=== PATIENT | male | born 1940 | race Caucasian/White ===

== ENCOUNTER 2023-09-07 11:56 | Day surgery (SDC) | payer MEDICARE, SELFPAY ==
[2023-09-07] VITALS (10 sets, daily range): BP systolic 110–131; BP diastolic 73–94
[2023-09-07 12:42] LABS: Hematocrit 32.6 % (39.0-52.0); Hemoglobin 10.6 g/dL (13.0-18.0); Mean Corp Hgb Conc. 32.5 g/dL (33.0-37.0); Mean Corpuscular Volume 101.6 fL (80.0-94.0); Mean Platelet Volume 11.7 fL (7.4-10.4); Platelet Count 91 10^3/uL (130-400); Red Blood Cell Count 3.21 10^6/uL (4.70-6.10); Red Cell Dist. Width 14.6 % (11.5-14.5); White Blood Cell Count 4.6 10^3/uL (4.8-10.8)
[2023-09-07 12:50] LABS: APTT 34.4 Sec (23.4-35.0)
[2023-09-07 12:51] LABS: Blood Urea Nitrogen 48 mg/dl (9-20); Carbon Dioxide 32 mmol/L (22-30); Chloride 101 mmol/L (98-107); Estimated Creatinine Clearance 21 ml/min; Glucose 83 mg/dl (70-99); Potassium 3.8 mmol/L (3.5-5.1); Sodium 140 mmol/L (135-145); eGFR 19.86
[2023-09-07] MEDS: PERIDEX 0.12% ORAL RINSE 15 ML PO (13:02)
[2023-09-07] MEDS: BACTROBAN NASAL 1 GRAM NASAL (13:03)
[2023-09-07] MEDS: NSS 500 IV (13:03)
[2023-09-07 13:09] LABS: Glucose - Point of Care 86 mg/dl (70-99)
--- NOTE | 2023-09-07 16:04 | W.SUR.PREOP ---
Pre-Operative Surgical Note
-
I have examined this patient prior to the performance of the scheduled procedure.
The patient's condition is unchanged from the time of the current History and
Physical and the patient is able to undergo the scheduled procedure.
--- NOTE | 2023-09-07 17:48 | W.SUR.POST ---
Surgical Immediate Post Op
Note
Pre Op Diagnosis: ESRD
Post Op Diagnosis: ESRD
Procedure Performed: Right upper extremity brachial basilic stage I AV fistula creation
Primary Surgeon: Tuan Rivas III, MD
geriatric assistant: EVAN Rooney
Anesthesia: GETA
Estimated Blood Loss: 10 mL
Fluids: See anesthesia flowsheet
Drains/Shunts: N/A
Specimens/Cultures: N/A
Doppler/Duplex/Angio (Y/N): Y, Doppler
Complications: None
Operative Findings: Right upper extremity AV fistula with palpable thrill postoperatively, Doppler radial and ulnar pulses at right
[2023-09-07 18:04] LABS: Glucose - Point of Care 71 mg/dl (70-99)
--- NOTE | 2023-09-07 18:11 | SUR.PHASEI ---
Rec'd alert and awake oriented x 3 by RN positioned for comfort, denies c/o, chevron intact upper R chest
--- NOTE | 2023-09-07 18:21 | SUR.PHASEI ---
Alert, awake, vss, denies c/o
--- NOTE | 2023-09-07 18:22 | OR.RPT ---
Operative Report
Operative Report
Date of Operation: 09/07/2023
Pre Op Diagnosis: End-stage renal disease requiring hemodialysis and in need of more permanent hemodialysis access
Post Op Diagnosis: End-stage renal disease requiring hemodialysis and in need of more permanent hemodialysis access
Procedure: Creation of right upper extremity brachiobasilic AV fistula (first stage of a planned two-stage basilic vein transposition)
Surgeon: Tuan Rivas III, MD
Invoice Machine Operator: EVAN Pascual (assisted with all portions of the procedure including but not limited to incision, exposure, anastomosis and closure)
Anesthesia: General
Complications: None
Estimated Blood Loss: Less than 20 cc
History and Indications for Procedure: 83-year-old male with end-stage renal disease requiring hemodialysis. He was in need of more permanent hemodialysis access. He has an existing left chest wall pacemaker.
Procedure in Detail: Mauro Santana was correctly identified and placed supine on the operating table. After adequate induction of anesthesia the right arm was positioned, prepped and draped in the usual sterile fashion. Preoperative antibiotics were
administered. A timeout procedure was performed with the nursing and anesthesia staff confirming the patients identity as well as the nature and laterality of the procedure.
I performed intraoperative ultrasound on the veins of the right arm. I identified the upper arm basilic vein from the elbow to the axilla which was acceptable diameter for access creation. The cephalic vein in the antecubital fossa and just
proximal to this area was small in diameter. The basilic vein appeared to be the better of the two for arteriovenous fistula creation. The brachial artery was also identified in the distal upper arm and proximal forearm. The appropriate site for
the incision was then identified in the distal upper arm, just proximal to the elbow.
An incision was then made in the distal upper arm. Careful sharp dissection was performed and the basilic vein exposed. Branches of the vein were ligated between ties. The brachial artery was exposed with sharp dissection. Proximal and distal
control was obtained with vessel loops.
The distal end of the basilic vein was ligated with 2 medium clips. The vein was transected and flushed proximally with heparinized saline. The vein flushed easily and without resistance. The vessel loops on the artery were secured. An arteriotomy
was made with an 11-blade. This was extended just slightly proximally and distally with Luo scissors. The proximal and distal artery were flushed with heparinized saline. The end of the vein was spatulated slightly. An end-to-side anastomosis was
performed from the end of the basilic vein to the brachial artery with a running 7-0 Prolene. At the completion of the anastomosis the proximal vessel loop was released first. After several heartbeats the distal brachial artery loop was released.
The suture line was closely inspected and hemostasis achieved. There was an excellent thrill in the vein. There was a good pulse in the brachial artery proximal and distal to the anastomosis.
The wound was irrigated with saline. Hemostasis was achieved in the wound bed. Local anesthesia was infiltrated into the subcutaneous tissue surrounding the wound. The wound was closed in multiple layers and sterile dressings applied.
The patient tolerated the procedure well and was taken to the PACU in stable condition.
Signed:
Tuan Rivas III, MD
[facility] Vascular Surgery
[phone] (bgjw)
--- NOTE | 2023-09-07 18:38 | SUR.PHASEI ---
Easily arouses, vss, denies c/o
== END 2023-09-07 19:37 | disposition home or self-care (01) ==
LOC: CATH 11:56
PROVIDERS: ATTENDING PHYSICIAN Surgery Vascular Surgery
DX: I13.2 Hypertensive heart and chronic kidney disease with heart failure and with stage 5 chronic kidney disease, or end stage renal disease (principal); E11.22 Type 2 diabetes mellitus with diabetic chronic kidney disease; N18.6 End stage renal disease; I50.22 Chronic systolic (congestive) heart failure; Z99.2 Dependence on renal dialysis; I48.21 Permanent atrial fibrillation; I25.10 Atherosclerotic heart disease of native coronary artery without angina pectoris; E78.5 Hyperlipidemia, unspecified; Z87.891 Personal history of nicotine dependence
CPT/HCPCS: 36821; 80048; 82962; 85027; 85610; 85730; 86850; 86900; 86901

== ENCOUNTER → 2023-09-09 10:55 | Outpatient (REF) | payer MEDICARE, SELFPAY | LOC: HWRAD 10:55 | PROVIDERS: ATTENDING PHYSICIAN Specialist | DX: R31.0 Gross hematuria (principal) | CPT/HCPCS: 76770 ==

== ENCOUNTER → 2023-10-12 07:50 | Outpatient (REF) | payer MEDICARE, SELFPAY | LOC: RAD 07:50 | PROVIDERS: ATTENDING PHYSICIAN Physician Assistant | DX: I77.0 Arteriovenous fistula, acquired (principal) | CPT/HCPCS: 93990 ==

== ENCOUNTER 2023-10-30 08:31 | Day surgery (SDC) | payer MEDICARE, SELFPAY ==
--- NOTE | 2023-10-26 15:15 | PTCARENOTE ---
Patients 2/7 EKG abnormal- reviewed by Dr. Swan- no further interventions required.
[2023-10-30] VITALS (9 sets, daily range): BP systolic 97–118; BP diastolic 53–85; BMI 31.0
[2023-10-30] MEDS: BACTROBAN NASAL 1 GRAM NASAL (09:40)
[2023-10-30] MEDS: PERIDEX 0.12% ORAL RINSE 15 ML PO (09:40)
[2023-10-30 09:42] LABS: Glucose - Point of Care 76 mg/dl (70-99)
[2023-10-30 09:58] LABS: Hematocrit 33.5 % (39.0-52.0); Hemoglobin 11.2 g/dL (13.0-18.0); Mean Corp Hgb Conc. 33.4 g/dL (33.0-37.0); Mean Corpuscular Hgb 32.7 pg (27.0-31.0); Mean Platelet Volume 12.3 fL (7.4-10.4); Platelet Count 90 10^3/uL (130-400); Red Blood Cell Count 3.42 10^6/uL (4.70-6.10); Red Cell Dist. Width 16.4 % (11.5-14.5); White Blood Cell Count 5.2 10^3/uL (4.8-10.8)
[2023-10-30 10:08] LABS: Blood Urea Nitrogen 43 mg/dl (9-20); Calcium 9.2 mg/dl (8.4-10.2); Carbon Dioxide 30 mmol/L (22-30); Chloride 96 mmol/L (98-107); Estimated Creatinine Clearance 17 ml/min; Glucose 82 mg/dl (70-99); Sodium 137 mmol/L (135-145); eGFR 15.96
[2023-10-30 10:09] LABS: APTT 29.4 Sec (23.4-35.0); INR 1.29; PT 15.9 Sec (11.4-14.6)
[2023-10-30 10:19] LABS: Potassium 4.4 mmol/L (3.5-5.1)
--- NOTE | 2023-10-30 12:48 | W.SUR.POST ---
Surgical Immediate Post Op
Note
Pre Op Diagnosis: ESRD
Post Op Diagnosis: Same
Procedure Performed: Right upper extremity second stage superficialization of AV fistula
Primary Surgeon: Evelyn
Secondary Surgeons: Charmaine GORDON
Anesthesia: LMA
Estimated Blood Loss: 25 cc
Fluids: See anesthesia flowsheet
Drains/Shunts: None
Specimens/Cultures: None
Doppler/Duplex/Angio (Y/N): Y
Complications: None
Operative Findings: + thrill, palpable radial pulse
--- NOTE | 2023-10-30 12:52 | W.[place]-PDMP ---
[place]-PD[place]
-
Checked the [place]- Prescription Drug Monitoring Program website, no red flags identified; safe to proceed with prescription.
--- NOTE | 2023-10-30 12:58 | OR.RPT ---
Operative Report
Operative Report
Date of Operation: 10/30/2023
Pre Op Diagnosis: Upper extremity brachiobasilic AV fistula (status post 1st stage of planned 2 stage basilic vein transposition)
Post Op Diagnosis: Upper extremity brachiobasilic AV fistula (status post 1st stage of planned 2 stage basilic vein transposition)
Procedure: Revision of right upper extremity brachiobasilic AV fistula with transposition of the basilic vein (second stage BVT)
Surgeon: Tuan Rivas III, MD
Order Department Supervisor: EVAN Adams (assisted with all portions of the procedure from incision to closure)
Anesthesia: General
Complications: None
Estimated Blood Loss: 20 cc
History and Indications for Procedure: 83-year-old male with recently created right upper extremity brachiobasilic AV fistula. This was the first stage of a planned two-stage procedure. He was brought back to the operating room today for the
second stage basilic vein transposition.
Procedure in Detail: Mauro Santana was correctly identified and placed supine on the operating table. After adequate induction of anesthesia the right arm was abducted 90 degrees. A timeout procedure was performed with the nursing and anesthesia
staff confirming the patient's identity and the nature and laterality of the procedure. The basilic vein was marked in the upper arm with ultrasound guidance. The arm was then circumferentially prepped and draped in the usual sterile fashion. We
made an incision over the medial upper arm. The entire basilic vein was dissected with careful sharp dissection. All branches were ligated and divided between silk ties and metal clips. The vein was good caliber along the entire course and had an
excellent thrill. Once the entire vein had been carefully dissected we then created a gentle curved tunnel lateral to the incision over the bicep with a tunneling device. Proximal control was obtained on the vein with a curved profunda clamp. The
vein was marked and then transected near the arterial anastomosis. The vein was then brought through the tunnel carefully. The two ends of the vein were anastomosed to one another in an end-to-end fashion using a running 7-0 Prolene suture. At the
completion of the anastomosis the clamp was released and flow restored through the fistula. There was an excellent thrill in the tunnel. The suture line was inspected for hemostasis and this was achieved. The wound was irrigated with warm saline
solution. Hemostasis was achieved in the wound bed. A MARGUERITE drain was left in the wound bed and brought out through a separate stab incision in the skin. This was secured in place with a prolene suture at the skin level. The wound was then closed in
multiple layers and sterile dressings applied. The patient had an easily palpable thrill in the tunnel and a palpable radial pulse at the wrist at the conclusion of the case.
Signed:
Tuan Rivas III, MD
[facility] Vascular Surgery
[phone] (nxjg)
[2023-10-30 13:10] LABS: Glucose - Point of Care 84 mg/dl (70-99)
[2023-10-30] MEDS: TYLENOL 650 MG PO (14:00)
[2023-10-30] MEDS: ROXICODONE 2.5 MG PO (14:49)
== END 2023-10-30 15:25 | disposition home or self-care (01) ==
LOC: CATH 08:31
PROVIDERS: ATTENDING PHYSICIAN Surgery Vascular Surgery; OTHER PHYSICIAN Internal Medicine Cardiovascular Disease
DX: Z49.01 Encounter for fitting and adjustment of extracorporeal dialysis catheter (principal); I12.0 Hypertensive chronic kidney disease with stage 5 chronic kidney disease or end stage renal disease; E11.22 Type 2 diabetes mellitus with diabetic chronic kidney disease; N18.6 End stage renal disease; Z99.2 Dependence on renal dialysis; I48.21 Permanent atrial fibrillation; I25.10 Atherosclerotic heart disease of native coronary artery without angina pectoris
CPT/HCPCS: 36832; 80048; 82962; 85027; 85610; 85730

== ENCOUNTER 2023-12-15 10:57 | Day surgery (SDC) | payer MEDICARE, SELFPAY ==
[2023-12-15] VITALS (25 sets, daily range): BP systolic 61–129; BP diastolic 39–78; BMI 26.2
[2023-12-15 11:42] LABS: Hematocrit 30.1 % (39.0-52.0); Hemoglobin 10.2 g/dL (13.0-18.0); Mean Corp Hgb Conc. 33.9 g/dL (33.0-37.0); Mean Corpuscular Hgb 33.3 pg (27.0-31.0); Mean Corpuscular Volume 98.4 fL (80.0-94.0); Mean Platelet Volume 11.5 fL (7.4-10.4); Platelet Count 99 10^3/uL (130-400); Red Blood Cell Count 3.06 10^6/uL (4.70-6.10); White Blood Cell Count 5.6 10^3/uL (4.8-10.8)
[2023-12-15 11:54] LABS: Blood Urea Nitrogen 38 mg/dl (9-20); Calcium 8.9 mg/dl (8.4-10.2); Carbon Dioxide 32 mmol/L (22-30); Chloride 100 mmol/L (98-107); Estimated Creatinine Clearance 18 ml/min; Glucose 86 mg/dl (70-99); Potassium 4.5 mmol/L (3.5-5.1); Sodium 139 mmol/L (135-145); eGFR 19.09
[2023-12-15 11:57] LABS: INR 1.33; PT 16.3 Sec (11.4-14.6)
[2023-12-15 11:58] LABS: APTT 33.1 Sec (23.4-35.0)
[2023-12-15] MEDS: PERIDEX 0.12% ORAL RINSE 15 ML PO (12:18)
[2023-12-15] MEDS: BACTROBAN NASAL 1 GRAM NASAL (12:18)
[2023-12-15] MEDS: NSS 500 IV (12:18)
--- NOTE | 2023-12-15 15:00 | W.SUR.PREOP ---
Pre-Operative Surgical Note
-
I had a long conversation with Mr. Santana and his daughter at the bedside. His right upper extremity AV fistula has thrombosed. This had not been successfully accessed at dialysis after the second stage basilic vein transposition.
I explained that 1 option would be to attempt to declot the fistula however given the early failure without ever accessing the vein I was concerned that I would not be successful and that it may not be a durable intervention. I also explained that
given his right-sided tunneled dialysis catheter he may have a central stenosis. He has an AICD/PPM on the left chest wall.
The other option is to proceed with creation of an AV graft. The technical aspects of this procedure were discussed with him in detail. The benefits and rationale for this approach were discussed with them in detail. Operative risks were
discussed with them in detail including but not limited to bleeding, access failure, nerve injury, infection, arterial steal and the need for additional procedures.
They both expressed a clear understanding of our conversation and would like to attempt AV graft creation. We will move ahead with this approach today.
Tuan Rivas III, MD
[facility] [address] Vascular Surgery
[phone] (ibtc)
I have examined this patient prior to the performance of the scheduled procedure.
The patient's condition is unchanged from the time of the current History and
Physical and the patient is able to undergo the scheduled procedure.
--- NOTE | 2023-12-15 18:21 | W.IMMPOSTOP ---
Surgical Immed Post Op Note
-
Primary Surgeon: Dr. Tuan Rivas III, MD
Assisting Surgeon: Dr. Brenton Hamilton MD, PhD (PGY-1)
Pre-op Diagnosis: End stage renal disease requiring hemodialysis with thrombosed AV fistula
Post-op Diagnosis: End stage renal disease requiring hemodialysis with thrombosed AV fistula
Procedure Performed: Right upper extremity AV fistula revision with graft
Anesthesia Type: General
Specimen / Cultures: None
Estimated Blood Loss: Minimal
Complications: None
Operative Findings: The patient was brought to the OR and placed in the supine position. After induction and intubation, ultrasound was used for right upper extremity arterial and venous mapping. The patient was prepped and draped in usual sterile
fashion. Two incisions were made, one overlying the axillary vein and another over the brachial artery. Sharp and electrocautery dissection was performed until the vein was exposed. Once the vein was exposed vessel loops were passed around for
proximal and distal control of the vein. The soft tissue overlying the brachial artery was dissected with sharp and electrocautery until it was circumferentially exposed. Proximal and distal control was obtained in the brachial artery with vessel
loops. A tunneler was passed along the subcutaneous tissues between the brachial artery and the axillary vein. A tapered graft (11mm to 8mm) was brought to the field and tunneled within the subcutaneous tissues. Arteriotomy was performed with an 11
blade and extended with Luo scissors. Heparinized saline was injected into the artery proximally and distally. A 7-0 prolene suture was used for a running end to side anastomosis with the 8mm graft and the brachial artery. Once this arterial-graft
anastomosis was completed, a clamp was placed on the arterial end of the graft. Then a venotomy was made with 11 blade and extended with Luo scissors. Heparinized saline was injected into the vein proximally and distally. A clamp was placed on the
vein distally for better distal control. The 11mm portion of the graft was then anastomosed end to side with the vein using 7-0 running prolene suture. Once the venous anastomosis was completed, the clamp on the arterial graft was removed and an
excellent palpable thrill was noted along the length of the graft. Hemostasis was achieved in both of the wound beds using fibrillar. Tissue layers and skin were closed with 3-0 and 4-0 running suture and skin glue. At the conclusion of the case,
the patient continued to have an excellent palpable thrill and was transported to the PACU in stable condition.
--- NOTE | 2023-12-15 18:53 | OR.RPT ---
Operative Report
Operative Report
Date of Operation: 12/15/2023
Pre Op Diagnosis: Failed right upper extremity arteriovenous fistula and with need for more permanent hemodialysis access
Post Op Diagnosis: Failed right upper extremity arteriovenous fistula and with need for more permanent hemodialysis access
Procedure: Creation of right upper arm AV graft for hemodialysis (4-7 mm Propaten)
Surgeon: Tuan Rivas III, MD
Desizing Machine Offbearer: Brenton Hamilton MD PhD, PGY1
Anesthesia: General
Complications: None
Estimated Blood Loss: Less than 20 cc
History and Indications for Procedure: 83-year-old male with thrombosed right upper extremity basilic vein transposition arteriovenous fistula. He is still in need of more permanent hemodialysis access and was brought to the operating room with
plans for AV graft creation.
Procedure in Detail: Mauro Santana was correctly identified and placed supine on the operating table. After adequate induction of anesthesia the right arm was positioned, prepped and draped in the usual sterile fashion. Preoperative antibiotics were
administered. A timeout procedure was performed with the nursing and anesthesia staff confirming the patients identity as well as the nature and laterality of the procedure.
Just proximal to the antecubital fossa over the brachial pulse a vertical incision was made. Electrocautery was used to divide the subcutaneous tissue. The brachial artery was sharply exposed and proximal and distal control was obtained with vessel
loops .
Over the proximal medial upper arm near the axilla another incision was made. Electrocautery was used on the subcutaneous tissue. The axillary vein was dissected out at this level and proximal and distal control was obtained with vessel loops.
A gentle curved tunnel was created between the 2 incisions over the lateral arm. A 4-7 mm tapered Propaten graft was brought carefully through the tunnel keeping the correct orientation. The 4 mm side was for the arterial anastomosis and the 7 mm
side for the venous.
The vessel loops on the brachial artery were secured. A small arteriotomy was created with an 11 blade and extended just slightly proximally and distally with Luo scissors to accommodate the 4 mm graft anastomosis. The proximal and distal artery
were flushed with heparinized saline solution. The 4 mm end of the graft was sewn end-to-side to the brachial artery with a running 7-0 Prolene suture. At the completion of the anastomosis the proximal brachial artery vessel loop was released
first. There was excellent pulsatile bleeding from the 7 mm end of the graft. The distal vessel loop was then released. The graft was back flushed with heparinized saline solution and a clamp was placed on the graft just off the arterial
anastomosis.
The vessel loops on the vein were then secured. A venotomy was made with an 11-blade and extended proximally and distally with Luo scissors. The 7 mm end of the graft was cut and bevelled appropriately and an end to side anastomosis was created
using a running 7-0 Prolene suture. At the completion of the anastomosis the vessel loops were released.
There was an good pulse in the brachial artery proximal and distal to the suture line. There was an good quality, easily palpable thrill in the graft along the entire course in the upper arm. The patient had a palpable radial pulse at the wrist at
the conclusion of the case. Both suture lines were inspected for hemostasis which was achieved.
The wounds were then irrigated with warm saline. Hemostasis was achieved in the wound beds. The wounds were closed in layers and sterile dressings applied.
The patient tolerated the procedure well and was taken to the PACU in stable condition.
Attestation: I was present and responsible for the entire procedure
Signed:
Tuan Rivas III, MD
[facility] Vascular Surgery
[phone] (nwcw)
--- NOTE | 2023-12-15 20:36 | PTCARENOTE ---
dr zapata aware of pts bp 84/49after the 500cc nss bolus . pt awake alert and oriented. ate amd drank without difficulty. daughter at bedside . instructions per dr zapata for daughter to hold bp meds and call him in the am. pt to be discharged
now per dr zapata
== END 2023-12-15 20:51 | disposition home or self-care (01) ==
LOC: CATH 10:57
PROVIDERS: ATTENDING PHYSICIAN Surgery Vascular Surgery
DX: T82.868A Thrombosis due to vascular prosthetic devices, implants and grafts, initial encounter (principal); Y83.9 Surgical procedure, unspecified as the cause of abnormal reaction of the patient, or of later complication, without mention of misadventure at the time of the procedure; N18.6 End stage renal disease; Z99.2 Dependence on renal dialysis; I13.2 Hypertensive heart and chronic kidney disease with heart failure and with stage 5 chronic kidney disease, or end stage renal disease; E11.22 Type 2 diabetes mellitus with diabetic chronic kidney disease; I50.22 Chronic systolic (congestive) heart failure; I48.21 Permanent atrial fibrillation; I25.10 Atherosclerotic heart disease of native coronary artery without angina pectoris; E78.5 Hyperlipidemia, unspecified; Z85.028 Personal history of other malignant neoplasm of stomach; Z87.891 Personal history of nicotine dependence
CPT/HCPCS: 36830; 80048; 85027; 85610; 85730; C1768

== ENCOUNTER → 2024-01-04 10:18 | Outpatient (REF) | payer MEDICARE, SELFPAY ==
[2024-01-04 12:51] LABS: TSH Reflex To Free T4 3.39 uIU/ml (0.47-4.68)
[2024-01-04 13:24] LABS: ALT (SGPT) 62 U/L (0-50); AST (SGOT) 163 U/L (17-59); Albumin 3.2 g/dl (3.5-5.0); Alkaline Phosphatase 306 U/L (38-126); Blood Urea Nitrogen 53 mg/dl (9-20); Carbon Dioxide 29 mmol/L (22-30); Chloride 99 mmol/L (98-107); Glucose 72 mg/dl (70-99); Potassium 4.6 mmol/L (3.5-5.1); Sodium 142 mmol/L (135-145); Total Bilirubin 1.9 mg/dl (0.2-1.3); Total Protein 7.3 g/dl (6.3-8.2); eGFR 12.54
== END ==
LOC: REG 10:18
PROVIDERS: ATTENDING PHYSICIAN Internal Medicine Cardiovascular Disease
DX: I48.0 Paroxysmal atrial fibrillation (principal)
CPT/HCPCS: 36415; 80053; 84443

== ENCOUNTER → 2024-01-11 09:44 | Outpatient (REF) | payer MEDICARE, SELFPAY ==
[2024-01-11 11:56] LABS: ALT (SGPT) 51 U/L (0-50); AST (SGOT) 139 U/L (17-59); Albumin 2.8 g/dl (3.5-5.0); Alkaline Phosphatase 294 U/L (38-126); Blood Urea Nitrogen 63 mg/dl (9-20); Calcium 8.8 mg/dl (8.4-10.2); Carbon Dioxide 30 mmol/L (22-30); Chloride 99 mmol/L (98-107); Glucose 80 mg/dl (70-99); Potassium 4.3 mmol/L (3.5-5.1); Sodium 140 mmol/L (135-145); Total Protein 6.4 g/dl (6.3-8.2); eGFR 10.51
== END ==
LOC: HWRCS 09:44
PROVIDERS: ATTENDING PHYSICIAN Internal Medicine Cardiovascular Disease
DX: I48.0 Paroxysmal atrial fibrillation (principal)
CPT/HCPCS: 36415; 80053; 93306

== ENCOUNTER 2024-01-18 21:50 | Inpatient (IN) | payer MEDICARE, SELFPAY ==
[2024-01-18] VITALS (35 sets, daily range): BP systolic 74–103; BP diastolic 40–68
[2024-01-18 14:18] LABS: % Basophils 0.6 % (0-2); % Eosinophils 0.6 % (0-6); % Immature Granulocytes 0.5 % (0-0.5); % Lymphocytes 6.7 % (20.5-51.1); % Monocytes 6.7 % (1.7-9.3); % Neutrophils 84.9 % (42.2-75.2); Absolute Basophils 0.1 10^3/uL (0-0.2); Absolute Eosinophils 0.1 10^3/uL (0-0.7); Absolute Immature Granulocytes 0.1 10^3/uL (0-0.05); Absolute Lymphocytes 0.8 10^3/uL (1.2-3.4); Absolute Monocytes 0.8 10^3/uL (0.1-0.6); Absolute Neutrophils 10.6 10^3/uL (1.4-6.5); Hematocrit 29.6 % (39.0-52.0); Hemoglobin 10.3 g/dL (13.0-18.0); Mean Corp Hgb Conc. 34.8 g/dL (33.0-37.0); Mean Corpuscular Hgb 33.9 pg (27.0-31.0); Mean Corpuscular Volume 97.4 fL (80.0-94.0); Mean Platelet Volume 11.9 fL (7.4-10.4); Nucleated Red Blood Cells % 0 % (-); Platelet Count 92 10^3/uL (130-400); Red Blood Cell Count 3.04 10^6/uL (4.70-6.10); Red Cell Dist. Width 16.3 % (11.5-14.5); White Blood Cell Count 12.5 10^3/uL (4.8-10.8)
[2024-01-18 14:37] LABS: ALT (SGPT) 49 U/L (0-50); AST (SGOT) 189 U/L (17-59); Albumin 2.9 g/dl (3.5-5.0); Alkaline Phosphatase 283 U/L (38-126); Blood Urea Nitrogen 56 mg/dl (9-20); Calcium 8.7 mg/dl (8.4-10.2); Carbon Dioxide 25 mmol/L (22-30); Chloride 100 mmol/L (98-107); Glucose 117 mg/dl (70-99); Potassium 4.6 mmol/L (3.5-5.1); Sodium 139 mmol/L (135-145); Total Bilirubin 2.9 mg/dl (0.2-1.3); Total Protein 6.5 g/dl (6.3-8.2); eGFR 10.26
[2024-01-18 14:39] LABS: Lactic Acid 4.1 mmol/L (0.7-2.0)
[2024-01-18] MEDS: NSS 250 IV (15:06)
--- NOTE | 2024-01-18 16:39 | ED.GENMED ---
History of Present Illness
General
Chief Complaint: Weakness
Source: patient and family (Daughter)
Exam Limitations: none
Time Seen by Provider: 01/18/24 14:33
Nursing documentation reviewed up to this point in time: agreed with
History of Present Illness
History of Present Illness:
83-year-old male with a past medical history of hypertension, hyperlipidemia, atrial fibrillation, pacemaker, CHF, ESRD on dialysis (Thursday//Thursday schedule), diabetes, BENJIE on CPAP, chronic anemia who presents to the emergency room with
his daughter for evaluation of increasing generalized weakness, worsening shortness of breath patient also complaining of abdominal discomfort. Patient currently lives at home with his and daughter lives an hour plus away but will help when
needed. Patient reportedly has had issues with hypotension recently and was started on midodrine with dialysis. Apparently for the past 3 to 4 days patient has had worsening generalized weakness and fatigue. He apparently has had increasing
difficulty with his breathing to the point that he has to rest multiple times on the walk from the car to the entrance to the dialysis center. Patient says that over the past few days he has noticed he is having some abdominal discomfort. Daughter
notes that he has had some increased swelling of his legs as well as some redness. Today patient was very weak and appeared to be 'doped up' and lethargic and so daughter called EMS to bring him to the hospital. He denies any chest pain. He does
admit that he is occasionally short of breath. Denies any cough. He denies any nausea or vomiting but has had some abdominal discomfort. Denies diarrhea. He has not had fever or chills. He has received his regular dialysis last treatment was
Thursday and he is scheduled for dialysis tomorrow.
Past History
Past History
ED Past Medical History: Arrthythmia (afib), CAD, CHF, HTN, Hypercholesterolemia, Valvular disease, Other and Other (GI bleed, renal insufficiency)
ED Past Surgical History: Appendectomy, Cardiac and Orthopedic
Social History
Tobacco: Former smoker
Alcohol: None
Drug: None
Personal:
Living: with family
Employment: Employed
Family History
Family History: Unable to obtain
Review of Systems
Review of Systems
All Other Systems: ROS reviewed and negative except as documented in HPI and ROS
Constitutional: Reports fatigue; Denies fever or chills
EENT: Denies sore throat or runny nose
Respiratory: Reports trouble breathing; Denies cough
Cardiac: Denies chest pain or palpitations
ABD/GI: Reports abdominal pain and nausea; Denies vomiting or diarrhea
: Denies flank pain
Musculoskeletal: Reports edema; Denies neck pain or back pain
Neurological: Denies dizzy or headache
Phy Exam
Physical Exam
Physical Exam:
General: Patient somewhat lethargic but wakes upon my entering the room; he is oriented x 3; he does not appear to be in acute distress
Head: Normocephalic, atraumatic
Eyes: Faint scleral icterus, pupils equal round and reactive to light bilaterally
Throat: Airway intact, handling secretions
Neck: Trachea midline, supple without meningismus
Lungs: Scattered rhonchorous breath sounds but no focal wheezing or rales, very mild tachypnea but no increased work of breathing, normal pulse ox on room air
Heart: Regular rate and rhythm, no murmurs, gallops, or rubs; pacemaker in place
Abd: Soft, non distended, diffusely tender maximal right upper quadrant, no peritoneal signs
Neuro: No focal deficits noted
Skin: Patient has some minor leg wounds bilaterally with some faint surrounding erythema but no warmth or induration
Extremities: Patient has bilateral +1 edema in the lower extremities; distal extremities are warm and well-perfused
Scores
Heart Failure Risk
Heart Failure Risk Score: Not Applicable
Heart Score for Chest Pain Patients
STEMI patient?: Not applicable
Withdrawal Assessment of Alcohol
Withdrawal Assessment Completed?: Not applicable
Course
Orders/Labs/Results
Orders:
Orders
01/18/24 14:03
Electrocardiogram (*1) Urgent
Reason for Study: Fatigue / Weakness
EKG- Treatment ONCE
01/18/24 14:10
Type And Crossmatch Urgent
Complete Blood Count/With Diff Urgent
Comprehensive Metabolic Panel Urgent
Lactic Acid Urgent
NT-proBNP Urgent
Comment: ADDON
Blood Culture Urgent
JENNIFER Source: Blood/Venous
Specimen Description:
Blood Culture Urgent
JENNIFER Source: Blood/Venous
Specimen Description:
01/18/24 14:51
Urinalysis Reflex To Culture Urgent
CR Chest Portable - 1 View Urgent
Comment:
Reason For Exam: sob
Reason Study Needs to be Portable: Unable to Transport
01/18/24 15:00
0.9% Sodium Chloride 250 ml [Nss] 250 ml IV BOLUS
01/18/24 15:01
US Abdomen Complete/Upper Urgent
Comment:
Reason For Exam: RUQ pain and tenderness
01/18/24 15:05
Interrogate Pacemaker- Treatment ONCE
01/18/24 16:56
CT Abd/pelvis W Iv Cont Urgent
Comment:
Reason For Exam: abdominal pain, TTP, hypotension
01/18/24 17:09
NEPHROLOGY CONSULT Urgent
Consulting Provider: Jian Morin
Was physician already notified: Yes
01/18/24 17:19
Add On- LAB Urgent
Tests Added?: pro-BNP
01/18/24 18:29
Hemodialysis treatment As Directed
Treatment date:: 01/19/24
Treatment type: Hemodialysis
Ultrafiltration (kg): 1-1.5
Treatment time (duration): 3 hours 30 minutes
Use dialysis access:: AVG
Dialyzer:: Optiflux 160
Blood flow rate minimum: 350
Blood flow rate maximum: 400
Dialysis flow rate: 600 mL/min
Dialysate temperature: 37 degrees Celsius
Sodium (Na): 137
Potassium (K): 2
Calcium (Ca): 2.5
Bicarbonate (HCO3): 35
01/18/24 19:32
Cefepime HCl [Maxipime] 1,000 mg IV NOW STA
Vancomycin [Vancocin] 1,500 mg 0.9% Sodium Chloride [Nss] 20 ml 0.9% Sodium Chloride 250 ml [Nss] 250 ml IV NOW
01/18/24 19:45
NORepinephrine 4 MG/250 ML [Levophed] 4 mg in 250 ml IV PER PROTOCOL
Initial dose in mcg/min, then titrate:: 2
Titrate to keep:: MAP > 65 mmHg
Titrate by mcg/min:: 1-2 mcg/min
Frequency of titrations (minutes):: 5
Maximum dose in ICU in mcg/min:: 30
Maximum dose in IMU in mcg/min:: 8
Maximum dose in IVU in mcg/min:: 4
Begin to taper infusion when:: Remained at goal for 4hrs
Taper by mcg/min:: 1-2 mcg/min
Frequency of taper (minutes) if patient maintains goal:: 30
Taper to off?: Yes
If infusion off & no longer maintaining goal:: Contact Provider
01/18/24 20:38
Admit/Transfer Patient As Directed
Co-Sign Provider:
Level of Care: Inpatient admission
Assign to:: IMU- Intermediate Care
Physician / Group: cheng
Diagnosis: septic shock/cardiogenic shock
Reason for Hospitalization: septic shock/cardiogenic shock
Expected length of stay greater than two midnights?: Yes
ELOS- Estimated Length of Stay in days: 2
I certify the patient meets the requirements for IP care: Yes
01/18/24 20:39
Code Status As Directed
Resuscitation Status: Full Code
01/19/24 08:00
Albumin Human 25% 50 ml [Flexbumin 25% For Hemodialysis] 12.5 grams IV HD-Q1HPRN PRN
Epoetin Attila-Epbx [Retacrit] 3,000 units IV HD-ONCE ONE
Mannitol 25% 12.5 grams IV HD-Q1HPRN PRN
Midodrine [ProAmatine] 5 mg PO HD-ONCE ONE
Abnormal Lab Results
01/18/24
14:10
WBC 12.5 H 10^3/uL
(4.8-10.8)
RBC 3.04 L 10^6/uL
(4.70-6.10)
Hgb 10.3 L g/dL
(13.0-18.0)
Hct 29.6 L %
(39.0-52.0)
MCV 97.4 H fL
(80.0-94.0)
MCH 33.9 H pg
(27.0-31.0)
RDW 16.3 H %
(11.5-14.5)
Plt Count 92 L 10^3/uL
(130-400)
MPV 11.9 H fL
(7.4-10.4)
Abs Immat Gran (auto) 0.1 H 10^3/uL
(0-0.05)
Absolute Neuts (auto) 10.6 H 10^3/uL
(1.4-6.5)
Absolute Lymphs (auto) 0.8 L 10^3/uL
(1.2-3.4)
Absolute Monos (auto) 0.8 H 10^3/uL
(0.1-0.6)
Neutrophils % 84.9 H %
(42.2-75.2)
Lymphocytes % 6.7 L %
(20.5-51.1)
BUN 56 H mg/dl
(9-20)
Creatinine 5.2 H* mg/dL
(0.7-1.3)
Glucose 117 H mg/dl
(70-99)
Lactic Acid 4.1 H* mmol/L
(0.7-2.0)
Total Bilirubin 2.9 H mg/dl
(0.2-1.3)
AST 189 H U/L
(17-59)
Alkaline Phosphatase 283 H U/L
(38-126)
Albumin 2.9 L g/dl
(3.5-5.0)
01/18/24 14:10
01/18/24 14:10
Vital Signs
Initial and Last Documented VS:
Initial Vital Signs
Temp Pulse Resp BP Pulse Ox
37.6 C 81 24 84/46 95
01/18/24 14:03 01/18/24 14:03 01/18/24 14:03 01/18/24 14:03 01/18/24 14:03
Last Documented Vital Signs
Temp Pulse Resp BP Pulse Ox
37.6 C 82 22 85/47 94
01/18/24 14:03 01/18/24 20:15 01/18/24 20:15 01/18/24 20:15 01/18/24 20:15
MDM/Problems Addressed
Differential Diagnosis Includes:
Differential diagnosis is wide and includes but not limited to: Infection such as pneumonia, intra-abdominal infection (cholecystitis, diverticulitis, colitis), cellulitis, bacteremia; would also consider electrolyte derangement, anemia,
dehydration, polypharmacy, deconditioning, CHF
MDM/Problems Addressed:
83-year-old male with extensive medical history presents for worsening generalized weakness, shortness of breath. He presents hypotensive, tachypneic. Afebrile, normal pulse, normal pulse ox on room air. Physical exam as above. Plan to place an
IV check labs including a CBC and a CMP, BNP. Send lactate and blood cultures. Check a chest x-ray. Will check an upper abdominal ultrasound as he does have tenderness in the upper abdomen. EKG reviewed shows paced rhythm. Will interrogate
device. Will provide some gentle IV fluids�hold on vigorous resuscitation despite his hypotension given his history of ESRD, history of CHF and his current edema on exam. Monitor very closely and reassess after the above.
Initial labs reviewed: CBC does show leukocytosis to 12.5, stable anemia, stable thrombocytopenia. His CMP shows creatinine of 5.2 in keeping with ESRD but no marked electrolyte derangements. His lactate is significantly elevated at 4.1. His T.
bili is elevated 2.9�this is been chronically elevated but higher than usual today. Marginal elevation of AST. His proBNP is greater than 27,000. Chest x-ray shows mild pulmonary edema. Abdominal ultrasound shows cholelithiasis but no signs of
acute cholecystitis and no biliary ductal dilation. With leukocytosis and hypotension, diffuse abdominal tenderness we will send for CT abdomen pelvis to rule out alternate abdominal infection. I do wonder based on his full clinical picture
whether he could be in cardiogenic shock with clear signs of acute CHF, worsening dyspnea, hypotension and elevated lactate. He did not improve his blood pressure with IV fluids will plan to treat with vasopressors and hold on additional fluids.
Case discussed with nephrology given his renal failure and need for IV contrast for CT scan�will plan for typical dialysis tomorrow and they will consult.
CT abdomen pelvis shows small amount of ascites but no other acute intra-abdominal abnormality. Will plan to cover patient with broad-spectrum antibiotics as he is at risk for bacteremia and has persistent hypotension requiring vasopressors here;
will follow blood cultures. Suspect this is more likely cardiogenic. Will admit for continued care. Case discussed with hospitalist for admission.
Chronic conditions affecting care:
CHF, ESRD
*Radiology
Radiology exam reviewed: preliminary read by ED provider and radiology read reviewed
*Pulse Oximetry
Patient hypoxic: no
*EKG
Interpreted by ED Provider?: Yes
Heart Rate: 80
Rate: normal
Rhythm: ventricular paced
*Critical Care Note
Total Time (30-74mins, 75-104mins- exclusive of procedures): 45
comment:
Critical care statement: A total of 45 minutes of critical care time was provided for this patient. This includes management of unstable vital signs, evaluation of the patient at bedside, frequent reassessment, discussion with
consultants/hospitalist, and review of pertinent medical records. This time was separate from time utilized to perform any aforementioned documented procedures
Data Reviewed
Review of Other/Old Records Reveals: Labs and Records
Source: patient, records and family
Patient Management
Discussion with other providers: Hospitalist (Discussed with hospitalist) and [employer] (Discussed with nephrology)
Escalation/DeEscalation of care consider admission/obs:
Admission indicated
ED Attending Note
-
Portions of this chart may have been created with voice recognition software.� Occasional wrong word or��sound alike� substitutions may have occurred due to the inherent limitations of voice recognition software.
Discharge Plan
Departure
Patient Disposition: Admit
Date of Disposition: 01/18/24
Time of Disposition: 20:00
Admit to doctor: Jessi
Presentation/result/management discussed w/ accepting MD/DO: Hospitalist
Discharge Problem:
CHF (congestive heart failure), Cardiogenic shock
Prescriptions:
No Action
atorvastatin 20 MG tablet
20 mg PO HS
allopurinol 100 MG tablet
100 mg PO DAILY
ferrous sulfate 325 mg (65 mg iron) tablet
325 mg PO DAILY Qty: 30 0RF
metoprolol succinate 25 mg tablet extended release 24 hr
25 mg PO HS
acetaminophen 500 mg Tablet
1,000 mg PO BIDPRN PRN (Reason: mild pain)
cholecalciferol (vitamin D3) 25 mcg (1,000 unit) Tablet
25 mcg PO TUTHSA
Mircera 30 mcg/0.3 mL Syringe
30 mcg SC Q4W
hydrocortisone 1 % Lotion
1 applic TOPICAL DAILYPRN PRN (Reason: rash on back)
midodrine 5 mg Tablet
5 mg PO TUTHSA
Patient Comments:
01/18/24: 1/2 hour before dialysis
amiodarone [Pacerone] 200 mg tablet
200 mg PO DAILY
Referrals:
NONE,* [Family Provider] -
Interventions
Interventions:
*Risk Screen - Suicide Last Done: 01/18/24 14:07
*General Assessment Last Done: 01/18/24 14:06
*Neglect/Abuse Screening Last Done: 01/18/24 14:07
ED- Fall Risk Assessment Last Done: 01/18/24 14:06
*ED COVID-19 Vaccine History Last Done: 01/18/24 14:07
ED- Cardiac Assessment Last Done: 01/18/24 14:09
ED- Neurological Assessment Last Done: 01/18/24 14:09
ED- Pulmonary Assessment Last Done: 01/18/24 15:00
Discharge Date and Time
Print Language: JAPANESE
--- NOTE | 2024-01-18 18:04 | W.CON.NEPH ---
Consultation
-
Date/Time Consultation Requested: 01/18/24 1630
Date/Time Consultation Performed: 01/18/24 1730
Requesting Provider: Demetrio Shoemaker
Performing Provider: Beth Moyer
Reason for Consultation: ESRD
Medical History
-
Chief Complaint: gen weakness
History of Present Illness:
83-year-old male with a past medical history of ESRD started HD in 06/2024, TTS at [facility], hypertension lately hypotension on midodrine with HD, hyperlipidemia on statin, atrial fibrillation on low dose BB and Amio, s/p ICD for VT, CHF
with low EF 30%, diabetes, BENJIE on CPAP, chronic anemia who presents to the emergency room with his daughter for evaluation of increasing generalized weakness. Daughter reports pt has been progressively weak for last 1week, last HD on 01/15 pt
completed session with out issues but when he came home was wiped out. They also noted LE edema but improving from prior. he is hard of hearing hence daughter provided most of the history. Patient reportedly has had issues with hypotension recently
and was started on midodrine with dialysis. He apparently has had increasing difficulty with his breathing to the point that he has to rest multiple times on the walk from the car to the entrance to the dialysis center. Patient says that over the
past few days he has noticed he is having some abdominal discomfort. Daughter notices mild right ankle pain this morning. Today patient was very weak and appeared to be lethargic and so daughter called EMS to bring him to the hospital. No CP or
cough. No reported fever or n/v. He still makes small amount of urine. Denies diarrhea.
He had AVF revision and graft placement on 12/17/23 and has been accessed at HD unit last week with out issues. He still has CVC HD catheter too.
IN Labs noted WBC 12.5, L acid 4, BP in 80s.NS 250cc given. CXR noted cardiomegaly and mild CHF. US abd shows gall stones and small to mod ascites.
Past Medical History
1. ESRD on HD TTS
2. Persistent atrial fibrillation off anticoagulation due to prior
GI bleed.
3. History of recurrent GI bleeds.
4. 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
5. Nonobstructive CAD.
6. Nonischemic cardiomyopathy.
7. LVEF of 30%.
8. Bioprosthetic aortic valve replacement 2010.
9. ICD 2006.
10. 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
11. Chronic lower extremity edema/lymphedema.
12. Previous hypertension.
13. Recurrent heart failure with reduced EF.
14. Bilateral renal cysts, complex.
15. Hyperlipidemia.
16. Basal cell CA.
17. Severe tricuspid regurgitation.
18. Chronic anemia with iron deficiency.
20. Diabetes mellitus type 2, off medication.
21. Colonic polyps.
22. Chronic thrombocytopenia.
Rt UE AVF creation in 08/2023, 2nd stage in 10/2023, revision with graft 12/15/2023
Social History
He resides at home with his . He is retired. He stopped smoking in 1968. He does not consume alcohol.
Tobacco: Former Smoker
Alcohol: None
Living: With Family
Family History
Father , complications of CAD. No family
history of CKD or ESRD.
Allergies / Home Medications
Allergy/AdvReac Type Severity Reaction Status Date / Time
No Known Allergies Allergy Verified 12/15/23 11:17
�Medication �Instructions �Recorded �Confirmed �Type
atorvastatin 20 mg tablet 20 mg PO HS High cholesterol 11/08/14 01/18/24 History
allopurinol 100 mg tablet 100 mg PO DAILY Gout 01/13/17 01/18/24 History
ferrous sulfate 325 mg (65 mg 325 mg PO DAILY anemia #30 tabs 06/18/23 01/18/24 Rx
iron) tablet
metoprolol succinate 25 mg 25 mg PO HS HTN 09/03/23 01/18/24 History
tablet,extended release 24 hr
acetaminophen 500 mg tablet 1,000 mg PO BIDPRN PRN mild pain 09/07/23 01/18/24 History
cholecalciferol (vitamin D3) 25 25 mcg PO TUTHSA Supplement 12/15/23 01/18/24 History
mcg (1,000 unit) tablet
epoetin beta, methoxy peg 30 30 mcg SC Q4W 12/15/23 01/18/24 History
mcg/0.3 mL injection syringe
(Mircera)
amiodarone 200 mg tablet (Pacerone) 200 mg PO DAILY VT/vfib 01/18/24 01/18/24 History
hydrocortisone 1 % lotion 1 applic topical DAILYPRN PRN rash 01/18/24 01/18/24 History
on back
midodrine 5 mg tablet 5 mg PO TUTHSA 01/18/24 01/18/24 History
Review of Systems
-
All complete 12 point ROS have been inquired and found negative other than stated in HPI
Physical Exam
Vital Signs
Vital Signs
Temp Pulse Resp BP Pulse Ox
99.6 F 81 18 86/51 94
01/18/24 14:03 01/18/24 17:15 01/18/24 17:15 01/18/24 17:15 01/18/24 17:15
Lab Results
WBC 12.5 10^3/uL (4.8-10.8) H 01/18/24 14:10
RBC 3.04 10^6/uL (4.70-6.10) L 01/18/24 14:10
Hgb 10.3 g/dL (13.0-18.0) L 01/18/24 14:10
Hct 29.6 % (39.0-52.0) L 01/18/24 14:10
Plt Count 92 10^3/uL (130-400) L 01/18/24 14:10
Sodium 139 mmol/L (135-145) 01/18/24 14:10
Potassium 4.6 mmol/L (3.5-5.1) 01/18/24 14:10
Chloride 100 mmol/L (98-107) 01/18/24 14:10
Carbon Dioxide 25 mmol/L (22-30) 01/18/24 14:10
BUN 56 mg/dl (9-20) H 01/18/24 14:10
Creatinine 5.2 mg/dL (0.7-1.3) H* 01/18/24 14:10
eGFR 10.26 01/18/24 14:10
Glucose 117 mg/dl (70-99) H 01/18/24 14:10
Calcium 8.7 mg/dl (8.4-10.2) 01/18/24 14:10
Albumin 2.9 g/dl (3.5-5.0) L 01/18/24 14:10
echo 01/11/24:
CONCLUSIONS
Mildly dilated LV with severely reduced systolic function.
LVEF is approximately 30% by visual estimation with global diffuse hypokinesis.
Mild concentric LVH.
Mitral annular calcification. Mild mitral regurgitation.
S/p bioprosthetic aortic valve replacement with a peak/mean gradient of 25/17
mmHg. Mild aortic regurgitation.
Moderate to severe tricuspid regurgitation.
Estimated pulmonary artery pressure of 43 mmHg. Assuming a right atrial
pressure of 15 mmHg.
Compared to prior from January 08, 2022, on [id number] comparison overall LVEF
is improved and is approximately 30% from 20 to 25%. Interval increase in
bioprosthetic aortic valve gradients from 20/9 mmHg to 25/[address] abd:
IMPRESSION:
1. Small volume abdominopelvic ascites. Otherwise no significant acute abnormality identified in the abdomen or pelvis, as described above. Chronic changes as described.
2. Small bilateral pleural effusions.
US abd:
IMPRESSION:
There are a few small mobile gallstones identified within the gallbladder as well as a small amount of sludge. The gallbladder wall is not thickened. The patient has a negative sonographic Faith's sign. No evidence for biliary ductal dilation.
Increased echogenicity of the liver with coarsening of hepatic echotexture, findings suggestive of hepatocellular disease. No evidence of a focal hepatic mass lesion.
Splenomegaly.
Small to moderate amount of ascites within both upper quadrants. Bilateral pleural effusions.
No evidence for pelvicalyceal dilation of either kidney. Multiple bilateral renal cysts.
CXR:
IMPRESSION:
Cardiomegaly with mild pulmonary edema
Postoperative changes as described above.
Physical Exam
General: Awake, Alert, Oriented, AOx3, No Distress and Nontoxic
HEENT: EOMI, Anicteric, Facial Symmetry and Neck Supple
Respiratory: Clear, Normal Excursion, Nonlabored Respirations and Other (decreased)
Cardiac: S1/S2, Regular Rate/Rhythm and Murmur
Abdomen: Soft, Nontender and Nondistended
Musculoskeletal: No Cyanosis and Edema (2+)
Skin: Other (small skin abrasion/excoriation on LEs)
Neuro: Nonfocal/Grossly Intact
Psych: Mood/afflect pleasant and Appropriate
Vascular Access: AVG and CVC
Data Reviewed
-
Radiology: Report Reviewed by me and Discussed with Family
Labs: Labs Reviewed by me and Discussed with Family
Assessment/Plan
-
IMP:
Gen weakness
Sepsis
Hypotension
Lactic acidosis
ESRD HD started 06/2023-[facility]
Right UE AVG, placed 11/2023
CHF with R EF 30%
Severe TR
Nonobstructive CAD
Chronic anemia likely multifactorial
Bioprosthetic aortic valve 2010
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
ICD
h/o atrial fibrillation off anticoagulation due to recurrent GI bleed
History of GIST tumor previously treated with Gleevac
Bilateral renal cyst with prior concern for masses
Gout
Diabetes mellitus type 2
Basal cell skin cancer
Plan:
A/w increasing gen weakness, high lactic acid, and hypotension concern of sepsis
w/u in progress to r/o infection, CT abd non acute, gall stone in US, mgt per primary
given hypotension will schedule midodrine
plan HD tomorrow with UF as allows, CXR noted mild CHF
renal diet when started PO
will try AVG tomorrow, if bacteremia likely d/c HD catheter
CARLYLE with HD
d/w daughter at bedside in detail
[2024-01-18 18:21] LABS: NT-proBNP > 27000 pg/ml
--- NOTE | 2024-01-18 20:43 | HPS.HSE ---
Family Physician
-
Family Physician: * NONE
Chief Complaint
-
weakness
History of Present Illness
83-year-old male past medical history of ESRD on hemodialysis Thursday, , Thursday,, polymorphic VT status post ICD, paroxysmal atrial fibrillation not on anticoagulation, HFrEF, severe aortic stenosis status post bioprosthetic AVR in 2010,
coronary artery disease, obstructive sleep apnea, hypertension, anemia of chronic disease, chronic thrombocytopenia, type 2 diabetes, right renal lesions, history of GIST tumor, gout, presenting for generalized weakness, worsening shortness of
breath and abdominal discomfort particularly over the past week.
Patient has recently had issues with hypotension and was started on midodrine with dialysis. Patient has had worsening generalized weakness and fatigue for the past 3 to 4 days. He has been having shortness of breath to the point where he has to
rest multiple times when walking to the car. He also been having abdominal discomfort. Has increased swelling of his legs with redness. He also has several excoriations with erythema on lower extremities including his right heel due to hitting
his leg on furniture. No fevers or chills. Today he was very weak and lethargic so daughter called EMS. He denies any chest pain. He denies cough. He denies any nausea or vomiting. He denies diarrhea. He makes minimal urine at baseline.
Denies any urinary symptoms. His last bowel movement yesterday. No diarrhea or vomiting or constipation.
His last dialysis session was Thursday and is scheduled for dialysis tomorrow.
Denies smoking alcohol use.
Medical History
Past Medical History
Past Medical History: Reports Other (ESRD on hemodialysis Thursday, , Thursday,, polymorphic VT status post ICD, paroxysmal atrial fibrillation not on anticoagulation, HFrEF, severe aortic stenosis status post bioprosthetic AVR in 2010,
coronary artery disease, obstructive sleep apnea, hypertension, anemia of chronic disease, ch)
Past Surgical History: Reports Other ( Appendectomy, Cardiac and Orthopedic)
Social History
Tobacco: Non-smoker
Alcohol: None
Drug: None
Family History
Family History: Not pertinent
Allergies / Home Medications
Allergies reflects when Allergies were last updated in [facility].
Home Medications with original date entered in [employer]
Allergy/Medication List:
Allergies
Allergy/AdvReac Type Severity Reaction Status Date / Time
No Known Allergies Allergy Verified 12/15/23 11:17
Home Medications
atorvastatin 20 mg tablet 20 mg PO HS High cholesterol 11/08/14
allopurinol 100 mg tablet 100 mg PO DAILY Gout 01/13/17
ferrous sulfate 325 mg (65 mg iron) tablet 325 mg PO DAILY anemia #30 tabs 06/18/23
metoprolol succinate 25 mg tablet,extended release 24 hr 25 mg PO HS HTN 09/03/23
acetaminophen 500 mg tablet 1,000 mg PO BIDPRN PRN mild pain 09/07/23
cholecalciferol (vitamin D3) 25 mcg (1,000 unit) tablet 25 mcg PO TUTHSA Supplement 12/15/23
epoetin beta, methoxy peg 30 mcg/0.3 mL injection syringe (Mircera) 30 mcg SC Q4W 12/15/23
amiodarone 200 mg tablet (Pacerone) 200 mg PO DAILY VT/vfib 01/18/24
hydrocortisone 1 % lotion 1 applic topical DAILYPRN PRN rash on back 01/18/24
midodrine 5 mg tablet 5 mg PO TUTHSA 01/18/24
Review of Systems
-
History Source: Patient
A 12 point ROS was completed and negative except as noted: Yes
Constitutional: Reports No Symptoms
EENT: Reports No Symptoms and See HPI
Respiratory: Reports See HPI
Cardiac: Reports See HPI
Abdomen/GI: Reports See HPI
: Reports No Symptoms
Musculoskeletal: Reports No Symptoms
Skin: Reports No Symptoms
Neurological: Reports No Symptoms
Endocrine: Reports No Symptoms
Hematologic/Lymphatic: Reports No Symptoms
Psych: Reports No Symptoms
Physical Exam
Vital Signs
Vital Signs
Temp Pulse Resp BP Pulse Ox
99.6 F 82 22 85/47 94
01/18/24 14:03 01/18/24 20:15 01/18/24 20:15 01/18/24 20:15 01/18/24 20:15
Physical Exam
General: Well Developed, Well Nourished and No Apparent Distress
HEENT: NormoCephalic, Moist mucous membranes and Atraumatic
Respiratory: Clear
Cardiac: S1/S2 and Regular Rhythm; No Murmur or Rub
GI: Soft, Non Tender, Non Distended and Normal Bowel Sounds; No Organomegaly
Rectal: Deferred by Provider
Musculoskeletal: No Clubbing, No Cyanosis and No Edema
Skin: No Rash
Neuro: Nonfocal/grossly intact
Laboratory Results
-
01/18/24 14:10
01/18/24 14:10
Laboratory Results
Lactic Acid 4.1 mmol/L (0.7-2.0) H* 01/18/24 14:10
Total Bilirubin 2.9 mg/dl (0.2-1.3) H 01/18/24 14:10
AST 189 U/L (17-59) H 01/18/24 14:10
ALT 49 U/L (0-50) 01/18/24 14:10
Alkaline Phosphatase 283 U/L (38-126) H 01/18/24 14:10
Data Reviewed
-
Lab Data: Labs Reviewed by me
Old Records: Reviewed
Impression/Plan
-
IMPRESSION:
PLAN:
# Hypotension possibly septic shock possibly related to lower extremity excoriations/cellulitis versus cardiogenic shock
-Leukocytosis
-Lactic acidosis
-Lower extremitty injury/excoriation do not appear particularly severe to explain septic shock
-Cardiac BNP greater than 27,000
-CT abdomen pelvis shows small volume abdominal pelvic ascites, no other significant abnormality, small bilateral pleural effusions
-Chest x-ray shows cardiomegaly mild pulmonary edema
-Blood cultures pending
-250 cc IV fluids given without change in blood pressure, hold off on further fluids
-Levophed if hypotensive again
-Vancomycin/Zosyn
-Cardiology consulted
# Abdominal pain unclear etiology
-CT abdomen pelvis and abdominal ultrasound without any source visible
-Patient without constipation last bowel movement yesterday
-Check urinalysis
# ESRD on hemodialysis Thursday, , Thursday
-Nephrology consulted for dialysis tomorrow
-Continue midodrine
History of polymorphic VT status post ICD
Paroxysmal atrial fibrillation
-not on anticoagulation due to GIST tumor
-Continue amiodarone
Chronic HFrEF
-Hold metoprolol
Severe arctic stenosis status post bioprosthetic AVR
Coronary artery disease
-Continue statin
Obstructive sleep apnea
Essential hypertension
Anemia of chronic disease
-Continue ferrous sulfate
Chronic thrombocytopenia
-Platelets stable
Type 2 diabetes
Right renal lesion
History of GIST tumor
Gout
-Continue allopurinol
Full code
DVT prophylaxis-heparin
Cardiac/renal diet
[2024-01-18] MEDS: MAXIPIME 1000 MG IV (20:50)
[2024-01-18] MEDS: LEVOPHED 250 IV (21:19)
[2024-01-19] VITALS (60 sets, daily range): BP systolic 71–106; BP diastolic 46–84; BMI 27.5
[2024-01-19] MEDS: LIPITOR PO (00:57)
--- NOTE | 2024-01-19 01:00 | PTCARENOTE ---
pt received from ER around midnight. oriented x3, forgetful at times, drowsy. dgtr at bedside for admission. assessment as documented. V paced on monitor. afebrile. levo gtt infusing to maintain MAP >65. on RA, denies SOB. wears CPAP at night, dgtr
offered to bring in tomorrow. pt oliguric, admits to voiding 1x/day for minimal amount. scattered abrasions/scabs noted. RUE fistula, limb alert placed. HD cath R chest wall noted. dgtr admits HD cath was placed in June 2023, RUE fistula graft
revision occurred 11/2023 and was used for last few HD sessions. plan for HD tmrw. IMU level of care. call [facility] within reach, care ongoing.
[2024-01-19] MEDS: VANCOCIN 540 MG IV (01:26)
[2024-01-19] MEDS: ZOSYN 50 IV ×3 (03:31→17:57)
--- NOTE | 2024-01-19 04:40 | PTCARENOTE ---
AM labs sent. levo gtt continues. pt denies SOB or pain. more alert throughout night. call [facility] within reach, care ongoing.
[2024-01-19 04:45] LABS: % Basophils 0.6 % (0-2); % Eosinophils 0.3 % (0-6); % Immature Granulocytes 0.4 % (0-0.5); % Lymphocytes 8.5 % (20.5-51.1); % Monocytes 6.1 % (1.7-9.3); % Neutrophils 84.1 % (42.2-75.2); Absolute Basophils 0.1 10^3/uL (0-0.2); Absolute Immature Granulocytes 0.1 10^3/uL (0-0.05); Absolute Lymphocytes 1.2 10^3/uL (1.2-3.4); Absolute Monocytes 0.8 10^3/uL (0.1-0.6); Absolute Neutrophils 11.5 10^3/uL (1.4-6.5); Hematocrit 32.4 % (39.0-52.0); Hemoglobin 11.1 g/dL (13.0-18.0); Mean Corp Hgb Conc. 34.3 g/dL (33.0-37.0); Mean Corpuscular Hgb 33.6 pg (27.0-31.0); Mean Corpuscular Volume 98.2 fL (80.0-94.0); Mean Platelet Volume 12.1 fL (7.4-10.4); Nucleated Red Blood Cells % 0 % (-); Platelet Count 98 10^3/uL (130-400); Red Cell Dist. Width 16.5 % (11.5-14.5); White Blood Cell Count 13.6 10^3/uL (4.8-10.8)
[2024-01-19 05:30] LABS: ALT (SGPT) 49 U/L (0-50); AST (SGOT) 163 U/L (17-59); Albumin 2.8 g/dl (3.5-5.0); Alkaline Phosphatase 266 U/L (38-126); Blood Urea Nitrogen 61 mg/dl (9-20); Calcium 8.7 mg/dl (8.4-10.2); Carbon Dioxide 25 mmol/L (22-30); Chloride 98 mmol/L (98-107); Estimated Creatinine Clearance 10 ml/min; Glucose 218 mg/dl (70-99); Potassium 4.6 mmol/L (3.5-5.1); Sodium 136 mmol/L (135-145); Total Protein 6.5 g/dl (6.3-8.2); eGFR 9.19
[2024-01-19] MEDS: PACERONE 200 MG PO (07:40)
[2024-01-19] MEDS: LEVOPHED 250 IV ×2 (07:40→20:29)
[2024-01-19] MEDS: HEPARIN 5000 UNITS SC ×2 (07:41→19:44)
[2024-01-19] MEDS: ZYLOPRIM 100 MG PO (07:41)
[2024-01-19] MEDS: FEOSOL 325 MG PO (07:41)
[2024-01-19] MEDS: ProAmatine 5 MG PO ×3 (07:43→19:44)
[2024-01-19] MEDS: VITAMIN D3 (cholecalciferol) 25 MCG PO (07:44)
[2024-01-19 08:13] LABS: Lactic Acid 2.2 mmol/L (0.7-2.0)
--- NOTE | 2024-01-19 08:15 | W.PN.HOSP.TC ---
Today's Communication/Plan
-
see bold
Assessment / Plan
Assessment / Plan
Gen: NAD, Awake and alert, appears chronically ill
Eyes: EOMI, PERRLA, no scleral icterus.
Neck: supple.
CV: RRR, +S1/S2, no m/r/g.
Resp: CTAB, no rales, wheezes, or rhonchi.
Abd: +BS, soft, NT, ND
Skin: scabbed wounds on both LEs. LLE with some erythema.
Neuro: CN 2-12 intact, non-focal.
Psych: Normal mood and affect.
01/18/24 14:10 Blood/Venous Blood Culture - Preliminary
Positive culture in progress
01/18/24 14:10 Blood/Venous Gram Stain - Final
01/18/24 14:10 Blood/Venous Blood Culture - Preliminary
Positive culture in progress
01/18/24 14:10 Blood/Venous Gram Stain - Preliminary
Echo 01/11/24: Mildly dilated LV with severely reduced systolic function.
LVEF is approximately 30% by visual estimation with global diffuse hypokinesis.
Mild concentric LVH.
Mitral annular calcification. Mild mitral regurgitation.
S/p bioprosthetic aortic valve replacement with a peak/mean gradient of 25/17
mmHg. Mild aortic regurgitation.
Moderate to severe tricuspid regurgitation.
Estimated pulmonary artery pressure of 43 mmHg. Assuming a right atrial
pressure of 15 mmHg.
Compared to prior from January 08, 2022, on [id number] comparison overall LVEF
is improved and is approximately 30% from 20 to 25%. Interval increase in
bioprosthetic aortic valve gradients from 20/9 mmHg to 25/[address] A/P:
1. Small volume abdominopelvic ascites. Otherwise no significant acute abnormality identified in the abdomen or pelvis, as described above. Chronic changes as described.
2. Small bilateral pleural effusions.
Shock:
-Likely septic shock (POS BCxs), much less likely cardiogenic shock
-with leukocytosis and lactic acidosis
-Lower extremity injury/excoriation do not appear particularly severe to explain septic shock
-Cardiac BNP greater than 27,000
-CT abdomen pelvis shows small volume abdominal pelvic ascites, no other significant abnormality, small bilateral pleural effusions
-Chest x-ray shows cardiomegaly mild pulmonary edema
-follow BCxs
-250cc IV fluids given without change in blood pressure, Levophed started
-empiric Vancomycin/Zosyn
-c/s ID
-Cardiology following, discussed with Dr. Law
-recent echo above, EF 30%. Update echo.
Abdominal pain:
-Etiology unclear
-CT abdomen pelvis and abdominal ultrasound without any source visible
-Patient without constipation last bowel movement 1 day SHANK TAPER
-U/A ordered and noted, follow reflex culture
Other problems:
ESRD: cont HD T//Thu, cont midodrine
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 Continue amiodarone.
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
Chronic HFrEF: Holding metoprolol
Severe status post bioprosthetic AVR
CAD: Continue statin, BB on hold
Obstructive sleep apnea
Essential hypertension: currently hypotensive
Anemia of chronic disease: Continue ferrous sulfate
Chronic thrombocytopenia: Platelets stable
DM2: BGs controlled. Check a1c
Right renal lesion
h/o GIST tumor
Gout: Continue allopurinol
FULL/Heparin
Total critical care time spent = 34 min
Anticipated Discharge: > 48 hours
Subjective/Interval History
-
Date of Service: January 19, 2024
Objective Data
-
Labs:
Laboratory Results
01/19/24
04:36
WBC 13.6 H
Hgb 11.1 L
Hct 32.4 L
Plt Count 98 L
Sodium 136
Potassium 4.6
Chloride 98
Carbon Dioxide 25
BUN 61 H
Creatinine 5.7 H*
Glucose 218 H
Calcium 8.7
Total Bilirubin 3.0 H
AST 163 H
ALT 49
Alkaline Phosphatase 266 H
Vital Signs:
Vital Signs
Temp Pulse Resp BP Pulse Ox
98.5 F 81 20 104/54 93
01/19/24 07:29 01/19/24 07:00 01/19/24 07:00 01/19/24 07:00 01/19/24 07:00
I&O
01/18/24 01/19/24 01/20/24
06:59 06:59 06:59
Intake Total 717.5 / 717.5
Balance 717.5 / 717.5
--- NOTE | 2024-01-19 09:12 | PTCARENOTE ---
pt received at 0700. oriented x3, forgetful at times, drowsy. assessment as documented. A-V paced on monitor. afebrile. levo gtt infusing to maintain MAP >65. on RA, denies SOB. wears CPAP at night. pt oliguric, admits to voiding 1x/day for minimal
amount. scattered abrasions/scabs noted. RUE fistula, limb alert in place. HD cath R chest wall noted. plan for HD today. IMU level of care. call [facility] within reach, care ongoing.
--- NOTE | 2024-01-19 09:23 | CON.CAR ---
Addendum entered and electronically signed by Vik Law MD 01/19/24 10:05:
Physical exam:
Alert and conversant with poor insight to medical issues.
Regular rate and rhythm with a normal S1 and S2, 2 out of 6 systolic ejection murmur. Lungs were clear to auscultation anteriorly, he could not maneuver himself and I could not lift him to listen posteriorly.
Abdomen was soft
Extremities were warm and well-perfused with 1-2+ pitting edema.
Original Note:
Consultation
Consultation Request
Date/Time Consultation Requested: 01/19/24
Date/Time Consultation Performed: 01/19/24
Requesting Provider: Dr Feliciano
Performing Provider: Dr Law
Reason for Consultation: shock/hypotension
Medical History
-
Chief Complaint: weakness
History of Present Illness:
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
place, nonobstructive CAD, status post AVR in 2010 for severe , severe TR, hypertension, hyperlipidemia, diabetes and obesity.�He was BIBA after [facility] fround him weak and lethargic. He is admitted for septic vs cardiogenic shock. Had a left
shift and now with positive blood culture. He is a poor historian, but denies complaints.
Primary Silver Recovery Operator: Dr. Zapata
Primary Wire Splicer: Dr. Almanzar
Past Medical History
Past Medical History: Arrhythmias (AFIB) and Valvular Disease (bAVR)
Past Surgical History: Cardiac (ICD)
Social History
Tobacco: Non-Smoker
Alcohol: None
Drug: None
Living: With Family
Employment: Retired
Family History
Family History: Reviewed & Not Pertinent
Allergies / Home Medications
Allergy/AdvReac Type Severity Reaction Status Date / Time
No Known Allergies Allergy Verified 12/15/23 11:17
�Medication �Instructions �Recorded �Confirmed �Type
atorvastatin 20 mg tablet 20 mg PO HS High cholesterol 11/08/14 01/18/24 History
allopurinol 100 mg tablet 100 mg PO DAILY Gout 01/13/17 01/18/24 History
ferrous sulfate 325 mg (65 mg 325 mg PO DAILY anemia #30 tabs 06/18/23 01/18/24 Rx
iron) tablet
metoprolol succinate 25 mg 25 mg PO HS HTN 09/03/23 01/18/24 History
tablet,extended release 24 hr
acetaminophen 500 mg tablet 1,000 mg PO BIDPRN PRN mild pain 09/07/23 01/18/24 History
cholecalciferol (vitamin D3) 25 25 mcg PO TUTHSA Supplement 12/15/23 01/18/24 History
mcg (1,000 unit) tablet
epoetin beta, methoxy peg 30 30 mcg SC Q4W 12/15/23 01/18/24 History
mcg/0.3 mL injection syringe
(Mircera)
amiodarone 200 mg tablet (Pacerone) 200 mg PO DAILY VT/vfib 01/18/24 01/18/24 History
hydrocortisone 1 % lotion 1 applic topical DAILYPRN PRN rash 01/18/24 01/18/24 History
on back
midodrine 5 mg tablet 5 mg PO TUTHSA 01/18/24 01/18/24 History
Physical Exam
Vital Signs
Temp Pulse Resp BP Pulse Ox
98.5 F 79 20 103/54 93
01/19/24 07:29 01/19/24 09:00 01/19/24 09:00 01/19/24 09:00 01/19/24 09:00
Lab Results
01/19/24 04:36
01/19/24 04:36
Cyt-F-Iicxsjkrmyl Pept > 45761 pg/ml 01/18/24 14:10
Impression / Plan
-
Shock: Septic Vs Cardiogenic:
-we are asked to comment on possible cardiogenic
-seems sepsis >Cardiogeniic--->leukocytosis and positive blood cultures
-given bioprosthetic valve/DC ppm will need to consider IE/device infection. Will start with TTE.
-wt is lower than last visit at 192lbs in December
-continue on vasopressors
-will check troponin
-ECG is paced so unhelpful
HFrEF: last echo wtih EF 30%, report of improved EF on TRACY in 05/2024
-GDMT limited by hypotension and renal function
--volume controlled by HD
-will check troponins
-update echo
-has a DC device could consider upgrade as QRS >180ms --but this is a [place] plan not acute issue.
VT s/p ICD:
-H.o PMVT
-on amiodarone.
Bioprosthetic AVR: given positive blood cultures, would need to consider IE. May need TRACY.
Persistent A-fib
- rate controlled
- no AC as above due to GIB's, hx GIST tumor
ESRD on HD: care per nephrolgoy, does have line that will need to come out.
Data:
TTE: 01/11/24:
CONCLUSIONS
Mildly dilated LV with severely reduced systolic function.
LVEF is approximately 30% by visual estimation with global diffuse hypokinesis.
Mild concentric LVH.
Mitral annular calcification. Mild mitral regurgitation.
S/p bioprosthetic aortic valve replacement with a peak/mean gradient of 25/17
mmHg. Mild aortic regurgitation.
Moderate to severe tricuspid regurgitation.
Estimated pulmonary artery pressure of 43 mmHg. Assuming a right atrial
pressure of 15 mmHg.
Compared to prior from January 08, 2022, on [id number] comparison overall LVEF
is improved and is approximately 30% from 20 to 25%. Interval increase in
bioprosthetic aortic valve gradients from 20/9 mmHg to 25/17 mmHg today.
TRACY: 06/04/23 Moderately reduced left ventricular systolic function. Left ventricular
ejection fraction is 40-45%.
Global hypokinesis.
Moderately dilated atria.
Normally functioning bioprosthetic valve. Trace aortic regurgitation.
Severe tricuspid regurgitation.
Shallow SARAH with maximum diameter 24.0 mm and maximum depth 14 mm.
Compared to prior study of December 2021, EF is improved.
Data Reviewed
-
EKG: Tracing Personally Visualized and interpreted (VPACED QRS 184ms)
Radiology: Image Personally Visualized and interpreted (mild pulm edema)
CT Scan: Image Personally Visualized and interpreted (CT ab d pelvis with small volue ascites, small b/l pleural effusion, )
Medical Tests (Nuc Med, Echo etc): Discussed with Physician (Positive blood cx d/w Dr Morin and Dr Feliciano will need echo and treatment of sepsis)
Labs: Discussed with Physician
Critical Care Time (in minutes): 45 minutes
--- NOTE | 2024-01-19 09:32 | PHA.VAN.IN ---
Addendum entered and electronically signed by Clotilde Rossi [facility] 01/19/24 09:36:
Correction: will hold off on level for now. Follow nephrology plans and consider level for Thurs AM
Original Note:
Assessment
- Assessment
Renal Function: Patient has ESRD, on chronic Hemodialysis
Hemodialysis Schedule: TThSa
Concomitant Antimicrobials: piperacillin/tazobactam
Plan
- Plan
Initial / Loading Dose: 2000mg - 01/18 01:26
Maintenance Regimen: dosing by level / HD
Monitoring: pre-HD 01/19
Pharmacokinetics Vancomycin I
- -
Patient Age: 83
Patient Sex: Male
Vancomycin Day #: 1
Indication: Skin And Soft Tissue
Requesting Provider: Dr. Cook
Pertinent Antimicrobial Allergies:
NKDA
Height / Weight:
Height 5 ft 9 in
Actual Weight 84.4 kg
Pertinent Past Medical History: ESRD on HD TuThSa, DM 2
- Vital Signs / Lab Results
Temp Pulse Resp BP Pulse Ox
98.5 F 79 20 103/54 93
01/19/24 07:29 01/19/24 09:00 01/19/24 09:00 01/19/24 09:00 01/19/24 09:00
Lab Results - Hematology
01/18/24 01/19/24
14:10 04:36
WBC 12.5 H 13.6 H
Lab Results - Chemistry
01/18/24 01/19/24
14:10 04:36
BUN 56 H 61 H
Creatinine 5.2 H* 5.7 H*
Estimated Creat Clear 10
Albumin 2.9 L 2.8 L
01/18/24 01/19/24
14:10 07:54
Lactic Acid 4.1 H* 2.2 H
Microbiology Results
01/18/24 14:10 Blood Culture - Preliminary
Blood/Venous Positive culture in progress
Gram Stain - Final
01/18/24 14:10 Blood Culture - Preliminary
Blood/Venous Positive culture in progress
Gram Stain - Preliminary
--- NOTE | 2024-01-19 09:56 | W.PN.NEPH.PH ---
Today's Communication / Plan
-
HD today
Assessment/Plan
-
IMP:
Gen weakness
Sepsis
Hypotension
Lactic acidosis
ESRD HD started 06/2023-[facility]
Right UE AVG, placed 11/2023
CHF with R EF 30%
Severe TR
Nonobstructive CAD
Chronic anemia likely multifactorial
Bioprosthetic aortic valve 2010
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
ICD
h/o atrial fibrillation off anticoagulation due to recurrent GI bleed
History of GIST tumor previously treated with Gleevac
Bilateral renal cyst with prior concern for masses
Gout
Diabetes mellitus type 2
Basal cell skin cancer
Plan:
HD today
wean levophed as allowed
midodrine BID + HD
will need cardiology opinion on amiodarone given new and persistent LFT elevation
as BCx is +ve, will pull HD CVC after HD today if AVG ok
abx empiric for sepsis
critical care time 31 minutes
-
-
Date of Service: January 19, 2024
CC / HPI / ROS
-
Chief Complaint:
ESRD
History of Present Illness:
Remains hypotensive on Levophed
LFTs remain elevated
lactate down to 2.2
anemia/thrombocytopenia unchanged
Review of Systems:
no CP/SOB
slightly confused
Labs
-
Labs:
WBC 13.6 10^3/uL (4.8-10.8) H 01/19/24 04:36
RBC 3.30 10^6/uL (4.70-6.10) L 01/19/24 04:36
Hgb 11.1 g/dL (13.0-18.0) L 01/19/24 04:36
Hct 32.4 % (39.0-52.0) L 01/19/24 04:36
Plt Count 98 10^3/uL (130-400) L 01/19/24 04:36
Sodium 136 mmol/L (135-145) 01/19/24 04:36
Potassium 4.6 mmol/L (3.5-5.1) 01/19/24 04:36
Chloride 98 mmol/L (98-107) 01/19/24 04:36
Carbon Dioxide 25 mmol/L (22-30) 01/19/24 04:36
BUN 61 mg/dl (9-20) H 01/19/24 04:36
Creatinine 5.7 mg/dL (0.7-1.3) H* 01/19/24 04:36
eGFR 9.19 01/19/24 04:36
Glucose 218 mg/dl (70-99) H 01/19/24 04:36
Calcium 8.7 mg/dl (8.4-10.2) 01/19/24 04:36
Kqe-S-Sllpamjvfju Pept > 17244 pg/ml 01/18/24 14:10
Albumin 2.8 g/dl (3.5-5.0) L 01/19/24 04:36
Physical Exam
-
Vital Signs:
Vital Signs
Temp Pulse Resp BP Pulse Ox
98.5 F 79 20 103/54 93
01/19/24 07:29 01/19/24 09:00 01/19/24 09:00 01/19/24 09:00 01/19/24 09:00
Cardiovascular:: Regular rate and rhythm
Respiratory:: Bilateral: CTA
Lung Excursion:: Normal
Abdomen:: Nontender and Soft
Bowel Sounds:: Normal
Extremity Edema:: None: Bilateral:
Other Findings::
AVG +thrill
[2024-01-19 11:40] LABS: Lactic Acid 2.4 mmol/L (0.7-2.0)
[2024-01-19 11:54] LABS: Glycohemoglobin (HgbA1c) 4.5 % (4.0-5.6)
--- NOTE | 2024-01-19 11:54 | CON.ID ---
Consultation
-
Date/Time Consultation Requested: January 19, 2024 1033
Date/Time Consultation Performed: January 19, 2024 1200
Requesting Provider: Dr. Hermes Feliciano
Performing Provider: Dr. Leslye Hua
Reason for Consultation: Septic shock
Chief Complaint / Past History
Chief Complaint
Weakness
History of Present Illness
History obtained from review of records. Patient is very poor historian and does not know why he is in hospital. He is a 83 year old male with hx of ESRD on HD via RUE AVG, HD cath still in place, bio-AVR, ICD, HFrEF, hypotension recently started
on midodrine who was noted to have progressive weakness x 1 week with ALEGRIA. He presented to ED yesterday. WBC 12.5, lactic acid persistently elevated, elevated LFT's, hypotensive requiring Levophed. CXR shows mild pulmonary edema. BNP >2700. He is
currently on Vancomycin and Zosyn. Admission bcx's + CoNS. Pt reports he feels fine, no symptoms. Denies cough/sob/n/v/d/f/c/heel pain.
Past History
Additional Past Medical History:
End-stage renal disease on hemodialysis Thursday via right upper extremity AV graft
Paroxysmal atrial fibrillation, not on anticoagulation
Heart failure with reduced EF
Bioprosthetic aortic valve replacement
V. tach status post ICD placement
Severe tricuspid regurgitation
GIST tumor status post Gleevec
Hypotension on midodrine
Sleep apnea
Lymphedema
gout
basal cell ca
History of recurrent GI bleed
Chronic thrombocytopenia
Appendectomy
Allergy History:
No Known Allergies Allergy (Verified 12/15/23 11:17)
Medications Reviewed: Yes
Current Antibiotics:
Vancomycin
Zosyn
Social History
Tobacco: Former Smoker
Alcohol: None
Drug: None
Personal:
Family History
Family History: Not Pertinent
Review of Systems
Vital Signs
Temp Pulse Resp BP Pulse Ox
98.3 F 80 18 105/55 95
01/19/24 11:20 01/19/24 11:00 01/19/24 11:00 01/19/24 11:00 01/19/24 11:00
Physical Exam
Physical Exam
Constitutional: No Acute Distress
Eyes: No Conjunctival Hemorrhage
Cardiovascular: Regular Rate and Other (LCW ICD site no induration/erythema)
Pulmonary: Rales (bases)
Gastrointestinal: Soft, Non Tender, Non Distended and Normal Bowel Sounds
Genito-Urinary: Negative CVA Tenderness
Extremities: Edema (2+ BLE)
Wound: Other (BLE: scattered excoriation. right lateral heel dry scab)
Neurological: Awake and Alert
Lines: HD Cath (RCW no erythema)
Lab / Diagnostic Study Results
01/19/24 04:36
01/19/24 04:36
Abs Immat Gran (auto) 0.1 10^3/uL (0-0.05) H 01/19/24 04:36
Absolute Neuts (auto) 11.5 10^3/uL (1.4-6.5) H 01/19/24 04:36
Absolute Lymphs (auto) 1.2 10^3/uL (1.2-3.4) 01/19/24 04:36
Absolute Monos (auto) 0.8 10^3/uL (0.1-0.6) H 01/19/24 04:36
Absolute Basos (auto) 0.1 10^3/uL (0-0.2) 01/19/24 04:36
Immature Gran % 0.4 % (0-0.5) 01/19/24 04:36
Neutrophils % 84.1 % (42.2-75.2) H 01/19/24 04:36
Lymphocytes % 8.5 % (20.5-51.1) L 01/19/24 04:36
Monocytes % 6.1 % (1.7-9.3) 01/19/24 04:36
Eosinophils % 0.3 % (0-6) 01/19/24 04:36
Basophils % 0.6 % (0-2) 01/19/24 04:36
Lactic Acid 2.4 mmol/L (0.7-2.0) H 01/19/24 11:16
Microbiology Results
Micro:
01/18/24 14:10 Blood Culture - Preliminary
Blood/Venous Positive culture in progress
Gram Stain - Final
01/18/24 14:10 Blood Culture - Preliminary
Blood/Venous Positive culture in progress
Gram Stain - Final
01/19/24 04:36 MRSA Screen - Pending
Nose
01/18/24 CT a/P: Small volume abdominopelvic ascites. Otherwise no significant acute abnormality identified in the abdomen or pelvis, as described above. Chronic changes as described. Small bilateral pleural effusions.
01/18/24 ABD US: There are a few small mobile gallstones identified within the gallbladder as well as a small amount of sludge. The gallbladder wall is not thickened. The patient has a negative sonographic Faith's sign. No evidence for biliary
ductal dilation. Increased echogenicity of the liver with coarsening of hepatic echotexture, findings suggestive of hepatocellular disease. No evidence of a focal hepatic mass lesion. Splenomegaly.
Small to moderate amount of ascites within both upper quadrants. Bilateral pleural effusions. No evidence for pelvicalyceal dilation of either kidney. Multiple bilateral renal cysts.
01/18/24 CXR: Cardiomegaly with mild pulmonary edema
Assessment / Plan
# CoNS bacteremia 4 out of 4 bottles.
-Multiple potential sources: HD catheter, AVR, ICD
- Repeat blood cx's - one set from HD catheter
-TTE
- Continue Vancomycin.
# Acute on chronic HF
# Shock - septic vs cardiogenic
# Elevated LFT's likely due to hypotension
-CT a/p no acute abnormality
- Abd US: no cholecystitis
[2024-01-19] MEDS: MANNITOL 25% 12.5 GRAMS IV ×2 (13:10→14:40)
[2024-01-19] MEDS: FLEXBUMIN 25% FOR HEMODIALYSIS 12.5 GRAMS IV ×2 (13:15→14:52)
--- NOTE | 2024-01-19 13:17 | PTCARENOTE ---
HD began as ordered using RUE fistula. BC drawn through HD circuitry and 2nd through HD cath.
[2024-01-19] MEDS: RETACRIT 3000 UNITS IV (13:21)
--- NOTE | 2024-01-19 14:09 | W.PN.NEPH.HD ---
Assessment
-
Seen on HD. no new complaints. VSS on pressors, access ok but low flows only.
given severe sepsis and +ve BCx <24hr, pull HD CVC after HD. place temp HD CVC if needed for HD (if AVG flows are poor)
Progress Note - Hemodialysis
-
Date of Service: January 19, 2024
Duration: 30 minutes and 3 hours
Potassium Bath: 2
Calcium Bath: 2.5
Opti-Dialyzer: 160
Ultrafiltration: Other (1kg)
Blood Flow: 250
Dialysate Flow: 600
Heparin: no
EPO: 3000 units
--- NOTE | 2024-01-19 15:06 | CM ---
CM following re: discharge planning.
Reviewed pt's chart, met with pt.
Pt is an 83 year old male, admitted with primary dx of Septic shock.
Pt reports he lives with spouse in a 2SH, 2 steps to enter, has 3 supportive children. Pt reports he ambulates with a walker and a cane, has C-Pap, provided by [facility]. Pt reports he is known to [place]tr[place] CHANEL. pt is on HD, [facility], T, and Sat, chair time 10:40 a.m., spouse or daughter transport. Pt expressed his desire to return [facility] home at discharge with paulino CHANEL and resumptions of outpatient HD treatment at [facility].
PT and OT will evaluate the ptto determine a level of care at discharge.
PCP: Perry Grimes
Pharmacy: [facility]
D/C plan: per pt's hope, home Paulino CHANEL, resumptions of outpatient HD treatmnet at [facility] and family support. PT and OT will evaluate.
CM will follow with discharge plan updates as hospitalization progresses
[2024-01-19 15:14] LABS: Troponin I 0.205 ng/ml
--- NOTE | 2024-01-19 17:00 | PN.IRAD.UPD ---
Update Note - IRAD
- -
Cleaned right sided Tunn HD cath with chloraprep and removed bedside. Site dressed with gauze and a primapore and tip given to nurse to be sent for culture.
Jose Patel (RT)()
[2024-01-19] MEDS: LIPITOR 20 MG PO (21:11)
--- NOTE | 2024-01-19 21:25 | PTCARENOTE ---
Rec'd care of patient at 1900. Patient alert and oriented. GULKANA. Per daughter, forgetful. AV paced on tele monitor. +Murmur. +1 pitting edema in b/l LE. Palpable pulses. ANGE fistula +bruit. Faint thrill felt. Lung sounds diminished throughout. Pulse
ox 96% on RA. ALEGRIA and orthopneic. Pt's CPAP at bedside. RT notified. +BS. Reported poor appetite. Oliguric. Scattered scabs throughout body. Protective foams in place on sacrum and b/l heel. Dressing on right chest c/d/i. VSS. Levophed infusing
through RFA INT. Titrating for MAP >65. Repeat troponin level sent.
[2024-01-20] VITALS (54 sets, daily range): BP systolic 73–116; BP diastolic 25–77; PULSE 80–88; O2SAT 95–96; BMI 26.4
[2024-01-20] MEDS: ZOSYN 50 IV ×2 (02:35→10:55)
[2024-01-20 05:43] LABS: % Basophils 0.8 % (0-2); % Eosinophils 1.6 % (0-6); % Immature Granulocytes 0.5 % (0-0.5); % Lymphocytes 8.6 % (20.5-51.1); % Monocytes 7.9 % (1.7-9.3); % Neutrophils 80.6 % (42.2-75.2); Absolute Basophils 0.1 10^3/uL (0-0.2); Absolute Eosinophils 0.2 10^3/uL (0-0.7); Absolute Immature Granulocytes 0.1 10^3/uL (0-0.05); Absolute Lymphocytes 0.9 10^3/uL (1.2-3.4); Absolute Monocytes 0.9 10^3/uL (0.1-0.6); Absolute Neutrophils 8.8 10^3/uL (1.4-6.5); Hematocrit 32.9 % (39.0-52.0); Hemoglobin 11.4 g/dL (13.0-18.0); Mean Corp Hgb Conc. 34.7 g/dL (33.0-37.0); Mean Corpuscular Hgb 33.7 pg (27.0-31.0); Mean Corpuscular Volume 97.3 fL (80.0-94.0); Mean Platelet Volume 11.9 fL (7.4-10.4); Nucleated Red Blood Cells % 0 % (-); Platelet Count 94 10^3/uL (130-400); Red Blood Cell Count 3.38 10^6/uL (4.70-6.10); Red Cell Dist. Width 16.2 % (11.5-14.5); White Blood Cell Count 10.9 10^3/uL (4.8-10.8)
[2024-01-20 05:55] LABS: Blood Urea Nitrogen 42 mg/dl (9-20); Calcium 8.7 mg/dl (8.4-10.2); Carbon Dioxide 25 mmol/L (22-30); Chloride 96 mmol/L (98-107); Estimated Creatinine Clearance 12 ml/min; Glucose 187 mg/dl (70-99); Sodium 135 mmol/L (135-145); Troponin I 0.221 ng/ml; eGFR 12.54
[2024-01-20] MEDS: FEOSOL 325 MG PO (07:53)
[2024-01-20] MEDS: ZYLOPRIM 100 MG PO (07:53)
[2024-01-20] MEDS: PACERONE 200 MG PO (07:54)
[2024-01-20] MEDS: ProAmatine 5 MG PO ×3 (07:54→19:26)
[2024-01-20] MEDS: HEPARIN 5000 UNITS SC ×2 (07:54→19:26)
[2024-01-20] MEDS: LEVOPHED 250 IV ×2 (07:55→16:18)
--- NOTE | 2024-01-20 08:45 | PTCARENOTE ---
Assumed care of pt at 0715 following shift report. Pt awake and resting quietly in bed. Requesting to use BSC to have BM. Pt moderate assist to transfer to BSC and then to chair. Tolerated increased activity w/o complaints or complication. Pt
remains on RA w/ Pox 96%. Levophed gtt infusing as documented. Physical assessment completed as documented. Pt declining to order breakfast 'maybe I'll order lunch later'. Comfort care provided and safe environment maintained.
--- NOTE | 2024-01-20 09:13 | PHA.VAN.FU ---
Vancomycin Assessment / Plan
- Assessment
Hemodialysis Schedule: TThSa
Last Hemodialysis performed: 01/18
WBC's are: Trending Down
In the past 24 hrs, patient has been: Afebrile
Concomitant Antimicrobials: piperacillin/tazobactam
- Dosing Plan
Dosing by Level: Hold off on dosing today
- Monitoring Plan
Random Level: 01/20 prior to HD
- Follow Up
Pharmacy will continue to follow.
Vancomycin Follow UP
- -
Patient Age: 83
Patient Sex: Male
Vancomycin Day #: 2
Indication: Skin And Soft Tissue
Requesting Provider: Dr. Cook / Javid
Pertinent Antimicrobial Allergies:
NKDA
Height / Weight:
Height 5 ft 9 in
Actual Weight 81.1 kg
Pertinent Past Medical History: ESRD on HD TuThSa, DM 2
- Vital Signs / Lab Results
Temp Pulse Resp BP Pulse Ox
97.5 F 82 20 104/54 93
01/20/24 07:46 01/20/24 07:54 01/20/24 06:30 01/20/24 07:54 01/20/24 06:30
Lab Results - Hematology
01/18/24 01/19/24 01/20/24
14:10 04:36 05:11
WBC 12.5 H 13.6 H 10.9 H
Lab Results - Chemistry
01/18/24 01/19/24 01/20/24
14:10 04:36 05:11
BUN 56 H 61 H 42 H
Creatinine 5.2 H* 5.7 H* 4.4 H*
Estimated Creat Clear 10 12
Albumin 2.9 L 2.8 L
01/18/24 01/19/24 01/19/24
14:10 07:54 11:16
Lactic Acid 4.1 H* 2.2 H 2.4 H
Microbiology Results
01/18/24 14:10 Blood Culture - Preliminary
Blood/Venous Coagulase neg. staphylococcus
Gram Stain - Final
01/18/24 14:10 Blood Culture - Preliminary
Blood/Venous Coagulase neg. staphylococcus
Gram Stain - Final
01/19/24 04:36 MRSA Screen - Final
Nose No Methicillin Resistant Staphylococcus aureus isolated.
--- NOTE | 2024-01-20 10:10 | W.PN.CD ---
Today's Communication / Plan
-
Update TTE to look for IE
Limited GDMT given HD and hypotension
Continue inotropes
Elevated LFTS and T bili possibly related to shock?
Impression / Plan
-
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
place, nonobstructive CAD, status post AVR in 2010 for severe , severe TR, hypertension, hyperlipidemia, diabetes and obesity. He is here with likely septic shock requiring levophed.
Shock: Septic Vs Cardiogenic:
-we are asked to comment on possible cardiogenic
-seems sepsis >Cardiogeniic--->leukocytosis and positive blood cultures
-given bioprosthetic valve/DC ppm will need to consider IE/device infection. Will start with TTE.
-wt is lower than last visit at 192lbs in December, 178 lbs January 19
-continue on vasopressors
-will check troponin, low level/flat likely non-ischemic myocardial injury
-ECG is paced so unhelpful
HFrEF: last echo wtih EF 30%, report of improved EF on TRACY in 05/2024
-GDMT limited by hypotension and renal function
--volume controlled by HD
-will check troponins, low level/flat likely non-ischemic myocardial injury
-update echo
-has a DC device could consider upgrade as QRS >180ms --but this is a group home plan not acute issue.
VT s/p ICD:
-H.o PMVT
-on amiodarone.
Bioprosthetic AVR: given positive blood cultures, would need to consider IE. May need TRACY.
Persistent A-fib
- rate controlled
- no AC as above due to GIB's, hx GIST tumor
ESRD on HD: care per nephrolgoy, does have line that will need to come out.
Data:
TTE: 01/11/24:
CONCLUSIONS
Mildly dilated LV with severely reduced systolic function.
LVEF is approximately 30% by visual estimation with global diffuse hypokinesis.
Mild concentric LVH.
Mitral annular calcification. Mild mitral regurgitation.
S/p bioprosthetic aortic valve replacement with a peak/mean gradient of 25/17
mmHg. Mild aortic regurgitation.
Moderate to severe tricuspid regurgitation.
Estimated pulmonary artery pressure of 43 mmHg. Assuming a right atrial
pressure of 15 mmHg.
Compared to prior from January 08, 2022, on [id number] comparison overall LVEF
is improved and is approximately 30% from 20 to 25%. Interval increase in
bioprosthetic aortic valve gradients from 20/9 mmHg to 25/17 mmHg today.
TRACY: 06/04/23 Moderately reduced left ventricular systolic function. Left ventricular
ejection fraction is 40-45%.
Global hypokinesis.
Moderately dilated atria.
Normally functioning bioprosthetic valve. Trace aortic regurgitation.
Severe tricuspid regurgitation.
Shallow SARAH with maximum diameter 24.0 mm and maximum depth 14 mm.
Compared to prior study of December 2021, EF is improved.
Physical Exam
Vital Signs/Labs
Vital Signs
Temp Pulse Resp BP Pulse Ox
97.5 F 80 22 101/49 96
01/20/24 07:46 01/20/24 10:00 01/20/24 10:00 01/20/24 10:00 01/20/24 08:20
01/19/24 01/20/24 01/21/24
06:59 06:59 06:59
Actual Weight 186 lb 1.122 oz 178 lb 12.718 oz
01/20/24 05:11
01/20/24 05:11
Magnesium 2.0 mg/dl (1.6-2.3) 01/20/24 05:11
01/18/24
14:10
Lcz-O-[id number] Pept > 61071
LAB Results
01/19/24 01/19/24 01/19/24
11:15 14:41 18:15
Troponin I Cancelled 0.205 H* Cancelled
01/19/24 01/20/24
21:10 05:11
Troponin I 0.200 H* 0.221 H*
Physical Exam
Constitutional: No acute distress
EENT: Anicteric
Cardiovascular: Rhythm & rate is regular and Pedal edema present
Respiratory: Respiratory effort normal and Other (mild crackles b/l )
GI: Soft
Neuro/Psych: Alert and Oriented
Data Reviewed
-
Date of Service: January 20, 2024
EKG: Tracing Personally Visualized and interpreted (paced)
Echo: Report Reviewed by me
Labs: Labs Reviewed by me
--- NOTE | 2024-01-20 10:52 | W.PN.HOSP.TC ---
Today's Communication/Plan
-
see bold
Assessment / Plan
Assessment / Plan
Gen: NAD, Awake and alert, appears chronically ill
Eyes: EOMI, PERRLA, no scleral icterus.
Neck: supple.
CV: remains RRR, +S1/S2, no m/r/g.
Resp: remains CTAB, no rales, wheezes, or rhonchi.
Abd: +BS, soft, NT, ND
Skin: scabbed wounds on both LEs. LLE with C/D/I dressing.
Neuro: CN 2-12 intact, non-focal.
Psych: Normal mood and affect.
01/18/24 14:10 Blood/Venous Blood Culture - Preliminary
Coagulase neg. staphylococcus
01/18/24 14:10 Blood/Venous Gram Stain - Final
01/18/24 14:10 Blood/Venous Blood Culture - Preliminary
Coagulase neg. staphylococcus
01/18/24 14:10 Blood/Venous Gram Stain - Final
01/19/24 04:36 Nose MRSA Screen - Final
No Methicillin Resistant Staphylococcus aureus isolated.
Echo 01/11/24: Mildly dilated LV with severely reduced systolic function.
LVEF is approximately 30% by visual estimation with global diffuse hypokinesis.
Mild concentric LVH.
Mitral annular calcification. Mild mitral regurgitation.
S/p bioprosthetic aortic valve replacement with a peak/mean gradient of 25/17
mmHg. Mild aortic regurgitation.
Moderate to severe tricuspid regurgitation.
Estimated pulmonary artery pressure of 43 mmHg. Assuming a right atrial
pressure of 15 mmHg.
Compared to prior from January 08, 2022, on [id number]-pchg comparison overall LVEF
is improved and is approximately 30% from 20 to 25%. Interval increase in
bioprosthetic aortic valve gradients from 20/9 mmHg to 25/[address] A/P:
1. Small volume abdominopelvic ascites. Otherwise no significant acute abnormality identified in the abdomen or pelvis, as described above. Chronic changes as described.
2. Small bilateral pleural effusions.
Septic Shock (POA):
-due to CoNS
-repeat BCxs with one set from HD cath
-check echo (h/o AVR)
-with leukocytosis and lactic acidosis
-Chest x-ray shows cardiomegaly mild pulmonary edema
-follow BCxs
-250cc IV fluids given without change in blood pressure, Levophed started, rate increased. Will need midline and ICU transfer.
-cont empiric Vancomycin/Zosyn as per ID
-cont Midodrine (renal does not want to increase)
Abdominal pain:
-Etiology unclear
-CT abdomen pelvis and abdominal ultrasound without any source visible
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
-U/A ordered and noted, follow reflex culture
Other problems:
Acute nonischemic myocardial injury
ESRD: cont HD T/Th/Thu, cont midodrine
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 Continue amiodarone.
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
Chronic HFrEF: Holding metoprolol
Severe status post bioprosthetic AVR
CAD: Continue statin, BB on hold
Obstructive sleep apnea
Essential hypertension: currently hypotensive
Anemia of chronic disease: Continue ferrous sulfate
Chronic thrombocytopenia: Platelets stable
DM2: BGs controlled. Check a1c
Right renal lesion
h/o GIST tumor
Gout: Continue allopurinol
FULL/Heparin
Total critical care time spent = 32 min
Anticipated Discharge: > 48 hours
Subjective/Interval History
-
Date of Service: January 20, 2024
Denies chest pain or shortness of breath. Denies any acute complaints.
Objective Data
-
Labs:
Laboratory Results
01/20/24
05:11
WBC 10.9 H
Hgb 11.4 L
Hct 32.9 L
Plt Count 94 L
Sodium 135
Potassium 4.0
Chloride 96 L
Carbon Dioxide 25
BUN 42 H
Creatinine 4.4 H*
Glucose 187 H
Calcium 8.7
Vital Signs:
Vital Signs
Temp Pulse Resp BP Pulse Ox
97.5 F 80 22 101/49 96
01/20/24 07:46 01/20/24 10:00 01/20/24 10:00 01/20/24 10:00 01/20/24 08:20
I&O
01/19/24 01/20/24 01/21/24
06:59 06:59 06:59
Intake Total 717.5 / 740.0 832.5 / 855.0 67.5 / 67.5
Balance 717.5 / 740.0 832.5 / 855.0 67.5 / 67.5
--- NOTE | 2024-01-20 10:53 | CON.INTV ---
Consultation
Consultation Request
Date/Time Consultation Requested: 01/20/24
Date/Time Consultation Performed: 01/20/24
Performing Provider: Camila
Reason for Consultation: ICU
Medical History
-
History of Present Illness:
Patient is an 83-year-old male with previous history of end-stage renal disease, VT status post ICD, A-fib, chronic heart failure, CAD, BENJIE on CPAP presenting for generalized weakness, shortness of breath and abdominal discomfort. On initial workup
chest x-ray and CT abdomen pelvis demonstrating pulmonary edema with vascular congestion. He is admitted to IMU 01/19/24 for acute heart failure exacerbation. He had developed hypotension, placed on Levophed. Has new blood culture positivity with
coagulase-negative staph concerning for bacteremia.
He is transferred to ICU due to pressor requirements 01/20/2024.
Past Medical History
Past Medical History: Other (see list below)
Social History
Tobacco: Non-smoker
Alcohol: None
Drug: None
Family History
Family History: Reviewed & Not Pertinent
Allergies / Home Medications
Allergies
Allergy/AdvReac Type Severity Reaction Status Date / Time
No Known Allergies Allergy Verified 12/15/23 11:17
Home Medications
�Medication �Instructions �Recorded �Confirmed �Last Taken �Type
atorvastatin 20 mg tablet 20 mg PO HS High cholesterol 11/08/14 01/18/24 01/17/24 History
allopurinol 100 mg tablet 100 mg PO DAILY Gout 01/13/17 01/18/24 01/18/24 History
ferrous sulfate 325 mg (65 mg 325 mg PO DAILY anemia #30 tabs 06/18/23 01/18/24 01/18/24 Rx
iron) tablet
metoprolol succinate 25 mg 25 mg PO HS HTN 09/03/23 01/18/24 01/17/24 History
tablet,extended release 24 hr
acetaminophen 500 mg tablet 1,000 mg PO BIDPRN PRN mild pain 09/07/23 01/18/24 01/17/24 History
cholecalciferol (vitamin D3) 25 25 mcg PO TUTHSA Supplement 12/15/23 01/18/24 01/16/24 History
mcg (1,000 unit) tablet
epoetin beta, methoxy peg 30 30 mcg SC Q4W ANEMIA 12/15/23 01/18/24 Unknown History
mcg/0.3 mL injection syringe
(Mircera)
amiodarone 200 mg tablet (Pacerone) 200 mg PO DAILY VT/vfib 01/18/24 01/18/24 01/18/24 History
hydrocortisone 1 % lotion 1 applic topical DAILYPRN PRN rash 01/18/24 01/18/24 01/17/24 History
on back
midodrine 5 mg tablet 5 mg PO TUTHSA Blood Pressure 01/18/24 01/18/24 01/16/24 History
Review of Systems
-
History Source: Patient
All other systems: Negative unless noted
Vitals / Labs / Diagnostic Testing
Vital Signs
Temp Pulse Resp BP Pulse Ox
97.5 F 80 22 101/49 96
01/20/24 07:46 01/20/24 10:00 01/20/24 10:00 01/20/24 10:00 01/20/24 08:20
Lab Data
01/20/24 05:11
01/20/24 05:11
Microbiology
01/18/24 14:10 Blood/Venous Blood Culture - Preliminary
Coagulase neg. staphylococcus
01/18/24 14:10 Blood/Venous Gram Stain - Final
01/18/24 14:10 Blood/Venous Blood Culture - Preliminary
Coagulase neg. staphylococcus
01/18/24 14:10 Blood/Venous Gram Stain - Final
01/19/24 04:36 Nose MRSA Screen - Final
No Methicillin Resistant Staphylococcus aureus isolated.
Diagnostic Testing:
Physical Exam
-
HEENT: Normocephalic, Anicteric and Moist Mucous Membranes
Cardiovascular: S1/S2, Regular Rhythm, Murmur and Peripheral Edema
Respiratory: Rales and Non-Labored Respirations
GI: Soft, Non Distended and Non Tender
Neurology: Awake, Alert, Oriented and AO x 3
Skin: Warm, Dry and Good Color
General: Comfortable and Other (NAD)
Assessment
-
Patient is an 83-year-old male with previous history of end-stage renal disease, VT status post ICD, A-fib, chronic heart failure, CAD, BENJIE on CPAP presenting for generalized weakness, shortness of breath and abdominal discomfort. On initial workup
chest x-ray and CT abdomen pelvis demonstrating pulmonary edema with vascular congestion. He is admitted to IMU 01/19/24 for acute heart failure exacerbation. He had developed hypotension, placed on Levophed. Has new blood culture positivity with
coagulase-negative staph concerning for bacteremia.
He is transferred to ICU due to pressor requirements 01/20/2024.
Acute on chronic HFpEF exacerbation
Progressive SOB/Abd pain 2/2 vascular congestion
Shock on pressors, septic
CoNS Bacteremia, 4/4 bottles
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
ESRD on HD TThSa
Polymorphic VT status post ICD
Paroxysmal atrial fibrillation not on anticoagulation
Chronic HFrEF
Severe aortic stenosis status post bioprosthetic AVR in 2010
Coronary artery disease
Obstructive sleep apnea
Hypertension
Anemia of chronic disease
Appendectomy
chronic thrombocytopenia
Type 2 diabetes
Right renal lesions
history of GIST tumor
gout
Plan
No current signs of metabolic encephalopathy or MS changes/following commands
Denies pain at this time.
Pain/sedation: PRN
RASS goals: 0
Hemodynamically unstable, requiring pressors.
Requiring pressors: levo @6, stable dose
Cardiac history reviewed--HF, AF, CAD, s/p AVR
Prior ECHO reviewed indicating last EF 30%
Cards following, hold BP meds while hypotension
Can try PO midodrine
Agree with volume removal via HD
Oxygen needs: stable on room air
Prior history of lung disease: BENJIE on CPAP, maintain nightly use
Supplemental O2 as indicated to maintain sats > 89%
CXR/CT reviewed indicating edema, repeat as needed
Advance diet as tolerated
Glass Furnace Tender recommendations
Aspiration precautions, HOB > 30 degrees
Speech therapy eval can be considered if at elevated risk
GI prophylaxis if indicated for mechanical ventilation >48 hours, prior history of GERD, stress ulcer formation in the critically ill
ESRD on HD, renal following
Continue HD TThSat
Follow urine output, critical I/Os
Replete electrolytes as needed
Blood cultures 4/4 CoNS
ID following
Started on empiric antibiotics
Cultures sent/pending
Blood, repeat pending
MRSA screen negative
Follow fever trend, WBC count
CBC stable, no signs of bleeding or coagulopathy.
DVT prophylaxis as assessed based on risk, including mechanical SCDs
Can transfuse if indicated for Hb <7, plt < 10
INR WNL
No prior h/o diabetes or thyroid disease
Monitor accuchecks PRN/SS coverage if needed
HbA1c 4.5
We will follow
Diagnostic Data
Chest X-Ray: 01/18/24- Cardiomegaly with mild pulmonary edema
Postoperative changes as described above.
CT Scan: AP 01/18/24- 1. Small volume abdominopelvic ascites. Otherwise no significant acute abnormality identified in the abdomen or pelvis, as described above. Chronic changes as described.
2. Small bilateral pleural effusions.
Echo: 01/11/24- Mildly dilated LV with severely reduced systolic function. LVEF is approximately 30% by visual estimation with global diffuse hypokinesis. Mild concentric LVH. Mitral annular calcification. Mild mitral regurgitation. S/p
bioprosthetic aortic valve replacement with a peak/mean gradient of 25/17 mmHg. Mild aortic regurgitation. Moderate to severe tricuspid regurgitation. Estimated pulmonary artery pressure of 43 mmHg. Assuming a right atrial pressure of 15 mmHg.
Compared to prior from January 08, 2022, on [id number] comparison overall LVEF is improved and is approximately 30% from 20 to 25%. Interval increase in bioprosthetic aortic valve gradients from 20/9 mmHg to 25/17 mmHg today.
PFT's: 2008- FVC is 3.33L or 77% of predicted - FEV1 is 2.66L or 84% of predicted - Ratio is 80%.
Impression: Normal spirometry.
Reports and relevant images were personally reviewed.
-----
Critical care time 65 mins -- this includes review of history, physical exam, medications, hemodynamic/ventilator parameters, laboratory data, imaging and discussion with house staff, pharmacy, respiratory therapy, grain mill worker, and nursing.
--- NOTE | 2024-01-20 12:03 | W.PN.ID1 ---
Date of Service
Date of Service: January 20, 2024
Today's Communication
Continue Vanco. DC Zosyn. Follow repeat bcx.
Assessment / Plan
# CoNS bacteremia 4 out of 4 bottles.
-Multiple potential sources: HD catheter, bio-AVR, ICD
-TTE pending
- Repeat blood cx's - one set from HD catheter pending
- HD catheter removed. Tip cx pending
- Continue Vancomycin (d3)
- DC Zosyn.
# Acute on chronic HF
# Shock
# Elevated LFT's likely due to hypotension
-CT a/p no acute abnormality
- Abd US: no cholecystitis
#Additional Past Medical History:
End-stage renal disease on hemodialysis Thursday via right upper extremity AV graft
Paroxysmal atrial fibrillation, not on anticoagulation
Heart failure with reduced EF
Bioprosthetic aortic valve replacement
V. tach status post ICD placement
Severe tricuspid regurgitation
GIST tumor status post Gleevec
Hypotension on midodrine
Sleep apnea
Lymphedema
gout
basal cell ca
History of recurrent GI bleed
Chronic thrombocytopenia
Appendectomy
Chief Complaint
-: Bacteremia
Subjective / Review of Systems
No complaints.
Vital Signs / Physical Exam
Vital Signs
Vital Signs
Temp Pulse Resp BP Pulse Ox
97.5 F 80 22 101/49 96
01/20/24 07:46 01/20/24 10:00 01/20/24 10:00 01/20/24 10:00 01/20/24 08:20
Physical Exam
Constitutional: No Acute Distress and Comfortable
Cardiovascular: Regular Rate and S1/S2
Gastrointestinal: Soft, Non Tender and Non Distended
Extremities: Edema
Neurological: Awake and Alert
Objective Data
Lab Data
Lab Results
01/20/24 05:11
01/20/24 05:11
Estimated Creat Clear 12 ml/min 01/20/24 05:11
Lactic Acid 2.4 mmol/L (0.7-2.0) H 01/19/24 11:16
Total Bilirubin 3.0 mg/dl (0.2-1.3) H 01/19/24 04:36
AST 163 U/L (17-59) H 01/19/24 04:36
ALT 49 U/L (0-50) 01/19/24 04:36
Alkaline Phosphatase 266 U/L (38-126) H 01/19/24 04:36
Most recent labs reviewed.
Micro Results:
01/18/24 14:10 Blood Culture - Preliminary
Blood/Venous Coagulase neg. staphylococcus
Gram Stain - Final
01/18/24 14:10 Blood Culture - Preliminary
Blood/Venous Coagulase neg. staphylococcus
Gram Stain - Final
01/19/24 04:36 MRSA Screen - Final
Nose No Methicillin Resistant Staphylococcus aureus isolated.
01/19/24 17:03 Catheter Tip Culture - Pending
Catheter Tip
01/19/24 13:15 Blood Culture - Pending
Blood/Venous
01/19/24 13:15 Blood Culture - Pending
Blood/Venous
01/18/24 CT a/P: Small volume abdominopelvic ascites. Otherwise no significant acute abnormality identified in the abdomen or pelvis, as described above. Chronic changes as described. Small bilateral pleural effusions.
01/18/24 ABD US: There are a few small mobile gallstones identified within the gallbladder as well as a small amount of sludge. The gallbladder wall is not thickened. The patient has a negative sonographic Faith's sign. No evidence for biliary
ductal dilation. Increased echogenicity of the liver with coarsening of hepatic echotexture, findings suggestive of hepatocellular disease. No evidence of a focal hepatic mass lesion. Splenomegaly.
Small to moderate amount of ascites within both upper quadrants. Bilateral pleural effusions. No evidence for pelvicalyceal dilation of either kidney. Multiple bilateral renal cysts.
01/18/24 CXR: Cardiomegaly with mild pulmonary edema
--- NOTE | 2024-01-20 13:00 | PTCARENOTE ---
PT/OT evaluated and tx pt- pt returned to bed. Lt UA midline catheter placed by IV Team RN. Pt tolerated well. Pt assisted in ordering lunch. Pt continues to rest quietly in bed, denies SOB or c/o pain. Comfort care/hygiene provided.
--- NOTE | 2024-01-20 14:32 | W.PN.NEPH.PH ---
Today's Communication / Plan
-
- HD tomorrow
Assessment/Plan
-
IMP:
Gen weakness
Sepsis
Hypotension
Lactic acidosis
ESRD HD started 06/2023-[facility]
Right UE AVG, placed 11/2023
CHF with R EF 30%
Severe TR
Nonobstructive CAD
Chronic anemia likely multifactorial
Bioprosthetic aortic valve 2010
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
ICD
h/o atrial fibrillation off anticoagulation due to recurrent GI bleed
History of GIST tumor previously treated with Gleevac
Bilateral renal cyst with prior concern for masses
Gout
Diabetes mellitus type 2
Basal cell skin cancer
Plan:
HD tomorrow
wean levophed as allowed
midodrine ordered for 5mg BID
unfortuantely, had some trouble with AVG flows, will reassess tomorrow
abx empiric for sepsis
-
-
Date of Service: January 20, 2024
CC / HPI / ROS
-
Chief Complaint:
ESRD
History of Present Illness:
Remains hypotensive on Levophed
LFTs remain elevated
lactate down to 2.2
anemia/thrombocytopenia unchanged
Review of Systems:
no CP/SOB
slightly confused
Labs
-
Labs:
WBC 10.9 10^3/uL (4.8-10.8) H 01/20/24 05:11
RBC 3.38 10^6/uL (4.70-6.10) L 01/20/24 05:11
Hgb 11.4 g/dL (13.0-18.0) L 01/20/24 05:11
Hct 32.9 % (39.0-52.0) L 01/20/24 05:11
Plt Count 94 10^3/uL (130-400) L 01/20/24 05:11
Sodium 135 mmol/L (135-145) 01/20/24 05:11
Potassium 4.0 mmol/L (3.5-5.1) 01/20/24 05:11
Chloride 96 mmol/L (98-107) L 01/20/24 05:11
Carbon Dioxide 25 mmol/L (22-30) 01/20/24 05:11
BUN 42 mg/dl (9-20) H 01/20/24 05:11
Creatinine 4.4 mg/dL (0.7-1.3) H* 01/20/24 05:11
eGFR 12.54 01/20/24 05:11
Glucose 187 mg/dl (70-99) H 01/20/24 05:11
Calcium 8.7 mg/dl (8.4-10.2) 01/20/24 05:11
Ado-F-Hsbgupeccnz Pept > 22696 pg/ml 01/18/24 14:10
Albumin 2.8 g/dl (3.5-5.0) L 01/19/24 04:36
Physical Exam
-
Vital Signs:
Vital Signs
Temp Pulse Resp BP Pulse Ox
98.4 F 80 25 116/53 93
01/20/24 12:30 01/20/24 14:14 01/20/24 14:14 01/20/24 14:14 01/20/24 14:14
Cardiovascular:: Regular rate and rhythm
Respiratory:: Bilateral: CTA
Lung Excursion:: Normal
Abdomen:: Nontender and Soft
Bowel Sounds:: Normal
Extremity Edema:: None: Bilateral:
Rivas Catheter: No
--- NOTE | 2024-01-20 15:03 | CM ---
CM following re: discharge planning.
Reviewed pty's chart, met with pt and spoke to pt's daughter Patricia over the phone. Nephrology, ID and Cardiology following.
PT and OT evaluations noted - SNF level of care recommended.
CM discussed it with pt's daughter Patricia, a list of SNFs with HD treatment on site provided and pt's daughter stated she will discuss it with her mother and they will decide to whether or not pt needs to go to a SNF or return back home with [facility].
per daughter, if family decided and pt agrees with SNF then most likely choice will be [facility]. Pt's daughter stated she wants closer SNF to .
D/C plan: SNF if pt and family agree or home with [facility].
CM will follow with discharge plan updates as hospitalization progresses
--- NOTE | 2024-01-20 15:55 | PTCARENOTE ---
Received pt awake and alert. Left upper arm midline with Levophed@8mcg/min. Midodrine to be administered for SBP 85. Doppler pedal pulses. +2-3 ankle edema. Trace anasarca. Breath sounds dim posteriorly. +orthopnea & ALEGRIA. Hyperactive BSX4. Fair
appetite. Oliguric. Right L/E's dressings cdi. Scattered scabs on his arms and 1 one his left scalp. He was informed of the plan of care. He is hard of hearing. Safe environment maintained.
[2024-01-20 16:17] LABS: Glucose - Point of Care 210 mg/dl (70-99)
--- NOTE | 2024-01-20 20:00 | PTCARENOTE ---
Resumed care of pt this evening. Received pt on levo gtt infusing at 6mcg/min via left midline IV site. Pt is A&Ox2 forgetful of time. Pt is 100% V-paced on tele monitor, has weak radial and pedal pulses. Pt on RA satting at 95% pulse ox. On
auscultation pt lungs are diminished TO. Pt's abdomen is round, obese, and has +BS. Pt is oliguric. Pt has scattered scabs and bruising TO. Pt has silicone boarder foams x2 on rt lower leg and sacral foam all are C/D/I.
--- NOTE | 2024-01-20 23:20 | RESPNOTE ---
pt required help placing himself on home cpap unit. Pt agrees he will call if he needs further help
--- NOTE | 2024-01-20 23:30 | PTCARENOTE ---
Levo gtt titrated to 8mcg/min according to protocol. CPAP is on per HS order.
[2024-01-21] VITALS (47 sets, daily range): BP systolic 58–142; BP diastolic 16–119; BMI 28.2
[2024-01-21] MEDS: ProAmatine 5 MG PO ×3 (00:44→08:39)
[2024-01-21] MEDS: LIPITOR 20 MG PO ×2 (00:44→20:50)
[2024-01-21] MEDS: LEVOPHED 250 IV ×4 (01:40→19:43)
--- NOTE | 2024-01-21 07:08 | W.PN.INTV ---
Today's Communication / Plan
Recommendations
Pressor requirements are increased, vasopressin added
On HD today, can try to wean pressors post session
Remains on IV abx, repeat culture negative, not a surgical candidate
If not making significant progress or clinically deteriorating, GOC are needed
Patient remains Full Code
Assessment
-
Patient is an 83-year-old male with previous history of end-stage renal disease, VT status post ICD, A-fib, chronic heart failure, CAD, BENJIE on CPAP presenting for generalized weakness, shortness of breath and abdominal discomfort. On initial workup
chest x-ray and CT abdomen pelvis demonstrating pulmonary edema with vascular congestion. He is admitted to IMU 01/19/24 for acute heart failure exacerbation. He had developed hypotension, placed on Levophed. Has new blood culture positivity with
coagulase-negative staph concerning for bacteremia.
He is transferred to ICU due to pressor requirements 01/20/2024.
Acute on chronic HFpEF exacerbation
Progressive SOB/Abd pain 2/2 vascular congestion
Shock on pressors, septic
CoNS Bacteremia, 4/4 bottles
Elevated LFTs
Hyperglycemia
Leukocytosis
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
ESRD on HD TThSa
Polymorphic VT status post ICD
Paroxysmal atrial fibrillation not on anticoagulation
Chronic HFrEF
Severe aortic stenosis status post bioprosthetic AVR in 2010
Coronary artery disease
Obstructive sleep apnea
Hypertension
Anemia of chronic disease
Appendectomy
chronic thrombocytopenia
Type 2 diabetes
Right renal lesions
history of GIST tumor
gout
Plan
No current signs of metabolic encephalopathy or MS changes/following commands
Denies pain at this time.
Pain/sedation: PRN
RASS goals: 0
Hemodynamically unstable, requiring pressors/escalating
Requiring pressors: levo @14, vasopressin added this AM
Cardiac history reviewed--HF, AF, CAD, s/p AVR
Prior ECHO reviewed indicating last EF 30%
Cards following, hold BP meds while hypotension--not more to offer from their perspective
Can try increasing PO midodrine
Agree with volume removal via HD
Oxygen needs: stable on room air
Prior history of lung disease: BENJIE on CPAP, maintain nightly use
Supplemental O2 as indicated to maintain sats > 89%
CXR/CT reviewed indicating edema, repeat as needed
Advance diet as tolerated
Building Tech recommendations
Aspiration precautions, HOB > 30 degrees
Speech therapy eval can be considered if at elevated risk
GI prophylaxis if indicated for mechanical ventilation >48 hours, prior history of GERD, stress ulcer formation in the critically ill
ESRD on HD, renal following
Continue HD TThSat
Follow urine output, critical I/Os
Replete electrolytes as needed
Blood cultures 4/4 CoNS
ID following
Started on empiric antibiotics
Cultures sent/pending
Blood, repeat pending
MRSA screen negative
Follow fever trend, WBC count
CBC stable, no signs of bleeding or coagulopathy.
DVT prophylaxis as assessed based on risk, including mechanical SCDs
Can transfuse if indicated for Hb <7, plt < 10
INR WNL
No prior h/o diabetes or thyroid disease
Monitor accuchecks PRN/SS coverage if needed
HbA1c 4.5
Prognosis [facility] poor, would be appropriate to start GOC discussions
Diagnostic Data
Chest X-Ray: 01/18/24- Cardiomegaly with mild pulmonary edema
Postoperative changes as described above.
CT Scan: AP 01/18/24- 1. Small volume abdominopelvic ascites. Otherwise no significant acute abnormality identified in the abdomen or pelvis, as described above. Chronic changes as described.
2. Small bilateral pleural effusions.
Echo: 01/11/24- Mildly dilated LV with severely reduced systolic function. LVEF is approximately 30% by visual estimation with global diffuse hypokinesis. Mild concentric LVH. Mitral annular calcification. Mild mitral regurgitation. S/p
bioprosthetic aortic valve replacement with a peak/mean gradient of 25/17 mmHg. Mild aortic regurgitation. Moderate to severe tricuspid regurgitation. Estimated pulmonary artery pressure of 43 mmHg. Assuming a right atrial pressure of 15 mmHg.
Compared to prior from January 08, 2022, on [id number] comparison overall LVEF is improved and is approximately 30% from 20 to 25%. Interval increase in bioprosthetic aortic valve gradients from 20/9 mmHg to 25/17 mmHg today.
PFT's: 2008- FVC is 3.33L or 77% of predicted - FEV1 is 2.66L or 84% of predicted - Ratio is 80%.
Impression: Normal spirometry.
Reports and relevant images were personally reviewed.
-----
Critical care time 35 mins -- this includes review of history, physical exam, medications, hemodynamic/ventilator parameters, laboratory data, imaging and discussion with house staff, pharmacy, respiratory therapy, camp boss, and nursing.
Subjective Dataa
Subjective Data
Date of Service:
Date of Service: January 21, 2024
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
Subjective:
overnight needing more pressors, now on vasopressin
he is evaluated on HD this am
no new complaints
Objective Data
Data Reviewed
Vital Signs / I&O / Oxygen:
Vital Signs
Temp Pulse Resp BP Pulse Ox
98.5 F 80 18 100/72 96
01/21/24 00:48 01/21/24 06:00 01/21/24 06:00 01/21/24 06:00 01/21/24 06:00
Intake and Output
01/20/24 01/21/24 01/22/24
06:59 06:59 06:59
Intake Total 832.5 / 855.0 1420.8 / 1420.8
Balance 832.5 / 855.0 1420.8 / 1420.8
SaO2 96
Physical Exam
General: Comfortable and Other (NAD)
HEENT: Normocephalic, Anicteric and Moist Mucous Membranes
Cardiovascular: S1-S2, Regular Rhythm, Murmur and Peripheral Edema
Respiratory: Clear (overall decreased) and Non-Labored Respirations
GI: Soft, Non Distended and Non Tender
Neurology: Awake, Alert, No Motor Deficits and Other (answers appropriately, but insight poor)
Skin: Warm and Dry
Labs/Micro/Reports
Lab Data
01/20/24 05:11
01/20/24 05:11
Microbiology
01/19/24 17:03 Catheter Tip Catheter Tip Culture - Preliminary
No Growth After 18-24 Hours
01/19/24 13:15 Blood/Venous Blood Culture - Preliminary
No Growth in 24 hours- Final report to follow
01/19/24 13:15 Blood/Venous Blood Culture - Preliminary
No Growth in 24 hours- Final report to follow
01/18/24 14:10 Blood/Venous Blood Culture - Preliminary
Coagulase neg. staphylococcus
01/18/24 14:10 Blood/Venous Gram Stain - Final
01/18/24 14:10 Blood/Venous Blood Culture - Preliminary
Coagulase neg. staphylococcus
01/18/24 14:10 Blood/Venous Gram Stain - Final
01/19/24 04:36 Nose MRSA Screen - Final
No Methicillin Resistant Staphylococcus aureus isolated.
[2024-01-21] MEDS: HEPARIN 5000 UNITS SC ×2 (07:21→20:50)
[2024-01-21] MEDS: PACERONE 200 MG PO (07:21)
[2024-01-21] MEDS: FEOSOL 325 MG PO (07:21)
[2024-01-21] MEDS: ZYLOPRIM 100 MG PO (07:22)
--- NOTE | 2024-01-21 08:08 | PTCARENOTE ---
Received pt this am on levo that required up titration prior to initiating dialysis as scheduled. Currently infusing at 14mcg/min, midodrine given as scheduled, will give prn dose when able. Pt without complaint currently. 100% vpaced on monitor.
Denies cp/sob/nausea. Labs sent by hd rn. Otherwise please refer to worklist.
[2024-01-21 08:24] LABS: Hematocrit 32.6 % (39.0-52.0); Hemoglobin 11.3 g/dL (13.0-18.0); Mean Corp Hgb Conc. 34.7 g/dL (33.0-37.0); Mean Corpuscular Hgb 33.7 pg (27.0-31.0); Mean Corpuscular Volume 97.3 fL (80.0-94.0); Mean Platelet Volume 12.1 fL (7.4-10.4); Platelet Count 112 10^3/uL (130-400); Red Blood Cell Count 3.35 10^6/uL (4.70-6.10); Red Cell Dist. Width 15.8 % (11.5-14.5)
[2024-01-21] MEDS: PITRESSIN 100 IV ×3 (08:33→22:39)
[2024-01-21 08:36] LABS: ALT (SGPT) 41 U/L (0-50); AST (SGOT) 132 U/L (17-59); Albumin 2.8 g/dl (3.5-5.0); Alkaline Phosphatase 218 U/L (38-126); Blood Urea Nitrogen 55 mg/dl (9-20); Calcium 8.2 mg/dl (8.4-10.2); Carbon Dioxide 23 mmol/L (22-30); Chloride 96 mmol/L (98-107); Estimated Creatinine Clearance 9 ml/min; Glucose 148 mg/dl (70-99); Potassium 3.9 mmol/L (3.5-5.1); Sodium 133 mmol/L (135-145); Total Bilirubin 3.1 mg/dl (0.2-1.3); Total Protein 6.2 g/dl (6.3-8.2)
[2024-01-21 08:39] LABS: Vancomycin Random 11.9 ug/ml
[2024-01-21] MEDS: VITAMIN D3 (cholecalciferol) 25 MCG PO (08:39)
--- NOTE | 2024-01-21 08:55 | W.PN.HOSP.TC ---
Today's Communication/Plan
-
see bold
Assessment / Plan
Assessment / Plan
Gen: remains NAD, Awake and alert, appears chronically ill
Eyes: EOMI, PERRLA, no scleral icterus.
Neck: supple.
CV: continues to remain RRR, +S1/S2, no m/r/g.
Resp: continues to remain CTAB, no rales, wheezes, or rhonchi.
Abd: +BS, soft, NT, ND
Neuro: CN 2-12 intact, non-focal.
Psych: Normal mood and affect.
01/19/24 17:03 Catheter Tip Catheter Tip Culture - Preliminary
No Growth After 18-24 Hours
01/19/24 13:15 Blood/Venous Blood Culture - Preliminary
No Growth in 24 hours- Final report to follow
01/19/24 13:15 Blood/Venous Blood Culture - Preliminary
No Growth in 24 hours- Final report to follow
01/18/24 14:10 Blood/Venous Blood Culture - Preliminary
Coagulase neg. staphylococcus
01/18/24 14:10 Blood/Venous Gram Stain - Final
01/18/24 14:10 Blood/Venous Blood Culture - Preliminary
Coagulase neg. staphylococcus
01/18/24 14:10 Blood/Venous Gram Stain - Final
01/19/24 04:36 Nose MRSA Screen - Final
No Methicillin Resistant Staphylococcus aureus isolated.
CT A/P:
1. Small volume abdominopelvic ascites. Otherwise no significant acute abnormality identified in the abdomen or pelvis, as described above. Chronic changes as described.
2. Small bilateral pleural effusions.
Echo (TTE) 01/20/24: Normal LV size with moderate to severely reduced systolic function.
LVEF is approximately 30% by visual estimation with global diffuse hypokinesis.
Mild concentric LVH.
Normal right ventricular size and function.
Mild mitral regurgitation.
S/p bioprosthetic aortic valve. Peak/mean gradients are 38/18mmHg. Moderate
aortic regurgitation.
Severe tricuspid regurgitation.
Estimated pulmonary artery pressure of 60 mmHg. Assuming a right atrial
pressure of 8 mmHg.
Pleural effusion present.
No obvious vegetation.
Compared to prior from January 11, 2024, tricuspid regurgitation is now severe
from moderate to severe and estimated PASP is now moderate to severely elevated
at 60 mmHg from previously 43 mmHg.
Septic Shock (POA):
-due to CoNS
-repeat BCxs NGTD
-with leukocytosis and lactic acidosis
-Chest x-ray shows cardiomegaly mild pulmonary edema
-cont to follow BCxs
-250cc IV fluids given without change in blood pressure
-currently on Levophed @ 14mcg/min
-cont Vancomycin as per ID
-cont Midodrine (renal does not want to increase)
Abdominal pain:
-Etiology unclear
-CT abdomen pelvis and abdominal ultrasound without any source visible
-Patient without constipation last bowel movement 1 day UR COORDINATOR
-U/A ordered and noted, follow reflex culture
Other problems:
Acute nonischemic myocardial injury
ESRD: cont HD T//Thu, cont midodrine
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 Continue amiodarone.
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
Chronic HFrEF: Holding metoprolol
Severe status post bioprosthetic AVR
CAD: Continue statin, BB on hold
Obstructive sleep apnea
Essential hypertension: currently hypotensive
Anemia of chronic disease: Continue ferrous sulfate
Chronic thrombocytopenia: Platelets stable
DM2: BGs controlled. a1c 4.5%.
Right renal lesion
h/o GIST tumor
Gout: Continue allopurinol
FULL/Heparin
Total critical care time spent = 31 min
Anticipated Discharge: > 48 hours
Subjective/Interval History
-
Date of Service: January 21, 2024
Denies CP/SOB.
Objective Data
-
Labs:
Laboratory Results
01/21/24
07:41
WBC 13.0 H
Hgb 11.3 L
Hct 32.6 L
Plt Count 112 L
Sodium 133 L
Potassium 3.9
Chloride 96 L
Carbon Dioxide 23
BUN 55 H
Creatinine 5.8 H*
Glucose 148 H
Calcium 8.2 L
Total Bilirubin 3.1 H
AST 132 H
ALT 41
Alkaline Phosphatase 218 H
Vital Signs:
Vital Signs
Temp Pulse Resp BP Pulse Ox
98.3 F 80 20 120/25 94
01/21/24 07:36 01/21/24 07:45 01/21/24 07:45 01/21/24 07:45 01/21/24 07:45
I&O
01/20/24 01/21/24 01/22/24
06:59 06:59 06:59
Intake Total 832.5 / 855.0 1420.8 / 1420.8
Balance 832.5 / 855.0 1420.8 / 1420.8
--- NOTE | 2024-01-21 09:00 | PTCARENOTE ---
vasopressin has been added per Dr Jensen
--- NOTE | 2024-01-21 09:08 | PHA.VAN.FU ---
Vancomycin Assessment / Plan
- Assessment
Hemodialysis Schedule: TThSa
WBC's are: Trending Up
In the past 24 hrs, patient has been: Afebrile
- Assessment - Therapeutic Drug Monitoring
Random Level: pre-HD = 11.9 (drawn ~54H after 2g load plus received HD after load)
- Dosing Plan
Dosing by Level: Re-dose today (Vanc 750mg)
- Monitoring Plan
No level(s) ordered at this time: consider pre-HD level for Sat
- Follow Up
Pharmacy will continue to follow.
Vancomycin Follow UP
- -
Patient Age: 83
Patient Sex: Male
Vancomycin Day #: 3
Indication: Skin And Soft Tissue
Requesting Provider: Dr. Cook / Javid
Pertinent Antimicrobial Allergies:
NKDA
Height / Weight:
Height 5 ft 9 in
Actual Weight 86.5 kg
Pertinent Past Medical History: ESRD on HD TuThSa, DM 2
- Vital Signs / Lab Results
Temp Pulse Resp BP Pulse Ox
98.3 F 80 21 119/35 96
01/21/24 07:36 01/21/24 09:00 01/21/24 09:00 01/21/24 09:00 01/21/24 09:00
Lab Results - Hematology
01/18/24 01/19/24 01/20/24
14:10 04:36 05:11
WBC 12.5 H 13.6 H 10.9 H
01/21/24
07:41
WBC 13.0 H
Lab Results - Chemistry
01/18/24 01/19/24 01/20/24
14:10 04:36 05:11
BUN 56 H 61 H 42 H
Creatinine 5.2 H* 5.7 H* 4.4 H*
Estimated Creat Clear 10 12
Albumin 2.9 L 2.8 L
01/21/24
07:41
BUN 55 H
Creatinine 5.8 H*
Estimated Creat Clear 9
Albumin 2.8 L
01/18/24 01/19/24 01/19/24
14:10 07:54 11:16
Lactic Acid 4.1 H* 2.2 H 2.4 H
Microbiology Results
01/19/24 17:03 Catheter Tip Culture - Preliminary
Catheter Tip No Growth After 18-24 Hours
01/19/24 13:15 Blood Culture - Preliminary
Blood/Venous No Growth in 24 hours- Final report to follow
01/19/24 13:15 Blood Culture - Preliminary
Blood/Venous No Growth in 24 hours- Final report to follow
01/18/24 14:10 Blood Culture - Preliminary
Blood/Venous Coagulase neg. staphylococcus
Gram Stain - Final
01/18/24 14:10 Blood Culture - Preliminary
Blood/Venous Coagulase neg. staphylococcus
Gram Stain - Final
01/19/24 04:36 MRSA Screen - Final
Nose No Methicillin Resistant Staphylococcus aureus isolated.
Therapeutic Drug Monitoring
Random Vancomycin 11.9 ug/ml 01/21/24 07:41
--- NOTE | 2024-01-21 09:32 | W.PN.ID1 ---
Date of Service
Date of Service: January 21, 2024
Today's Communication
Continue Vancomycin.
Assessment / Plan
# CoNS bacteremia 4 out of 4 bottles, not sustained
-TTE no gross vege
- Repeat blood cx's - negative
- HD catheter removed. Tip cx negative
- Continue Vancomycin with HD (d4 ).
# Acute on chronic HF
# Shock
# hx ICD, Bio-AVR
# Elevated LFT's likely due to hypotension
-CT a/p no acute abnormality
- Abd US: no cholecystitis
#Additional Past Medical History:
End-stage renal disease on hemodialysis Thursday via right upper extremity AV graft
Paroxysmal atrial fibrillation, not on anticoagulation
Heart failure with reduced EF
Bioprosthetic aortic valve replacement
V. tach status post ICD placement
Severe tricuspid regurgitation
GIST tumor status post Gleevec
Hypotension on midodrine
Sleep apnea
Lymphedema
gout
basal cell ca
History of recurrent GI bleed
Chronic thrombocytopenia
Appendectomy
Chief Complaint
-: Bacteremia
Subjective / Review of Systems
No complaints.
Vital Signs / Physical Exam
Vital Signs
Vital Signs
Temp Pulse Resp BP Pulse Ox
98.3 F 80 21 119/35 96
01/21/24 07:36 01/21/24 09:00 01/21/24 09:00 01/21/24 09:00 01/21/24 09:00
Physical Exam
Constitutional: No Acute Distress and Comfortable
Cardiovascular: Other (LCW ICD no erythema)
Pulmonary: Clear
Gastrointestinal: Soft, Non Tender and Non Distended
Extremities: Edema (BLE decreased)
Neurological: AO x 3
Objective Data
Lab Data
Lab Results
01/21/24 07:41
01/21/24 07:41
Estimated Creat Clear 9 ml/min 01/21/24 07:41
Lactic Acid 2.4 mmol/L (0.7-2.0) H 01/19/24 11:16
Total Bilirubin 3.1 mg/dl (0.2-1.3) H 01/21/24 07:41
AST 132 U/L (17-59) H 01/21/24 07:41
ALT 41 U/L (0-50) 01/21/24 07:41
Alkaline Phosphatase 218 U/L (38-126) H 01/21/24 07:41
Most recent labs reviewed.
Micro Results:
01/18/24 14:10 Blood Culture - Preliminary
Blood/Venous Coagulase neg. staphylococcus
Gram Stain - Final
01/18/24 14:10 Blood Culture - Preliminary
Blood/Venous Coagulase neg. staphylococcus
Gram Stain - Final
01/19/24 17:03 Catheter Tip Culture - Preliminary
Catheter Tip No Growth After 18-24 Hours
01/19/24 13:15 Blood Culture - Preliminary
Blood/Venous No Growth in 24 hours- Final report to follow
01/19/24 13:15 Blood Culture - Preliminary
Blood/Venous No Growth in 24 hours- Final report to follow
01/19/24 04:36 MRSA Screen - Final
Nose No Methicillin Resistant Staphylococcus aureus isolated.
01/18/24 CT a/P: Small volume abdominopelvic ascites. Otherwise no significant acute abnormality identified in the abdomen or pelvis, as described above. Chronic changes as described. Small bilateral pleural effusions.
01/18/24 ABD US: There are a few small mobile gallstones identified within the gallbladder as well as a small amount of sludge. The gallbladder wall is not thickened. The patient has a negative sonographic Faith's sign. No evidence for biliary
ductal dilation. Increased echogenicity of the liver with coarsening of hepatic echotexture, findings suggestive of hepatocellular disease. No evidence of a focal hepatic mass lesion. Splenomegaly.
Small to moderate amount of ascites within both upper quadrants. Bilateral pleural effusions. No evidence for pelvicalyceal dilation of either kidney. Multiple bilateral renal cysts.
01/18/24 CXR: Cardiomegaly with mild pulmonary edema
--- NOTE | 2024-01-21 10:00 | W.PN.CD ---
Today's Communication / Plan
-
Currently receiving HD
Increased inotrope requirement
Cont antibiotics
Impression / Plan
-
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
place, nonobstructive CAD, status post AVR in 2010 for severe , severe TR, hypertension, hyperlipidemia, diabetes and obesity. He is here with likely septic shock requiring levophed.
Shock: Septic Vs Cardiogenic:
-we are asked to comment on possible cardiogenic
-seems sepsis >Cardiogeniic--->leukocytosis and positive blood cultures
-given bioprosthetic valve/DC ppm will need to consider IE/device infection.
- TTE did not show any obvious vegetation, however significant calcium and bioprosthetic AVR difficult to definitively rule out endocarditis
-wt is lower than last visit at 192lbs in December, 178 lbs January 19
-continue on vasopressors, increasing requirement
-troponin are low level/flat likely non-ischemic myocardial injury
HFrEF: last echo wtih EF 30%, report of improved EF on TRACY in 05/2024
-GDMT limited by hypotension and renal function
--volume controlled by HD
-echo below
-has a DC device could consider upgrade as QRS >180ms --but this is a senior care plan not acute issue.
VT s/p ICD:
-H.o PMVT
-on amiodarone.
Bioprosthetic AVR: given positive blood cultures, would need to consider IE. TRACY?
Persistent A-fib
- rate controlled
- no AC as above due to GIB's, hx GIST tumor
ESRD on HD: care per nephrolgoy, does have line that will need to come out.
Data:
TTE January 20, 2024:
CONCLUSIONS
Normal LV size with moderate to severely reduced systolic function.
LVEF is approximately 30% by visual estimation with global diffuse hypokinesis.
Mild concentric LVH.
Normal right ventricular size and function.
Mild mitral regurgitation.
S/p bioprosthetic aortic valve. Peak/mean gradients are 38/18mmHg. Moderate
aortic regurgitation.
Severe tricuspid regurgitation.
Estimated pulmonary artery pressure of 60 mmHg. Assuming a right atrial
pressure of 8 mmHg.
Pleural effusion present.
No obvious vegetation.
Compared to prior from January 11, 2024, tricuspid regurgitation is now severe
from moderate to severe and estimated PASP is now moderate to severely elevated
at 60 mmHg from previously 43 mmHg.
Physical Exam
Vital Signs/Labs
Vital Signs
Temp Pulse Resp BP Pulse Ox
98.3 F 80 21 119/35 96
01/21/24 07:36 01/21/24 09:00 01/21/24 09:00 01/21/24 09:00 01/21/24 09:00
01/20/24 01/21/24 01/22/24
06:59 06:59 06:59
Actual Weight 178 lb 12.718 oz 190 lb 11.198 oz
01/21/24 07:41
01/21/24 07:41
Magnesium 2.0 mg/dl (1.6-2.3) 01/20/24 05:11
01/18/24
14:10
Quz-J-Oszdbeyadsu Pept > 63062
LAB Results
01/19/24 01/19/24 01/19/24
11:15 14:41 18:15
Troponin I Cancelled 0.205 H* Cancelled
01/19/24 01/20/24
21:10 05:11
Troponin I 0.200 H* 0.221 H*
Physical Exam
Constitutional: No acute distress and Comfortable
EENT: Anicteric
Cardiovascular: Rhythm & rate is regular (v paced)
Respiratory: Respiratory effort normal and Other (crackles at r lung base)
GI: Soft
Neuro/Psych: Alert and Oriented
Data Reviewed
-
Date of Service: January 21, 2024
EKG: Tracing Personally Visualized and interpreted (paced)
Echo: Tracing Personally Visualized and interpreted and Report Reviewed by me
Labs: Labs Reviewed by me
Critical Care Time (in minutes): 34
[2024-01-21] MEDS: VANCOCIN 150 IV (10:11)
--- NOTE | 2024-01-21 11:37 | W.PN.NEPH.HD ---
Assessment
-
- levophed requiring uptitration on HD
- otherwise interactive and feeling okay
Progress Note - Hemodialysis
-
Date of Service: January 21, 2024
Duration: 30 minutes and 3 hours
Potassium Bath: 3
Calcium Bath: 2.5
Opti-Dialyzer: 160
Ultrafiltration: Other
Blood Flow: 400
Dialysate Flow: 600
[2024-01-21 12:00] LABS: Glucose - Point of Care 115 mg/dl (70-99)
[2024-01-21] MEDS: NOVOLOG FLEXPEN-LOW RESISTANCE SC (12:17)
--- NOTE | 2024-01-21 12:28 | PTCARENOTE ---
Systems reviewed. No new changes. Pt remains without complaint. Complete chg done, pt incontinent of soft green/dk brown stool, eldon care also completed. Maintained on levo and vaso as charted.
--- NOTE | 2024-01-21 13:10 | VATNOTE ---
Attempted to exchange LUE midline for PICC as ordered. Unable to fully advance the catheter with ~12cm unable to by advanced. Patient with right-sided HDC. Despite multiple attempts, procedure stopped, and midline placed again. PCN updated.
--- NOTE | 2024-01-21 14:11 | CM ---
CM following re: discharge planning.
Discussed in Rounds, reviewed pt's chart, met with pt. Per Rounds meeting, HD today, pressor requirements are increased, continue supportive care.
PT and OT evaluations noted - SNF level of care recommended.
Pt's daughter has a list of SNFs and reviewing it with the rest of the family.
D/C plan: SNF if pt and family agree or home with [facility] and resumptions of outpatient HD treatment at [facility].
CM will follow with discharge plan updates as hospitalization progresses
--- NOTE | 2024-01-21 14:25 | W.PN.ANS.LIN ---
Anesthesia IV & A-Line Note
- IV/Arterial Line
Left Radial Arrow 20 (09/27)
Diagnosis: hypotension
Allens test completed pre-procedure: Yes
A-Line Comments: Sterile technique as per standard protocol, Seldinger technique used, Biopatch applied
A-line Insertion Start Time: 14:20
A-line Insertion Stop Time: 14:25
[2024-01-21] MEDS: ProAmatine 10 MG PO (16:10)
--- NOTE | 2024-01-21 16:45 | PTCARENOTE ---
systems reviewed. no new changes. pt up to use commode and after sat up in chair to visit with daughter.
[2024-01-21 17:06] LABS: Glucose - Point of Care 179 mg/dl (70-99)
[2024-01-21] MEDS: NOVOLOG FLEXPEN-LOW RESISTANCE 1 UNITS SC (17:50)
--- NOTE | 2024-01-21 21:00 | PTCARENOTE ---
Resumed care of pt this evening. Received pt on both levo and vaso gtts infusing via left midline IV site. Pt is A&Ox2 forgetful of time. Pt is 100% v-paced on tele monitor. Pt has trace b/l lower extremity edema w/ weak but palpable pedal pulses.
On auscultation pt lungs sound diminished TO. Pt on RA satting at 95% pulse ox. Pt's abdomen is round, obese, and has active BS. Pt is incontinent of brown loose BM. Pt is incontinent of bladder and oliguric. Pt has scattered bruising and scabs
throughout arms and legs. Silicone boarder foams on head, arm, and legs intact.
[2024-01-21 21:44] LABS: Glucose - Point of Care 190 mg/dl (70-99)
[2024-01-22] VITALS (11 sets, daily range): BP systolic 81–122; BP diastolic 24–63; BMI 28.8
[2024-01-22] MEDS: ProAmatine 10 MG PO ×4 (01:29→23:34)
[2024-01-22] MEDS: LEVOPHED 250 IV (06:13)
[2024-01-22] MEDS: PITRESSIN 100 IV ×2 (06:13→15:25)
[2024-01-22 06:19] LABS: Hematocrit 28.8 % (39.0-52.0); Hemoglobin 10.1 g/dL (13.0-18.0); Mean Corp Hgb Conc. 35.1 g/dL (33.0-37.0); Mean Corpuscular Hgb 33.6 pg (27.0-31.0); Mean Corpuscular Volume 95.7 fL (80.0-94.0); Mean Platelet Volume 12.3 fL (7.4-10.4); Platelet Count 91 10^3/uL (130-400); Red Blood Cell Count 3.01 10^6/uL (4.70-6.10); Red Cell Dist. Width 15.6 % (11.5-14.5); White Blood Cell Count 10.6 10^3/uL (4.8-10.8)
[2024-01-22 06:40] LABS: Blood Urea Nitrogen 38 mg/dl (9-20); Calcium 8.5 mg/dl (8.4-10.2); Carbon Dioxide 23 mmol/L (22-30); Chloride 95 mmol/L (98-107); Estimated Creatinine Clearance 12 ml/min; Glucose 157 mg/dl (70-99); Potassium 3.6 mmol/L (3.5-5.1); Sodium 131 mmol/L (135-145); eGFR 12.54
--- NOTE | 2024-01-22 07:11 | W.PN.INTV ---
Today's Communication / Plan
Recommendations
Weaning down on pressors following A-line placement
HD continued per renal team
Abx per ID
PT/OT, OOB encouraged
Updated daughter via telephone
Assessment
-
Patient is an 83-year-old male with previous history of end-stage renal disease, VT status post ICD, A-fib, chronic heart failure, CAD, BENJIE on CPAP presenting for generalized weakness, shortness of breath and abdominal discomfort. On initial workup
chest x-ray and CT abdomen pelvis demonstrating pulmonary edema with vascular congestion. He is admitted to IMU 01/19/24 for acute heart failure exacerbation. He had developed hypotension, placed on Levophed. Has new blood culture positivity with
coagulase-negative staph concerning for bacteremia.
He is transferred to ICU due to pressor requirements 01/20/2024.
Acute on chronic HFpEF exacerbation
Progressive SOB/Abd pain 2/2 vascular congestion
Shock on pressors, septic
CoNS Bacteremia, 4/4 bottles
Elevated LFTs
Hyperglycemia
Leukocytosis
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
ESRD on HD TThSa
Polymorphic VT status post ICD
Paroxysmal atrial fibrillation not on anticoagulation
Chronic HFrEF
Severe aortic stenosis status post bioprosthetic AVR in 2010
Coronary artery disease
Obstructive sleep apnea
Hypertension
Anemia of chronic disease
Appendectomy
chronic thrombocytopenia
Type 2 diabetes
Right renal lesions
history of GIST tumor
gout
Plan
No current signs of metabolic encephalopathy or MS changes/following commands
Denies pain at this time.
Pain/sedation: PRN
RASS goals: 0
Hemodynamically unstable, requiring pressors/weaning down
A-line placed with more accurate readings
Requiring pressors: levo @2, vasopressin @ 0.04
Cardiac history reviewed--HF, AF, CAD, s/p AVR
Prior ECHO reviewed indicating last EF 30%
Cards following, hold BP meds while hypotension--not more to offer from their perspective
PO midodrine continued 10mg q8
Agree with volume removal via HD
Oxygen needs: stable on room air
Prior history of lung disease: BENJIE on CPAP, maintain nightly use
Supplemental O2 as indicated to maintain sats > 89%
CXR/CT reviewed indicating edema, repeat as needed
Advance diet as tolerated
Business Office Technology Instructor recommendations
Aspiration precautions, HOB > 30 degrees
Speech therapy eval can be considered if at elevated risk
GI prophylaxis if indicated for mechanical ventilation >48 hours, prior history of GERD, stress ulcer formation in the critically ill
ESRD on HD, renal following
Continue HD TThSat
Follow urine output, critical I/Os
Replete electrolytes as needed
Blood cultures 4/4 CoNS
ID following
Started on empiric antibiotics
Cultures sent/pending
Blood, repeat pending
MRSA screen negative
Follow fever trend, WBC count
CBC stable, no signs of bleeding or coagulopathy.
DVT prophylaxis as assessed based on risk, including mechanical SCDs
Can transfuse if indicated for Hb <7, plt < 10
INR WNL
No prior h/o diabetes or thyroid disease
Monitor accuchecks PRN/SS coverage if needed
HbA1c 4.5
Prognosis salvage determiner poor, would be appropriate to start GOC discussions
Diagnostic Data
Chest X-Ray: 01/18/24- Cardiomegaly with mild pulmonary edema
Postoperative changes as described above.
CT Scan: AP 01/18/24- 1. Small volume abdominopelvic ascites. Otherwise no significant acute abnormality identified in the abdomen or pelvis, as described above. Chronic changes as described.
2. Small bilateral pleural effusions.
Echo: 01/11/24- Mildly dilated LV with severely reduced systolic function. LVEF is approximately 30% by visual estimation with global diffuse hypokinesis. Mild concentric LVH. Mitral annular calcification. Mild mitral regurgitation. S/p
bioprosthetic aortic valve replacement with a peak/mean gradient of 25/17 mmHg. Mild aortic regurgitation. Moderate to severe tricuspid regurgitation. Estimated pulmonary artery pressure of 43 mmHg. Assuming a right atrial pressure of 15 mmHg.
Compared to prior from January 08, 2022, on erhd-jf-keuv comparison overall LVEF is improved and is approximately 30% from 20 to 25%. Interval increase in bioprosthetic aortic valve gradients from 20/9 mmHg to 25/17 mmHg today.
PFT's: 2008- FVC is 3.33L or 77% of predicted - FEV1 is 2.66L or 84% of predicted - Ratio is 80%.
Impression: Normal spirometry.
Reports and relevant images were personally reviewed.
-----
Critical care time 35 mins -- this includes review of history, physical exam, medications, hemodynamic/ventilator parameters, laboratory data, imaging and discussion with house staff, pharmacy, respiratory therapy, toy assembly supervisor, and nursing.
Subjective Dataa
Subjective Data
Date of Service:
Date of Service: January 22, 2024
Chief Complaint: Zmt Operator Follow Up
Subjective:
doing well, weaned down on pressors overnight
remains on vaso, levo@2
no new complaints
HD continued
Objective Data
Data Reviewed
Vital Signs / I&O / Oxygen:
Vital Signs
Temp Pulse Resp BP Pulse Ox
98.7 F 80 17 98/27 96
01/21/24 23:14 01/22/24 06:00 01/22/24 06:00 01/22/24 06:00 01/22/24 06:00
Intake and Output
01/21/24 01/22/24 01/23/24
06:59 06:59 06:59
Intake Total 1420.8 / 1450.8 1681.5 / 1681.5
Balance 1420.8 / 1450.8 1681.5 / 1681.5
SaO2 96
Physical Exam
General: Comfortable and Other (NAD)
HEENT: Normocephalic, Anicteric and Moist Mucous Membranes
Cardiovascular: S1-S2, Regular Rhythm, Murmur and Peripheral Edema
Respiratory: Clear (overall decreased) and Non-Labored Respirations
GI: Soft, Non Distended and Non Tender
Neurology: Awake, Alert, Oriented (to self), No Motor Deficits and Other (answers appropriately, but insight poor)
Skin: Warm and Dry
Labs/Micro/Reports
Lab Data
01/22/24 05:46
01/22/24 05:46
Microbiology
01/19/24 13:15 Blood/Venous Blood Culture - Preliminary
No Growth in 48 hours- Final report to follow
01/19/24 13:15 Blood/Venous Blood Culture - Preliminary
No Growth in 48 hours- Final report to follow
01/19/24 17:03 Catheter Tip Catheter Tip Culture - Preliminary
No Growth After 48 Hours
01/18/24 14:10 Blood/Venous Blood Culture - Preliminary
Coagulase neg. staphylococcus
01/18/24 14:10 Blood/Venous Gram Stain - Final
01/18/24 14:10 Blood/Venous Blood Culture - Preliminary
Coagulase neg. staphylococcus
01/18/24 14:10 Blood/Venous Gram Stain - Final
01/19/24 04:36 Nose MRSA Screen - Final
No Methicillin Resistant Staphylococcus aureus isolated.
[2024-01-22 07:49] LABS: Glucose - Point of Care 170 mg/dl (70-99)
[2024-01-22] MEDS: FEOSOL 325 MG PO (08:12)
[2024-01-22] MEDS: ZYLOPRIM 100 MG PO (08:12)
[2024-01-22] MEDS: NOVOLOG FLEXPEN-LOW RESISTANCE 1 UNITS SC (08:12)
[2024-01-22] MEDS: HEPARIN 5000 UNITS SC ×2 (08:12→20:34)
[2024-01-22] MEDS: PACERONE 200 MG PO (08:13)
--- NOTE | 2024-01-22 08:27 | W.PN.CD ---
Today's Communication / Plan
-
Cont medications
Levophed requirement is decreasing
Impression / Plan
-
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
place, nonobstructive CAD, status post AVR in 2010 for severe , severe TR, hypertension, hyperlipidemia, diabetes and obesity. He is here with likely septic shock requiring levophed.
Shock: Septic Vs Cardiogenic:
-seems sepsis with previous leukocytosis and positive blood cultures
-given bioprosthetic valve/DC ppm will need to consider IE/device infection and consider senior living Abx?
- TTE did not show any obvious vegetation, however significant calcium and bioprosthetic AVR difficult to definitively rule out endocarditis
-wt is lower than last visit at 192lbs in December, 178 lbs January 19
-Levophed requirement is coming down
-troponin are low level/flat likely non-ischemic myocardial injury
HFrEF: last echo wtih EF 30%, report of improved EF on TRACY in 05/2024
-GDMT limited by hypotension and renal function
--volume controlled by HD
-echo below
-has a DC device could consider upgrade as QRS >180ms --but this is a senior living plan not acute issue.
VT s/p ICD:
-H.o PMVT
-on amiodarone.
Bioprosthetic AVR: given positive blood cultures, would need to consider IE. Consideration for TRACY, however, conversation of risk vs benefit
Persistent A-fib
- rate controlled
- no AC as above due to GIB's, hx GIST tumor
ESRD on HD: care per nephrolgoy, does have line that will need to come out.
Data:
TTE January 20, 2024:
CONCLUSIONS
Normal LV size with moderate to severely reduced systolic function.
LVEF is approximately 30% by visual estimation with global diffuse hypokinesis.
Mild concentric LVH.
Normal right ventricular size and function.
Mild mitral regurgitation.
S/p bioprosthetic aortic valve. Peak/mean gradients are 38/18mmHg. Moderate
aortic regurgitation.
Severe tricuspid regurgitation.
Estimated pulmonary artery pressure of 60 mmHg. Assuming a right atrial
pressure of 8 mmHg.
Pleural effusion present.
No obvious vegetation.
Compared to prior from January 11, 2024, tricuspid regurgitation is now severe
from moderate to severe and estimated PASP is now moderate to severely elevated
at 60 mmHg from previously 43 mmHg.
Physical Exam
Vital Signs/Labs
Vital Signs
Temp Pulse Resp BP Pulse Ox
97.4 F 80 17 102/25 95
01/22/24 07:48 01/22/24 07:00 01/22/24 07:00 01/22/24 06:50 01/22/24 07:00
01/21/24 01/22/24 01/23/24
06:59 06:59 06:59
Actual Weight 190 lb 11.198 oz 194 lb 14.218 oz
01/22/24 05:46
01/22/24 05:46
Magnesium 2.0 mg/dl (1.6-2.3) 01/20/24 05:11
01/18/24
14:10
Mhm-P-Ejdkxapvtig Pept > 89914
LAB Results
01/19/24 01/19/24 01/19/24
11:15 14:41 18:15
Troponin I Cancelled 0.205 H* Cancelled
01/19/24 01/20/24
21:10 05:11
Troponin I 0.200 H* 0.221 H*
Physical Exam
Constitutional: No acute distress
EENT: Anicteric
Cardiovascular: Pedal edema present
Respiratory: Respiratory effort normal and Crackles Present
GI: Soft
Neuro/Psych: Oriented (oriented to person and palce)
Data Reviewed
-
Date of Service: January 22, 2024
EKG: Tracing Personally Visualized and interpreted (paced)
Echo: Report Reviewed by me
Labs: Labs Reviewed by me
--- NOTE | 2024-01-22 09:16 | W.PN.NEPH.PH ---
Today's Communication / Plan
-
HD tomorrow
Assessment/Plan
-
IMP:
Gen weakness
Sepsis
Hypotension
Lactic acidosis
ESRD HD started 06/2023-[facility]
Right UE AVG, placed 11/2023
CHF with R EF 30%
Severe TR
Nonobstructive CAD
Chronic anemia likely multifactorial
Bioprosthetic aortic valve 2010
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
ICD
h/o atrial fibrillation off anticoagulation due to recurrent GI bleed
History of GIST tumor previously treated with Gleevac
Bilateral renal cyst with prior concern for masses
Gout
Diabetes mellitus type 2
Basal cell skin cancer
Plan:
HD tomorrow
wean levophed/vasopressin as allowed, vasopressin first
continue midodrine 10mg TID
follow lactate
CVC tip Cx NTD
continue abx for coag neg staph bacteremia/sepsis
prognosis is guarded
critical care time 31 minutes
-
-
Date of Service: January 22, 2024
CC / HPI / ROS
-
Chief Complaint:
ESRD
History of Present Illness:
Remains hypotensive on Levophed/vasopressin/midodrine
midodrine increased yesterday
vasopressin added yesterday
LFTs remain elevated but improving
anemia/thrombocytopenia unchanged
Review of Systems:
no CP/SOB
Labs
-
Labs:
WBC 10.6 10^3/uL (4.8-10.8) 01/22/24 05:46
RBC 3.01 10^6/uL (4.70-6.10) L 01/22/24 05:46
Hgb 10.1 g/dL (13.0-18.0) L 01/22/24 05:46
Hct 28.8 % (39.0-52.0) L 01/22/24 05:46
Plt Count 91 10^3/uL (130-400) L 01/22/24 05:46
Sodium 131 mmol/L (135-145) L 01/22/24 05:46
Potassium 3.6 mmol/L (3.5-5.1) 01/22/24 05:46
Chloride 95 mmol/L (98-107) L 01/22/24 05:46
Carbon Dioxide 23 mmol/L (22-30) 01/22/24 05:46
BUN 38 mg/dl (9-20) H 01/22/24 05:46
Creatinine 4.4 mg/dL (0.7-1.3) H* 01/22/24 05:46
eGFR 12.54 01/22/24 05:46
Glucose 157 mg/dl (70-99) H 01/22/24 05:46
Calcium 8.5 mg/dl (8.4-10.2) 01/22/24 05:46
Jey-O-Fgnctlzafdc Pept > 31907 pg/ml 01/18/24 14:10
Albumin 2.8 g/dl (3.5-5.0) L 01/21/24 07:41
Physical Exam
-
Vital Signs:
Vital Signs
Temp Pulse Resp BP Pulse Ox
97.4 F 80 14 95/26 96
01/22/24 07:48 01/22/24 09:00 01/22/24 09:00 01/22/24 08:09 01/22/24 09:00
Cardiovascular:: Regular rate and rhythm
Respiratory:: Bilateral: Rales and Bilateral: Rhonchi
Lung Excursion:: Normal
Abdomen:: Nontender and Soft
Bowel Sounds:: Normal
Extremity Edema:: +1: Bilateral:
--- NOTE | 2024-01-22 10:02 | W.PN.ID1 ---
Date of Service
Date of Service: January 22, 2024
Today's Communication
Continue Vancomycin with HD (d ).
Assessment / Plan
# CoNS bacteremia 4 out of 4 bottles, not sustained
-TTE no gross vege
- Repeat blood cx's - negative
- HD catheter removed. Tip cx negative
- Continue Vancomycin with HD (d ).
# Acute on chronic HF
# Hypotensive - remains on pressors
# hx ICD, Bio-AVR
# Elevated LFT's likely due to hypotension
-CT a/p no acute abnormality
- Abd US: no cholecystitis
#Additional Past Medical History:
End-stage renal disease on hemodialysis Thursday via right upper extremity AV graft
Paroxysmal atrial fibrillation, not on anticoagulation
Heart failure with reduced EF
Bioprosthetic aortic valve replacement
V. tach status post ICD placement
Severe tricuspid regurgitation
GIST tumor status post Gleevec
Hypotension on midodrine
Sleep apnea
Lymphedema
gout
basal cell ca
History of recurrent GI bleed
Chronic thrombocytopenia
Appendectomy
Chief Complaint
-: Bacteremia
Subjective / Review of Systems
Doing well.
Vital Signs / Physical Exam
Vital Signs
Vital Signs
Temp Pulse Resp BP Pulse Ox
97.4 F 80 14 95/26 96
01/22/24 07:48 01/22/24 09:00 01/22/24 09:00 01/22/24 08:09 01/22/24 09:00
Physical Exam
Constitutional: No Acute Distress and Comfortable
Cardiovascular: Regular Rate and S1/S2
Pulmonary: Clear
Gastrointestinal: Soft, Non Tender, Non Distended and Normal Bowel Sounds
Extremities: Negative Edema
Neurological: Awake and Alert
Objective Data
Lab Data
Lab Results
01/22/24 05:46
01/22/24 05:46
Estimated Creat Clear 12 ml/min 01/22/24 05:46
Lactic Acid 2.4 mmol/L (0.7-2.0) H 01/19/24 11:16
Total Bilirubin 3.1 mg/dl (0.2-1.3) H 01/21/24 07:41
AST 132 U/L (17-59) H 01/21/24 07:41
ALT 41 U/L (0-50) 01/21/24 07:41
Alkaline Phosphatase 218 U/L (38-126) H 01/21/24 07:41
Most recent labs reviewed.
Micro Results:
01/18/24 14:10 Blood Culture - Preliminary
Blood/Venous Coagulase neg. staphylococcus
Gram Stain - Final
01/19/24 13:15 Blood Culture - Preliminary
Blood/Venous No Growth in 48 hours- Final report to follow
01/19/24 13:15 Blood Culture - Preliminary
Blood/Venous No Growth in 48 hours- Final report to follow
01/19/24 17:03 Catheter Tip Culture - Preliminary
Catheter Tip No Growth After 48 Hours
01/18/24 14:10 Blood Culture - Preliminary
Blood/Venous Coagulase neg. staphylococcus
Gram Stain - Final
01/19/24 04:36 MRSA Screen - Final
Nose No Methicillin Resistant Staphylococcus aureus isolated.
01/18/24 CT a/P: Small volume abdominopelvic ascites. Otherwise no significant acute abnormality identified in the abdomen or pelvis, as described above. Chronic changes as described. Small bilateral pleural effusions.
01/18/24 ABD US: There are a few small mobile gallstones identified within the gallbladder as well as a small amount of sludge. The gallbladder wall is not thickened. The patient has a negative sonographic Faith's sign. No evidence for biliary
ductal dilation. Increased echogenicity of the liver with coarsening of hepatic echotexture, findings suggestive of hepatocellular disease. No evidence of a focal hepatic mass lesion. Splenomegaly.
Small to moderate amount of ascites within both upper quadrants. Bilateral pleural effusions. No evidence for pelvicalyceal dilation of either kidney. Multiple bilateral renal cysts.
01/18/24 CXR: Cardiomegaly with mild pulmonary edema
--- NOTE | 2024-01-22 11:19 | PHA.VAN.FU ---
Vancomycin Assessment / Plan
- Assessment
Hemodialysis Schedule: TThSa
Last Hemodialysis performed: 01/21/24
WBC's are: Trending Down
In the past 24 hrs, patient has been: Afebrile
- Dosing Plan
Continue: Dose by random level HD days
- Monitoring Plan
Random Level: Sat 6/29 AM - next HD day
- Follow Up
Pharmacy will continue to follow.
Vancomycin Follow UP
- -
Patient Age: 83
Patient Sex: Male
Vancomycin Day #: 4
Indication: Skin And Soft Tissue
Requesting Provider: Dr. Cook / Javid
Pertinent Antimicrobial Allergies:
NKDA
Height / Weight:
Height 5 ft 9 in
Actual Weight 88.4 kg
Pertinent Past Medical History: ESRD on HD TuThSa, DM 2
- Vital Signs / Lab Results
Temp Pulse Resp BP Pulse Ox
97.4 F 80 14 95/26 96
01/22/24 07:48 01/22/24 09:00 01/22/24 09:00 01/22/24 08:09 01/22/24 09:00
Lab Results - Hematology
01/20/24 01/21/24 01/22/24
05:11 07:41 05:46
WBC 10.9 H 13.0 H 10.6
Lab Results - Chemistry
01/20/24 01/21/24 01/22/24
05:11 07:41 05:46
BUN 42 H 55 H 38 H
Creatinine 4.4 H* 5.8 H* 4.4 H*
Estimated Creat Clear 12 9 12
Albumin 2.8 L
01/19/24
11:16
Lactic Acid 2.4 H
Microbiology Results
01/18/24 14:10 Blood Culture - Preliminary
Blood/Venous Coagulase neg. staphylococcus
Gram Stain - Final
01/19/24 13:15 Blood Culture - Preliminary
Blood/Venous No Growth in 48 hours- Final report to follow
01/19/24 13:15 Blood Culture - Preliminary
Blood/Venous No Growth in 48 hours- Final report to follow
01/19/24 17:03 Catheter Tip Culture - Preliminary
Catheter Tip No Growth After 48 Hours
01/18/24 14:10 Blood Culture - Preliminary
Blood/Venous Coagulase neg. staphylococcus
Gram Stain - Final
01/19/24 04:36 MRSA Screen - Final
Nose No Methicillin Resistant Staphylococcus aureus isolated.
Therapeutic Drug Monitoring
Random Vancomycin 11.9 ug/ml 01/21/24 07:41
--- NOTE | 2024-01-22 11:26 | W.PN.HOSP.TC ---
Today's Communication/Plan
-
see bold
Assessment / Plan
Assessment / Plan
Gen: continues to remain NAD, Awake and alert, appears chronically ill
Eyes: EOMI, PERRLA, no scleral icterus.
Neck: supple.
CV: RRR, +S1/S2, no m/r/g.
Resp: CTAB, no rales, wheezes, or rhonchi.
Abd: +BS, soft, NT, ND
Neuro: remains CN 2-12 intact, non-focal.
Psych: Normal mood and affect.
01/18/24 14:10 Blood/Venous Blood Culture - Preliminary
Coagulase neg. staphylococcus
01/18/24 14:10 Blood/Venous Gram Stain - Final
01/19/24 13:15 Blood/Venous Blood Culture - Preliminary
No Growth in 48 hours- Final report to follow
01/19/24 13:15 Blood/Venous Blood Culture - Preliminary
No Growth in 48 hours- Final report to follow
01/19/24 17:03 Catheter Tip Catheter Tip Culture - Preliminary
No Growth After 48 Hours
01/18/24 14:10 Blood/Venous Blood Culture - Preliminary
Coagulase neg. staphylococcus
01/18/24 14:10 Blood/Venous Gram Stain - Final
01/19/24 04:36 Nose MRSA Screen - Final
No Methicillin Resistant Staphylococcus aureus isolated
CT A/P:
1. Small volume abdominopelvic ascites. Otherwise no significant acute abnormality identified in the abdomen or pelvis, as described above. Chronic changes as described.
2. Small bilateral pleural effusions.
Echo (TTE) 01/20/24: Normal LV size with moderate to severely reduced systolic function.
LVEF is approximately 30% by visual estimation with global diffuse hypokinesis.
Mild concentric LVH.
Normal right ventricular size and function.
Mild mitral regurgitation.
S/p bioprosthetic aortic valve. Peak/mean gradients are 38/18mmHg. Moderate
aortic regurgitation.
Severe tricuspid regurgitation.
Estimated pulmonary artery pressure of 60 mmHg. Assuming a right atrial
pressure of 8 mmHg.
Pleural effusion present.
No obvious vegetation.
Compared to prior from January 11, 2024, tricuspid regurgitation is now severe
from moderate to severe and estimated PASP is now moderate to severely elevated
at 60 mmHg from previously 43 mmHg.
Septic Shock (POA):
-due to CoNS
-repeat BCxs NGTD, cont to follow BCxs
-with leukocytosis and lactic acidosis
-Chest x-ray shows cardiomegaly mild pulmonary edema
-250cc IV fluids given without change in blood pressure
-currently on Levophed/Vasopressin
-cont Vancomycin as per ID (to complete 14 days, last day 01/31/24)
-cont Midodrine, now at increased dose
Abdominal pain:
-Etiology unclear
-CT abdomen pelvis and abdominal ultrasound without any source visible
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
-U/A ordered and noted, follow reflex culture
Other problems:
Acute nonischemic myocardial injury
ESRD: cont HD T//Thu, cont midodrine
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 Continue amiodarone.
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
Chronic HFrEF: Holding metoprolol
Severe status post bioprosthetic AVR
CAD: Continue statin, BB on hold
Obstructive sleep apnea
Essential hypertension: currently hypotensive
Anemia of chronic disease: Continue ferrous sulfate
Chronic thrombocytopenia: Platelets stable
DM2: BGs controlled. a1c 4.5%.
Right renal lesion
h/o GIST tumor
Gout: Continue allopurinol
FULL/Heparin
Total critical care time spent = 32 min
Anticipated Discharge: > 48 hours
Subjective/Interval History
-
Date of Service: January 22, 2024
Denies CP/SOB.
Objective Data
-
Labs:
Laboratory Results
01/22/24
05:46
WBC 10.6
Hgb 10.1 L
Hct 28.8 L
Plt Count 91 L
Sodium 131 L
Potassium 3.6
Chloride 95 L
Carbon Dioxide 23
BUN 38 H
Creatinine 4.4 H*
Glucose 157 H
Calcium 8.5
Vital Signs:
Vital Signs
Temp Pulse Resp BP Pulse Ox
97.4 F 80 14 95/26 96
01/22/24 07:48 01/22/24 09:00 01/22/24 09:00 01/22/24 08:09 01/22/24 09:00
I&O
01/21/24 01/22/24 01/23/24
06:59 06:59 06:59
Intake Total 1420.8 / 1450.8 1681.5 / 1708.5 63.0 / 63.0
Balance 1420.8 / 1450.8 1681.5 / 1708.5 63.0 / 63.0
[2024-01-22 12:01] LABS: Glucose - Point of Care 128 mg/dl (70-99)
--- NOTE | 2024-01-22 12:30 | PTCARENOTE ---
Systems reviewed. No new changes. Pt continues to be incontinent of stool with each reposition. Frequent Skin care as well as reminders to call with incontinence. Pt does not. Levo has presently been weaned off. Vaso continues. BP borderline.
Dr Morin aware. Scheduled for hd tomorrow.
[2024-01-22] MEDS: NOVOLOG FLEXPEN-LOW RESISTANCE SC ×2 (12:31→17:18)
--- NOTE | 2024-01-22 13:05 | PN.CDI ---
Addendum entered and electronically signed by Hermes Feliciano MD 01/22/24 14:16:
Documentation completed
Original Note:
CDI
- -
CDI:
Physician Documentation Request
Admit Date: 01/18/24 21:50
Dear Doctor Braden,
Patient admitted with septic shock.
01/21 PN, 'Chronic HFrEF: Holding metoprolol.'
01/21 Infectious Disease note, 'Acute on chronic HF.'
01/21 [employer] note, 'Acute on chronic HFpEF exacerbation.'
01/21 Cardiology note, 'HFrEF: last echo with EF 30%, report of improved EF on TRACY in 05/2024
Echo (TTE) 01/20/24: Normal LV size with moderate to severely reduced systolic function.'
01/17 Pro BNP >45152
Patient receiving HD.
Due to conflicting documentation, pleaser clarify in your note the acuity and type of documented CHF:
Acute on chronic systolic CHF
Chronic diastolic CHF only
Other
Use of terms such as suspected, likely, concern for, or probable (associated with a specific diagnosis that is being evaluated, monitored, or treated as if it exists) are acceptable and can be coded in the inpatient setting, when documented at the
time of discharge.
Thank you,
Anastasia ROSA,RN,CCDS
CDI Specialist
Available via [place] text
Please use your independent medical judgment in providing your response.
[2024-01-22] MEDS: DESENEX/MITRAZOL/ZEASORB 1 APPLIC TOPICAL ×2 (13:44→20:34)
--- NOTE | 2024-01-22 14:27 | PTCARENOTE ---
Spoke with pt about DNR, made him aware of what happens during resuscitation. He is aware that I spoke with his daughter Haley yesterday regarding same. Advised both of them to discuss things with each other and their family to make a plan as
able.
--- NOTE | 2024-01-22 15:39 | CM ---
CM following re: discharge planning.
Discussed in Rounds, reviewed pt's chart, met with pt. Per Rounds meeting, Weaning down on pressors following A-line placement, continue supportive care.
PT and OT evaluations noted - SNF level of care recommended.
Pt's daughter has a list of SNFs and reviewing it with the rest of the family.
D/C plan: SNF if pt and family agree or home with VN and resumptions of outpatient HD treatment at [facility].
CM will follow with discharge plan updates as hospitalization progresses
[2024-01-22] MEDS: TYLENOL 1000 MG PO ×2 (16:48→23:34)
[2024-01-22 17:05] LABS: Glucose - Point of Care 137 mg/dl (70-99)
--- NOTE | 2024-01-22 21:30 | PTCARENOTE ---
Report received from previous shift RN [id number]. Pt sitting in chair with daughter visiting at bedside. Pt is AAO2, forgetful to time, [place] b/l, no complaints offered. Lung sounds are clear and decreased in b/l base, pox 97% on room air. Telemetry rhythm
reveals 100% v-pacing, +ICD, +murmur. Pitting edema noted in b/l lower legs and ankle, nonpitting edema noted in b/l upper extremities, palpable peripheral pulses present. RUE AVF with +bruit/thrill. HyperBS, abdomen round/obese/nontender. Pt has
been incontinent of bm throughout day, no bm at this time. Pt is anuric. HD TuThSat, HD scheduled for tomorrow AM. Skin as documented. L radial arterial line transduced/zeroed/flushed, correlation with noninvasive BP cuff within 10-15mmHg (cuff on L
calf). L hand int flushed and capped. LUE midline catheter flushed and patent, received with Vasopressin infusing per order. Safe environment maintained, call duckworth within reach. Will monitor closely.
[2024-01-22 21:44] LABS: Glucose - Point of Care 153 mg/dl (70-99)
[2024-01-22] MEDS: LIPITOR 20 MG PO (22:03)
--- NOTE | 2024-01-23 00:30 | PTCARENOTE ---
Assisted pt back into bed around 2229. CHG bath provided, wound dressings changed. Assisted pt w oral care. Assisted pt with getting his CPAP machine on. No change in assessment. Will monitor.
[2024-01-23] MEDS: PITRESSIN 100 IV (01:29)
[2024-01-23 01:43] VITALS: BP_SYST 83
--- NOTE | 2024-01-23 01:49 | PTCARENOTE ---
Pt's arterial blood pressure systolically less than 85mmHg. PRN Midodrine not given due to label comments, Levophed re-initiated at 2 mcg/min.
[2024-01-23 04:15] VITALS: BP 90/18
[2024-01-23 04:15] LABS: % Basophils 0.8 % (0-2); % Immature Granulocytes 0.5 % (0-0.5); % Lymphocytes 8.3 % (20.5-51.1); % Monocytes 5.3 % (1.7-9.3); % Neutrophils 83.1 % (42.2-75.2); Absolute Basophils 0.1 10^3/uL (0-0.2); Absolute Eosinophils 0.2 10^3/uL (0-0.7); Absolute Immature Granulocytes 0.1 10^3/uL (0-0.05); Absolute Lymphocytes 0.8 10^3/uL (1.2-3.4); Absolute Monocytes 0.5 10^3/uL (0.1-0.6); Absolute Neutrophils 7.8 10^3/uL (1.4-6.5); Hematocrit 27.7 % (39.0-52.0); Mean Corp Hgb Conc. 36.1 g/dL (33.0-37.0); Mean Corpuscular Hgb 34.2 pg (27.0-31.0); Mean Corpuscular Volume 94.9 fL (80.0-94.0); Mean Platelet Volume 12.3 fL (7.4-10.4); Nucleated Red Blood Cells % 0 % (-); Platelet Count 85 10^3/uL (130-400); Red Blood Cell Count 2.92 10^6/uL (4.70-6.10); Red Cell Dist. Width 15.4 % (11.5-14.5); White Blood Cell Count 9.3 10^3/uL (4.8-10.8)
[2024-01-23 04:26] LABS: INR 1.34; PT 16.4 Sec (11.4-14.6)
[2024-01-23 04:27] LABS: APTT 46.2 Sec (23.4-35.0)
[2024-01-23 04:30] VITALS: BMI 27.7
--- NOTE | 2024-01-23 04:30 | PTCARENOTE ---
Pt wore CPAP until ~0100 then requested mask be removed. 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 Repositioning Q2H for skin integrity. No change in assessment. Will monitor.
[2024-01-23 04:41] LABS: ALT (SGPT) 46 U/L (0-50); AST (SGOT) 149 U/L (17-59); Albumin 2.6 g/dl (3.5-5.0); Alkaline Phosphatase 189 U/L (38-126); Blood Urea Nitrogen 51 mg/dl (9-20); Calcium 8.4 mg/dl (8.4-10.2); Carbon Dioxide 24 mmol/L (22-30); Chloride 94 mmol/L (98-107); Estimated Creatinine Clearance 11 ml/min; Glucose 122 mg/dl (70-99); Magnesium 1.9 mg/dl (1.6-2.3); Phosphorus 4.9 mg/dl (2.5-4.5); Potassium 3.8 mmol/L (3.5-5.1); Sodium 130 mmol/L (135-145); Total Bilirubin 2.7 mg/dl (0.2-1.3); Total Protein 6.2 g/dl (6.3-8.2); eGFR 11.02
[2024-01-23 04:50] LABS: Vancomycin Random 11.7 ug/ml
[2024-01-23 06:41] LABS: Glucose - Point of Care 124 mg/dl (70-99)
--- NOTE | 2024-01-23 07:14 | W.PN.INTV ---
Today's Communication / Plan
Recommendations
Remains on pressors, can try to wean off vaso
HD today, renal following
Abx continued per ID
PT/OT
Can consider transfer to IMU if his levo requirements remain low
Assessment
-
Patient is an 83-year-old male with previous history of end-stage renal disease, VT status post ICD, A-fib, chronic heart failure, CAD, BENJIE on CPAP presenting for generalized weakness, shortness of breath and abdominal discomfort. On initial workup
chest x-ray and CT abdomen pelvis demonstrating pulmonary edema with vascular congestion. He is admitted to IMU 01/19/24 for acute heart failure exacerbation. He had developed hypotension, placed on Levophed. Has new blood culture positivity with
coagulase-negative staph concerning for bacteremia.
He is transferred to ICU due to pressor requirements 01/20/2024.
Acute on chronic HFpEF exacerbation
Progressive SOB/Abd pain 2/2 vascular congestion
Shock on pressors, septic
CoNS Bacteremia, /4 bottles
Elevated LFTs
Hyperglycemia
Leukocytosis
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
ESRD on HD TThSa
Polymorphic VT status post ICD
Paroxysmal atrial fibrillation not on anticoagulation
Chronic HFrEF
Severe aortic stenosis status post bioprosthetic AVR in 2010
Coronary artery disease
Obstructive sleep apnea
Hypertension
Anemia of chronic disease
Appendectomy
chronic thrombocytopenia
Type 2 diabetes
Right renal lesions
history of GIST tumor
gout
Plan
No current signs of metabolic encephalopathy or MS changes/following commands
Denies pain at this time.
Pain/sedation: PRN
RASS goals: 0
Hemodynamically unstable, requiring pressors/weaning down
A-line placed with more accurate readings
Requiring pressors: levo @2, vasopressin @ 0.04--reviewed with RN to stop vaso if able
Cardiac history reviewed--HF, AF, CAD, s/p AVR
Prior ECHO reviewed indicating last EF 30%
Cards following, hold BP meds while hypotension--not more to offer from their perspective
PO midodrine continued 10mg q8, continue PRN dosing
Agree with volume removal via HD
Oxygen needs: stable on room air
Prior history of lung disease: BENJIE on CPAP, maintain nightly use
Supplemental O2 as indicated to maintain sats > 89%
CXR/CT reviewed indicating edema, repeat as needed
Advance diet as tolerated
Department Clerk recommendations
Aspiration precautions, HOB > 30 degrees
Speech therapy eval can be considered if at elevated risk
GI prophylaxis if indicated for mechanical ventilation >48 hours, prior history of GERD, stress ulcer formation in the critically ill
ESRD on HD, renal following
Continue HD TThSat
Follow urine output, critical I/Os
Replete electrolytes as needed
Blood cultures 4/4 CoNS
ID following
Started on empiric antibiotics
Cultures sent/pending
Blood, repeat pending
MRSA screen negative
Follow fever trend, WBC count
CBC stable, no signs of bleeding or coagulopathy.
DVT prophylaxis as assessed based on risk, including mechanical SCDs
Can transfuse if indicated for Hb <7, plt < 10
INR WNL
No prior h/o diabetes or thyroid disease
Monitor accuchecks PRN/SS coverage if needed
HbA1c 4.5
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
Updated daughter 01/22/24
Diagnostic Data
Chest X-Ray: 01/18/24- Cardiomegaly with mild pulmonary edema
Postoperative changes as described above.
CT Scan: AP 01/18/24- 1. Small volume abdominopelvic ascites. Otherwise no significant acute abnormality identified in the abdomen or pelvis, as described above. Chronic changes as described.
2. Small bilateral pleural effusions.
Echo: 01/11/24- Mildly dilated LV with severely reduced systolic function. LVEF is approximately 30% by visual estimation with global diffuse hypokinesis. Mild concentric LVH. Mitral annular calcification. Mild mitral regurgitation. S/p
bioprosthetic aortic valve replacement with a peak/mean gradient of 25/17 mmHg. Mild aortic regurgitation. Moderate to severe tricuspid regurgitation. Estimated pulmonary artery pressure of 43 mmHg. Assuming a right atrial pressure of 15 mmHg.
Compared to prior from January 08, 2022, on [id number] comparison overall LVEF is improved and is approximately 30% from 20 to 25%. Interval increase in bioprosthetic aortic valve gradients from 20/9 mmHg to 25/17 mmHg today.
PFT's: 2008- FVC is 3.33L or 77% of predicted - FEV1 is 2.66L or 84% of predicted - Ratio is 80%.
Impression: Normal spirometry.
Reports and relevant images were personally reviewed.
-----
Critical care time 35 mins -- this includes review of history, physical exam, medications, hemodynamic/ventilator parameters, laboratory data, imaging and discussion with house staff, pharmacy, respiratory therapy, security coordinator, and nursing.
Subjective Dataa
Subjective Data
Date of Service:
Date of Service: January 23, 2024
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
Subjective:
no acute events ON
Had been resumed on levophed overnight, low dose
still on midodrine PO
no new complaints
on HD this AM
Objective Data
Data Reviewed
Vital Signs / I&O / Oxygen:
Vital Signs
Temp Pulse Resp BP Pulse Ox
98.8 F 80 16 90/18 98
01/23/24 03:19 01/23/24 06:30 01/23/24 06:30 01/23/24 04:15 01/23/24 06:30
Intake and Output
01/22/24 01/23/24 01/24/24
06:59 06:59 06:59
Intake Total 1681.5 / 1708.5 1030.3 / 1030.3
Balance 1681.5 / 1708.5 1030.3 / 1030.3
SaO2 98
Physical Exam
General: Comfortable and Other (NAD)
HEENT: Normocephalic, Anicteric and Moist Mucous Membranes
Cardiovascular: S1-S2, Regular Rhythm, Murmur and Peripheral Edema
Respiratory: Clear (overall decreased) and Non-Labored Respirations
GI: Soft, Non Distended and Non Tender
Neurology: Awake, Alert, Oriented (to self), No Motor Deficits and Other (answers appropriately, but insight poor)
Skin: Warm and Dry
Labs/Micro/Reports
Lab Data
01/23/24 04:08
01/23/24 04:08
Laboratory Results
01/23/24
04:08
PT 16.4 H
INR 1.34
APTT 46.2 H
Microbiology
01/19/24 17:03 Catheter Tip Catheter Tip Culture - Final
No Growth After 72 Hours
01/19/24 13:15 Blood/Venous Blood Culture - Preliminary
No Growth in 72 hours- Final report to follow
01/19/24 13:15 Blood/Venous Blood Culture - Preliminary
No Growth in 72 hours- Final report to follow
01/18/24 14:10 Blood/Venous Blood Culture - Preliminary
Coagulase neg. staphylococcus
01/18/24 14:10 Blood/Venous Gram Stain - Final
01/18/24 14:10 Blood/Venous Blood Culture - Preliminary
Coagulase neg. staphylococcus
01/18/24 14:10 Blood/Venous Gram Stain - Final
01/19/24 04:36 Nose MRSA Screen - Final
No Methicillin Resistant Staphylococcus aureus isolated.
[2024-01-23] MEDS: NOVOLOG FLEXPEN-LOW RESISTANCE SC ×3 (07:20→17:28)
[2024-01-23] MEDS: PACERONE 200 MG PO (08:00)
[2024-01-23] MEDS: DESENEX/MITRAZOL/ZEASORB 1 APPLIC TOPICAL ×2 (08:00→20:38)
[2024-01-23] MEDS: HEPARIN 5000 UNITS SC ×2 (08:00→20:37)
[2024-01-23] MEDS: ProAmatine 10 MG PO ×3 (08:00→23:11)
[2024-01-23] MEDS: FEOSOL 325 MG PO (08:00)
[2024-01-23] MEDS: FLEXBUMIN 25% FOR HEMODIALYSIS 12.5 GRAMS IV ×2 (08:25→09:43)
[2024-01-23] MEDS: MANNITOL 25% 12.5 GRAMS IV ×2 (08:25→09:42)
--- NOTE | 2024-01-23 08:38 | W.PN.NEPH.PH ---
Today's Communication / Plan
-
HD
Assessment/Plan
-
IMP:
Gen weakness
Sepsis
Hypotension
Lactic acidosis
ESRD HD started 06/2023-[facility]
Right UE AVG, placed 11/2023
CHF with R EF 30%
Severe TR
Nonobstructive CAD
Chronic anemia likely multifactorial
Bioprosthetic aortic valve 2010
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
ICD
h/o atrial fibrillation off anticoagulation due to recurrent GI bleed
History of GIST tumor previously treated with Gleevac
Bilateral renal cyst with prior concern for masses
Gout
Diabetes mellitus type 2
Basal cell skin cancer
Plan:
HD today
wean levophed/vasopressin as allowed, vasopressin first
continue midodrine 10mg TID
follow lactate
follow LFTs
continue abx for coag neg staph bacteremia/sepsis
prognosis is guarded
critical care time 31 minutes
-
-
Date of Service: January 23, 2024
CC / HPI / ROS
-
Chief Complaint:
ESRD
History of Present Illness:
Remains hypotensive on Levophed/vasopressin/midodrine
LFTs remain elevated and stable
anemia unchanged
thrombocytopenia slightly lower 85
vanco for coag neg staph bacteremia
Review of Systems:
no CP/SOB
Labs
-
Labs:
WBC 9.3 10^3/uL (4.8-10.8) 01/23/24 04:08
RBC 2.92 10^6/uL (4.70-6.10) L 01/23/24 04:08
Hgb 10.0 g/dL (13.0-18.0) L 01/23/24 04:08
Hct 27.7 % (39.0-52.0) L 01/23/24 04:08
Plt Count 85 10^3/uL (130-400) L 01/23/24 04:08
Sodium 130 mmol/L (135-145) L 01/23/24 04:08
Potassium 3.8 mmol/L (3.5-5.1) 01/23/24 04:08
Chloride 94 mmol/L (98-107) L 01/23/24 04:08
Carbon Dioxide 24 mmol/L (22-30) 01/23/24 04:08
BUN 51 mg/dl (9-20) H 01/23/24 04:08
Creatinine 4.9 mg/dL (0.7-1.3) H* 01/23/24 04:08
eGFR 11.02 01/23/24 04:08
Glucose 122 mg/dl (70-99) H 01/23/24 04:08
Calcium 8.4 mg/dl (8.4-10.2) 01/23/24 04:08
Phosphorus 4.9 mg/dl (2.5-4.5) H 01/23/24 04:08
Cvg-T-Mumiuvnfhgd Pept > 90835 pg/ml 01/18/24 14:10
Albumin 2.6 g/dl (3.5-5.0) L 01/23/24 04:08
Physical Exam
-
Vital Signs:
Vital Signs
Temp Pulse Resp BP Pulse Ox
97.6 F 80 16 90/18 98
01/23/24 07:20 01/23/24 06:30 01/23/24 06:30 01/23/24 04:15 01/23/24 06:30
Cardiovascular:: Regular rate and rhythm
Respiratory:: Bilateral: Coarse
Lung Excursion:: Normal
Abdomen:: Nontender and Soft
Bowel Sounds:: Normal
Extremity Edema:: None: Bilateral:
--- NOTE | 2024-01-23 08:45 | W.PN.NEPH.HD ---
Assessment
-
Seen on HD. no complaints. VSS, on pressors. Access AVG ok
Progress Note - Hemodialysis
-
Date of Service: January 23, 2024
Duration: 30 minutes and 3 hours
Potassium Bath: 2
Calcium Bath: 2.5
Opti-Dialyzer: 160
Ultrafiltration: Other (1.5kg)
Blood Flow: 400
Dialysate Flow: 600
Heparin: no
EPO: no
--- NOTE | 2024-01-23 08:51 | PHA.VAN.FU ---
Vancomycin Assessment / Plan
- Assessment
Hemodialysis Schedule: TThSa
WBC's are: WNL
In the past 24 hrs, patient has been: Afebrile
- Assessment - Therapeutic Drug Monitoring
Random Level: 11.7
- Dosing Plan
Continue: dose by level HD days
Dosing by Level: Re-dose today (1000 mg x 1 post HD today)
Dosing Comments: giving 1 g since interval to next HD is the longest interval
- Monitoring Plan
No level(s) ordered at this time: consider level Thursday AM to make sure appropriate till next HD
- Follow Up
Pharmacy will continue to follow.
Vancomycin Follow UP
- -
Patient Age: 83
Patient Sex: Male
Vancomycin Day #: 5
Indication: Skin And Soft Tissue
Requesting Provider: Dr. Cook / Javid
Pertinent Antimicrobial Allergies:
NKDA
Height / Weight:
Height 5 ft 9 in
Actual Weight 84.9 kg
Pertinent Past Medical History: ESRD on HD TuThSa, DM 2
- Vital Signs / Lab Results
Temp Pulse Resp BP Pulse Ox
97.6 F 80 16 90/18 98
01/23/24 07:20 01/23/24 06:30 01/23/24 06:30 01/23/24 04:15 01/23/24 06:30
Lab Results - Hematology
01/21/24 01/22/24 01/23/24
07:41 05:46 04:08
WBC 13.0 H 10.6 9.3
Lab Results - Chemistry
01/21/24 01/22/24 01/23/24
07:41 05:46 04:08
BUN 55 H 38 H 51 H
Creatinine 5.8 H* 4.4 H* 4.9 H*
Estimated Creat Clear 9 12 11
Albumin 2.8 L 2.6 L
Microbiology Results
01/19/24 17:03 Catheter Tip Culture - Final
Catheter Tip No Growth After 72 Hours
01/19/24 13:15 Blood Culture - Preliminary
Blood/Venous No Growth in 72 hours- Final report to follow
01/19/24 13:15 Blood Culture - Preliminary
Blood/Venous No Growth in 72 hours- Final report to follow
01/18/24 14:10 Blood Culture - Preliminary
Blood/Venous Coagulase neg. staphylococcus
Gram Stain - Final
01/18/24 14:10 Blood Culture - Preliminary
Blood/Venous Coagulase neg. staphylococcus
Gram Stain - Final
Therapeutic Drug Monitoring
Random Vancomycin 11.7 ug/ml 01/23/24 04:08
--- NOTE | 2024-01-23 09:05 | W.PN.ID1 ---
Date of Service
Date of Service: January 23, 2024
Today's Communication
Continue Vancomycin with HD (d ).
Assessment / Plan
# CoNS bacteremia 4 out of 4 bottles, not sustained
-TTE no gross vege
- Repeat blood cx's - negative
- HD catheter removed. Tip cx negative
- Continue Vancomycin with HD (d ).
# Acute on chronic HF
# Hypotensive - weaning pressors
# hx ICD, Bio-AVR
# Elevated LFT's likely due to hypotension
-CT a/p no acute abnormality
- Abd US: no cholecystitis
#Additional Past Medical History:
End-stage renal disease on hemodialysis Thursday via right upper extremity AV graft
Paroxysmal atrial fibrillation, not on anticoagulation
Heart failure with reduced EF
Bioprosthetic aortic valve replacement
V. tach status post ICD placement
Severe tricuspid regurgitation
GIST tumor status post Gleevec
Hypotension on midodrine
Sleep apnea
Lymphedema
gout
basal cell ca
History of recurrent GI bleed
Chronic thrombocytopenia
Appendectomy
Chief Complaint
-: Bacteremia
Subjective / Review of Systems
No complaints
Vital Signs / Physical Exam
Vital Signs
Vital Signs
Temp Pulse Resp BP Pulse Ox
97.6 F 80 18 90/18 98
01/23/24 07:20 01/23/24 08:30 01/23/24 08:30 01/23/24 04:15 01/23/24 08:30
Physical Exam
Constitutional: No Acute Distress and Comfortable
Gastrointestinal: Soft, Non Tender and Non Distended
Extremities: Negative Edema
Objective Data
Lab Data
Lab Results
01/23/24 04:08
01/23/24 04:08
PT 16.4 Sec (11.4-14.6) H 01/23/24 04:08
INR 1.34 01/23/24 04:08
APTT 46.2 Sec (23.4-35.0) H 01/23/24 04:08
Estimated Creat Clear 11 ml/min 01/23/24 04:08
Lactic Acid 2.4 mmol/L (0.7-2.0) H 01/19/24 11:16
Total Bilirubin 2.7 mg/dl (0.2-1.3) H 01/23/24 04:08
AST 149 U/L (17-59) H 01/23/24 04:08
ALT 46 U/L (0-50) 01/23/24 04:08
Alkaline Phosphatase 189 U/L (38-126) H 01/23/24 04:08
Most recent labs reviewed.
Micro Results:
01/19/24 17:03 Catheter Tip Culture - Final
Catheter Tip No Growth After 72 Hours
01/19/24 13:15 Blood Culture - Preliminary
Blood/Venous No Growth in 72 hours- Final report to follow
01/19/24 13:15 Blood Culture - Preliminary
Blood/Venous No Growth in 72 hours- Final report to follow
01/18/24 14:10 Blood Culture - Preliminary
Blood/Venous Coagulase neg. staphylococcus
Gram Stain - Final
01/18/24 14:10 Blood Culture - Preliminary
Blood/Venous Coagulase neg. staphylococcus
Gram Stain - Final
01/19/24 04:36 MRSA Screen - Final
Nose No Methicillin Resistant Staphylococcus aureus isolated.
01/18/24 CT a/P: Small volume abdominopelvic ascites. Otherwise no significant acute abnormality identified in the abdomen or pelvis, as described above. Chronic changes as described. Small bilateral pleural effusions.
01/18/24 ABD US: There are a few small mobile gallstones identified within the gallbladder as well as a small amount of sludge. The gallbladder wall is not thickened. The patient has a negative sonographic Faith's sign. No evidence for biliary
ductal dilation. Increased echogenicity of the liver with coarsening of hepatic echotexture, findings suggestive of hepatocellular disease. No evidence of a focal hepatic mass lesion. Splenomegaly.
Small to moderate amount of ascites within both upper quadrants. Bilateral pleural effusions. No evidence for pelvicalyceal dilation of either kidney. Multiple bilateral renal cysts.
01/18/24 CXR: Cardiomegaly with mild pulmonary edema
--- NOTE | 2024-01-23 11:24 | W.PN.HOSP.TC ---
Today's Communication/Plan
-
see bold
Assessment / Plan
Assessment / Plan
Gen: NAD, Awake and alert, appears chronically ill
Eyes: remains EOMI, PERRLA, no scleral icterus.
Neck: supple.
CV: remains RRR, +S1/S2, no m/r/g.
Resp: remains CTAB, no rales, wheezes, or rhonchi.
Abd: +BS, soft, NT, ND
Neuro: remains CN 2-12 intact, non-focal.
Psych: Normal mood and affect.
01/19/24 17:03 Catheter Tip Catheter Tip Culture - Final
No Growth After 72 Hours
01/19/24 13:15 Blood/Venous Blood Culture - Preliminary
No Growth in 72 hours- Final report to follow
01/19/24 13:15 Blood/Venous Blood Culture - Preliminary
No Growth in 72 hours- Final report to follow
01/18/24 14:10 Blood/Venous Blood Culture - Preliminary
Coagulase neg. staphylococcus
01/18/24 14:10 Blood/Venous Gram Stain - Final
01/18/24 14:10 Blood/Venous Blood Culture - Preliminary
Coagulase neg. staphylococcus
01/18/24 14:10 Blood/Venous Gram Stain - Final
01/19/24 04:36 Nose MRSA Screen - Final
No Methicillin Resistant Staphylococcus aureus isolated.
CT A/P:
1. Small volume abdominopelvic ascites. Otherwise no significant acute abnormality identified in the abdomen or pelvis, as described above. Chronic changes as described.
2. Small bilateral pleural effusions.
Echo (TTE) 01/20/24: Normal LV size with moderate to severely reduced systolic function.
LVEF is approximately 30% by visual estimation with global diffuse hypokinesis.
Mild concentric LVH.
Normal right ventricular size and function.
Mild mitral regurgitation.
S/p bioprosthetic aortic valve. Peak/mean gradients are 38/18mmHg. Moderate
aortic regurgitation.
Severe tricuspid regurgitation.
Estimated pulmonary artery pressure of 60 mmHg. Assuming a right atrial
pressure of 8 mmHg.
Pleural effusion present.
No obvious vegetation.
Compared to prior from January 11, 2024, tricuspid regurgitation is now severe
from moderate to severe and estimated PASP is now moderate to severely elevated
at 60 mmHg from previously 43 mmHg.
Septic Shock (POA):
-due to CoNS
-repeat BCxs NGTD, cont to follow BCxs
-with leukocytosis and lactic acidosis
-Chest x-ray shows cardiomegaly mild pulmonary edema
-250cc IV fluids given without change in blood pressure
-currently on Levophed/Vasopressin
-cont Vancomycin as per ID (to complete 14 days, last day 01/31/24)
-cont Midodrine, now at increased dose
Abdominal pain:
-Etiology unclear
-CT abdomen pelvis and abdominal ultrasound without any source visible
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
-U/A ordered and noted, follow reflex culture
Other problems:
Acute nonischemic myocardial injury
ESRD: cont HD T//Thu, cont midodrine
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 Continue amiodarone.
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
Chronic HFrEF: Holding metoprolol
Severe status post bioprosthetic AVR
CAD: Continue statin, BB on hold
Obstructive sleep apnea
Essential hypertension: currently hypotensive
Anemia of chronic disease: Continue ferrous sulfate
Chronic thrombocytopenia: Platelets stable
DM2: BGs controlled. a1c 4.5%.
Right renal lesion
h/o GIST tumor
Gout: Continue allopurinol
FULL/Heparin
Total critical care time spent = 31 min
Anticipated Discharge: > 48 hours
Subjective/Interval History
-
Date of Service: January 23, 2024
Objective Data
-
Labs:
Laboratory Results
01/23/24 01/23/24
04:08 08:45
WBC 9.3
Hgb 10.0 L
Hct 27.7 L
Plt Count 85 L
PT 16.4 H
INR 1.34
APTT 46.2 H
Sodium 130 L
Potassium 3.8
Chloride 94 L
Carbon Dioxide 24
BUN 51 H
Creatinine 4.9 H*
Glucose 122 H
Calcium 8.4
Total Bilirubin 2.7 H Pending
AST 149 H Pending
ALT 46 Pending
Alkaline Phosphatase 189 H Pending
Vital Signs:
Vital Signs
Temp Pulse Resp BP Pulse Ox
97.5 F 80 15 90/18 96
01/23/24 11:14 01/23/24 09:00 01/23/24 09:00 01/23/24 04:15 01/23/24 09:00
I&O
01/22/24 01/23/24 01/24/24
06:59 06:59 06:59
Intake Total 1681.5 / 1708.5 1030.3 / 1046.8 273.0 / 273.0
Balance 1681.5 / 1708.5 1030.3 / 1046.8 273.0 / 273.0
[2024-01-23] MEDS: VITAMIN D3 (cholecalciferol) 25 MCG PO (11:49)
[2024-01-23] MEDS: ZYLOPRIM 100 MG PO (11:49)
[2024-01-23 12:08] LABS: Glucose - Point of Care 104 mg/dl (70-99)
[2024-01-23] MEDS: VANCOCIN 200 IV (12:35)
[2024-01-23 13:19] VITALS: BP_SYST 106
--- NOTE | 2024-01-23 13:19 | PTCARENOTE ---
1.5kg off per HD RN.
Pressors weaned off.
Good appetite.
All other assessments unchanged.
--- NOTE | 2024-01-23 13:32 | W.PN.CD ---
Today's Communication / Plan
-
cont current meds
wean levo as able
OOB in chair if possible
Impression / Plan
-
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
place, nonobstructive CAD, status post AVR in 2010 for severe , severe TR, hypertension, hyperlipidemia, diabetes and obesity. He is here with likely septic shock requiring levophed.
Shock: Septic Vs Cardiogenic:
-seems sepsis with previous leukocytosis and positive blood cultures
-given bioprosthetic valve/DC ppm will need to consider IE/device infection and consider technician terminal and repeater Abx?
- TTE did not show any obvious vegetation, however significant calcium and bioprosthetic AVR difficult to definitively rule out endocarditis
-wt is lower than last visit at 192lbs in December, 178 lbs January 19
-Continue weaning levophed
-troponin are low level/flat likely non-ischemic myocardial injury
HFrEF: last echo wtih EF 30%, report of improved EF on TRACY in 05/2024
-GDMT limited by hypotension and renal function
--volume controlled by HD
-echo below
-has a DC device could consider upgrade as QRS >180ms --but this is a halfway plan not acute issue.
VT s/p ICD:
-H.o PMVT
-on amiodarone.
Bioprosthetic AVR: given positive blood cultures, would need to consider IE. Consideration for TRACY, however, conversation of risk vs benefit
Persistent A-fib
- rate controlled
- no AC as above due to GIB's, hx GIST tumor
ESRD on HD: care per nephrolgoy, does have line that will need to come out.
Data:
TTE January 20, 2024:
CONCLUSIONS
Normal LV size with moderate to severely reduced systolic function.
LVEF is approximately 30% by visual estimation with global diffuse hypokinesis.
Mild concentric LVH.
Normal right ventricular size and function.
Mild mitral regurgitation.
S/p bioprosthetic aortic valve. Peak/mean gradients are 38/18mmHg. Moderate
aortic regurgitation.
Severe tricuspid regurgitation.
Estimated pulmonary artery pressure of 60 mmHg. Assuming a right atrial
pressure of 8 mmHg.
Pleural effusion present.
No obvious vegetation.
Compared to prior from January 11, 2024, tricuspid regurgitation is now severe
from moderate to severe and estimated PASP is now moderate to severely elevated
at 60 mmHg from previously 43 mmHg.
Physical Exam
Vital Signs/Labs
Vital Signs
Temp Pulse Resp BP Pulse Ox
97.5 F 80 21 90/18 98
01/23/24 11:14 01/23/24 13:00 01/23/24 13:00 01/23/24 04:15 01/23/24 13:00
01/22/24 01/23/24 01/24/24
06:59 06:59 06:59
Actual Weight 194 lb 14.218 oz 187 lb 2.759 oz
01/23/24 04:08
01/23/24 04:08
PT 16.4 Sec (11.4-14.6) H 01/23/24 04:08
INR 1.34 01/23/24 04:08
APTT 46.2 Sec (23.4-35.0) H 01/23/24 04:08
Magnesium 1.9 mg/dl (1.6-2.3) 01/23/24 04:08
01/18/24
14:10
Wik-F-Ihgnwlimvav Pept > [id number]
Physical Exam
Constitutional: No acute distress
Cardiovascular: Rhythm & rate is regular (paced) and Pedal edema present
Respiratory: Other (decreased b/s )
GI: Soft
Neuro/Psych: Oriented (to person and place )
Data Reviewed
-
Date of Service: January 23, 2024
EKG: Tracing Personally Visualized and interpreted (paced)
Labs: Labs Reviewed by me
[2024-01-23 13:33] LABS: Lactic Acid 2.5 mmol/L (0.7-2.0)
[2024-01-23 13:41] LABS: ALT (SGPT) 44 U/L (0-50); AST (SGOT) 156 U/L (17-59); Albumin 2.9 g/dl (3.5-5.0); Alkaline Phosphatase 191 U/L (38-126); Total Bilirubin 2.8 mg/dl (0.2-1.3); Total Protein 6.4 g/dl (6.3-8.2)
[2024-01-23] MEDS: ProAmatine 5 MG PO (14:34)
[2024-01-23 15:30] VITALS: BP_SYST 84
--- NOTE | 2024-01-23 15:53 | PTCARENOTE ---
PRN Midodrine given at 1434 for BP 88/32. Levophed restarted at 1530 for BP 84/30.
All other assessments unchanged.
[2024-01-23 17:35] LABS: Glucose - Point of Care 120 mg/dl (70-99)
--- NOTE | 2024-01-23 20:33 | PTCARENOTE ---
Rec'd pt resting in bed with fam at bedside. Minimal levo needed for BP support. Will attempt to wean as able, while utilizing PRN Midodrine. HD earlier today. Using home CPAP at HS. Please see assessment for further info. WIll monitor.
[2024-01-23] MEDS: LIPITOR 20 MG PO (20:37)
[2024-01-23 21:57] LABS: Glucose - Point of Care 111 mg/dl (70-99)
--- NOTE | 2024-01-24 00:30 | PTCARENOTE ---
Pt using own CPAP machine. Resting comfortably. Will monitor.
[2024-01-24 03:00] VITALS: BP_SYST 82
[2024-01-24 05:07] VITALS: BMI 28.6
[2024-01-24 05:08] VITALS: BP_SYST 103
[2024-01-24 05:13] LABS: % Basophils 0.7 % (0-2); % Immature Granulocytes 0.4 % (0-0.5); % Lymphocytes 8.4 % (20.5-51.1); % Monocytes 5.7 % (1.7-9.3); % Neutrophils 82.8 % (42.2-75.2); Absolute Basophils 0.1 10^3/uL (0-0.2); Absolute Eosinophils 0.2 10^3/uL (0-0.7); Absolute Lymphocytes 0.8 10^3/uL (1.2-3.4); Absolute Monocytes 0.5 10^3/uL (0.1-0.6); Absolute Neutrophils 7.9 10^3/uL (1.4-6.5); Hematocrit 29.1 % (39.0-52.0); Hemoglobin 10.2 g/dL (13.0-18.0); Mean Corp Hgb Conc. 35.1 g/dL (33.0-37.0); Mean Corpuscular Hgb 33.8 pg (27.0-31.0); Mean Corpuscular Volume 96.4 fL (80.0-94.0); Mean Platelet Volume 12.4 fL (7.4-10.4); Nucleated Red Blood Cells % 0 % (-); Platelet Count 91 10^3/uL (130-400); Red Blood Cell Count 3.02 10^6/uL (4.70-6.10); Red Cell Dist. Width 15.7 % (11.5-14.5); White Blood Cell Count 9.5 10^3/uL (4.8-10.8)
[2024-01-24 05:43] LABS: Blood Urea Nitrogen 33 mg/dl (9-20); Calcium 8.4 mg/dl (8.4-10.2); Carbon Dioxide 27 mmol/L (22-30); Chloride 95 mmol/L (98-107); Estimated Creatinine Clearance 16 ml/min; Glucose 93 mg/dl (70-99); Potassium 3.9 mmol/L (3.5-5.1); Sodium 130 mmol/L (135-145); eGFR 17.09
--- NOTE | 2024-01-24 07:16 | W.PN.INTV ---
Addendum entered and electronically signed by Deanne Jensen DO 01/24/24 11:22:
Transferred to IMU, we will sign off at this time
Please call with questions
Original Note:
Today's Communication / Plan
Recommendations
Doing well, levophed maintained at low dose
Off vasopressin
HD continued per renal
Abx continued per ID
PT/OT, OOB
Can likely transfer to IMU on low does pressor
Assessment
-
Patient is an 83-year-old male with previous history of end-stage renal disease, VT status post ICD, A-fib, chronic heart failure, CAD, BENJIE on CPAP presenting for generalized weakness, shortness of breath and abdominal discomfort. On initial workup
chest x-ray and CT abdomen pelvis demonstrating pulmonary edema with vascular congestion. He is admitted to IMU 01/19/24 for acute heart failure exacerbation. He had developed hypotension, placed on Levophed. Has new blood culture positivity with
coagulase-negative staph concerning for bacteremia. He is transferred to ICU due to pressor requirements 01/20/2024.
Acute on chronic HFpEF exacerbation
Progressive SOB/Abd pain 2/2 vascular congestion
Shock on pressors, septic
CoNS Bacteremia, 4/4 bottles
Elevated LFTs
Hyperglycemia
Leukocytosis
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
ESRD on HD TThSa
Polymorphic VT status post ICD
Paroxysmal atrial fibrillation not on anticoagulation
Chronic HFrEF
Severe aortic stenosis status post bioprosthetic AVR in 2010
Coronary artery disease
Obstructive sleep apnea
Hypertension
Anemia of chronic disease
Appendectomy
chronic thrombocytopenia
Type 2 diabetes
Right renal lesions
history of GIST tumor
gout
Plan
No current signs of metabolic encephalopathy or MS changes/following commands
Denies pain at this time.
Pain/sedation: PRN
RASS goals: 0
Hemodynamically unstable, requiring pressors/weaning down
A-line placed with more accurate readings
Requiring pressors: levo @2, off vasopressin
Cardiac history reviewed--HF, AF, CAD, s/p AVR
Prior ECHO reviewed indicating last EF 30%
Cards following, hold BP meds while hypotension--not more to offer from their perspective
PO midodrine continued 10mg q8, continue PRN dosing
Agree with volume removal via HD
Oxygen needs: stable on room air
Prior history of lung disease: BENJIE on CPAP, maintain nightly use
Supplemental O2 as indicated to maintain sats > 89%
CXR/CT reviewed indicating edema, repeat as needed
Advance diet as tolerated
Honing Job Setter recommendations
Aspiration precautions, HOB > 30 degrees
Speech therapy eval can be considered if at elevated risk
GI prophylaxis if indicated for mechanical ventilation >48 hours, prior history of GERD, stress ulcer formation in the critically ill
ESRD on HD, renal following
Continue HD TThSat
Follow urine output, critical I/Os
Replete electrolytes as needed
Blood cultures 4/4 CoNS
ID following
Started on empiric antibiotics
Cultures sent/pending
Blood, repeat pending
MRSA screen negative
Follow fever trend, WBC count
CBC stable, no signs of bleeding or coagulopathy.
DVT prophylaxis as assessed based on risk, including mechanical SCDs
Can transfuse if indicated for Hb <7, plt < 10
INR WNL
No prior h/o diabetes or thyroid disease
Monitor accuchecks PRN/SS coverage if needed
HbA1c 4.5
Prognosis snf poor, would be appropriate to start GOC discussions if clinically deteriorating
Updated daughter 01/22/24
Diagnostic Data
Chest X-Ray: 01/18/24- Cardiomegaly with mild pulmonary edema
Postoperative changes as described above.
CT Scan: AP 01/18/24- 1. Small volume abdominopelvic ascites. Otherwise no significant acute abnormality identified in the abdomen or pelvis, as described above. Chronic changes as described.
2. Small bilateral pleural effusions.
Echo: 01/11/24- Mildly dilated LV with severely reduced systolic function. LVEF is approximately 30% by visual estimation with global diffuse hypokinesis. Mild concentric LVH. Mitral annular calcification. Mild mitral regurgitation. S/p
bioprosthetic aortic valve replacement with a peak/mean gradient of 25/17 mmHg. Mild aortic regurgitation. Moderate to severe tricuspid regurgitation. Estimated pulmonary artery pressure of 43 mmHg. Assuming a right atrial pressure of 15 mmHg.
Compared to prior from January 08, 2022, on [id number] comparison overall LVEF is improved and is approximately 30% from 20 to 25%. Interval increase in bioprosthetic aortic valve gradients from 20/9 mmHg to 25/17 mmHg today.
PFT's: 2008- FVC is 3.33L or 77% of predicted - FEV1 is 2.66L or 84% of predicted - Ratio is 80%.
Impression: Normal spirometry.
Reports and relevant images were personally reviewed.
-----
Critical care time 31 mins -- this includes review of history, physical exam, medications, hemodynamic/ventilator parameters, laboratory data, imaging and discussion with house staff, pharmacy, respiratory therapy, platen press feeder, and nursing.
Subjective Dataa
Subjective Data
Date of Service:
Date of Service: January 24, 2024
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
Subjective:
remains on low dose levophed, weaned off vaso
no new complaints, sleeping
no events ON
Objective Data
Data Reviewed
Vital Signs / I&O / Oxygen:
Vital Signs
Temp Pulse Resp BP Pulse Ox
98.2 F 80 25 100/40 91
01/24/24 03:39 01/24/24 06:30 01/24/24 06:30 01/23/24 23:11 01/24/24 06:30
Intake and Output
01/23/24 01/24/24 01/25/24
06:59 06:59 06:59
Intake Total 1030.3 / 1046.8 1069.5 / 1069.5
Balance 1030.3 / 1046.8 1069.5 / 1069.5
SaO2 91
Physical Exam
General: Comfortable and Other (NAD)
HEENT: Normocephalic, Anicteric and Moist Mucous Membranes
Cardiovascular: S1-S2, Regular Rhythm, Murmur and Peripheral Edema
Respiratory: Clear (overall decreased) and Non-Labored Respirations
GI: Soft, Non Distended and Non Tender
Neurology: Awake, Alert, Oriented (to self), No Motor Deficits and Other (answers appropriately, but insight poor)
Skin: Warm and Dry
Labs/Micro/Reports
Lab Data
01/24/24 04:59
01/24/24 04:59
Microbiology
01/19/24 13:15 Blood/Venous Blood Culture - Preliminary
No Growth in 4 days- Final report to follow
01/19/24 13:15 Blood/Venous Blood Culture - Preliminary
No Growth in 4 days- Final report to follow
01/19/24 17:03 Catheter Tip Catheter Tip Culture - Final
No Growth After 72 Hours
01/18/24 14:10 Blood/Venous Blood Culture - Preliminary
Coagulase neg. staphylococcus
01/18/24 14:10 Blood/Venous Gram Stain - Final
01/18/24 14:10 Blood/Venous Blood Culture - Preliminary
Coagulase neg. staphylococcus
01/18/24 14:10 Blood/Venous Gram Stain - Final
[2024-01-24] MEDS: NOVOLOG FLEXPEN-LOW RESISTANCE SC ×3 (07:55→18:01)
[2024-01-24 08:05] LABS: Glucose - Point of Care 89 mg/dl (70-99)
--- NOTE | 2024-01-24 08:26 | W.PN.ID1 ---
Date of Service
Date of Service: January 24, 2024
Today's Communication
- Continue Vancomycin with HD (d ).
Assessment / Plan
# CoNS bacteremia 4 out of 4 bottles, not sustained
-TTE no gross vege
-CT a/p no acute abnormality
- Repeat blood cx's - negative
- HD catheter removed. Tip cx negative
- Continue Vancomycin with HD (d ).
# Acute on chronic HF
# Hypotensive - remains on pressor
# hx ICD, Bio-AVR
#Additional Past Medical History:
End-stage renal disease on hemodialysis Thursday via right upper extremity AV graft
Paroxysmal atrial fibrillation, not on anticoagulation
Heart failure with reduced EF
Bioprosthetic aortic valve replacement
V. tach status post ICD placement
Severe tricuspid regurgitation
GIST tumor status post Gleevec
Hypotension on midodrine
Sleep apnea
Lymphedema
gout
basal cell ca
History of recurrent GI bleed
Chronic thrombocytopenia
Appendectomy
Chief Complaint
-: Bacteremia
Vital Signs / Physical Exam
Vital Signs
Vital Signs
Temp Pulse Resp BP Pulse Ox
97.7 F 80 25 100/40 91
01/24/24 07:37 01/24/24 06:30 01/24/24 06:30 01/23/24 23:11 01/24/24 06:30
Physical Exam
Constitutional: No Acute Distress and Comfortable
Pulmonary: Clear
Gastrointestinal: Soft, Non Tender and Non Distended
Extremities: Negative Edema
Objective Data
Lab Data
Lab Results
01/24/24 04:59
01/24/24 04:59
PT 16.4 Sec (11.4-14.6) H 01/23/24 04:08
INR 1.34 01/23/24 04:08
APTT 46.2 Sec (23.4-35.0) H 01/23/24 04:08
Estimated Creat Clear 16 ml/min 01/24/24 04:59
Lactic Acid 2.5 mmol/L (0.7-2.0) H 01/23/24 13:16
Total Bilirubin 2.8 mg/dl (0.2-1.3) H 01/23/24 13:16
AST 156 U/L (17-59) H 01/23/24 13:16
ALT 44 U/L (0-50) 01/23/24 13:16
Alkaline Phosphatase 191 U/L (38-126) H 01/23/24 13:16
Most recent labs reviewed.
Micro Results:
01/19/24 13:15 Blood Culture - Preliminary
Blood/Venous No Growth in 4 days- Final report to follow
01/19/24 13:15 Blood Culture - Preliminary
Blood/Venous No Growth in 4 days- Final report to follow
01/19/24 17:03 Catheter Tip Culture - Final
Catheter Tip No Growth After 72 Hours
01/18/24 14:10 Blood Culture - Preliminary
Blood/Venous Coagulase neg. staphylococcus
Gram Stain - Final
01/18/24 14:10 Blood Culture - Preliminary
Blood/Venous Coagulase neg. staphylococcus
Gram Stain - Final
01/19/24 04:36 MRSA Screen - Final
Nose No Methicillin Resistant Staphylococcus aureus isolated.
01/18/24 CT a/P: Small volume abdominopelvic ascites. Otherwise no significant acute abnormality identified in the abdomen or pelvis, as described above. Chronic changes as described. Small bilateral pleural effusions.
01/18/24 ABD US: There are a few small mobile gallstones identified within the gallbladder as well as a small amount of sludge. The gallbladder wall is not thickened. The patient has a negative sonographic Faith's sign. No evidence for biliary
ductal dilation. Increased echogenicity of the liver with coarsening of hepatic echotexture, findings suggestive of hepatocellular disease. No evidence of a focal hepatic mass lesion. Splenomegaly.
Small to moderate amount of ascites within both upper quadrants. Bilateral pleural effusions. No evidence for pelvicalyceal dilation of either kidney. Multiple bilateral renal cysts.
01/18/24 CXR: Cardiomegaly with mild pulmonary edema
--- NOTE | 2024-01-24 08:30 | PTCARENOTE ---
Assumed care of pt at 0715 following shift report. Pt awake and resting quietly in bed. Denies c/o pain or SOB. POx 95% on RA. Pt incontinent of small soft brown BM and moderate amount of juarez/tea colored urine. AM hygiene and pericare provided.
Levophed gtt at 2mcg/min to maintain SBP >85. Lt radial radha present, patent and waveform WNL. Leveled and zero balanced. Call duckworth w/in pt reach and safe environment maintained.
[2024-01-24] MEDS: FEOSOL 325 MG PO (08:47)
[2024-01-24] MEDS: DESENEX/MITRAZOL/ZEASORB 1 APPLIC TOPICAL ×2 (08:47→19:59)
[2024-01-24] MEDS: ProAmatine 10 MG PO ×3 (08:47→23:37)
[2024-01-24] MEDS: PACERONE 200 MG PO (08:48)
[2024-01-24] MEDS: HEPARIN 5000 UNITS SC ×2 (08:48→20:00)
[2024-01-24] MEDS: ZYLOPRIM 100 MG PO (08:48)
--- NOTE | 2024-01-24 09:18 | PHA.VAN.FU ---
Vancomycin Assessment / Plan
- Assessment
Hemodialysis Schedule: TThSa
Last Hemodialysis performed: Sat 01/22 - next HD tu01/25
WBC's are: WNL
In the past 24 hrs, patient has been: Afebrile
- Dosing Plan
Continue: dose by random level HD days
Dosing by Level: Hold off on dosing today
- Monitoring Plan
Random Level: 7/01 am to make sure level is appropriate with longer interv btwn HD days
- Follow Up
Pharmacy will continue to follow.
Vancomycin Follow UP
- -
Patient Age: 83
Patient Sex: Male
Vancomycin Day #: 6
Indication: Skin And Soft Tissue
Requesting Provider: Dr. Cook / Javid
Pertinent Antimicrobial Allergies:
NKDA
Height / Weight:
Height 5 ft 9 in
Actual Weight 87.9 kg
Pertinent Past Medical History: ESRD on HD TuThSa, DM 2
- Vital Signs / Lab Results
Temp Pulse Resp BP Pulse Ox
97.7 F 80 25 100/36 91
01/24/24 07:37 01/24/24 08:48 01/24/24 06:30 01/24/24 08:48 01/24/24 06:30
Lab Results - Hematology
01/22/24 01/23/24 01/24/24
05:46 04:08 04:59
WBC 10.6 9.3 9.5
Lab Results - Chemistry
01/22/24 01/23/24 01/23/24
05:46 04:08 13:16
BUN 38 H 51 H
Creatinine 4.4 H* 4.9 H*
Estimated Creat Clear 12 11
Albumin 2.6 L 2.9 L
01/24/24
04:59
BUN 33 H
Creatinine 3.4 H
Estimated Creat Clear 16
Albumin
01/23/24
13:16
Lactic Acid 2.5 H
Microbiology Results
01/19/24 13:15 Blood Culture - Preliminary
Blood/Venous No Growth in 4 days- Final report to follow
01/19/24 13:15 Blood Culture - Preliminary
Blood/Venous No Growth in 4 days- Final report to follow
01/19/24 17:03 Catheter Tip Culture - Final
Catheter Tip No Growth After 72 Hours
01/18/24 14:10 Blood Culture - Preliminary
Blood/Venous Coagulase neg. staphylococcus
Gram Stain - Final
Therapeutic Drug Monitoring
Random Vancomycin 11.7 ug/ml 01/23/24 04:08
--- NOTE | 2024-01-24 09:28 | W.PN.NEPH.PH ---
Today's Communication / Plan
-
wean pressors
Assessment/Plan
-
IMP:
Gen weakness
Sepsis
Hypotension
Lactic acidosis
ESRD HD started 06/2023-[facility]
Right UE AVG, placed 11/2023
CHF with R EF 30%
Severe TR
Nonobstructive CAD
Chronic anemia likely multifactorial
Bioprosthetic aortic valve 2010
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
ICD
h/o atrial fibrillation off anticoagulation due to recurrent GI bleed
History of GIST tumor previously treated with Gleevac
Bilateral renal cyst with prior concern for masses
Gout
Diabetes mellitus type 2
Basal cell skin cancer
Plan:
HD thursday
wean levophed as allowed, still on high dose midodrine (was not on as OP)
continue midodrine 10mg TID
follow lactate
follow LFTs
continue abx for coag neg staph bacteremia/sepsis
critical care time 31 minutes
-
-
Date of Service: January 24, 2024
CC / HPI / ROS
-
Chief Complaint:
ESRD
History of Present Illness:
Remains hypotensive on Levophed/midodrine but requirements less
tolerated HD yesterday
LFTs remain elevated but stable
anemia unchanged
thrombocytopenia stable
vanco for coag neg staph bacteremia
Review of Systems:
no CP/SOB
Labs
-
Labs:
WBC 9.5 10^3/uL (4.8-10.8) 01/24/24 04:59
RBC 3.02 10^6/uL (4.70-6.10) L 01/24/24 04:59
Hgb 10.2 g/dL (13.0-18.0) L 01/24/24 04:59
Hct 29.1 % (39.0-52.0) L 01/24/24 04:59
Plt Count 91 10^3/uL (130-400) L 01/24/24 04:59
Sodium 130 mmol/L (135-145) L 01/24/24 04:59
Potassium 3.9 mmol/L (3.5-5.1) 01/24/24 04:59
Chloride 95 mmol/L (98-107) L 01/24/24 04:59
Carbon Dioxide 27 mmol/L (22-30) 01/24/24 04:59
BUN 33 mg/dl (9-20) H 01/24/24 04:59
Creatinine 3.4 mg/dL (0.7-1.3) H 01/24/24 04:59
eGFR 17.09 01/24/24 04:59
Glucose 93 mg/dl (70-99) 01/24/24 04:59
Calcium 8.4 mg/dl (8.4-10.2) 01/24/24 04:59
Phosphorus 4.9 mg/dl (2.5-4.5) H 01/23/24 04:08
Bxg-Q-Xbttohvtbku Pept > 80744 pg/ml 01/18/24 14:10
Albumin 2.9 g/dl (3.5-5.0) L 01/23/24 13:16
Physical Exam
-
Vital Signs:
Vital Signs
Temp Pulse Resp BP Pulse Ox
97.7 F 80 25 100/36 91
01/24/24 07:37 01/24/24 08:48 01/24/24 06:30 01/24/24 08:48 01/24/24 06:30
Cardiovascular:: Regular rate and rhythm
Respiratory:: Bilateral: Coarse
Lung Excursion:: Normal
Abdomen:: Nontender and Soft
Bowel Sounds:: Normal
Extremity Edema:: None: Bilateral:
--- NOTE | 2024-01-24 10:17 | W.PN.HOSP.TC ---
Today's Communication/Plan
-
see bold
Assessment / Plan
Assessment / Plan
Gen: NAD, Awake and alert, appears chronically ill
Eyes: remains EOMI, PERRLA, no scleral icterus.
Neck: supple.
CV: remains RRR, +S1/S2, no m/r/g.
Resp: remains CTAB, no rales, wheezes, or rhonchi.
Abd: +BS, soft, NT, ND
Neuro: remains CN 2-12 intact, non-focal.
Psych: Normal mood and affect.
01/19/24 13:15 Blood/Venous Blood Culture - Preliminary
No Growth in 4 days- Final report to follow
01/19/24 13:15 Blood/Venous Blood Culture - Preliminary
No Growth in 4 days- Final report to follow
01/19/24 17:03 Catheter Tip Catheter Tip Culture - Final
No Growth After 72 Hours
01/18/24 14:10 Blood/Venous Blood Culture - Preliminary
Coagulase neg. staphylococcus
01/18/24 14:10 Blood/Venous Gram Stain - Final
01/18/24 14:10 Blood/Venous Blood Culture - Preliminary
Coagulase neg. staphylococcus
01/18/24 14:10 Blood/Venous Gram Stain - Final
01/19/24 04:36 Nose MRSA Screen - Final
No Methicillin Resistant Staphylococcus aureus isolated.
CT A/P:
1. Small volume abdominopelvic ascites. Otherwise no significant acute abnormality identified in the abdomen or pelvis, as described above. Chronic changes as described.
2. Small bilateral pleural effusions.
Echo (TTE) 01/20/24: Normal LV size with moderate to severely reduced systolic function.
LVEF is approximately 30% by visual estimation with global diffuse hypokinesis.
Mild concentric LVH.
Normal right ventricular size and function.
Mild mitral regurgitation.
S/p bioprosthetic aortic valve. Peak/mean gradients are 38/18mmHg. Moderate
aortic regurgitation.
Severe tricuspid regurgitation.
Estimated pulmonary artery pressure of 60 mmHg. Assuming a right atrial
pressure of 8 mmHg.
Pleural effusion present.
No obvious vegetation.
Compared to prior from January 11, 2024, tricuspid regurgitation is now severe
from moderate to severe and estimated PASP is now moderate to severely elevated
at 60 mmHg from previously 43 mmHg.
Septic Shock (POA):
-due to CoNS
-repeat BCxs NGTD, cont to follow BCxs
-with leukocytosis (resolved) and lactic acidosis (mild)
-Chest x-ray showed cardiomegaly mild pulmonary edema
-250cc IV fluids given on admission without change in blood pressure
-currently on Levophed @ 2, off Vasopressin
-cont Vancomycin as per ID (to complete 14 days, last day 01/31/24)
-cont Midodrine
Other problems:
Abdominal pain: Etiology unclear, CT abdomen pelvis and abdominal ultrasound without any source visible
Acute nonischemic myocardial injury
ESRD: cont HD T//Thu, cont midodrine
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 Continue amiodarone.
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
Chronic HFrEF: Holding metoprolol
Severe status post bioprosthetic AVR
CAD: Continue statin, BB on hold
Obstructive sleep apnea
Essential hypertension: currently hypotensive
Anemia of chronic disease: Continue ferrous sulfate
Chronic thrombocytopenia: Platelets stable
DM2: BGs controlled. a1c 4.5%.
Right renal lesion
h/o GIST tumor
Gout: Continue allopurinol
FULL/Heparin
Transfer to IMU
Anticipated Discharge: > 48 hours
Subjective/Interval History
-
Date of Service: January 24, 2024
No new complaints.
Objective Data
-
Labs:
Laboratory Results
01/24/24
04:59
WBC 9.5
Hgb 10.2 L
Hct 29.1 L
Plt Count 91 L
Sodium 130 L
Potassium 3.9
Chloride 95 L
Carbon Dioxide 27
BUN 33 H
Creatinine 3.4 H
Glucose 93
Calcium 8.4
Vital Signs:
Vital Signs
Temp Pulse Resp BP Pulse Ox
97.7 F 80 25 100/36 91
01/24/24 07:37 01/24/24 08:48 01/24/24 06:30 01/24/24 08:48 01/24/24 06:30
I&O
01/23/24 01/24/24 01/25/24
06:59 06:59 06:59
Intake Total 1030.3 / 1046.8 1069.5 / 1069.5
Balance 1030.3 / 1046.8 1069.5 / 1069.5
[2024-01-24 11:00] VITALS: BP_SYST 120
--- NOTE | 2024-01-24 11:16 | W.PN.CD ---
Today's Communication / Plan
-
wean levophed as able
OOB as able
Impression / Plan
-
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
place, nonobstructive CAD, status post AVR in 2010 for severe , severe TR, hypertension, hyperlipidemia, diabetes and obesity. He is here with likely septic shock requiring levophed.
Shock: Septic Vs Cardiogenic:
-seems sepsis with previous leukocytosis and positive blood cultures
-given bioprosthetic valve/DC ppm will need to consider IE/device infection and consider watermelon inspector Abx?
- TTE did not show any obvious vegetation, however significant calcium and bioprosthetic AVR difficult to definitively rule out endocarditis
-wt is lower than last visit at 192lbs in December, 178 lbs January 19
-Continue weaning levophed
-troponin are low level/flat likely non-ischemic myocardial injury
HFrEF: last echo wtih EF 30%, report of improved EF on TRACY in 05/2024
-GDMT limited by hypotension and renal function
--volume controlled by HD
-echo below
-has a DC device could consider upgrade as QRS >180ms --but this is a correction plan not acute issue.
VT s/p ICD:
-H.o PMVT
-on amiodarone.
Bioprosthetic AVR: given positive blood cultures, would need to consider IE. Consideration for TRACY, however, conversation of risk vs benefit
Persistent A-fib
- rate controlled
- no AC as above due to GIB's, hx GIST tumor
ESRD on HD: care per nephrolgoy, does have line that will need to come out.
Data:
TTE January 20, 2024:
CONCLUSIONS
Normal LV size with moderate to severely reduced systolic function.
LVEF is approximately 30% by visual estimation with global diffuse hypokinesis.
Mild concentric LVH.
Normal right ventricular size and function.
Mild mitral regurgitation.
S/p bioprosthetic aortic valve. Peak/mean gradients are 38/18mmHg. Moderate
aortic regurgitation.
Severe tricuspid regurgitation.
Estimated pulmonary artery pressure of 60 mmHg. Assuming a right atrial
pressure of 8 mmHg.
Pleural effusion present.
No obvious vegetation.
Compared to prior from January 11, 2024, tricuspid regurgitation is now severe
from moderate to severe and estimated PASP is now moderate to severely elevated
at 60 mmHg from previously 43 mmHg.
Physical Exam
Vital Signs/Labs
Vital Signs
Temp Pulse Resp BP Pulse Ox
97.7 F 80 25 100/36 91
01/24/24 07:37 01/24/24 08:48 01/24/24 06:30 01/24/24 08:48 01/24/24 06:30
01/23/24 01/24/24 01/25/24
06:59 06:59 06:59
Actual Weight 187 lb 2.759 oz 193 lb 12.581 oz
01/24/24 04:59
01/24/24 04:59
PT 16.4 Sec (11.4-14.6) H 01/23/24 04:08
INR 1.34 01/23/24 04:08
APTT 46.2 Sec (23.4-35.0) H 01/23/24 04:08
Magnesium 1.9 mg/dl (1.6-2.3) 01/23/24 04:08
01/18/24
14:10
Cye-P-Ozsawwadmdl Pept > 70925
Physical Exam
Constitutional: No acute distress
EENT: Anicteric
Cardiovascular: Rhythm & rate is regular
Respiratory: Other (decreased b/s)
GI: Soft
Neuro/Psych: Alert and Oriented
Data Reviewed
-
Date of Service: January 24, 2024
EKG: Tracing Personally Visualized and interpreted (paced)
Echo: Report Reviewed by me
Labs: Labs Reviewed by me
--- NOTE | 2024-01-24 12:00 | PTCARENOTE ---
Pt sitting OOB in chair. Levophed gtt off at 1100. SBP remains in 100-110's. No complaints or changes noted from previous assessment findings.
[2024-01-24 12:01] LABS: Glucose - Point of Care 101 mg/dl (70-99)
[2024-01-24 14:47] VITALS: BP 119/48
[2024-01-24 15:43] VITALS: BP 102/50
--- NOTE | 2024-01-24 16:30 | PTCARENOTE ---
Pt remains OOB in chair visiting w/ daughter 'Alek'. No changes noted or complaints received.
[2024-01-24 18:08] LABS: Glucose - Point of Care 89 mg/dl (70-99)
[2024-01-24] MEDS: LIPITOR 20 MG PO (20:00)
--- NOTE | 2024-01-24 21:00 | PTCARENOTE ---
on assessment pt AAOx3, denies pain, has generalized weakness, [place], Vpaced on the monitor, +1 generalized edema, 96% RA, 1200 FR, decreased appetite, multiple BMs today, incontinent of bowel and bladder (anuric), multiple small wounds see flow
sheet. Midline was removed today, nothing running through IV, downgraded to IMU this evening. pt assisted back into bed, call duckworth in reach, and bed alarm on.
[2024-01-24 21:57] LABS: Glucose - Point of Care 121 mg/dl (70-99)
[2024-01-25] VITALS (15 sets, daily range): BP systolic 93–113; BP diastolic 49–66; PULSE 80; O2SAT 96–97; BMI 28.0
[2024-01-25 03:46] LABS: Lactic Acid 2.3 mmol/L (0.7-2.0)
--- NOTE | 2024-01-25 04:00 | RESPNOTE ---
PT was having some trouble with his home CPAP unit. Presssure seemed fine to me and I readjusted it as well, but PT requested to come off of it. PT remains on Room Air.
[2024-01-25 04:05] LABS: ALT (SGPT) 45 U/L (0-50); AST (SGOT) 166 U/L (17-59); Albumin 2.6 g/dl (3.5-5.0); Alkaline Phosphatase 216 U/L (38-126); Direct Bilirubin 1.9 mg/dl (0.0-0.4); Total Bilirubin 2.6 mg/dl (0.2-1.3); Total Protein 5.9 g/dl (6.3-8.2)
[2024-01-25 04:09] LABS: Vancomycin Random 15.9 ug/ml
--- NOTE | 2024-01-25 08:00 | PTCARENOTE ---
Assumed care of patient. Pt rec'd sleeping but easily arousable. Pt A&Ox3...occasionally confused to day of week. NATIVE. Forgetful at times. Able to DUMONT's...generalized weakness. S1 S2 reg w/ v-pacing on monitor. Left chest pacer/AICD noted.
Weak pulses...trace generalized edema w/ +3 pitting LLE. On R/A...sats 97%. Lungs diminished. Encouraged to cough and deep breath. Abdomen obese...+BS. Poor appetite. Anuric. Skin pale in color. Bilateral forearm ecchymosis and scabs. RLL
optifoam. Intact sacral foam. Intact dressing right chest wall. 22P LH. ANGE AV fistula...+ bruit/+ thrill. VS documented. Took po meds w/o issue. Call duckworth within reach. Will continue to monitor.
[2024-01-25] MEDS: NOVOLOG FLEXPEN-LOW RESISTANCE SC ×3 (08:04→17:58)
[2024-01-25] MEDS: DESENEX/MITRAZOL/ZEASORB 1 APPLIC TOPICAL ×2 (08:06→19:49)
[2024-01-25] MEDS: FEOSOL 325 MG PO (08:07)
[2024-01-25] MEDS: PACERONE 200 MG PO (08:07)
[2024-01-25] MEDS: ZYLOPRIM 100 MG PO (08:07)
[2024-01-25] MEDS: ProAmatine 10 MG PO ×3 (08:07→23:10)
--- NOTE | 2024-01-25 08:07 | W.PN.NEPH.PH ---
Today's Communication / Plan
-
Hd tomorrow
Assessment/Plan
-
IMP:
Gen weakness
Sepsis
Hypotension
Lactic acidosis
ESRD HD started 06/2023-[facility]
Right UE AVG, placed 11/2023
CHF with R EF 30%
Severe TR
Nonobstructive CAD
Chronic anemia likely multifactorial
Bioprosthetic aortic valve 2010
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
ICD
h/o atrial fibrillation off anticoagulation due to recurrent GI bleed
History of GIST tumor previously treated with Gleevac
Bilateral renal cyst with prior concern for masses
Gout
Diabetes mellitus type 2
Basal cell skin cancer
Plan:
HD thursday
wean levophed as allowed, still on high dose midodrine (was not on as OP), remains hypotensive
continue midodrine 10mg TID
Lactic acid improving
follow LFTs
continue vancomycin for coag neg staph bacteremia/sepsis
critical care time 31 minutes
-
-
Date of Service: January 25, 2024
CC / HPI / ROS
-
Chief Complaint:
ESRD
History of Present Illness:
Remains hypotensive on midodrine
tolerated HD
LFTs remain elevated but stable
anemia unchanged
thrombocytopenia stable
vanco for coag neg staph bacteremia
Review of Systems:
no CP/SOB
Labs
-
Labs:
WBC 9.5 10^3/uL (4.8-10.8) 01/24/24 04:59
RBC 3.02 10^6/uL (4.70-6.10) L 01/24/24 04:59
Hgb 10.2 g/dL (13.0-18.0) L 01/24/24 04:59
Hct 29.1 % (39.0-52.0) L 01/24/24 04:59
Plt Count 91 10^3/uL (130-400) L 01/24/24 04:59
Sodium 130 mmol/L (135-145) L 01/24/24 04:59
Potassium 3.9 mmol/L (3.5-5.1) 01/24/24 04:59
Chloride 95 mmol/L (98-107) L 01/24/24 04:59
Carbon Dioxide 27 mmol/L (22-30) 01/24/24 04:59
BUN 33 mg/dl (9-20) H 01/24/24 04:59
Creatinine 3.4 mg/dL (0.7-1.3) H 01/24/24 04:59
eGFR 17.09 01/24/24 04:59
Glucose 93 mg/dl (70-99) 01/24/24 04:59
Calcium 8.4 mg/dl (8.4-10.2) 01/24/24 04:59
Phosphorus 4.9 mg/dl (2.5-4.5) H 01/23/24 04:08
Ivi-W-Lnsmgazcaoa Pept > 68045 pg/ml 01/18/24 14:10
Albumin 2.6 g/dl (3.5-5.0) L 01/25/24 03:22
Physical Exam
-
Vital Signs:
Vital Signs
Temp Pulse Resp BP Pulse Ox
97.8 F 80 19 103/54 95
01/25/24 07:32 01/25/24 06:20 01/25/24 06:20 01/25/24 06:20 01/25/24 06:20
Cardiovascular:: Regular rate and rhythm
Respiratory:: Bilateral: Coarse
Lung Excursion:: Normal
Abdomen:: Nontender and Soft
Bowel Sounds:: Normal
Extremity Edema:: None: Bilateral:
Other Findings::
LUE: aVG
[2024-01-25] MEDS: HEPARIN 5000 UNITS SC ×2 (08:08→19:48)
[2024-01-25 08:13] LABS: Glucose - Point of Care 83 mg/dl (70-99)
--- NOTE | 2024-01-25 09:16 | PHA.VAN.FU ---
Vancomycin Assessment / Plan
- Assessment
Hemodialysis Schedule: TThSa
Last Hemodialysis performed: Sat 01/22
In the past 24 hrs, patient has been: Afebrile
- Assessment - Therapeutic Drug Monitoring
Random Level: 15.9 - drawn ~39H after last post-HD dose
- Dosing Plan
Adjust Regimen to: Vanc 750mg HD TuTh and 1000mg Sa
Dosing Comments: anticipate will maintain levels through HD tomorrow
- Monitoring Plan
No level(s) ordered at this time: consider levels in next several days
- Follow Up
Pharmacy will continue to follow.
Vancomycin Follow UP
- -
Patient Age: 83
Patient Sex: Male
Vancomycin Day #: 7
Indication: Skin And Soft Tissue
Requesting Provider: Dr. Cook / Javid
Pertinent Antimicrobial Allergies:
NKDA
Height / Weight:
Height 5 ft 9 in
Actual Weight 85.9 kg
Pertinent Past Medical History: ESRD on HD TuThSa, DM 2
- Vital Signs / Lab Results
Temp Pulse Resp BP Pulse Ox
97.8 F 80 18 108/54 97
01/25/24 07:32 01/25/24 09:00 01/25/24 09:00 01/25/24 08:07 01/25/24 09:00
Lab Results - Hematology
01/23/24 01/24/24
04:08 04:59
WBC 9.3 9.5
Lab Results - Chemistry
01/23/24 01/23/24 01/24/24
04:08 13:16 04:59
BUN 51 H 33 H
Creatinine 4.9 H* 3.4 H
Estimated Creat Clear 11 16
Albumin 2.6 L 2.9 L
01/25/24
03:22
BUN
Creatinine
Estimated Creat Clear
Albumin 2.6 L
01/23/24 01/25/24
13:16 03:22
Lactic Acid 2.5 H 2.3 H
Microbiology Results
01/18/24 14:10 Blood Culture - Final
Blood/Venous Staphylococcus simulans
Gram Stain - Final
01/18/24 14:10 Blood Culture - Final
Blood/Venous Staphylococcus epidermidis
Gram Stain - Final
01/19/24 13:15 Blood Culture - Final
Blood/Venous No Growth - Final Report
01/19/24 13:15 Blood Culture - Final
Blood/Venous No Growth - Final Report
Therapeutic Drug Monitoring
Random Vancomycin 15.9 ug/ml 01/25/24 03:22
--- NOTE | 2024-01-25 09:38 | W.PN.CD ---
Today's Communication / Plan
-
Continue medications
Impression / Plan
-
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
place, nonobstructive CAD, status post AVR in 2010 for severe , severe TR, hypertension, hyperlipidemia, diabetes and obesity. He is here with likely septic shock requiring levophed.
Shock: Septic Vs Cardiogenic:
-seems sepsis with previous leukocytosis and positive blood cultures
-given bioprosthetic valve/DC ppm will need to consider IE/device infection and consider manager intermediate Abx?
- TTE did not show any obvious vegetation, however significant calcium and bioprosthetic AVR difficult to definitively rule out endocarditis
-wt is lower than last visit at 192lbs in December, 178 lbs January 19
-Levophed off
-troponin are low level/flat likely non-ischemic myocardial injury
HFrEF: last echo wtih EF 30%, report of improved EF on TRACY in 05/2024
-GDMT limited by hypotension and renal function
--volume controlled by HD
-echo below
-has a DC device could consider upgrade as QRS >180ms --but this is a manager intermediate plan not acute issue.
VT s/p ICD:
-H.o PMVT
-on amiodarone.
Bioprosthetic AVR: given positive blood cultures, would need to consider IE. Consideration for TRACY, however, conversation of risk vs benefit
Persistent A-fib
- rate controlled
- no AC as above due to GIB's, hx GIST tumor
ESRD on HD: care per nephrology, does have line that will need to come out.
Data:
TTE January 20, 2024:
CONCLUSIONS
Normal LV size with moderate to severely reduced systolic function.
LVEF is approximately 30% by visual estimation with global diffuse hypokinesis.
Mild concentric LVH.
Normal right ventricular size and function.
Mild mitral regurgitation.
S/p bioprosthetic aortic valve. Peak/mean gradients are 38/18mmHg. Moderate
aortic regurgitation.
Severe tricuspid regurgitation.
Estimated pulmonary artery pressure of 60 mmHg. Assuming a right atrial
pressure of 8 mmHg.
Pleural effusion present.
No obvious vegetation.
Compared to prior from January 11, 2024, tricuspid regurgitation is now severe
from moderate to severe and estimated PASP is now moderate to severely elevated
at 60 mmHg from previously 43 mmHg.
Physical Exam
Vital Signs/Labs
Vital Signs
Temp Pulse Resp BP Pulse Ox
97.8 F 80 18 108/54 97
01/25/24 07:32 01/25/24 09:00 01/25/24 09:00 01/25/24 08:07 01/25/24 09:00
01/24/24 01/25/24 01/26/24
06:59 06:59 06:59
Actual Weight 193 lb 12.581 oz 189 lb 6.033 oz
01/24/24 04:59
01/24/24 04:59
PT 16.4 Sec (11.4-14.6) H 01/23/24 04:08
INR 1.34 01/23/24 04:08
APTT 46.2 Sec (23.4-35.0) H 01/23/24 04:08
Magnesium 1.9 mg/dl (1.6-2.3) 01/23/24 04:08
01/18/24
14:10
Jvr-V-Crwnwtgrvwq Pept > 54115
Physical Exam
Constitutional: No acute distress
EENT: Anicteric
Cardiovascular: Rhythm & rate is regular
Respiratory: Respiratory effort normal and Lungs clear to auscul.
GI: Soft
Neuro/Psych: AO x 3
Data Reviewed
-
Date of Service: January 25, 2024
EKG: Tracing Personally Visualized and interpreted (paced)
Echo: Report Reviewed by me
Labs: Labs Reviewed by me
--- NOTE | 2024-01-25 09:44 | W.PN.ID1 ---
Date of Service
Date of Service: January 25, 2024
Today's Communication
DC Vancomycin.
ID will sign off. Call prn.
Assessment / Plan
# CoNS bacteremia 2 sets of bottles, not sustained
- Final cx with 2 different strains: Staph epi and Staph simulans suggestive of contaminants
-TTE no gross vege
-CT a/p no acute abnormality
- Repeat blood cx's - negative
- HD catheter removed. Tip cx negative
- Discontinue Vancomycin (d8)
- ID will sign off.
# Acute on chronic HF
# Hypotensive off pressors
# hx ICD, Bio-AVR
#Additional Past Medical History:
End-stage renal disease on hemodialysis Thursday via right upper extremity AV graft
Paroxysmal atrial fibrillation, not on anticoagulation
Heart failure with reduced EF
Bioprosthetic aortic valve replacement
V. tach status post ICD placement
Severe tricuspid regurgitation
GIST tumor status post Gleevec
Hypotension on midodrine
Sleep apnea
Lymphedema
gout
basal cell ca
History of recurrent GI bleed
Chronic thrombocytopenia
Appendectomy
Chief Complaint
-: Bacteremia
Subjective / Review of Systems
Feels well.
Vital Signs / Physical Exam
Vital Signs
Vital Signs
Temp Pulse Resp BP Pulse Ox
97.8 F 80 18 108/54 97
01/25/24 07:32 01/25/24 09:00 01/25/24 09:00 01/25/24 08:07 01/25/24 09:00
Physical Exam
Constitutional: No Acute Distress and Comfortable
Cardiovascular: Regular Rate and S1/S2
Pulmonary: Clear
Gastrointestinal: Soft, Non Tender and Non Distended
Extremities: Negative Edema
Neurological: AO x 3
Objective Data
Lab Data
Lab Results
01/24/24 04:59
01/24/24 04:59
PT 16.4 Sec (11.4-14.6) H 01/23/24 04:08
INR 1.34 01/23/24 04:08
APTT 46.2 Sec (23.4-35.0) H 01/23/24 04:08
Estimated Creat Clear 16 ml/min 01/24/24 04:59
Lactic Acid 2.3 mmol/L (0.7-2.0) H 01/25/24 03:22
Total Bilirubin 2.6 mg/dl (0.2-1.3) H 01/25/24 03:22
AST 166 U/L (17-59) H 01/25/24 03:22
ALT 45 U/L (0-50) 01/25/24 03:22
Alkaline Phosphatase 216 U/L (38-126) H 01/25/24 03:22
Most recent labs reviewed.
Micro Results:
01/18/24 14:10 Blood Culture - Final
Blood/Venous Staphylococcus simulans
Gram Stain - Final
01/18/24 14:10 Blood Culture - Final
Blood/Venous Staphylococcus epidermidis
Gram Stain - Final
01/19/24 13:15 Blood Culture - Final
Blood/Venous No Growth - Final Report
01/19/24 13:15 Blood Culture - Final
Blood/Venous No Growth - Final Report
01/19/24 17:03 Catheter Tip Culture - Final
Catheter Tip No Growth After 72 Hours
01/19/24 04:36 MRSA Screen - Final
Nose No Methicillin Resistant Staphylococcus aureus isolated.
01/18/24 CT a/P: Small volume abdominopelvic ascites. Otherwise no significant acute abnormality identified in the abdomen or pelvis, as described above. Chronic changes as described. Small bilateral pleural effusions.
01/18/24 ABD US: There are a few small mobile gallstones identified within the gallbladder as well as a small amount of sludge. The gallbladder wall is not thickened. The patient has a negative sonographic Faith's sign. No evidence for biliary
ductal dilation. Increased echogenicity of the liver with coarsening of hepatic echotexture, findings suggestive of hepatocellular disease. No evidence of a focal hepatic mass lesion. Splenomegaly.
Small to moderate amount of ascites within both upper quadrants. Bilateral pleural effusions. No evidence for pelvicalyceal dilation of either kidney. Multiple bilateral renal cysts.
01/18/24 CXR: Cardiomegaly with mild pulmonary edema
[2024-01-25 12:01] LABS: Glucose - Point of Care 97 mg/dl (70-99)
--- NOTE | 2024-01-25 13:40 | CM ---
CM following re: discharge planning.
Reviewed pt's chart, met with pt. Per chart review, vancomycin discontinue, HD tomorrow, continue supportive care.
PT and OT continue to recommend SNF level of care.
Pt's daughter has a list of SNFs and reviewing it with the rest of the family and has not been decided yet. .
D/C plan: SNF if pt and family agree or home with [facility] and resumptions of outpatient HD treatment at [facility].
CM will follow with discharge plan updates as hospitalization progresses
--- NOTE | 2024-01-25 14:41 | W.PN.HOSP.TC ---
Today's Communication/Plan
-
dc abx
cards recs
can consider restarting antihypertensives within 24 hours
Assessment / Plan
Assessment / Plan
Gen: NAD, Awake and alert, appears chronically ill
Eyes: remains EOMI, PERRLA, no scleral icterus.
Neck: supple.
CV: remains RRR, +S1/S2, no m/r/g.
Resp: remains CTAB, no rales, wheezes, or rhonchi.
Abd: +BS, soft, NT, ND
Neuro: remains CN 2-12 intact, non-focal.
Psych: Normal mood and affect.
01/19/24 13:15 Blood/Venous Blood Culture - Preliminary
No Growth in 4 days- Final report to follow
01/19/24 13:15 Blood/Venous Blood Culture - Preliminary
No Growth in 4 days- Final report to follow
01/19/24 17:03 Catheter Tip Catheter Tip Culture - Final
No Growth After 72 Hours
01/18/24 14:10 Blood/Venous Blood Culture - Preliminary
Coagulase neg. staphylococcus
01/18/24 14:10 Blood/Venous Gram Stain - Final
01/18/24 14:10 Blood/Venous Blood Culture - Preliminary
Coagulase neg. staphylococcus
01/18/24 14:10 Blood/Venous Gram Stain - Final
01/19/24 04:36 Nose MRSA Screen - Final
No Methicillin Resistant Staphylococcus aureus isolated.
CT A/P:
1. Small volume abdominopelvic ascites. Otherwise no significant acute abnormality identified in the abdomen or pelvis, as described above. Chronic changes as described.
2. Small bilateral pleural effusions.
Echo (TTE) 01/20/24: Normal LV size with moderate to severely reduced systolic function.
LVEF is approximately 30% by visual estimation with global diffuse hypokinesis.
Mild concentric LVH.
Normal right ventricular size and function.
Mild mitral regurgitation.
S/p bioprosthetic aortic valve. Peak/mean gradients are 38/18mmHg. Moderate
aortic regurgitation.
Severe tricuspid regurgitation.
Estimated pulmonary artery pressure of 60 mmHg. Assuming a right atrial
pressure of 8 mmHg.
Pleural effusion present.
No obvious vegetation.
Compared to prior from January 11, 2024, tricuspid regurgitation is now severe
from moderate to severe and estimated PASP is now moderate to severely elevated
at 60 mmHg from previously 43 mmHg.
Septic Shock (POA):
-due to CoNS
-repeat BCxs NGTD, cont to follow BCxs
-Final cx with 2 different strains: Staph epi and Staph simulans suggestive of contaminants
-with leukocytosis (resolved) and lactic acidosis (mild)
-Chest x-ray showed cardiomegaly mild pulmonary edema
-250cc IV fluids given on admission without change in blood pressure
-Off pressors appx 24 hours
DC vanc (D8)
-cont Midodrine
HFrEF
-ECHO: 30%; Moderate AR, SEvere TR; No obvious vegation
Other problems:
Abdominal pain: Etiology unclear, CT abdomen pelvis and abdominal ultrasound without any source visible
Acute nonischemic myocardial injury
ESRD: cont HD T/Th/Thu, cont midodrine
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 Continue amiodarone.
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
Chronic HFrEF: Holding metoprolol
Severe status post bioprosthetic AVR
CAD: Continue statin, BB on hold
Obstructive sleep apnea
Essential hypertension: can consider restarting antihtn within 24 hours
Anemia of chronic disease: Continue ferrous sulfate
Chronic thrombocytopenia: Platelets stable
DM2: BGs controlled. a1c 4.5%.
Right renal lesion
h/o GIST tumor
Gout: Continue allopurinol
FULL/Heparin
Transfer to [facility]
Anticipated Discharge: 24 - 48 hours
Subjective/Interval History
-
Date of Service: January 25, 2024
Sitting in chair, no acute events. Off pressors for approximate 24 hours,
Objective Data
-
Labs:
Laboratory Results
01/25/24
03:22
Total Bilirubin 2.6 H
AST 166 H
ALT 45
Alkaline Phosphatase 216 H
Vital Signs:
Vital Signs
Temp Pulse Resp BP Pulse Ox
97.8 F 80 23 93/49 98
01/25/24 11:13 01/25/24 12:30 01/25/24 12:30 01/25/24 11:58 01/25/24 12:30
I&O
01/24/24 01/25/24 01/26/24
06:59 06:59 06:59
Intake Total 1069.5 / 1077.0 517.5 / 517.5
Balance 1069.5 / 1077.0 517.5 / 517.5
Review of Systems
-
History Source: Patient
All other systems: Not reviewed unless documented
Physical Exam
-
General: No Apparent Distress
HEENT: Negative Oxygen
Respiratory: Clear to Auscultation and Rales; Negative Wheezes
Cardiac: Regular Rhythm and S1/S2; Negative Murmur
GI: Soft and Nontender
Neuro: AO x 3
Psych: Calm
Data Reviewed
-
Total Time Spent with Patient (in minutes): 45
CT Scan: Image personally visualized and interpreted and Report Reviewed by me
Labs: Labs Reviewed by me
[2024-01-25 17:32] LABS: Glucose - Point of Care 90 mg/dl (70-99)
[2024-01-25] MEDS: LIPITOR 20 MG PO (19:49)
--- NOTE | 2024-01-25 20:00 | PTCARENOTE ---
on assessment pt AAOx3, denies pain, has generalized weakness, [place], Vpaced on the monitor, +3 B/L LE edema, 96% RA, 1200 FR, decreased appetite, incontinent of bowel and bladder (anuric), multiple small wounds see flow sheet. nothing running through
IV, RUE fistula +thrill/bruit, pt assisted back into bed, call [place] in reach, and bed alarm on.
[2024-01-25 21:38] LABS: Glucose - Point of Care 106 mg/dl (70-99)
[2024-01-26] VITALS (29 sets, daily range): BP systolic 76–107; BP diastolic 45–55; BMI 28.6
[2024-01-26 04:15] LABS: Hematocrit 30.4 % (39.0-52.0); Hemoglobin 10.5 g/dL (13.0-18.0); Mean Corp Hgb Conc. 34.5 g/dL (33.0-37.0); Mean Corpuscular Hgb 33.5 pg (27.0-31.0); Mean Corpuscular Volume 97.1 fL (80.0-94.0); Mean Platelet Volume 12.2 fL (7.4-10.4); Platelet Count 96 10^3/uL (130-400); Red Blood Cell Count 3.13 10^6/uL (4.70-6.10); Red Cell Dist. Width 16.1 % (11.5-14.5); White Blood Cell Count 9.4 10^3/uL (4.8-10.8)
[2024-01-26 05:16] LABS: ALT (SGPT) 49 U/L (0-50); AST (SGOT) 170 U/L (17-59); Albumin 2.7 g/dl (3.5-5.0); Alkaline Phosphatase 242 U/L (38-126); Blood Urea Nitrogen 64 mg/dl (9-20); Calcium 8.6 mg/dl (8.4-10.2); Carbon Dioxide 22 mmol/L (22-30); Chloride 94 mmol/L (98-107); Estimated Creatinine Clearance 10 ml/min; Glucose 82 mg/dl (70-99); Magnesium 2.1 mg/dl (1.6-2.3); Potassium 4.8 mmol/L (3.5-5.1); Sodium 130 mmol/L (135-145); Total Bilirubin 2.6 mg/dl (0.2-1.3); Total Protein 6.3 g/dl (6.3-8.2); eGFR 9.81
[2024-01-26] MEDS: ProAmatine 10 MG PO ×4 (08:02→23:53)
[2024-01-26] MEDS: NOVOLOG FLEXPEN-LOW RESISTANCE SC ×3 (08:10→16:38)
[2024-01-26] MEDS: MANNITOL 25% 12.5 GRAMS IV ×2 (08:10→09:11)
[2024-01-26 08:26] LABS: Glucose - Point of Care 82 mg/dl (70-99)
--- NOTE | 2024-01-26 08:28 | W.PN.CD ---
Today's Communication / Plan
-
-Continue midodrine.
-Continue amiodarone.
-No further cardiac recommendations at this; can follow-up with Cardiology as an outpatient.
Impression / Plan
-
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
place, nonobstructive CAD, status post AVR in 2010 for severe , severe TR, hypertension, hyperlipidemia, diabetes and obesity. He is here with likely septic shock requiring levophed.
Shock: Septic Vs Cardiogenic:
-Antibiotics discontinued as per ID.
-TTE did not show any obvious vegetation.
-wt is lower than last visit at 192lbs in December, 178 lbs January 19
-Now off pressors.
-Continue midodrine.
Troponin are low level/flat-- likely non-ischemic myocardial injury
Chronic HFrEF (EF 30%):
-GDMT limited by hypotension and renal function
-Volume controlled with HD
-Has a DC device could consider upgrade as QRS >180ms --but this is a jail plan not acute issue.
VT s/p ICD:
-H.o PMVT
-on amiodarone.
Bioprosthetic AVR: given positive blood cultures, would need to consider IE. Consideration for TRACY, however, conversation of risk vs benefit
Persistent A-fib
- rate controlled
- no AC as above due to GIB's, hx GIST tumor
-Continue amiodarone.
Severe TR:
-Volume management with hemodialysis.
ESRD on HD: Management as per Nephrology.
Data:
TTE January 20, 2024:
CONCLUSIONS
Normal LV size with moderate to severely reduced systolic function.
LVEF is approximately 30% by visual estimation with global diffuse hypokinesis.
Mild concentric LVH.
Normal right ventricular size and function.
Mild mitral regurgitation.
S/p bioprosthetic aortic valve. Peak/mean gradients are 38/18mmHg. Moderate
aortic regurgitation.
Severe tricuspid regurgitation.
Estimated pulmonary artery pressure of 60 mmHg. Assuming a right atrial
pressure of 8 mmHg.
Pleural effusion present.
No obvious vegetation.
Compared to prior from January 11, 2024, tricuspid regurgitation is now severe
from moderate to severe and estimated PASP is now moderate to severely elevated
at 60 mmHg from previously 43 mmHg.
Physical Exam
Vital Signs/Labs
Vital Signs
Temp Pulse Resp BP Pulse Ox
98.4 F 80 17 101/52 95
01/26/24 07:30 01/26/24 08:02 01/26/24 07:30 01/26/24 08:02 01/26/24 07:30
01/25/24 01/26/24 01/27/24
06:59 06:59 06:59
Actual Weight 85.9 kg 87.7 kg
01/26/24 04:08
01/26/24 04:08
PT 16.4 Sec (11.4-14.6) H 01/23/24 04:08
INR 1.34 01/23/24 04:08
APTT 46.2 Sec (23.4-35.0) H 01/23/24 04:08
Magnesium 2.1 mg/dl (1.6-2.3) 01/26/24 04:08
01/18/24
14:10
Tnc-D-Okwxtdgsdtp Pept > 42270
Physical Exam
Constitutional: No acute distress and Comfortable
EENT: Anicteric
Cardiovascular: Rhythm/rate is irregular, Pedal edema present (1-2+ pitting edema) and S1S2 is normal
Respiratory: Respiratory effort normal and Other (Decreased bibasilar breath sounds)
GI: Soft
Neuro/Psych: AO x 3
Other: Skin (warm, dry)
Data Reviewed
-
Date of Service: January 26, 2024
EKG: Tracing Personally Visualized and interpreted (Telemetry: A-fib, paced)
Medical Tests (PFT, Pathology etc): Discussed with Nurse
Labs: Labs Reviewed by me
Critical Care Time (in minutes): 36
--- NOTE | 2024-01-26 08:36 | W.PN.NEPH.HD ---
Assessment
-
Seen on HD. no complaints. VSS, off IV pressors. remains on midodrine. Access AVG ok
Progress Note - Hemodialysis
-
Date of Service: January 26, 2024
Duration: 30 minutes and 3 hours
Potassium Bath: 2
Calcium Bath: 2.5
Opti-Dialyzer: 160
Ultrafiltration: Other (1kg)
Blood Flow: 400
Dialysate Flow: 600
Heparin: no
EPO: no
--- NOTE | 2024-01-26 12:00 | PTCARENOTE ---
Patient finished dialysis around noon, 1.5L taken off per HD nurse. Patient is pleasant, forgetful, eating lunch in bed. Sacral dressing c/d/i. Report called to MAR Gomez on .
[2024-01-26 12:03] LABS: Glucose - Point of Care 87 mg/dl (70-99)
[2024-01-26] MEDS: PACERONE 200 MG PO (12:18)
[2024-01-26] MEDS: HEPARIN 5000 UNITS SC ×2 (12:18→20:44)
[2024-01-26] MEDS: ZYLOPRIM 100 MG PO (12:18)
[2024-01-26] MEDS: FEOSOL 325 MG PO (12:19)
[2024-01-26] MEDS: DESENEX/MITRAZOL/ZEASORB 1 APPLIC TOPICAL ×2 (12:24→20:45)
[2024-01-26] MEDS: VITAMIN D3 (cholecalciferol) 25 MCG PO (12:24)
--- NOTE | 2024-01-26 12:47 | CM ---
CM following re: discharge planning.
Reviewed pt's chart, met with pt and spoke to pt's daughter Patricia to update on discharge plan progress.
PT and OT continue to recommend SNF level of care. CM discussed it with daughter. Pt's daughter expressed her disappointed feelings regarding pt's plan for discharge. Pt's daughter has been notified almost daily that SNF level of care recommended.
Pt's daughter stated that family did not decide yet. Per daughter, pt fell from a roof at the young age and he always has been experiencing difficulties with walking and was able to walk with a walker without assistance. Pt's daughter is informed
that pt now requires minimal assistance and SNF level of care recommended. pt's daughter expressed her agreement and she is requested [facility] for a short term rehab and HD treatment onsite. Pt's daughter stated she preferred [facility] because in case pt needs to go to a hospital she preferred .
A referral to [facility] made. CM faxed necessary pt's clinical with flow sheets to [facility] at [phone].
D/C plan: [facility] for a short term rehab and HD onsite.
CM will follow to assist pt with discharge to [facility].
--- NOTE | 2024-01-26 14:04 | PTCARENOTE ---
pt received from ICU. report given prior to transfer from [facility].
--- NOTE | 2024-01-26 14:36 | W.PN.HOSP.TC ---
Today's Communication/Plan
-
dc ready - pending snf- cm aware
hd today
Assessment / Plan
Assessment / Plan
Gen: NAD, Awake and alert, appears chronically ill
Eyes: remains EOMI, PERRLA, no scleral icterus.
Neck: supple.
CV: remains RRR, +S1/S2, no m/r/g.
Resp: remains CTAB, no rales, wheezes, or rhonchi.
Abd: +BS, soft, NT, ND
Neuro: remains CN 2-12 intact, non-focal.
Psych: Normal mood and affect.
01/19/24 13:15 Blood/Venous Blood Culture - Preliminary
No Growth in 4 days- Final report to follow
01/19/24 13:15 Blood/Venous Blood Culture - Preliminary
No Growth in 4 days- Final report to follow
01/19/24 17:03 Catheter Tip Catheter Tip Culture - Final
No Growth After 72 Hours
01/18/24 14:10 Blood/Venous Blood Culture - Preliminary
Coagulase neg. staphylococcus
01/18/24 14:10 Blood/Venous Gram Stain - Final
01/18/24 14:10 Blood/Venous Blood Culture - Preliminary
Coagulase neg. staphylococcus
01/18/24 14:10 Blood/Venous Gram Stain - Final
01/19/24 04:36 Nose MRSA Screen - Final
No Methicillin Resistant Staphylococcus aureus isolated.
CT A/P:
1. Small volume abdominopelvic ascites. Otherwise no significant acute abnormality identified in the abdomen or pelvis, as described above. Chronic changes as described.
2. Small bilateral pleural effusions.
Echo (TTE) 01/20/24: Normal LV size with moderate to severely reduced systolic function.
LVEF is approximately 30% by visual estimation with global diffuse hypokinesis.
Mild concentric LVH.
Normal right ventricular size and function.
Mild mitral regurgitation.
S/p bioprosthetic aortic valve. Peak/mean gradients are 38/18mmHg. Moderate
aortic regurgitation.
Severe tricuspid regurgitation.
Estimated pulmonary artery pressure of 60 mmHg. Assuming a right atrial
pressure of 8 mmHg.
Pleural effusion present.
No obvious vegetation.
Compared to prior from January 11, 2024, tricuspid regurgitation is now severe
from moderate to severe and estimated PASP is now moderate to severely elevated
at 60 mmHg from previously 43 mmHg.
Septic Shock (POA):
-due to CoNS
-repeat BCxs NGTD, cont to follow BCxs
-Final cx with 2 different strains: Staph epi and Staph simulans suggestive of contaminants
-with leukocytosis (resolved) and lactic acidosis (mild)
-Chest x-ray showed cardiomegaly mild pulmonary edema
-250cc IV fluids given on admission without change in blood pressure
-Off pressors appx 48 hours
DC vanc (D8)
-cont Midodrine - wean as tolerated
HFrEF
-ECHO: 30%; Moderate AR, SEvere TR; No obvious vegetation
Other problems:
Abdominal pain: Etiology unclear, CT abdomen pelvis and abdominal ultrasound without any source visible
Acute nonischemic myocardial injury
ESRD: cont HD T/Th/Thu, cont midodrine
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 Continue amiodarone.
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
Chronic HFrEF: Holding metoprolol
Severe status post bioprosthetic AVR
CAD: Continue statin, BB on hold
Obstructive sleep apnea
Essential hypertension: holding due to being on midodrine
Anemia of chronic disease: Continue ferrous sulfate
Chronic thrombocytopenia: Platelets stable
DM2: BGs controlled. a1c 4.5%.
Right renal lesion
h/o GIST tumor
Gout: Continue allopurinol
FULL/Heparin
Transfer to [facility]
Anticipated Discharge: 24 - 48 hours
Subjective/Interval History
-
Date of Service: January 26, 2024
no acute events
Objective Data
-
Labs:
Laboratory Results
01/26/24
04:08
WBC 9.4
Hgb 10.5 L
Hct 30.4 L
Plt Count 96 L
Sodium 130 L
Potassium 4.8
Chloride 94 L
Carbon Dioxide 22
BUN 64 H
Creatinine 5.4 H*
Glucose 82
Calcium 8.6
Total Bilirubin 2.6 H
AST 170 H
ALT 49
Alkaline Phosphatase 242 H
Vital Signs:
Vital Signs
Temp Pulse Resp BP Pulse Ox
97.4 F 82 16 76/51 98
01/26/24 14:06 01/26/24 14:06 01/26/24 14:06 01/26/24 14:06 01/26/24 14:06
I&O
01/25/24 01/26/24 01/27/24
06:59 06:59 06:59
Intake Total 517.5 / 517.5 570 / 570 240 / 240
Output Total 0 / 0 0 / 0
Balance 517.5 / 517.5 570 / 570 240 / 240
Review of Systems
-
History Source: Patient
All other systems: Not reviewed unless documented
Physical Exam
-
General: No Apparent Distress
HEENT: Negative Oxygen
Respiratory: Clear to Auscultation and Rales; Negative Wheezes
Cardiac: Regular Rhythm and S1/S2; Negative Murmur
GI: Soft and Nontender
Neuro: AO x 3
Psych: Calm
Data Reviewed
-
Total Time Spent with Patient (in minutes): 45
CT Scan: Image personally visualized and interpreted and Report Reviewed by me
Labs: Labs Reviewed by me
[2024-01-26 16:33] LABS: Glucose - Point of Care 101 mg/dl (70-99)
[2024-01-26 21:39] LABS: Glucose - Point of Care 124 mg/dl (70-99)
[2024-01-26] MEDS: LIPITOR 20 MG PO (21:41)
[2024-01-27 03:10] VITALS: BP 106/50
[2024-01-27 05:18] VITALS: BMI 28.7
[2024-01-27 06:33] LABS: Hematocrit 29.3 % (39.0-52.0); Hemoglobin 10.3 g/dL (13.0-18.0); Mean Corp Hgb Conc. 35.2 g/dL (33.0-37.0); Mean Corpuscular Hgb 33.9 pg (27.0-31.0); Mean Corpuscular Volume 96.4 fL (80.0-94.0); Mean Platelet Volume 12.2 fL (7.4-10.4); Platelet Count 91 10^3/uL (130-400); Red Blood Cell Count 3.04 10^6/uL (4.70-6.10); Red Cell Dist. Width 16.6 % (11.5-14.5); White Blood Cell Count 7.9 10^3/uL (4.8-10.8)
[2024-01-27 06:56] LABS: ALT (SGPT) 57 U/L (0-50); AST (SGOT) 219 U/L (17-59); Albumin 2.6 g/dl (3.5-5.0); Alkaline Phosphatase 292 U/L (38-126); Blood Urea Nitrogen 48 mg/dl (9-20); Calcium 8.6 mg/dl (8.4-10.2); Carbon Dioxide 22 mmol/L (22-30); Chloride 98 mmol/L (98-107); Estimated Creatinine Clearance 13 ml/min; Glucose 90 mg/dl (70-99); Potassium 4.2 mmol/L (3.5-5.1); Sodium 133 mmol/L (135-145); Total Bilirubin 2.6 mg/dl (0.2-1.3); Total Protein 6.1 g/dl (6.3-8.2); eGFR 13.65
[2024-01-27 07:35] VITALS: BP 105/57
[2024-01-27 07:58] LABS: Glucose - Point of Care 94 mg/dl (70-99)
[2024-01-27] MEDS: NOVOLOG FLEXPEN-LOW RESISTANCE SC ×3 (08:19→16:47)
--- NOTE | 2024-01-27 08:23 | W.PN.HOSP.TC ---
Today's Communication/Plan
-
GI consulted to f/u on LFT elevation
Assessment / Plan
Assessment / Plan
Gen: NAD, Awake and alert, appears chronically ill
Eyes: remains EOMI, PERRLA, no scleral icterus.
Neck: supple.
CV: remains RRR, +S1/S2, no m/r/g.
Resp: remains CTAB, no rales, wheezes, or rhonchi.
Abd: +BS, soft, NT, ND
Neuro: remains CN 2-12 intact, non-focal.
Psych: Normal mood and affect.
01/19/24 13:15 Blood/Venous Blood Culture - Preliminary
No Growth in 4 days- Final report to follow
01/19/24 13:15 Blood/Venous Blood Culture - Preliminary
No Growth in 4 days- Final report to follow
01/19/24 17:03 Catheter Tip Catheter Tip Culture - Final
No Growth After 72 Hours
01/18/24 14:10 Blood/Venous Blood Culture - Preliminary
Coagulase neg. staphylococcus
01/18/24 14:10 Blood/Venous Gram Stain - Final
01/18/24 14:10 Blood/Venous Blood Culture - Preliminary
Coagulase neg. staphylococcus
01/18/24 14:10 Blood/Venous Gram Stain - Final
01/19/24 04:36 Nose MRSA Screen - Final
No Methicillin Resistant Staphylococcus aureus isolated.
CT A/P:
1. Small volume abdominopelvic ascites. Otherwise no significant acute abnormality identified in the abdomen or pelvis, as described above. Chronic changes as described.
2. Small bilateral pleural effusions.
Echo (TTE) 01/20/24: Normal LV size with moderate to severely reduced systolic function.
LVEF is approximately 30% by visual estimation with global diffuse hypokinesis.
Mild concentric LVH.
Normal right ventricular size and function.
Mild mitral regurgitation.
S/p bioprosthetic aortic valve. Peak/mean gradients are 38/18mmHg. Moderate
aortic regurgitation.
Severe tricuspid regurgitation.
Estimated pulmonary artery pressure of 60 mmHg. Assuming a right atrial
pressure of 8 mmHg.
Pleural effusion present.
No obvious vegetation.
Compared to prior from January 11, 2024, tricuspid regurgitation is now severe
from moderate to severe and estimated PASP is now moderate to severely elevated
at 60 mmHg from previously 43 mmHg.
Septic Shock (POA):
-due to CoNS
-repeat BCxs NGTD, cont to follow BCxs
-Final cx with 2 different strains: Staph epi and Staph simulans suggestive of contaminants
-with leukocytosis (resolved) and lactic acidosis (mild)
-Chest x-ray showed cardiomegaly mild pulmonary edema
-250cc IV fluids given on admission without change in blood pressure
-Off pressors appx 72 hours
DC vanc (D8)
-cont Midodrine - wean as tolerated
HFrEF
-ECHO: 30%; Moderate AR, SEvere TR; No obvious vegetation
#Transaminitis
-hep C in the past - unclear if treated
-Will Consult GI to assess if further w/u needed inpt v outpatient
Other problems:
Abdominal pain: Etiology unclear, CT abdomen pelvis and abdominal ultrasound without any source visible
Acute nonischemic myocardial injury
ESRD: cont HD T//Thu, cont midodrine
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 Continue amiodarone.
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
Chronic HFrEF: Holding metoprolol
Severe status post bioprosthetic AVR
CAD: Continue statin, BB on hold
Obstructive sleep apnea
Essential hypertension: holding due to being on midodrine
Anemia of chronic disease: Continue ferrous sulfate
Chronic thrombocytopenia: Platelets stable
DM2: BGs controlled. a1c 4.5%.
Right renal lesion
h/o GIST tumor
Gout: Continue allopurinol
FULL/Heparin
Total time spent on today's encounter was 50 minutes which included time spent in counseling the patient/family regarding diagnosis and treatment plan as listed above, goals of care, and symptom management. Case was discussed with nursing staff,
specialists, and care coordinators/case management. All labs and imaging personally reviewed by me. Remainder the time spent in detailed review of previous records, lab data, imaging, and other medical provider documentation.
Anticipated Discharge: 24 - 48 hours
Subjective/Interval History
-
Date of Service: January 27, 2024
no acute events overnight
Objective Data
-
Labs:
Laboratory Results
01/27/24
06:10
WBC 7.9
Hgb 10.3 L
Hct 29.3 L
Plt Count 91 L
Sodium 133 L
Potassium 4.2
Chloride 98
Carbon Dioxide 22
BUN 48 H
Creatinine 4.1 H*
Glucose 90
Calcium 8.6
Total Bilirubin 2.6 H
AST 219 H
ALT 57 H
Alkaline Phosphatase 292 H
Vital Signs:
Vital Signs
Temp Pulse Resp BP Pulse Ox
97.7 F 82 16 105/57 96
01/27/24 07:35 01/27/24 07:35 01/27/24 07:35 01/27/24 07:35 01/27/24 07:35
I&O
01/26/24 01/27/24 01/28/24
06:59 06:59 06:59
Intake Total 570 / 570 600 / 600
Output Total 0 / 0 0 / 0
Balance 570 / 570 600 / 600
Review of Systems
-
History Source: Patient
All other systems: Not reviewed unless documented
Physical Exam
-
General: No Apparent Distress
HEENT: Negative Oxygen
Respiratory: Clear to Auscultation and Rales; Negative Wheezes
Cardiac: Regular Rhythm and S1/S2; Negative Murmur
GI: Soft and Nontender
Neuro: AO x 3
Psych: Calm
Data Reviewed
-
Total Time Spent with Patient (in minutes): 45
CT Scan: Image personally visualized and interpreted and Report Reviewed by me
Labs: Labs Reviewed by me
[2024-01-27] MEDS: ProAmatine 10 MG PO ×2 (09:12→16:47)
[2024-01-27] MEDS: ZYLOPRIM 100 MG PO (09:12)
[2024-01-27] MEDS: PACERONE 200 MG PO (09:15)
[2024-01-27] MEDS: FEOSOL 325 MG PO (09:15)
[2024-01-27] MEDS: HEPARIN 5000 UNITS SC ×2 (09:19→19:51)
[2024-01-27] MEDS: DESENEX/MITRAZOL/ZEASORB 1 APPLIC TOPICAL ×2 (09:20→19:53)
[2024-01-27 09:30] VITALS: BP 98/50; PULSE 81; O2SAT 96
[2024-01-27 11:00] VITALS: BP 105/49
--- NOTE | 2024-01-27 11:00 | CON.GI ---
Addendum entered and electronically signed by Pio Nichole MD 01/27/24 13:21:
Patient seen and examined, agree with nurse practitioners note. Patient is an 83-year-old male with extensive past medical history as noted who presents with generalized weakness. This hospitalization has been complicated with staph species
bacteremia, likely skin source, with documented hypotension, on pressors. We are consulted for elevated LFTs which have been chronically mildly elevated though slightly more today. He denies any abdominal pain, nausea or vomiting has been eating
well. On exam he has no significant abdominal tenderness. Workup has shown positive hepatitis C antibody previously. At this point is mild LFT elevation and a mild necroinflammatory pattern is likely multifactorial, likely underlying hepatitis C
given previous antibody positive and chronically elevated LFTs, now in the setting of hypotension, probable component of passive congestion, bacteremia, medications including antibiotics and amiodarone. At this point would continue observation and
trend for now. Will await hepatitis C RNA, if positive could follow-up with hepatology as an outpatient, though given his age and comorbidities including end-stage renal disease may hold on any discussions of treatment.
Original Note:
Consultation
-
Date/Time Consultation Requested: 01/27/24 0930
Date/Time Consultation Performed: 01/27/24 1100
Requesting Provider: Dr. Almanzar
Performing Provider: Dr. Nichole/EVAN Mahmood
Reason for Consultation: Elevated LFTs
Medical History
Chief Complaint / HPI
Chief Complaint: weakness, SOB, abd pain
History of Present Illness:
83-year-old male with past medical history of hypertension, hyperlipidemia, atrial fibrillation not on anticoagulation secondary to prior history of GI bleed/GIST tumor status post Gleevac, CKD on HD Thursday, HFrEF
(30%), hypotension, history of V. tach on amiodarone (increased in June 2023) with ICD in place, nonobstructive CAD, AVR for severe , severe TR, diabetes, iron deficiency, cellulitis, colon polyps, gout, chronic thrombocytopenia, obstructive
sleep apnea on CPAP who presented to the ER on 01/18/2024 with generalized weakness an fatigue. The patient had a leukocytosis with an elevated lactic acid elevated LFTs and hypotension requiring Levophed. Chest x-ray showed mild pulmonary edema
[place] [address]. He was started empirically on vancomycin and Zosyn. CT of the abdomen and pelvis showed small volume abdominopelvic ascites otherwise no significant acute abnormality seen. Ultrasound of the abdomen performed on
01/18/2024 showed few small mobile gallstones within the gallbladder as well as small amount of sludge. The gallbladder wall was not thickened. Patient had a negative Faith sign. No evidence for biliary ductal dilatation. Increased echogenicity
of the liver with coarsening of hepatic echotexture, findings suggestive of hepatocellular disease. No evidence of mass. Splenomegaly. There was small to moderate minute ascites within both upper quadrants. Bilateral pleural effusions. His
chest x-ray showed cardiomegaly with mild pulmonary edema. Blood cultures were positive for coagulase-negative staph concerning for bacteremia / bottles. TTE showed no gross vegetations. Repeat blood cultures were negative. HD catheter was
removed and the tip culture was negative. Patient was continued on vancomycin with HD and completed treatment on
01/25/2024. Patient had persistent hypotension was started on pressors 01/20/2024 and remained on pressors until 01/25/24. Midodrine was sustained at 10 mg TID. Had HD on 01/26/24. We are asked to evaluate for elevated LFTs. Patient did have episodes of
hypotension on 01/26/24 as low as 76/51, 87/46, 90/40's. Today they are in the low 100/50 range. Outpatient lab review from labs performed on 01/04/2024 showed total bilirubin of 1.9, AST of 163, ALT of 62 and alk phos of 306. LFTs prior to this were
in June 2023 just prior to increase in amiodarone dose. Since patient's hospitalization bilirubin has ranged from 2.0 to a high of 3.1 currently at 2.6 today, direct bilirubin of 1.9. AST has ranged anywhere from 132 to a max of 219 today.
This is had mild fluctuations up and down. ALT has been essentially normal with occasional mild elevation of 62 on 01/04/2024 and 57 today. Alk phos has been persistently elevated since 2008, in 2017 was as high as 319, currently is 292. The
patient has a longstanding history of thrombocytopenia dating back to 2008. Viral hepatitis studies performed from 07/17/2023 hepatitis B surface antigen negative, hepatitis B surface antibody negative, hepatitis B core total antibody negative,
hepatitis C antibody reactive. Patient is a poor historian and he states that he does not know the year or the month without looking at the board where they put the date. He states he lives in [place]. He does not recall ever having an
endoscopy or colonoscopy despite the fact that he has a history of a GIST tumor and colon polyps and he has had these in the past. He cannot recollect any information regarding prior exposure to possible hepatitis C. He states I am just waiting
for them to tell me something 'I am in the clouds here'. The patient denies any current abdominal pain. He denies any nausea or vomiting. He states he ate a good breakfast this morning without any discomfort. He states he had a bowel movement
today without any difficulty. I did speak to his daughter Patricia Santana [phone] who also spoke to her Mother who state that they only knew that he was told year ago that he could no longer donate blood. The patient was never treated for
Hepatitis C 'as long as he has been since 1966' per his daughter and recollection. They are not sure if he even knew about dx. She states that he was not having abdominal pain prior to arrival however profound weakness and could not get
out of bed or stand for 2 days.
Past Medical History
Past Medical History: Arrhythmias (Afib, VT), CHF (HFrEF, nonobstructive CAD, severe , severe TR, diabetes, iron deficiency anemia, cellulitis, colon polyps, gout, chronic thrombocytopenia, obstructive sleep apnea), HTN, Hypercholesterolemia,
Renal Failure (on HD T-) and Other (GI bleed/GIST tumor,)
Past Surgical History: Other (Bioprosthetic aortic valve (2010), appendectomy, heel and ankle repair, AICD, right chest wall tunneled HD catheter, right arm AV fistula)
Social History
Tobacco: Non-Smoker
Alcohol: None
Drug: None
Living: With Family
Employment: Retired
Family History
Family History: Other (No family history gastrointestinal malignancy or IBD)
Allergies / Home Medications
Allergy/AdvReac Type Severity Reaction Status Date / Time
No Known Allergies Allergy Verified 12/15/23 11:17
�Medication �Instructions �Recorded
atorvastatin 20 mg tablet 20 mg PO HS High cholesterol 11/08/14
allopurinol 100 mg tablet 100 mg PO DAILY Gout 01/13/17
ferrous sulfate 325 mg (65 mg 325 mg PO DAILY anemia #30 tabs 06/18/23
iron) tablet
metoprolol succinate 25 mg 25 mg PO HS HTN 09/03/23
tablet,extended release 24 hr
acetaminophen 500 mg tablet 1,000 mg PO BIDPRN PRN mild pain 09/07/23
cholecalciferol (vitamin D3) 25 25 mcg PO TUTHSA Supplement 12/15/23
mcg (1,000 unit) tablet
epoetin beta, methoxy peg 30 30 mcg SC Q4W ANEMIA 12/15/23
mcg/0.3 mL injection syringe
(Mircera)
amiodarone 200 mg tablet (Pacerone) 200 mg PO DAILY VT/vfib 01/18/24
hydrocortisone 1 % lotion 1 applic topical DAILYPRN PRN rash 01/18/24
on back
midodrine 5 mg tablet 5 mg PO TUTHSA Blood Pressure 01/18/24
Review of Systems
-
All other systems: A 12 pt ROS was Negative except as stated above in HPI
Vital Signs
Temp Pulse Resp BP Pulse Ox
97.7 F 82 16 105/57 96
01/27/24 07:35 01/27/24 09:12 01/27/24 07:35 01/27/24 09:12 01/27/24 07:35
Physical Exam
Exam
General: No Apparent Distress
Respiratory: Clear (anterior)
Cardiac: Regular Rhythm
GI: Soft, Non Tender, Non Distended and Normal Bowel Sounds
Musculoskeletal: No Edema
Skin: Warm, Dry and Other (multiple areas of ecchymosis and skin tears B/L LE)
Neuro: Awake, Alert and Oriented (to person and place. Poor historian and cannot give year, month or any significant history. )
Psych: Calm
Results
WBC 7.9 10^3/uL (4.8-10.8) 01/27/24 06:10
Hgb 10.3 g/dL (13.0-18.0) L 01/27/24 06:10
Hct 29.3 % (39.0-52.0) L 01/27/24 06:10
MCV 96.4 fL (80.0-94.0) H 01/27/24 06:10
Plt Count 91 10^3/uL (130-400) L 01/27/24 06:10
Absolute Neuts (auto) 7.9 10^3/uL (1.4-6.5) H 01/24/24 04:59
PT 16.4 Sec (11.4-14.6) H 01/23/24 04:08
INR 1.34 01/23/24 04:08
APTT 46.2 Sec (23.4-35.0) H 01/23/24 04:08
Sodium 133 mmol/L (135-145) L 01/27/24 06:10
Potassium 4.2 mmol/L (3.5-5.1) 01/27/24 06:10
Chloride 98 mmol/L (98-107) 01/27/24 06:10
Carbon Dioxide 22 mmol/L (22-30) 01/27/24 06:10
BUN 48 mg/dl (9-20) H 01/27/24 06:10
Creatinine 4.1 mg/dL (0.7-1.3) H* 01/27/24 06:10
Calcium 8.6 mg/dl (8.4-10.2) 01/27/24 06:10
Total Bilirubin 2.6 mg/dl (0.2-1.3) H 01/27/24 06:10
AST 219 U/L (17-59) H 01/27/24 06:10
ALT 57 U/L (0-50) H 01/27/24 06:10
Alkaline Phosphatase 292 U/L (38-126) H 01/27/24 06:10
Diagnostic Image Results:
Prior GI Procedures:
EGD: 11/07/23 ([facility]) - Z-line regular, 40 cm from the incisors.
- Normal mucosa was found in the entire esophagus.
- Erosive gastropathy. Biopsied.
- Erosive gastropathy. Biopsied.
- Normal mucosa was found in the entire examined
duodenum.
EGD 02/15/2014 ([facility]) - Z-line irregular, 42 cm from the incisors.
- Hiatus hernia.
- A single large papule (nodule) with no bleeding and no
stigmata of recent bleeding was found in the stomach.
Biopsied.
- Acute gastritis.
Colonoscopy: 11/06/2014 ([facility]) - A few 3 to 5 mm polyps in the transverse colon and in
the cecum. Resected and retrieved.
- Non-bleeding internal hemorrhoids.
[place] 02/16/2014 ([facility]) - The examined portion of the ileum was normal.
- Stool in the transverse colon, in the ascending colon
and in the cecum.
- One 4 mm polyp in the distal transverse colon.
Resected and retrieved.
- One 5 mm polyp in the rectum. Resected and retrieved.
- Redundant colon.
- Non-bleeding external hemorrhoids.
Assessment / Plan
-
83-year-old male with past medical history of hypertension, hyperlipidemia, atrial fibrillation not on anticoagulation secondary to prior history of GI bleed/GIST tumor status post Gleevac, CKD on HD Thursday, HFrEF
(30%), hypotension, history of V. tach on amiodarone (increased in June 2023) with ICD in place, nonobstructive CAD, AVR for severe , severe TR, diabetes, iron deficiency, cellulitis, colon polyps, gout, chronic thrombocytopenia, obstructive
sleep apnea on CPAP who presented to the ER on 01/18/2024 with generalized weakness an fatigue. The patient was treated for septic shock, maintained on pressors from 01/20/2024 until 01/25/2024. Blood cultures positive for coagulase�negative staph
treated initially with Zosyn and completed with vancomycin for 8 days now discontinued. Asked to evaluate for elevated LFTs that have been an ongoing issue since the beginning of December per her daughter. She states she was notified by cardiology on
January 03 for elevated LFTs. Patient had hepatitis C antibody positive in June 2023 prior to initiation of hemodialysis. Per patient, and daughter's knowledge they were unaware of this. Patient has never been treated for hepatitis C.
Unsure if RNA present. He has had issues with blood pressure since December as well. There is a slight increase today in AST, with hypotension yesterday now being off pressors since 01/25/2024. Maintained on midodrine 10 mg p.o. 3 times daily.
Ultrasound of the abdomen shows gallstones and sludge without gallbladder wall thickening or Faith sign. Patient eating and drinking well without any difficulty. CT of the abdomen and pelvis showed small amount of abdominopelvic ascites otherwise
no significant abnormality. No evidence of biliary ductal dilatation. Increased echogenicity of the liver with coarsening of hepatic echotexture suggestive of hepatocellular disease.
Impression:
Elevated LFT's
-> mostly new since December with exception of Alk Phos.
-> Hep C Ab positive, not known to patient or family.
-> Increased Amiodarone dose in June 2023
-> Recent hypotension since December, with shock her requiring pressor support until 01/25/24 and Midodrine 10 mg TID. Still with hypotension during HD. Last episode 01/26/24.
-> US with gallstones and sludge, ICD present Implant: ICD Pulse Generator: [employer]; Model# [id number]; Serial# [id number]. The ICD system is now MRI safe/provisional. (01/13/2017)
-> Increased echogenicity of liver on CT with some ascites, decreased PLT (chronic) and slightly elevated INR 1.2-1.3 range.
-> Chronic HFrEF, Afib, VT, severe s/p AVR, severe TR that could also be contributor
Plan:
-Check Hep C RNA PCR
-Can repeat LFTs
-Would recommend outpatient follow up with [facility] Project [facility]er (Dr. Schmidt), especially if Hep C RNA detected.
-Further recommendations to follow
Data Reviewed
-
Radiology: Report Reviewed by me
CT Scan: Report Reviewed by me
Old Records: Reviewed
-
-
Thank you for consultation and allowing me to participate in the patient's care. Please call the contact lens flashing puncher GI physician during the after hours with any questions or concerns.
[2024-01-27 11:19] LABS: Glucose - Point of Care 108 mg/dl (70-99)
--- NOTE | 2024-01-27 12:46 | CM ---
Addendum entered by Maribell Fan RN 01/27/24 16:30:
IMM signed and placed on the chart.
Addendum entered by Maribell Fan RN 01/27/24 15:57:
Patient approved for spot at [facility]. Can receive after HD on Thursday.
Original Note:
Reviewed the chart notes. Received call from [facility] recruiter coordinator with [facility] requesting HD flow sheets, H&P, and Hep B surface antigen result be faxed ([phone]). Faxed. CM continues to be available to patient/family and is
monitoring medical plan for needs at discharge.
Plan: Discharge to [facility] when medically stable and bed available.
--- NOTE | 2024-01-27 13:55 | W.PN.NEPH.PH ---
Today's Communication / Plan
-
HD tomorrow
Assessment/Plan
-
IMP:
Gen weakness
Sepsis
Hypotension
Lactic acidosis
ESRD HD started 06/2023-[facility]
Right UE AVG, placed 11/2023
CHF with R EF 30%
Severe TR
Nonobstructive CAD
Chronic anemia likely multifactorial
Bioprosthetic aortic valve 2010
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
ICD
h/o atrial fibrillation off anticoagulation due to recurrent GI bleed
History of GIST tumor previously treated with Gleevac
Bilateral renal cyst with prior concern for masses
Gout
Diabetes mellitus type 2
Basal cell skin cancer
Plan:
HD tomorrow
continue midodrine 10mg TID
GI eval in progress
follow LFTs
i spoke with daughter re: rehab. Her concern was that if he needed hospitalization that if he were at [facility] he will be sent to [facility] instead of [facility]. However, I suspect that his experience at [facility] will
be better in terms of rehab.
-
-
Date of Service: January 27, 2024
CC / HPI / ROS
-
Chief Complaint:
ESRD
History of Present Illness:
Remains hypotensive on midodrine but stable
tolerated HD yesterday
LFTs remain elevated but GI eval in progress
anemia unchanged
thrombocytopenia stable
off abx
Review of Systems:
no CP/SOB
Labs
-
Labs:
WBC 7.9 10^3/uL (4.8-10.8) 01/27/24 06:10
RBC 3.04 10^6/uL (4.70-6.10) L 01/27/24 06:10
Hgb 10.3 g/dL (13.0-18.0) L 01/27/24 06:10
Hct 29.3 % (39.0-52.0) L 01/27/24 06:10
Plt Count 91 10^3/uL (130-400) L 01/27/24 06:10
Sodium 133 mmol/L (135-145) L 01/27/24 06:10
Potassium 4.2 mmol/L (3.5-5.1) 01/27/24 06:10
Chloride 98 mmol/L (98-107) 01/27/24 06:10
Carbon Dioxide 22 mmol/L (22-30) 01/27/24 06:10
BUN 48 mg/dl (9-20) H 01/27/24 06:10
Creatinine 4.1 mg/dL (0.7-1.3) H* 01/27/24 06:10
eGFR 13.65 01/27/24 06:10
Glucose 90 mg/dl (70-99) 01/27/24 06:10
Calcium 8.6 mg/dl (8.4-10.2) 01/27/24 06:10
Phosphorus 4.9 mg/dl (2.5-4.5) H 01/23/24 04:08
Bpn-D-Ucvhguyirpa Pept > 41806 pg/ml 01/18/24 14:10
Albumin 2.6 g/dl (3.5-5.0) L 01/27/24 06:10
Physical Exam
-
Vital Signs:
Vital Signs
Temp Pulse Resp BP Pulse Ox
98.1 F 82 16 105/49 97
01/27/24 11:00 01/27/24 11:00 01/27/24 11:00 01/27/24 11:00 01/27/24 11:42
Cardiovascular:: Regular rate and rhythm
Respiratory:: Bilateral: Coarse
Lung Excursion:: Normal
Abdomen:: Nontender and Soft
Bowel Sounds:: Normal
Extremity Edema:: +1: Bilateral:
[2024-01-27 15:30] VITALS: BP 103/51
[2024-01-27 16:37] LABS: Glucose - Point of Care 105 mg/dl (70-99)
[2024-01-27 21:16] LABS: Glucose - Point of Care 92 mg/dl (70-99)
[2024-01-27] MEDS: LIPITOR 20 MG PO (21:34)
[2024-01-27 23:28] VITALS: BP 105/51
[2024-01-28] MEDS: ProAmatine 10 MG PO ×4 (00:07→23:37)
[2024-01-28 06:00] VITALS: BMI 29.2
--- NOTE | 2024-01-28 07:00 | W.PN.GI.CBS2 ---
Today's Communication / Plan
-
Please see assessment and plan for details.
Assessment / Plan
-
1. Elevated LFTs: derian mild necroinflammatory pattern which is likely multifactorial, likely underlying hepatitis C given previous antibody positive and chronically elevated LFTs, now in the setting of hypotension, probable component of passive
congestion, bacteremia, medications including antibiotics and amiodarone. At this point would continue observation and trend for now. Will await hepatitis C RNA, if positive could follow-up with hepatology (Dr. Schmidt) as an outpatient, though given
his age and comorbidities including end-stage renal disease may hold on any discussions of treatment. Awaiting morning labs, if LFTs stable will sign off for now, please call back with any further questions.
Subjective
Subjective
Date of Service: January 28, 2024
Patient feeling okay, denies any abdominal pain, nausea vomit, fever or chills, no events overnight.
Objective
Data Reviewed
Laboratory Data:
Laboratory Results
PT 16.4 Sec (11.4-14.6) H 01/23/24 04:08
INR 1.34 01/23/24 04:08
APTT 46.2 Sec (23.4-35.0) H 01/23/24 04:08
Phosphorus 4.9 mg/dl (2.5-4.5) H 01/23/24 04:08
Magnesium 2.1 mg/dl (1.6-2.3) 01/26/24 04:08
Total Bilirubin 2.6 mg/dl (0.2-1.3) H 01/27/24 06:10
AST 219 U/L (17-59) H 01/27/24 06:10
ALT 57 U/L (0-50) H 01/27/24 06:10
Alkaline Phosphatase 292 U/L (38-126) H 01/27/24 06:10
Vital Signs and I&O:
Vital Signs
Temp Pulse Resp BP Pulse Ox
97.8 F 82 16 104/50 98
01/27/24 23:28 01/28/24 00:07 01/27/24 23:28 01/28/24 00:07 01/27/24 23:43
I&O
01/27/24 01/28/24 01/29/24
06:59 06:59 06:59
Intake Total 600 / 600 840 / 840
Output Total 0 / 0
Balance 600 / 600 840 / 840
Physical Exam
Physical Exam
General: NAD
Abdomen: normal bowel sounds, soft, no tenderness, no masses or bruits, no ascites
[2024-01-28 07:40] VITALS: BP 98/48
[2024-01-28] MEDS: TYLENOL 1000 MG PO ×2 (07:56→20:14)
[2024-01-28 08:21] LABS: Hemoglobin 10.6 g/dL (13.0-18.0); Mean Corp Hgb Conc. 35.3 g/dL (33.0-37.0); Mean Corpuscular Volume 96.2 fL (80.0-94.0); Mean Platelet Volume 12.1 fL (7.4-10.4); Platelet Count 98 10^3/uL (130-400); Red Blood Cell Count 3.12 10^6/uL (4.70-6.10); Red Cell Dist. Width 17.1 % (11.5-14.5); White Blood Cell Count 9.5 10^3/uL (4.8-10.8)
--- NOTE | 2024-01-28 08:37 | W.PN.HOSP.TC ---
Today's Communication/Plan
-
Follow-up hepatology (Dr. Schmidt), renal for HD, PCP, cardiology outpatient
CBC, LFTs outpatient
Awaiting placement, HD on thursday
Assessment / Plan
Assessment / Plan
Gen: NAD, Awake and alert, appears chronically ill
Eyes: remains EOMI, PERRLA, no scleral icterus.
Neck: supple.
CV: remains RRR, +S1/S2, no m/r/g.
Resp: remains CTAB, no rales, wheezes, or rhonchi.
Abd: +BS, soft, NT, ND
Neuro: remains CN 2-12 intact, non-focal.
Psych: Normal mood and affect.
01/19/24 13:15 Blood/Venous Blood Culture - Preliminary
No Growth in 4 days- Final report to follow
01/19/24 13:15 Blood/Venous Blood Culture - Preliminary
No Growth in 4 days- Final report to follow
01/19/24 17:03 Catheter Tip Catheter Tip Culture - Final
No Growth After 72 Hours
01/18/24 14:10 Blood/Venous Blood Culture - Preliminary
Coagulase neg. staphylococcus
01/18/24 14:10 Blood/Venous Gram Stain - Final
01/18/24 14:10 Blood/Venous Blood Culture - Preliminary
Coagulase neg. staphylococcus
01/18/24 14:10 Blood/Venous Gram Stain - Final
01/19/24 04:36 Nose MRSA Screen - Final
No Methicillin Resistant Staphylococcus aureus isolated.
CT A/P:
1. Small volume abdominopelvic ascites. Otherwise no significant acute abnormality identified in the abdomen or pelvis, as described above. Chronic changes as described.
2. Small bilateral pleural effusions.
Echo (TTE) 01/20/24: Normal LV size with moderate to severely reduced systolic function.
LVEF is approximately 30% by visual estimation with global diffuse hypokinesis.
Mild concentric LVH.
Normal right ventricular size and function.
Mild mitral regurgitation.
S/p bioprosthetic aortic valve. Peak/mean gradients are 38/18mmHg. Moderate
aortic regurgitation.
Severe tricuspid regurgitation.
Estimated pulmonary artery pressure of 60 mmHg. Assuming a right atrial
pressure of 8 mmHg.
Pleural effusion present.
No obvious vegetation.
Compared to prior from January 11, 2024, tricuspid regurgitation is now severe
from moderate to severe and estimated PASP is now moderate to severely elevated
at 60 mmHg from previously 43 mmHg.
Septic Shock (POA):
-due to CoNS
-repeat BCxs NGTD, cont to follow BCxs
-Final cx with 2 different strains: Staph epi and Staph simulans suggestive of contaminants
-with leukocytosis (resolved) and lactic acidosis (mild)
-Chest x-ray showed cardiomegaly mild pulmonary edema
-250cc IV fluids given on admission without change in blood pressure
-Off pressors appx 72 hours
DC vanc (D8)
-cont Midodrine - wean as tolerated
HFrEF
-ECHO: 30%; Moderate AR, SEvere TR; No obvious vegetation
#Transaminitis
-hep C in the past - unclear if treated
�Appreciate GI consult
� Most likely chronic ALT elevation due to underlying hepatitis C, with now passive congestion, bacteremia, medication occluding antibiotics and amiodarone
� Continue to observe and trend
� Hepatitis C RNA
� follow-up with hepatology as an outpatient
Other problems:
Abdominal pain: Etiology unclear, CT abdomen pelvis and abdominal ultrasound without any source visible
Acute nonischemic myocardial injury
ESRD: cont HD T//Thu, cont midodrine
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 Continue amiodarone.
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
Chronic HFrEF: Holding metoprolol
Severe status post bioprosthetic AVR
CAD: Continue statin, BB on hold
Obstructive sleep apnea
Essential hypertension: holding due to being on midodrine
Anemia of chronic disease: Continue ferrous sulfate
Chronic thrombocytopenia: Platelets stable
DM2: BGs controlled. a1c 4.5%.
Right renal lesion
h/o GIST tumor
Gout: Continue allopurinol
FULL/Heparin
Anticipated Discharge: > 48 hours
Subjective/Interval History
-
Date of Service: January 28, 2024
No acute events
Objective Data
-
Labs:
Laboratory Results
01/28/24
08:15
WBC 9.5
Hgb 10.6 L
Hct 30.0 L
Plt Count 98 L
Sodium Pending
Potassium Pending
Chloride Pending
Carbon Dioxide Pending
BUN Pending
Creatinine Pending
Glucose Pending
Calcium Pending
Total Bilirubin Pending
AST Pending
ALT Pending
Alkaline Phosphatase Pending
Vital Signs:
Vital Signs
Temp Pulse Resp BP Pulse Ox
98.0 F 81 14 98/48 95
01/28/24 07:40 01/28/24 07:57 01/28/24 07:40 01/28/24 07:57 01/28/24 07:40
I&O
01/27/24 01/28/24 01/29/24
06:59 06:59 06:59
Intake Total 600 / 600 840 / 840
Output Total 0 / 0
Balance 600 / 600 840 / 840
Review of Systems
-
History Source: Patient
All other systems: Not reviewed unless documented
Physical Exam
-
General: No Apparent Distress
HEENT: Negative Oxygen
Respiratory: Clear to Auscultation and Rales; Negative Wheezes
Cardiac: Regular Rhythm and S1/S2; Negative Murmur
GI: Soft and Nontender
Neuro: AO x 3
Psych: Calm
Data Reviewed
-
Total Time Spent with Patient (in minutes): 45
CT Scan: Image personally visualized and interpreted and Report Reviewed by me
Labs: Labs Reviewed by me
[2024-01-28 08:41] LABS: ALT (SGPT) 61 U/L (0-50); AST (SGOT) 211 U/L (17-59); Albumin 2.7 g/dl (3.5-5.0); Alkaline Phosphatase 266 U/L (38-126); Blood Urea Nitrogen 64 mg/dl (9-20); Calcium 8.7 mg/dl (8.4-10.2); Carbon Dioxide 23 mmol/L (22-30); Chloride 96 mmol/L (98-107); Direct Bilirubin 2.3 mg/dl (0.0-0.4); Estimated Creatinine Clearance 10 ml/min; Glucose 82 mg/dl (70-99); Potassium 4.7 mmol/L (3.5-5.1); Sodium 131 mmol/L (135-145); Total Protein 6.2 g/dl (6.3-8.2); eGFR 9.81
[2024-01-28 08:41] LABS: Glucose - Point of Care 51 mg/dl (70-99)
[2024-01-28] MEDS: NOVOLOG FLEXPEN-LOW RESISTANCE SC ×3 (08:43→16:52)
[2024-01-28 08:59] LABS: Glucose - Point of Care 76 mg/dl (70-99)
[2024-01-28] MEDS: HEPARIN SC (09:03)
--- NOTE | 2024-01-28 09:37 | W.PN.NEPH.HD ---
Assessment
-
Patient seen on HD
sbp 100 at current u/f
Progress Note - Hemodialysis
-
Date of Service: January 28, 2024
Duration: 30 minutes and 3 hours
Potassium Bath: 2
Calcium Bath: 2.5
Opti-Dialyzer: 160
Ultrafiltration: Other (1.5kg)
Blood Flow: 400
Dialysate Flow: 600
Heparin: none
EPO: 4K
[2024-01-28] MEDS: RETACRIT 4000 UNITS IV (09:42)
[2024-01-28 11:25] VITALS: BP 97/32
[2024-01-28] MEDS: ZYLOPRIM 100 MG PO (11:42)
[2024-01-28] MEDS: FEOSOL 325 MG PO (11:42)
[2024-01-28] MEDS: PACERONE 200 MG PO (11:42)
[2024-01-28] MEDS: VITAMIN D3 (cholecalciferol) 25 MCG PO (11:47)
[2024-01-28 11:59] LABS: Glucose - Point of Care 86 mg/dl (70-99)
[2024-01-28] MEDS: DESENEX/MITRAZOL/ZEASORB 1 APPLIC TOPICAL ×2 (12:01→19:34)
--- NOTE | 2024-01-28 13:45 | PTCARENOTE ---
Patient's daughter states that she and patient's spouse visited [facility] and do not want patient discharged there. Case management notified.
[2024-01-28 15:40] VITALS: BP 94/46
[2024-01-28 16:50] LABS: Glucose - Point of Care 106 mg/dl (70-99)
[2024-01-28 19:20] VITALS: BP 91/49
[2024-01-28] MEDS: HEPARIN 5000 UNITS SC (19:34)
[2024-01-28] MEDS: LIPITOR 20 MG PO (21:27)
[2024-01-28 22:00] LABS: Glucose - Point of Care 114 mg/dl (70-99)
[2024-01-28 23:32] VITALS: BP 96/49
[2024-01-29] VITALS (7 sets, daily range): BP systolic 89–113; BP diastolic 42–51; PULSE 80; O2SAT 94; BMI 28.4
[2024-01-29 06:51] LABS: Hematocrit 29.3 % (39.0-52.0); Hemoglobin 10.2 g/dL (13.0-18.0); Mean Corp Hgb Conc. 34.8 g/dL (33.0-37.0); Mean Corpuscular Hgb 34.1 pg (27.0-31.0); Platelet Count 72 10^3/uL (130-400); Red Blood Cell Count 2.99 10^6/uL (4.70-6.10); Red Cell Dist. Width 17.8 % (11.5-14.5); White Blood Cell Count 10.1 10^3/uL (4.8-10.8)
[2024-01-29 07:19] LABS: ALT (SGPT) 59 U/L (0-50); AST (SGOT) 224 U/L (17-59); Albumin 2.6 g/dl (3.5-5.0); Alkaline Phosphatase 251 U/L (38-126); Blood Urea Nitrogen 44 mg/dl (9-20); Calcium 8.4 mg/dl (8.4-10.2); Carbon Dioxide 24 mmol/L (22-30); Chloride 96 mmol/L (98-107); Estimated Creatinine Clearance 14 ml/min; Glucose 99 mg/dl (70-99); Potassium 4.1 mmol/L (3.5-5.1); Sodium 132 mmol/L (135-145); Total Bilirubin 3.2 mg/dl (0.2-1.3); Total Protein 5.8 g/dl (6.3-8.2); eGFR 14.49
--- NOTE | 2024-01-29 07:34 | W.PN.HOSP.TC ---
Addendum entered and electronically signed by Fede Bose MD 01/29/24 15:25:
'Stage 2 sacral pressure injury, POA.
Hyponatremia
Original Note:
Today's Communication/Plan
-
Follow-up hepatology (Dr. Schmidt), renal for HD, PCP, cardiology outpatient
CBC, LFTs outpatient
Awaiting placement, HD on thursday
Assessment / Plan
Assessment / Plan
Gen: NAD, Awake and alert, appears chronically ill
Eyes: remains EOMI, PERRLA, no scleral icterus.
Neck: supple.
CV: remains RRR, +S1/S2, no m/r/g.
Resp: remains CTAB, no rales, wheezes, or rhonchi.
Abd: +BS, soft, NT, ND
Neuro: remains CN 2-12 intact, non-focal.
Psych: Normal mood and affect.
01/19/24 13:15 Blood/Venous Blood Culture - Preliminary
No Growth in 4 days- Final report to follow
01/19/24 13:15 Blood/Venous Blood Culture - Preliminary
No Growth in 4 days- Final report to follow
01/19/24 17:03 Catheter Tip Catheter Tip Culture - Final
No Growth After 72 Hours
01/18/24 14:10 Blood/Venous Blood Culture - Preliminary
Coagulase neg. staphylococcus
01/18/24 14:10 Blood/Venous Gram Stain - Final
01/18/24 14:10 Blood/Venous Blood Culture - Preliminary
Coagulase neg. staphylococcus
01/18/24 14:10 Blood/Venous Gram Stain - Final
01/19/24 04:36 Nose MRSA Screen - Final
No Methicillin Resistant Staphylococcus aureus isolated.
CT A/P:
1. Small volume abdominopelvic ascites. Otherwise no significant acute abnormality identified in the abdomen or pelvis, as described above. Chronic changes as described.
2. Small bilateral pleural effusions.
Echo (TTE) 01/20/24: Normal LV size with moderate to severely reduced systolic function.
LVEF is approximately 30% by visual estimation with global diffuse hypokinesis.
Mild concentric LVH.
Normal right ventricular size and function.
Mild mitral regurgitation.
S/p bioprosthetic aortic valve. Peak/mean gradients are 38/18mmHg. Moderate
aortic regurgitation.
Severe tricuspid regurgitation.
Estimated pulmonary artery pressure of 60 mmHg. Assuming a right atrial
pressure of 8 mmHg.
Pleural effusion present.
No obvious vegetation.
Compared to prior from January 11, 2024, tricuspid regurgitation is now severe
from moderate to severe and estimated PASP is now moderate to severely elevated
at 60 mmHg from previously 43 mmHg.
Septic Shock (POA):
-due to CoNS
-repeat BCxs NGTD, cont to follow BCxs
-Final cx with 2 different strains: Staph epi and Staph simulans suggestive of contaminants
-with leukocytosis (resolved) and lactic acidosis (mild)
-Chest x-ray showed cardiomegaly mild pulmonary edema
-250cc IV fluids given on admission without change in blood pressure
-Off pressors appx 72 hours
DC vanc (D8)
-cont Midodrine - wean as tolerated
HFrEF
-ECHO: 30%; Moderate AR, SEvere TR; No obvious vegetation
#Transaminitis
-hep C in the past - unclear if treated
�Appreciate GI consult
� Most likely chronic ALT elevation due to underlying hepatitis C, with now passive congestion, bacteremia, medication occluding antibiotics and amiodarone
� Continue to observe and trend
� Hepatitis C RNA f/u
� follow-up with hepatology as an outpatient (Dr. Schmidt)
Other problems:
Abdominal pain: Etiology unclear, CT abdomen pelvis and abdominal ultrasound without any source visible
Acute nonischemic myocardial injury
ESRD: cont HD T//Thu, cont midodrine
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 Continue amiodarone.
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
Chronic HFrEF: Holding metoprolol
Severe status post bioprosthetic AVR
CAD: Continue statin, BB on hold
Obstructive sleep apnea
Essential hypertension: holding due to being on midodrine
Anemia of chronic disease: Continue ferrous sulfate
Chronic thrombocytopenia: Platelets stable
DM2: BGs controlled. a1c 4.5%.
Right renal lesion
h/o GIST tumor
Gout: Continue allopurinol
FULL/Heparin
Anticipated Discharge: 24 - 48 hours
Subjective/Interval History
-
Date of Service: January 29, 2024
no acute events
Objective Data
-
Labs:
Laboratory Results
01/29/24
06:19
WBC 10.1
Hgb 10.2 L
Hct 29.3 L
Plt Count 72 L D
Sodium 132 L
Potassium 4.1
Chloride 96 L
Carbon Dioxide 24
BUN 44 H
Creatinine 3.9 H
Glucose 99
Calcium 8.4
Total Bilirubin 3.2 H
AST 224 H
ALT 59 H
Alkaline Phosphatase 251 H
Vital Signs:
Vital Signs
Temp Pulse Resp BP Pulse Ox
98.1 F 82 18 100/51 94
01/29/24 03:16 01/29/24 03:16 01/29/24 03:16 01/29/24 03:16 01/29/24 03:16
I&O
01/28/24 01/29/24 01/30/24
06:59 06:59 06:59
Intake Total 840 / 840 1140 / 1140
Balance 840 / 840 1140 / 1140
Review of Systems
-
History Source: Patient
All other systems: Not reviewed unless documented
Physical Exam
-
General: No Apparent Distress
HEENT: Negative Oxygen
Respiratory: Clear to Auscultation and Rales; Negative Wheezes
Cardiac: Regular Rhythm and S1/S2; Negative Murmur
GI: Soft and Nontender
Neuro: AO x 3
Psych: Calm
[2024-01-29 07:56] LABS: Glucose - Point of Care 92 mg/dl (70-99)
[2024-01-29] MEDS: NOVOLOG FLEXPEN-LOW RESISTANCE SC ×3 (08:06→16:52)
--- NOTE | 2024-01-29 08:37 | W.PN.NEPH.PH ---
Today's Communication / Plan
-
Hd tomorrow
Assessment/Plan
-
IMP:
Gen weakness
Sepsis
Hypotension
Lactic acidosis
ESRD HD started 06/2023-[facility]
Right UE AVG, placed 11/2023
CHF with R EF 30%
Severe TR
Nonobstructive CAD
Chronic anemia likely multifactorial
Bioprosthetic aortic valve 2010
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
ICD
h/o atrial fibrillation off anticoagulation due to recurrent GI bleed
History of GIST tumor previously treated with Gleevac
Bilateral renal cyst with prior concern for masses
Gout
Diabetes mellitus type 2
Basal cell skin cancer
Plan:
HD tomorrow orders provided
continue midodrine 10mg TID
follow LFTs: GI without further recommendations at this time
Previously spoke with daughter re: rehab. Her concern was that if he needed hospitalization that if he were at [facility] he will be sent to [facility] instead of [facility]. However, I suspect that his experience at [facility] will be better in terms of rehab.
-
-
Date of Service: January 29, 2024
CC / HPI / ROS
-
Chief Complaint:
ESRD
History of Present Illness:
Remains hypotensive on midodrine but stable
tolerated HD yesterday
LFTs remain elevated but GI eval in progress
anemia unchanged
thrombocytopenia stable
off abx
Review of Systems:
no CP/SOB
Labs
-
Labs:
WBC 10.1 10^3/uL (4.8-10.8) 01/29/24 06:19
RBC 2.99 10^6/uL (4.70-6.10) L 01/29/24 06:19
Hgb 10.2 g/dL (13.0-18.0) L 01/29/24 06:19
Hct 29.3 % (39.0-52.0) L 01/29/24 06:19
Plt Count 72 10^3/uL (130-400) L D 01/29/24 06:19
Sodium 132 mmol/L (135-145) L 01/29/24 06:19
Potassium 4.1 mmol/L (3.5-5.1) 01/29/24 06:19
Chloride 96 mmol/L (98-107) L 01/29/24 06:19
Carbon Dioxide 24 mmol/L (22-30) 01/29/24 06:19
BUN 44 mg/dl (9-20) H 01/29/24 06:19
Creatinine 3.9 mg/dL (0.7-1.3) H 01/29/24 06:19
eGFR 14.49 01/29/24 06:19
Glucose 99 mg/dl (70-99) 01/29/24 06:19
Calcium 8.4 mg/dl (8.4-10.2) 01/29/24 06:19
Phosphorus 4.9 mg/dl (2.5-4.5) H 01/23/24 04:08
Fau-G-Apcwbubwlka Pept > 64929 pg/ml 01/18/24 14:10
Albumin 2.6 g/dl (3.5-5.0) L 01/29/24 06:19
Physical Exam
-
Vital Signs:
Vital Signs
Temp Pulse Resp BP Pulse Ox
98.5 F 78 18 96/44 92
01/29/24 08:00 01/29/24 08:00 01/29/24 08:00 01/29/24 08:00 01/29/24 08:00
Cardiovascular:: Regular rate and rhythm
Respiratory:: Bilateral: CTA
Lung Excursion:: Normal
Abdomen:: Nontender
Bowel Sounds:: Normal
Extremity Edema:: +1: Bilateral:
Rivas Catheter: No
[2024-01-29] MEDS: ProAmatine 10 MG PO ×2 (09:32→16:36)
[2024-01-29] MEDS: PACERONE 200 MG PO (09:33)
[2024-01-29] MEDS: FEOSOL 325 MG PO (09:33)
[2024-01-29] MEDS: HEPARIN 5000 UNITS SC ×2 (09:33→20:14)
[2024-01-29] MEDS: ZYLOPRIM 100 MG PO (09:33)
[2024-01-29] MEDS: DESENEX/MITRAZOL/ZEASORB 1 APPLIC TOPICAL ×2 (09:38→20:14)
--- NOTE | 2024-01-29 10:07 | CM ---
Addendum entered by Davida Hernandez 01/29/24 16:21:
TC from daughter Sameera.
Sameera is agreeable to [facility].
Per Mikaela/liaison for [facility], Dank will be the covering liaison tomorrow p# [phone].
[facility] says they can accept but [facility] has not officially accepted patient yet (all information sent via [employer]).
Dank will need to let CM know.
Per Mikaela as long as [facility] accepts they can take patient tomorrow after HD.
Plan: [facility] once accepted by [facility].
Addendum entered by Davida Hernandez 01/29/24 15:25:
Spoke with daughter Patricia, explained WC requirement for [facility].
Discussed [facility] with daughter, patient is accepted and they can take tomorrow after HD. She will discuss with her sister and call this CM back before 4:30 pm today.
Plan: skilled rehab once bed available, no auth required.
Patient will require ambulance transport.
Addendum entered by Davida Hernandez 01/29/24 13:49:
Spoke with Hilda from [facility], must be an assist of 1 for WC transport for HD. they do not have a bed this weekend.
Addendum entered by Davida Hernandez 01/29/24 11:33:
Spoke with Hilda from [facility], if [facility] is able [facility], then they will be able to accept. if he requires ambulance transport then they will be unable to accept.
Await updated PT/OT notes.
Original Note:
Spoke with patients daughter Patricia.
She does not want patient to go to [facility].
TC to Hilda from the [facility], they do not have any HD chairs available.
Hilda will check with her weblogic administrator to see if patient can be transported to his HD site and will let CM know if they can accept him or not.
Per Hilda if they can transport patient then family may be responsible for charges.
TC to Mikaela liaison for [facility]. She will review clincals, they do have HD beds available.
Plan: skilled rehab with HD when bed available.
[2024-01-29 13:45] LABS: Glucose - Point of Care 99 mg/dl (70-99)
--- NOTE | 2024-01-29 14:42 | PN.CDI ---
CDI
- -
CDI:
Physician Documentation Request
Admit Date: 01/18/24 21:50
Dear Doctor Juice,
Patient admitted with septic shock.
01/26 Nursing skin assessment, 'Stage 2 sacral pressure injury, POA.'
Physician documentation of the type and location of wounds is required for compliant documentation. Based on the above clinical findings and your assessment, please provide the following in your progress note:
Type (etiology) of ulcer/wound:
- Pressure (decubitus) ulcer
- Other
- Unable to determine
For a pressure ulcer, please also include the stage* of the ulcer:
- Stage 1 - Skin intact, non-blanchable redness
- Stage 2 - Partial thickness loss of dermis, includes intact or open blister
- Stage 3 - Full thickness tissue not including bone, tendon or muscle
- Stage 4 - Full thickness tissue loss, including exposed bone, tendon or muscle
- Unstageable - Full thickness loss in which the base of the ulcer is covered by slough (yellow, cox, vidal, green or brown) and/or eschar (cox, brown or black) in the wound bed.
- Unable to determine
Use of terms such as suspected, likely, concern for, or probable (associated with a specific diagnosis that is being evaluated, monitored, or treated as if it exists) are acceptable and can be coded in the inpatient setting, when documented at the
time of discharge.
Thank you,
Anastasia ORSA,RN,CCDS
CDI Specialist
Available via [employer] text
Please use your independent medical judgment in providing your response.
*Source: National Pressure Ulcer Advisory Panel (NPUAP)
--- NOTE | 2024-01-29 14:55 | PN.CDI ---
CDI
- -
CDI:
Physician Documentation Request
Admit Date: 01/18/24 21:50
Dear Doctor Juice,
Patient admitted with septic shock.
Na levels documented below:
Laboratory Tests
01/22/24 01/23/24 01/24/24
05:46 04:08 04:59
Sodium 131 L 130 L 130 L
01/26/24 01/28/24 01/29/24
04:08 08:15 06:19
Sodium 130 L 131 L 132 L
Based on the above, please clarify in the progress notes, the appropriate diagnosis, if significant, that supports the above abnormalities and additional evaluation, monitoring and/or treatment rendered:
Hyponatremia
Insignificant abnormal lab findings
Other
Use of terms such as suspected, likely, concern for, or probable (associated with a specific diagnosis that is being evaluated, monitored, or treated as if it exists) are acceptable and can be coded in the inpatient setting, when documented at the
time of discharge.
Thank you,
Anastasia ROSA,RN,CCDS
CDI Specialist
Available via [employer] text
Please use your independent medical judgment in providing your response.
[2024-01-29 16:52] LABS: Glucose - Point of Care 103 mg/dl (70-99)
[2024-01-29 21:32] LABS: Glucose - Point of Care 108 mg/dl (70-99)
[2024-01-29] MEDS: LIPITOR 20 MG PO (23:11)
[2024-01-30] VITALS (8 sets, daily range): BP systolic 92–107; BP diastolic 41–55; PULSE 84; BMI 28.2
[2024-01-30] MEDS: ProAmatine 10 MG PO ×4 (00:14→23:24)
[2024-01-30 02:53] LABS: HCV Quant by NAAT IU/mL Not Detected; HCV Quant by NAAT Interp Not Detected (Not Detected); HCV Quant by NAAT Log IU/mL Not Detected log IU/mL
[2024-01-30 08:03] LABS: Glucose - Point of Care 77 mg/dl (70-99)
[2024-01-30] MEDS: MANNITOL 25% 12.5 GRAMS IV ×2 (08:25→10:32)
[2024-01-30 08:37] LABS: Hematocrit 29.9 % (39.0-52.0); Hemoglobin 10.5 g/dL (13.0-18.0); Mean Corp Hgb Conc. 35.1 g/dL (33.0-37.0); Mean Corpuscular Hgb 33.8 pg (27.0-31.0); Mean Corpuscular Volume 96.1 fL (80.0-94.0); Mean Platelet Volume 12.1 fL (7.4-10.4); Platelet Count 88 10^3/uL (130-400); Red Blood Cell Count 3.11 10^6/uL (4.70-6.10); White Blood Cell Count 9.7 10^3/uL (4.8-10.8)
[2024-01-30] MEDS: NOVOLOG FLEXPEN-LOW RESISTANCE SC ×3 (08:46→17:18)
--- NOTE | 2024-01-30 08:56 | W.PN.NEPH.HD ---
Assessment
-
Patient seen on dialysis
Systolic blood pressure low at 93 despite 10 mg of midodrine provide
UF titrated back
Progress Note - Hemodialysis
-
Date of Service: January 30, 2024
Duration: 30 minutes and 3 hours
Potassium Bath: 2
Calcium Bath: 2.5
Opti-Dialyzer: 160
Ultrafiltration: Other (1 kg)
Blood Flow: 400
Dialysate Flow: 600
Heparin: None
EPO: None
[2024-01-30 09:38] LABS: ALT (SGPT) 66 U/L (0-50); AST (SGOT) 229 U/L (17-59); Albumin 2.6 g/dl (3.5-5.0); Alkaline Phosphatase 242 U/L (38-126); Blood Urea Nitrogen 60 mg/dl (9-20); Calcium 8.6 mg/dl (8.4-10.2); Carbon Dioxide 21 mmol/L (22-30); Chloride 95 mmol/L (98-107); Estimated Creatinine Clearance 11 ml/min; Glucose 77 mg/dl (70-99); Potassium 4.4 mmol/L (3.5-5.1); Sodium 132 mmol/L (135-145); Total Bilirubin 3.3 mg/dl (0.2-1.3); eGFR 10.51
[2024-01-30] MEDS: PACERONE 200 MG PO (12:17)
--- NOTE | 2024-01-30 12:18 | W.PN.HOSP.TC ---
Today's Communication/Plan
-
Follow-up hepatology (Dr. Schmidt), renal for HD, PCP, cardiology outpatient
CBC, LFTs outpatient
Awaiting placement, HD on thursday
Assessment / Plan
Assessment / Plan
Gen: NAD, Awake and alert, appears chronically ill
Eyes: remains EOMI, PERRLA, no scleral icterus.
Neck: supple.
CV: remains RRR, +S1/S2, no m/r/g.
Resp: remains CTAB, no rales, wheezes, or rhonchi.
Abd: +BS, soft, NT, ND
Neuro: remains CN 2-12 intact, non-focal.
Psych: Normal mood and affect.
01/19/24 13:15 Blood/Venous Blood Culture - Preliminary
No Growth in 4 days- Final report to follow
01/19/24 13:15 Blood/Venous Blood Culture - Preliminary
No Growth in 4 days- Final report to follow
01/19/24 17:03 Catheter Tip Catheter Tip Culture - Final
No Growth After 72 Hours
01/18/24 14:10 Blood/Venous Blood Culture - Preliminary
Coagulase neg. staphylococcus
01/18/24 14:10 Blood/Venous Gram Stain - Final
01/18/24 14:10 Blood/Venous Blood Culture - Preliminary
Coagulase neg. staphylococcus
01/18/24 14:10 Blood/Venous Gram Stain - Final
01/19/24 04:36 Nose MRSA Screen - Final
No Methicillin Resistant Staphylococcus aureus isolated.
CT A/P:
1. Small volume abdominopelvic ascites. Otherwise no significant acute abnormality identified in the abdomen or pelvis, as described above. Chronic changes as described.
2. Small bilateral pleural effusions.
Echo (TTE) 01/20/24: Normal LV size with moderate to severely reduced systolic function.
LVEF is approximately 30% by visual estimation with global diffuse hypokinesis.
Mild concentric LVH.
Normal right ventricular size and function.
Mild mitral regurgitation.
S/p bioprosthetic aortic valve. Peak/mean gradients are 38/18mmHg. Moderate
aortic regurgitation.
Severe tricuspid regurgitation.
Estimated pulmonary artery pressure of 60 mmHg. Assuming a right atrial
pressure of 8 mmHg.
Pleural effusion present.
No obvious vegetation.
Compared to prior from January 11, 2024, tricuspid regurgitation is now severe
from moderate to severe and estimated PASP is now moderate to severely elevated
at 60 mmHg from previously 43 mmHg.
Septic Shock (POA):
-due to CoNS
-repeat BCxs NGTD, cont to follow BCxs
-Final cx with 2 different strains: Staph epi and Staph simulans suggestive of contaminants
-with leukocytosis (resolved) and lactic acidosis (mild)
-Chest x-ray showed cardiomegaly mild pulmonary edema
-250cc IV fluids given on admission without change in blood pressure
-Off pressors appx 72 hours
DC vanc (D8)
-cont Midodrine - wean as tolerated
HFrEF
-ECHO: 30%; Moderate AR, SEvere TR; No obvious vegetation
#Transaminitis
-hep C in the past - unclear if treated
�Appreciate GI consult
� Most likely chronic ALT elevation due to underlying hepatitis C, with now passive congestion, bacteremia, medication occluding antibiotics and amiodarone
� Continue to observe and trend
� Hepatitis C RNA f/u: not detected
� follow-up with hepatology as an outpatient (Dr. Schmidt)
Other problems:
Abdominal pain: Etiology unclear, CT abdomen pelvis and abdominal ultrasound without any source visible
Acute nonischemic myocardial injury
ESRD: cont HD T//Thu, cont midodrine
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 Continue amiodarone.
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
Chronic HFrEF: Holding metoprolol
Severe status post bioprosthetic AVR
CAD: Continue statin, BB on hold
Obstructive sleep apnea
Essential hypertension: holding due to being on midodrine
Anemia of chronic disease: Continue ferrous sulfate
Chronic thrombocytopenia: Platelets stable
DM2: BGs controlled. a1c 4.5%.
Right renal lesion
h/o GIST tumor
Gout: Continue allopurinol
FULL/Heparin
Anticipated Discharge: 24 - 48 hours
Subjective/Interval History
-
Date of Service: January 30, 2024
No acute events overnight
Objective Data
-
Labs:
Laboratory Results
01/30/24
07:56
WBC 9.7
Hgb 10.5 L
Hct 29.9 L
Plt Count 88 L D
Sodium 132 L
Potassium 4.4
Chloride 95 L
Carbon Dioxide 21 L
BUN 60 H
Creatinine 5.1 H*
Glucose 77
Calcium 8.6
Total Bilirubin 3.3 H
AST 229 H
ALT 66 H
Alkaline Phosphatase 242 H
Vital Signs:
Vital Signs
Temp Pulse Resp BP Pulse Ox
97.5 F 80 16 99/55 95
01/30/24 08:00 01/30/24 08:00 01/30/24 08:00 01/30/24 08:00 01/30/24 11:34
I&O
01/29/24 01/30/24 01/31/24
06:59 06:59 06:59
Intake Total 1140 / 1140 720 / 720
Balance 1140 / 1140 720 / 720
Review of Systems
-
History Source: Patient
All other systems: Not reviewed unless documented
Physical Exam
-
General: No Apparent Distress
HEENT: Negative Oxygen
Respiratory: Clear to Auscultation and Rales; Negative Wheezes
Cardiac: Regular Rhythm and S1/S2; Negative Murmur
GI: Soft and Nontender
Neuro: AO x 3
Psych: Calm
Data Reviewed
-
Total Time Spent with Patient (in minutes): 45
CT Scan: Image personally visualized and interpreted and Report Reviewed by me
Labs: Labs Reviewed by me
[2024-01-30] MEDS: ZYLOPRIM 100 MG PO (12:24)
[2024-01-30] MEDS: HEPARIN 5000 UNITS SC ×2 (12:24→20:25)
[2024-01-30] MEDS: FEOSOL 325 MG PO (12:24)
[2024-01-30] MEDS: DESENEX/MITRAZOL/ZEASORB 1 APPLIC TOPICAL ×2 (12:26→20:27)
[2024-01-30] MEDS: VITAMIN D3 (cholecalciferol) 25 MCG PO (12:28)
[2024-01-30 12:39] LABS: Glucose - Point of Care 68 mg/dl (70-99)
[2024-01-30 12:59] LABS: Glucose - Point of Care 73 mg/dl (70-99)
[2024-01-30 15:06] LABS: Glucose - Point of Care 78 mg/dl (70-99)
[2024-01-30 17:00] LABS: Glucose - Point of Care 68 mg/dl (70-99)
[2024-01-30 17:44] LABS: Glucose - Point of Care 84 mg/dl (70-99)
[2024-01-30 19:49] LABS: Glucose - Point of Care 113 mg/dl (70-99)
[2024-01-30 21:29] LABS: Glucose - Point of Care 93 mg/dl (70-99)
[2024-01-30] MEDS: LIPITOR 20 MG PO (21:47)
[2024-01-31 03:00] LABS: Glucose - Point of Care 85 mg/dl (70-99)
[2024-01-31 03:05] VITALS: BP 98/44
[2024-01-31 07:09] LABS: Glucose - Point of Care 91 mg/dl (70-99)
[2024-01-31 07:12] VITALS: BMI 28.4
[2024-01-31 07:25] VITALS: BP 116/56
[2024-01-31 07:31] LABS: Hematocrit 28.4 % (39.0-52.0); Hemoglobin 10.1 g/dL (13.0-18.0); Mean Corp Hgb Conc. 35.6 g/dL (33.0-37.0); Mean Corpuscular Hgb 34.1 pg (27.0-31.0); Mean Corpuscular Volume 95.9 fL (80.0-94.0); Mean Platelet Volume 12.2 fL (7.4-10.4); Platelet Count 71 10^3/uL (130-400); Red Blood Cell Count 2.96 10^6/uL (4.70-6.10); Red Cell Dist. Width 18.3 % (11.5-14.5); White Blood Cell Count 8.2 10^3/uL (4.8-10.8)
[2024-01-31 07:50] LABS: ALT (SGPT) 74 U/L (0-50); AST (SGOT) 250 U/L (17-59); Albumin 2.7 g/dl (3.5-5.0); Alkaline Phosphatase 248 U/L (38-126); Blood Urea Nitrogen 41 mg/dl (9-20); Calcium 8.5 mg/dl (8.4-10.2); Carbon Dioxide 23 mmol/L (22-30); Chloride 96 mmol/L (98-107); Estimated Creatinine Clearance 16 ml/min; Glucose 81 mg/dl (70-99); Sodium 133 mmol/L (135-145); Total Bilirubin 3.2 mg/dl (0.2-1.3); Total Protein 6.3 g/dl (6.3-8.2); eGFR 17.09
[2024-01-31] MEDS: PACERONE 200 MG PO (08:31)
[2024-01-31] MEDS: NOVOLOG FLEXPEN-LOW RESISTANCE SC ×3 (08:31→17:06)
[2024-01-31] MEDS: ZYLOPRIM 100 MG PO (08:32)
[2024-01-31] MEDS: FEOSOL 325 MG PO (08:32)
[2024-01-31] MEDS: ProAmatine 10 MG PO ×3 (08:32→23:01)
[2024-01-31] MEDS: DESENEX/MITRAZOL/ZEASORB 1 APPLIC TOPICAL ×2 (08:32→19:40)
[2024-01-31] MEDS: HEPARIN 5000 UNITS SC ×2 (08:32→19:40)
--- NOTE | 2024-01-31 09:19 | W.PN.NEPH.PH ---
Today's Communication / Plan
-
Observe for
Assessment/Plan
-
IMP:
Gen weakness
Sepsis
Hypotension
Lactic acidosis
ESRD HD started 06/2023-[facility]
Right UE AVG, placed 11/2023
CHF with R EF 30%
Severe TR
Nonobstructive CAD
Chronic anemia likely multifactorial
Bioprosthetic aortic valve 2010
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
ICD
h/o atrial fibrillation off anticoagulation due to recurrent GI bleed
History of GIST tumor previously treated with Gleevac
Bilateral renal cyst with prior concern for masses
Gout
Diabetes mellitus type 2
Basal cell skin cancer
Plan:
HD will be provided on Thursday
continue midodrine 10mg TID
Patient with poor oral intake, will liberalize diet
follow LFTs: GI without further recommendations at this time
Previously spoke with daughter re: rehab. Her concern was that if he needed hospitalization that if he were at [facility] he will be sent to [facility] instead of [facility]. However, I suspect that his experience at [facility] will be better in terms of rehab.
-
-
Date of Service: January 31, 2024
CC / HPI / ROS
-
Chief Complaint:
ESRD
History of Present Illness:
Remains hypotensive on midodrine but stable
ESRD Thursday tolerated HD yesterday
LFTs remain elevated but GI eval in progress
thrombocytopenia stable
off abx
Review of Systems:
no CP/SOB
Poor appetite
Labs
-
Labs:
WBC 8.2 10^3/uL (4.8-10.8) 01/31/24 06:53
RBC 2.96 10^6/uL (4.70-6.10) L 01/31/24 06:53
Hgb 10.1 g/dL (13.0-18.0) L 01/31/24 06:53
Hct 28.4 % (39.0-52.0) L 01/31/24 06:53
Plt Count 71 10^3/uL (130-400) L 01/31/24 06:53
Sodium 133 mmol/L (135-145) L 01/31/24 06:53
Potassium 4.0 mmol/L (3.5-5.1) 01/31/24 06:53
Chloride 96 mmol/L (98-107) L 01/31/24 06:53
Carbon Dioxide 23 mmol/L (22-30) 01/31/24 06:53
BUN 41 mg/dl (9-20) H 01/31/24 06:53
Creatinine 3.4 mg/dL (0.7-1.3) H 01/31/24 06:53
eGFR 17.09 01/31/24 06:53
Glucose 81 mg/dl (70-99) 01/31/24 06:53
Calcium 8.5 mg/dl (8.4-10.2) 01/31/24 06:53
Phosphorus 4.9 mg/dl (2.5-4.5) H 01/23/24 04:08
Rpv-F-Pjegtwdtbmn Pept > 41479 pg/ml 01/18/24 14:10
Albumin 2.7 g/dl (3.5-5.0) L 01/31/24 06:53
Physical Exam
-
Vital Signs:
Vital Signs
Temp Pulse Resp BP Pulse Ox
97.3 F 82 20 98/44 96
01/31/24 03:05 01/31/24 03:05 01/31/24 03:05 01/31/24 03:05 01/31/24 03:05
Cardiovascular:: Regular rate and rhythm
Respiratory:: Bilateral: CTA
Lung Excursion:: Normal
Abdomen:: Nontender
Bowel Sounds:: Normal
Extremity Edema:: +1: Bilateral:
Rivas Catheter: No
[2024-01-31 10:40] VITALS: BP 93/49
[2024-01-31 11:01] LABS: Venous Blood Gas HCO3 27.5 mmol/L (22-27); Venous Blood Gas O2 Sat % 94.5 %; Venous Blood Gas pCO2 51 mmHg (35-48); Venous Blood Gas pH 7.34 (7.32-7.43); Venous Blood Gas pO2 67 mmHg (30-50)
--- NOTE | 2024-01-31 11:34 | CM ---
Reviewed the chart notes and spoke with [facility] Liaison Dank sorto is the covering this weekend ([phone]). Per Dank, [facility] has not accepted the patient. Will need to wait until [facility] accepts for patient to discharge to
[facility]. CM continues to be available to patient/family and is monitoring medical plan for needs at discharge.
Plan: Discharge to [facility] once [facility] accepts the patient.
[2024-01-31 11:43] LABS: Glucose - Point of Care 125 mg/dl (70-99)
--- NOTE | 2024-01-31 12:55 | W.PN.HOSP.TC ---
Today's Communication/Plan
-
Follow-up hepatology (Dr. Schmidt), renal for HD, PCP, cardiology outpatient
CBC, LFTs outpatient
Awaiting placement, HD on thursday
Assessment / Plan
Assessment / Plan
Gen: NAD, Awake and alert, appears chronically ill
Eyes: remains EOMI, PERRLA, no scleral icterus.
Neck: supple.
CV: remains RRR, +S1/S2, no m/r/g.
Resp: remains CTAB, no rales, wheezes, or rhonchi.
Abd: +BS, soft, NT, ND
Neuro: remains CN 2-12 intact, non-focal.
Psych: Normal mood and affect.
01/19/24 13:15 Blood/Venous Blood Culture - Preliminary
No Growth in 4 days- Final report to follow
01/19/24 13:15 Blood/Venous Blood Culture - Preliminary
No Growth in 4 days- Final report to follow
01/19/24 17:03 Catheter Tip Catheter Tip Culture - Final
No Growth After 72 Hours
01/18/24 14:10 Blood/Venous Blood Culture - Preliminary
Coagulase neg. staphylococcus
01/18/24 14:10 Blood/Venous Gram Stain - Final
01/18/24 14:10 Blood/Venous Blood Culture - Preliminary
Coagulase neg. staphylococcus
01/18/24 14:10 Blood/Venous Gram Stain - Final
01/19/24 04:36 Nose MRSA Screen - Final
No Methicillin Resistant Staphylococcus aureus isolated.
CT A/P:
1. Small volume abdominopelvic ascites. Otherwise no significant acute abnormality identified in the abdomen or pelvis, as described above. Chronic changes as described.
2. Small bilateral pleural effusions.
Echo (TTE) 01/20/24: Normal LV size with moderate to severely reduced systolic function.
LVEF is approximately 30% by visual estimation with global diffuse hypokinesis.
Mild concentric LVH.
Normal right ventricular size and function.
Mild mitral regurgitation.
S/p bioprosthetic aortic valve. Peak/mean gradients are 38/18mmHg. Moderate
aortic regurgitation.
Severe tricuspid regurgitation.
Estimated pulmonary artery pressure of 60 mmHg. Assuming a right atrial
pressure of 8 mmHg.
Pleural effusion present.
No obvious vegetation.
Compared to prior from January 11, 2024, tricuspid regurgitation is now severe
from moderate to severe and estimated PASP is now moderate to severely elevated
at 60 mmHg from previously 43 mmHg.
Septic Shock (POA):
-due to CoNS
-repeat BCxs NGTD, cont to follow BCxs
-Final cx with 2 different strains: Staph epi and Staph simulans suggestive of contaminants
-with leukocytosis (resolved) and lactic acidosis (mild)
-Chest x-ray showed cardiomegaly mild pulmonary edema
-250cc IV fluids given on admission without change in blood pressure
-Off pressors appx 72 hours
DC vanc (D8)
-cont Midodrine - wean as tolerated
HFrEF
-ECHO: 30%; Moderate AR, SEvere TR; No obvious vegetation
#Transaminitis
-hep C in the past - unclear if treated
�Appreciate GI consult
� Most likely chronic ALT elevation due to underlying hepatitis C, with now passive congestion, bacteremia, medication occluding antibiotics and amiodarone
� Continue to observe and trend
� Hepatitis C RNA f/u: not detected
� follow-up with hepatology as an outpatient (Dr. Schmidt)
Hyponatremia
-mild
-ctm
-HD
Other problems:
Abdominal pain: Etiology unclear, CT abdomen pelvis and abdominal ultrasound without any source visible
Acute nonischemic myocardial injury
ESRD: cont HD T//Thu, cont midodrine
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 Continue amiodarone.
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
Chronic HFrEF: Holding metoprolol
Severe status post bioprosthetic AVR
CAD: Continue statin, BB on hold
Obstructive sleep apnea
Essential hypertension: holding due to being on midodrine
Anemia of chronic disease: Continue ferrous sulfate
Chronic thrombocytopenia: Platelets stable
DM2: BGs controlled. a1c 4.5%.
Right renal lesion
h/o GIST tumor
Gout: Continue allopurinol
FULL/Heparin
Anticipated Discharge: 24 - 48 hours
Subjective/Interval History
-
Date of Service: January 31, 2024
no acute events, a bit lethargic today - did not use cpap
Objective Data
-
Labs:
Laboratory Results
01/31/24
06:53
WBC 8.2
Hgb 10.1 L
Hct 28.4 L
Plt Count 71 L
Sodium 133 L
Potassium 4.0
Chloride 96 L
Carbon Dioxide 23
BUN 41 H
Creatinine 3.4 H
Glucose 81
Calcium 8.5
Total Bilirubin 3.2 H
AST 250 H
ALT 74 H
Alkaline Phosphatase 248 H
Vital Signs:
Vital Signs
Temp Pulse Resp BP Pulse Ox
97.9 F 78 16 93/49 99
01/31/24 10:40 01/31/24 10:40 01/31/24 10:40 01/31/24 10:40 01/31/24 10:40
I&O
01/30/24 01/31/24 02/01/24
06:59 06:59 06:59
Intake Total 720 / 720 200 / 200
Balance 720 / 720 200 / 200
Review of Systems
-
History Source: Patient
All other systems: Not reviewed unless documented
Physical Exam
-
General: No Apparent Distress
HEENT: Negative Oxygen
Respiratory: Clear to Auscultation and Rales; Negative Wheezes
Cardiac: Regular Rhythm and S1/S2; Negative Murmur
GI: Soft and Nontender
Neuro: AO x 3
Psych: Calm
Data Reviewed
-
Total Time Spent with Patient (in minutes): 45
CT Scan: Image personally visualized and interpreted and Report Reviewed by me
Labs: Labs Reviewed by me
[2024-01-31 15:34] VITALS: BP 92/43
[2024-01-31] MEDS: TYLENOL 1000 MG PO (15:35)
--- NOTE | 2024-01-31 16:16 | PTCARENOTE ---
pt's bl forearms weeping this shift, wrapped with cling and elevated on pillows. pt sat on the chair, unable to walk due to being weak, used ambika lift. Family at bedside.
[2024-01-31 17:00] LABS: Glucose - Point of Care 118 mg/dl (70-99)
[2024-01-31 19:40] VITALS: BP 100/45
[2024-01-31] MEDS: LIPITOR 20 MG PO (22:58)
[2024-01-31 23:50] VITALS: BP 103/56
[2024-02-01] VITALS (8 sets, daily range): BP systolic 94–107; BP diastolic 46–56; PULSE 81; O2SAT 94; BMI 28.4
[2024-02-01 07:23] LABS: Glucose - Point of Care 92 mg/dl (70-99)
[2024-02-01] MEDS: ProAmatine 10 MG PO ×2 (08:13→15:41)
[2024-02-01] MEDS: PACERONE 200 MG PO (08:14)
[2024-02-01] MEDS: ZYLOPRIM 100 MG PO (08:14)
[2024-02-01] MEDS: HEPARIN 5000 UNITS SC ×2 (08:15→20:38)
[2024-02-01] MEDS: DESENEX/MITRAZOL/ZEASORB 1 APPLIC TOPICAL ×2 (08:15→20:39)
[2024-02-01] MEDS: NOVOLOG FLEXPEN-LOW RESISTANCE SC ×3 (08:15→17:45)
[2024-02-01] MEDS: FEOSOL 325 MG PO (08:15)
[2024-02-01 08:31] LABS: Hematocrit 30.8 % (39.0-52.0); Hemoglobin 11.1 g/dL (13.0-18.0); Mean Corpuscular Hgb 34.8 pg (27.0-31.0); Mean Corpuscular Volume 96.6 fL (80.0-94.0); Mean Platelet Volume 12.2 fL (7.4-10.4); Platelet Count 72 10^3/uL (130-400); Red Blood Cell Count 3.19 10^6/uL (4.70-6.10); Red Cell Dist. Width 18.2 % (11.5-14.5); White Blood Cell Count 8.3 10^3/uL (4.8-10.8)
[2024-02-01 09:02] LABS: ALT (SGPT) 82 U/L (0-50); AST (SGOT) 275 U/L (17-59); Albumin 2.7 g/dl (3.5-5.0); Alkaline Phosphatase 264 U/L (38-126); Blood Urea Nitrogen 53 mg/dl (9-20); Calcium 8.6 mg/dl (8.4-10.2); Carbon Dioxide 24 mmol/L (22-30); Chloride 95 mmol/L (98-107); Estimated Creatinine Clearance 12 ml/min; Glucose 88 mg/dl (70-99); Potassium 4.3 mmol/L (3.5-5.1); Sodium 132 mmol/L (135-145); Total Bilirubin 3.1 mg/dl (0.2-1.3); Total Protein 6.2 g/dl (6.3-8.2); eGFR 11.59
--- NOTE | 2024-02-01 09:14 | W.PN.HOSP.TC ---
Today's Communication/Plan
-
dispo planning
Assessment / Plan
Assessment / Plan
Gen: NAD, Awake and alert, appears chronically ill
Eyes: remains EOMI, PERRLA, no scleral icterus.
Neck: supple.
CV: remains RRR, +S1/S2, no m/r/g.
Resp: remains CTAB, no rales, wheezes, or rhonchi.
Abd: +BS, soft, NT, ND
Neuro: remains CN 2-12 intact, non-focal.
Psych: Normal mood and affect.
CT A/P:
1. Small volume abdominopelvic ascites. Otherwise no significant acute abnormality identified in the abdomen or pelvis, as described above. Chronic changes as described.
2. Small bilateral pleural effusions.
Echo (TTE) 01/20/24: Normal LV size with moderate to severely reduced systolic function.
LVEF is approximately 30% by visual estimation with global diffuse hypokinesis.
Mild concentric LVH.
Normal right ventricular size and function.
Mild mitral regurgitation.
S/p bioprosthetic aortic valve. Peak/mean gradients are 38/18mmHg. Moderate
aortic regurgitation.
Severe tricuspid regurgitation.
Estimated pulmonary artery pressure of 60 mmHg. Assuming a right atrial
pressure of 8 mmHg.
Pleural effusion present.
No obvious vegetation.
Compared to prior from January 11, 2024, tricuspid regurgitation is now severe
from moderate to severe and estimated PASP is now moderate to severely elevated
at 60 mmHg from previously 43 mmHg.
Septic Shock (POA):
-due to CoNS
-repeat BCxs NGTD, cont to follow BCxs
-Final cx with 2 different strains: Staph epi and Staph simulans suggestive of contaminants
-with leukocytosis (resolved) and lactic acidosis (mild)
-Chest x-ray showed cardiomegaly mild pulmonary edema
-250cc IV fluids given on admission without change in blood pressure
-Off pressors appx 72 hours
DC vanc (D8)
-cont Midodrine - wean as tolerated
-plan is Discharge to [facility] once [facility] accepts the patient.
HFrEF
-ECHO: 30%; Moderate AR, SEvere TR; No obvious vegetation (improvement compared to prior 01/08/22)
#Transaminitis
-hep C in the past - unclear if treated
�Appreciate GI consult
� Most likely chronic ALT elevation due to underlying hepatitis C, with now passive congestion, bacteremia, medication occluding antibiotics and amiodarone
� Continue to observe and trend
� Hepatitis C RNA f/u: not detected
� follow-up with hepatology as an outpatient (Dr. Schmidt)
Hyponatremia
-mild
-ctm
-HD
Other problems:
Abdominal pain: Etiology unclear, CT abdomen pelvis and abdominal ultrasound without any source visible
Acute nonischemic myocardial injury
ESRD: cont HD T//Thu, cont midodrine
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 Continue amiodarone.
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
Chronic HFrEF: Holding metoprolol
Severe status post bioprosthetic AVR
CAD: Continue statin, BB on hold
Obstructive sleep apnea
Essential hypertension: holding due to being on midodrine
Anemia of chronic disease: Continue ferrous sulfate
Chronic thrombocytopenia: Platelets stable
DM2: BGs controlled. a1c 4.5%. diet liberalized
Right renal lesion
h/o GIST tumor
Gout: Continue allopurinol
FULL/Heparin
Anticipated Discharge: Within 24 hours
Subjective/Interval History
-
Date of Service: February 01, 2024
no new complaints
denies pain
waiting to go to [facility]
Objective Data
-
Labs:
Laboratory Results
02/01/24
07:56
WBC 8.3
Hgb 11.1 L
Hct 30.8 L
Plt Count 72 L
Sodium 132 L
Potassium 4.3
Chloride 95 L
Carbon Dioxide 24
BUN 53 H
Creatinine 4.7 H*
Glucose 88
Calcium 8.6
Total Bilirubin 3.1 H
AST 275 H
ALT 82 H
Alkaline Phosphatase 264 H
Vital Signs:
Vital Signs
Temp Pulse Resp BP Pulse Ox
97.8 F 82 18 98/47 98
02/01/24 07:35 02/01/24 08:13 02/01/24 07:35 02/01/24 08:13 02/01/24 07:35
I&O
01/31/24 02/01/24 02/02/24
06:59 06:59 06:59
Intake Total 200 / 200 240 / 240
Balance 200 / 200 240 / 240
Review of Systems
-
History Source: Patient
All other systems: Reviewed and negative
Physical Exam
-
General: No Apparent Distress
HEENT: PERRLA
Respiratory: Clear to Auscultation; Negative Wheezes
Cardiac: Regular Rhythm and S1/S2
GI: Soft and Nontender
Neuro: AO x 3
Psych: Calm
Data Reviewed
-
Diagnostic Radiology: Report Reviewed by me
Labs: Labs Reviewed by me
--- NOTE | 2024-02-01 10:46 | W.PN.NEPH.PH ---
Today's Communication / Plan
-
HD tomorrow
Assessment/Plan
-
IMP:
Gen weakness
Sepsis
Hypotension
Lactic acidosis
ESRD HD started 06/2023-[facility]
Right UE AVG, placed 11/2023
CHF with R EF 30%
Severe TR
Nonobstructive CAD
Chronic anemia likely multifactorial
Bioprosthetic aortic valve 2010
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
ICD
h/o atrial fibrillation off anticoagulation due to recurrent GI bleed
History of GIST tumor previously treated with Gleevac
Bilateral renal cyst with prior concern for masses
Gout
Diabetes mellitus type 2
Basal cell skin cancer
Plan:
HD tomorrow
continue midodrine 10mg TID
on liberalized diet
await rehab arrangements
-
-
Date of Service: February 01, 2024
CC / HPI / ROS
-
Chief Complaint:
ESRD
History of Present Illness:
Remains hypotensive on midodrine but stable
ESRD Thursday tolerated HD thursday
thrombocytopenia stable
off abx
Review of Systems:
no CP/SOB
Poor appetite
Labs
-
Labs:
WBC 8.3 10^3/uL (4.8-10.8) 02/01/24 07:56
RBC 3.19 10^6/uL (4.70-6.10) L 02/01/24 07:56
Hgb 11.1 g/dL (13.0-18.0) L 02/01/24 07:56
Hct 30.8 % (39.0-52.0) L 02/01/24 07:56
Plt Count 72 10^3/uL (130-400) L 02/01/24 07:56
Sodium 132 mmol/L (135-145) L 02/01/24 07:56
Potassium 4.3 mmol/L (3.5-5.1) 02/01/24 07:56
Chloride 95 mmol/L (98-107) L 02/01/24 07:56
Carbon Dioxide 24 mmol/L (22-30) 02/01/24 07:56
BUN 53 mg/dl (9-20) H 02/01/24 07:56
Creatinine 4.7 mg/dL (0.7-1.3) H* 02/01/24 07:56
eGFR 11.59 02/01/24 07:56
Glucose 88 mg/dl (70-99) 02/01/24 07:56
Calcium 8.6 mg/dl (8.4-10.2) 02/01/24 07:56
Phosphorus 4.9 mg/dl (2.5-4.5) H 01/23/24 04:08
Kbg-S-Nusmvdvuoey Pept > 22779 pg/ml 01/18/24 14:10
Albumin 2.7 g/dl (3.5-5.0) L 02/01/24 07:56
Physical Exam
-
Vital Signs:
Vital Signs
Temp Pulse Resp BP Pulse Ox
97.8 F 82 18 98/47 98
02/01/24 07:35 02/01/24 08:13 02/01/24 07:35 02/01/24 08:13 02/01/24 07:35
Cardiovascular:: Regular rate and rhythm
Respiratory:: Bilateral: Coarse
Lung Excursion:: Normal
Abdomen:: Nontender and Soft
Bowel Sounds:: Normal
Extremity Edema:: None: Bilateral:
[2024-02-01 11:28] LABS: Glucose - Point of Care 89 mg/dl (70-99)
[2024-02-01] MEDS: TYLENOL 1000 MG PO (15:41)
--- NOTE | 2024-02-01 16:16 | CM ---
CM reviewed pt with Dr Stone- medically ready once SNF/HD arranged
Multiples call with [facility] admissions/Mikaela
Updated clinicals and flowsheets sent via [facility]
Pt denied by [facility] for SNF HD due to low BPs during HD
Requesting call between [facility]inner/Dr Castillo [phone] and physician
Update to nephro/Dr Morin and Dr. Stone/attending
Dr Morin will call [facility] to further discuss
Update to dtr/Patricia
Aware SNF placement still pending and being worked on by [facility]
Of note, [facility] can offer SNF bed if pt able to tolerate WC van transport to an outpt HD clinic, no HD chairs available at [facility]
Will need to be a 1 person assist for van transport
At this time, pt remains max 2 person
Dtr aware [facility] can be revisited if pt with physical gains during admission- dtr in agreement
Discharge Disposition- [facility], awaiting [facility] acceptance
[2024-02-01 17:42] LABS: Glucose - Point of Care 94 mg/dl (70-99)
[2024-02-01] MEDS: LIPITOR 20 MG PO (21:17)
[2024-02-01 21:37] LABS: Glucose - Point of Care 114 mg/dl (70-99)
[2024-02-02] MEDS: ProAmatine 10 MG PO ×3 (00:15→23:32)
[2024-02-02 03:42] VITALS: BP 104/49
[2024-02-02] MEDS: TYLENOL 1000 MG PO (06:32)
[2024-02-02 07:35] VITALS: BP 133/50
--- NOTE | 2024-02-02 07:41 | PTCARENOTE ---
Pt had x1 episode of large bloody stool this morning, VS 102/44, 80, Pox 98% RA, t97.8. Pt aaox1 no complaints offered, [employer] made aware, no new orders, awaiting morning labs.
[2024-02-02 07:49] LABS: Glucose - Point of Care 107 mg/dl (70-99)
[2024-02-02] MEDS: NOVOLOG FLEXPEN-LOW RESISTANCE SC ×3 (07:53→18:25)
[2024-02-02 08:25] LABS: Hematocrit 29.6 % (39.0-52.0); Hemoglobin 10.6 g/dL (13.0-18.0); Mean Corp Hgb Conc. 35.8 g/dL (33.0-37.0); Mean Corpuscular Hgb 34.4 pg (27.0-31.0); Mean Corpuscular Volume 96.1 fL (80.0-94.0); Mean Platelet Volume 12.5 fL (7.4-10.4); Platelet Count 71 10^3/uL (130-400); Red Blood Cell Count 3.08 10^6/uL (4.70-6.10); Red Cell Dist. Width 18.5 % (11.5-14.5); White Blood Cell Count 10.3 10^3/uL (4.8-10.8)
[2024-02-02 09:07] LABS: ALT (SGPT) 84 U/L (0-50); AST (SGOT) 277 U/L (17-59); Albumin 2.6 g/dl (3.5-5.0); Alkaline Phosphatase 248 U/L (38-126); Blood Urea Nitrogen 64 mg/dl (9-20); Calcium 8.4 mg/dl (8.4-10.2); Carbon Dioxide 21 mmol/L (22-30); Chloride 95 mmol/L (98-107); Estimated Creatinine Clearance 10 ml/min; Glucose 101 mg/dl (70-99); Potassium 4.9 mmol/L (3.5-5.1); Sodium 133 mmol/L (135-145); Total Bilirubin 3.3 mg/dl (0.2-1.3); Total Protein 6.2 g/dl (6.3-8.2); eGFR 9.19
--- NOTE | 2024-02-02 10:02 | W.PN.HOSP.TC ---
Addendum entered and electronically signed by Minna Stone MD 02/02/24 13:46:
patient remained lethargic throughout the day.
I have reached out to both daughters to further discuss goals of care.
Original Note:
Today's Communication/Plan
-
dispo planning
Assessment / Plan
Assessment / Plan
Gen: NAD, Awake and alert, appears chronically ill
Eyes: remains EOMI, PERRLA, no scleral icterus.
Neck: supple.
CV: remains RRR, +S1/S2, no m/r/g.
Resp: remains CTAB, no rales, wheezes, or rhonchi.
Abd: +BS, soft, NT, ND
Neuro: remains CN 2-12 intact, non-focal.
Psych: Normal mood and affect.
CT A/P:
1. Small volume abdominopelvic ascites. Otherwise no significant acute abnormality identified in the abdomen or pelvis, as described above. Chronic changes as described.
2. Small bilateral pleural effusions.
Echo (TTE) 01/20/24: Normal LV size with moderate to severely reduced systolic function.
LVEF is approximately 30% by visual estimation with global diffuse hypokinesis.
Mild concentric LVH.
Normal right ventricular size and function.
Mild mitral regurgitation.
S/p bioprosthetic aortic valve. Peak/mean gradients are 38/18mmHg. Moderate
aortic regurgitation.
Severe tricuspid regurgitation.
Estimated pulmonary artery pressure of 60 mmHg. Assuming a right atrial
pressure of 8 mmHg.
Pleural effusion present.
No obvious vegetation.
Compared to prior from January 11, 2024, tricuspid regurgitation is now severe
from moderate to severe and estimated PASP is now moderate to severely elevated
at 60 mmHg from previously 43 mmHg.
Septic Shock (POA) with initial concern for bactremia but final culture with 2 different strains suggesting contaminants. Patient's blood cultures have remained negative.
He is s/p 8 days of IV Vancomycin
-appreciate ID consult; with finding contaminant - IV antibiotics stopped
-leukocytosis resolved and lactic acidosis
-Chest x-ray showed cardiomegaly mild pulmonary edema
-250cc IV fluids given on admission without change in blood pressure
-cont Midodrine - wean as tolerated
-plan is Discharge to [facility] once [facility] accepts the patient.
HFrEF
-ECHO: 30%; Moderate AR, SEvere TR; No obvious vegetation (improvement compared to prior 01/08/22)
#Transaminitis
-hep C in the past - unclear if treated
�Appreciate GI consult
� Most likely chronic ALT elevation due to underlying hepatitis C, with now passive congestion, bacteremia, medication occluding antibiotics and amiodarone
� Continue to observe and trend
� Hepatitis C RNA f/u: not detected
� follow-up with hepatology as an outpatient (Dr. Schimdt)
Hyponatremia
-mild
-ctm
-HD
Other problems:
Abdominal pain: Etiology unclear, CT abdomen pelvis and abdominal ultrasound without any source visible
Acute nonischemic myocardial injury
ESRD: cont HD T//Thu, cont midodrine
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 Continue amiodarone.
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
Chronic HFrEF: Holding metoprolol
Severe status post bioprosthetic AVR
CAD: Continue statin, BB on hold
Obstructive sleep apnea
Essential hypertension: holding due to being on midodrine
Anemia of chronic disease: Continue ferrous sulfate
Chronic thrombocytopenia: Platelets stable
DM2: BGs controlled. a1c 4.5%. diet liberalized
Right renal lesion
h/o GIST tumor
Gout: Continue allopurinol
FULL/Heparin
Anticipated Discharge: Within 24 hours
Subjective/Interval History
-
Date of Service: February 02, 2024
seen during dialysis
blood pressure OK
trying to take off bandages on arms
Objective Data
-
Labs:
Laboratory Results
02/02/24
08:06
WBC 10.3
Hgb 10.6 L
Hct 29.6 L
Plt Count 71 L
Sodium 133 L
Potassium 4.9
Chloride 95 L
Carbon Dioxide 21 L
BUN 64 H
Creatinine 5.7 H*
Glucose 101 H
Calcium 8.4
Total Bilirubin 3.3 H
AST 277 H
ALT 84 H
Alkaline Phosphatase 248 H
Vital Signs:
Vital Signs
Temp Pulse Resp BP Pulse Ox
97.7 F 80 18 133/50 94
02/02/24 07:35 02/02/24 07:35 02/02/24 07:35 02/02/24 07:35 02/02/24 07:35
I&O
02/01/24 02/02/24 02/03/24
06:59 06:59 06:59
Intake Total 240 / 240 20 / 20
Balance 240 / 240 20 / 20
Review of Systems
-
History Source: Patient
All other systems: Reviewed and negative
Physical Exam
-
General: No Apparent Distress
HEENT: PERRLA
Respiratory: Clear to Auscultation; Negative Wheezes
Cardiac: Regular Rhythm and S1/S2
GI: Soft and Nontender
Neuro: AO x 3
Psych: Calm
Data Reviewed
-
Diagnostic Radiology: Report Reviewed by me
Labs: Labs Reviewed by me
[2024-02-02 10:25] LABS: Glucose - Point of Care 92 mg/dl (70-99)
--- NOTE | 2024-02-02 10:32 | W.PN.NEPH.HD ---
Assessment
-
Seen on HD. no complaints. VSS, BP cuff on Lower leg. access ok, pt pulled out needle earlier in treatment unknowingly
Progress Note - Hemodialysis
-
Date of Service: February 02, 2024
Duration: 30 minutes and 3 hours
Potassium Bath: 2
Calcium Bath: 2.5
Opti-Dialyzer: 160
Ultrafiltration: Other (2kg)
Blood Flow: 400
Dialysate Flow: 600
Heparin: 0
EPO: 53616 units
[2024-02-02 11:40] VITALS: BP 128/54
[2024-02-02] MEDS: DESENEX/MITRAZOL/ZEASORB 1 APPLIC TOPICAL ×2 (12:42→20:47)
[2024-02-02] MEDS: HEPARIN 5000 UNITS SC ×2 (12:46→20:47)
[2024-02-02] MEDS: ProAmatine PO ×2 (12:47→15:38)
[2024-02-02] MEDS: FEOSOL PO (12:58)
[2024-02-02] MEDS: VITAMIN D3 (cholecalciferol) PO (12:59)
[2024-02-02] MEDS: ZYLOPRIM PO (12:59)
[2024-02-02] MEDS: PACERONE PO (12:59)
[2024-02-02 13:03] LABS: Glucose - Point of Care 89 mg/dl (70-99)
--- NOTE | 2024-02-02 14:23 | W.PN.UPDATE ---
Update Note
Progress Note Update
goals of care discussion had over phone with daughters Sameera and Patricia with patient's present as well.
We discussed patient's decline and frailty, he now appears to be suffering yelling out 'help me.' Daughters were asking if there is an alternative to midodrine as they are worried this medication is causing side effects based on his significant
weakness following initiation of this med. I explained that it is more likely the need for this medication correlated with his decline which is due to his progressive heart disease and renal failure. In addition, there are not other substitutions
to boost blood pressure. Given his continued decline and frailty hospice was discussed. At this point they would like to hear more.
We discussed code status and patient is now DNR.
I have reached out to Dr. Morin to update him.
[2024-02-02] MEDS: ROXANOL ORAL CONCENTRATE 2.5 MG PO (15:26)
[2024-02-02 15:35] VITALS: BP 143/59
--- NOTE | 2024-02-02 16:19 | CM ---
Reviewed the chart notes. CM consult for hospice received. Referral sent to Hospice for review. CM continues to be available to patient/family and is monitoring medical plan for needs at discharge.
Plan: Discharge plans will depend on progress. If not on hospice, to facility with HD capability possibly [facility].
[2024-02-02 18:23] LABS: Glucose - Point of Care 83 mg/dl (70-99)
[2024-02-02 19:55] VITALS: BP 138/47
--- NOTE | 2024-02-02 20:55 | PTCARENOTE ---
Pt very declined, lethargic and drowsy, unable to answer questions, family at bedside visiting pt. HS toro held d/t pt unable to swallow med.
[2024-02-02] MEDS: LIPITOR PO (21:12)
[2024-02-02 21:13] LABS: Glucose - Point of Care 76 mg/dl (70-99)
[2024-02-02 23:15] VITALS: BP 113/31
[2024-02-02 23:42] LABS: Glucose - Point of Care 89 mg/dl (70-99)
[2024-02-03] VITALS (8 sets, daily range): BP systolic 81–119; BP diastolic 32–64; PULSE 79; O2SAT 100; BMI 26.8
[2024-02-03] MEDS: ROXANOL ORAL CONCENTRATE 2.5 MG PO ×2 (01:16→19:49)
--- NOTE | 2024-02-03 04:29 | PTCARENOTE ---
Pt became restless around midnight, undressing self, pulling wound dressing from b/l arms off and yelling out 'help me'. Unable to redirect pt, prn morphine sulfate given for generalized body aches, no + effects noted. Pt continued yelling, staff in
the room assisting pt many times, pt unaware why was yelling.
[2024-02-03 07:56] LABS: Glucose - Point of Care 84 mg/dl (70-99)
[2024-02-03] MEDS: ProAmatine 10 MG PO ×3 (10:00→22:48)
[2024-02-03] MEDS: PACERONE 200 MG PO (10:02)
[2024-02-03] MEDS: FEOSOL 325 MG PO (10:02)
[2024-02-03] MEDS: DESENEX/MITRAZOL/ZEASORB 1 APPLIC TOPICAL ×2 (10:03→21:09)
[2024-02-03] MEDS: HEPARIN 5000 UNITS SC ×2 (10:03→21:07)
[2024-02-03] MEDS: ZYLOPRIM 100 MG PO (10:03)
[2024-02-03] MEDS: NOVOLOG FLEXPEN-LOW RESISTANCE SC ×3 (10:04→16:53)
--- NOTE | 2024-02-03 10:05 | W.PN.HOSP.TC ---
Today's Communication/Plan
-
GOC discussions
Assessment / Plan
Assessment / Plan
CT A/P:
1. Small volume abdominopelvic ascites. Otherwise no significant acute abnormality identified in the abdomen or pelvis, as described above. Chronic changes as described.
2. Small bilateral pleural effusions.
Echo (TTE) 01/20/24: Normal LV size with moderate to severely reduced systolic function.
LVEF is approximately 30% by visual estimation with global diffuse hypokinesis.
Mild concentric LVH.
Normal right ventricular size and function.
Mild mitral regurgitation.
S/p bioprosthetic aortic valve. Peak/mean gradients are 38/18mmHg. Moderate
aortic regurgitation.
Severe tricuspid regurgitation.
Estimated pulmonary artery pressure of 60 mmHg. Assuming a right atrial
pressure of 8 mmHg.
Pleural effusion present.
No obvious vegetation.
Compared to prior from January 11, 2024, tricuspid regurgitation is now severe
from moderate to severe and estimated PASP is now moderate to severely elevated
at 60 mmHg from previously 43 mmHg.
Septic Shock (POA) with initial concern for bactremia but final culture with 2 different strains suggesting contaminants. Patient's blood cultures have remained negative.
He is s/p 8 days of IV Vancomycin
-appreciate ID consult; with finding contaminant - IV antibiotics stopped
-leukocytosis resolved and lactic acidosis
-Chest x-ray showed cardiomegaly mild pulmonary edema
-250cc IV fluids given on admission without change in blood pressure
-02/01 - patient's mentation is declining and appearing more uncomfortable. GOC discussions started 02/01 and family willing to hear more about hospice
-continue midodrine for now
-PRN Roxanol low dose started
HFrEF
-ECHO: 30%; Moderate AR, SEvere TR; No obvious vegetation (improvement compared to prior 01/08/22)
#Transaminitis
-hep C in the past - unclear if treated
�Appreciate GI consult
� Most likely chronic ALT elevation due to underlying hepatitis C, with now passive congestion, bacteremia, medication occluding antibiotics and amiodarone
- plan was for outpatient Hepatology follow up
Hyponatremia
-mild
-ctm
-HD
Other problems:
Abdominal pain: Etiology unclear, CT abdomen pelvis and abdominal ultrasound without any source visible
Acute nonischemic myocardial injury
ESRD: cont HD T//Thu, cont midodrine
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 Continue amiodarone.
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
Chronic HFrEF: Holding metoprolol
Severe status post bioprosthetic AVR
CAD: Continue statin, BB on hold
Obstructive sleep apnea
Essential hypertension: holding due to being on midodrine
Anemia of chronic disease: Continue ferrous sulfate
Chronic thrombocytopenia: Platelets stable
DM2: BGs controlled. a1c 4.5%. diet liberalized
Right renal lesion
h/o GIST tumor
Gout: Continue allopurinol
FULL/Heparin
Anticipated Discharge: 24 - 48 hours
Subjective/Interval History
-
Date of Service: February 03, 2024
patient states he hurts all over, cannot elaborate
Objective Data
-
Vital Signs:
Vital Signs
Temp Pulse Resp BP Pulse Ox
97.4 F 81 16 119/64 96
02/03/24 07:35 02/03/24 07:35 02/03/24 07:35 02/03/24 07:35 02/03/24 07:35
I&O
02/02/24 02/03/24 02/04/24
06:59 06:59 06:59
Intake Total 20 / 20 240 / 240
Balance 20 / 20 240 / 240
Review of Systems
-
History Source: Patient
All other systems: Reviewed and negative
Physical Exam
-
General: No Apparent Distress
HEENT: PERRLA
Respiratory: Clear to Auscultation; Negative Wheezes
Cardiac: Regular Rhythm and S1/S2
GI: Soft and Nontender
Neuro: Awake, Alert and Other (slow to respond to questions)
Psych: Calm
Data Reviewed
-
Diagnostic Radiology: Report Reviewed by me
Labs: Labs Reviewed by me
--- NOTE | 2024-02-03 10:21 | PTOTSP ---
ST Acute Care Evaluation
Pt currently presents with mild oropharyngeal dysphagia characterized by prolonged mastication, reduced bolus formation, and oral residue post-swallow with solids, as well as occasional weak coughing with thin liquids.
Recommendations:
- DOWNGRADE pt's diet to SOFT BITE SIZED SOLIDS and continue with THIN LIQUIDS; meds whole in puree.
- General aspiration precautions: Pt must be fully awake/alert for ALL PO intake; 1:1 assistance with all PO intake; HOB fully upright for ALL PO intake; small bites/sips, alternate bites/sips, d/c PO intake if pt's mentation declines.
- CONTAINER PACKER OPERATOR will continue to follow while pt is admitted to ensure pt is safely consuming the least restrictive diet.
--- NOTE | 2024-02-03 11:48 | W.PN.NEPH.PH ---
Today's Communication / Plan
-
Dialysis tomorrow
Assessment/Plan
-
IMP:
Gen weakness
Sepsis
Hypotension
Lactic acidosis
ESRD HD started 06/2023-formerly [facility]
Right UE AVG, placed 11/2023
CHF with R EF 30%
Severe TR
Nonobstructive CAD
Chronic anemia likely multifactorial
Bioprosthetic aortic valve 2010
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
ICD
h/o atrial fibrillation off anticoagulation due to recurrent GI bleed
History of GIST tumor previously treated with Gleevac
Bilateral renal cyst with prior concern for masses
Gout
Diabetes mellitus type 2
Basal cell skin cancer
Plan:
HD tomorrow, orders provided
continue midodrine 10mg TID
on liberalized diet
await rehab versus hospice arrangements
-
-
Date of Service: February 03, 2024
CC / HPI / ROS
-
Chief Complaint:
ESRD
History of Present Illness:
Remains hypotensive on midodrine but stable
ESRD Thursday tolerated HD thursday
thrombocytopenia stable
off abx
Review of Systems:
no CP/SOB
Poor appetite
Labs
-
Labs:
WBC 10.3 10^3/uL (4.8-10.8) 02/02/24 08:06
RBC 3.08 10^6/uL (4.70-6.10) L 02/02/24 08:06
Hgb 10.6 g/dL (13.0-18.0) L 02/02/24 08:06
Hct 29.6 % (39.0-52.0) L 02/02/24 08:06
Plt Count 71 10^3/uL (130-400) L 02/02/24 08:06
Sodium 133 mmol/L (135-145) L 02/02/24 08:06
Potassium 4.9 mmol/L (3.5-5.1) 02/02/24 08:06
Chloride 95 mmol/L (98-107) L 02/02/24 08:06
Carbon Dioxide 21 mmol/L (22-30) L 02/02/24 08:06
BUN 64 mg/dl (9-20) H 02/02/24 08:06
Creatinine 5.7 mg/dL (0.7-1.3) H* 02/02/24 08:06
eGFR 9.19 02/02/24 08:06
Glucose 101 mg/dl (70-99) H 02/02/24 08:06
Calcium 8.4 mg/dl (8.4-10.2) 02/02/24 08:06
Phosphorus 4.9 mg/dl (2.5-4.5) H 01/23/24 04:08
Uuj-K-Tgbmaxddsgp Pept > 29879 pg/ml 01/18/24 14:10
Albumin 2.6 g/dl (3.5-5.0) L 02/02/24 08:06
Physical Exam
-
Vital Signs:
Vital Signs
Temp Pulse Resp BP Pulse Ox
97.4 F 81 16 119/64 96
02/03/24 07:35 02/03/24 10:02 02/03/24 07:35 02/03/24 10:02 02/03/24 07:35
Cardiovascular:: Regular rate and rhythm
Respiratory:: Bilateral: Coarse
Lung Excursion:: Normal
Abdomen:: Nontender and Soft
Bowel Sounds:: Normal
Extremity Edema:: None: Bilateral:
--- NOTE | 2024-02-03 11:49 | HOSPNOTE ---
Spoke with daughter Patricia and explained hospice and the philosophy. The daughter needs to talk with family this evening and give them all the information. The daughter will call me back tomorrow with a decision.
[2024-02-03 12:00] LABS: Glucose - Point of Care 103 mg/dl (70-99)
--- NOTE | 2024-02-03 13:30 | CM ---
Reviewed the chart notes. HD flow sheets from 02/02/24 sent to [facility] for review by [facility] via [facility]. CM continues to be available to patient/family and is monitoring medical plan for needs at discharge.
Plan: Discharge plans will depend on the family. SNF or hospice.
[2024-02-03 16:34] LABS: Glucose - Point of Care 94 mg/dl (70-99)
[2024-02-03] MEDS: LIPITOR 20 MG PO (21:10)
[2024-02-03] MEDS: ZYPREXA 2.5 MG PO (21:52)
[2024-02-03 23:42] LABS: Glucose - Point of Care 101 mg/dl (70-99)
[2024-02-04 00:38] VITALS: BP 96/48
[2024-02-04 03:19] VITALS: BP 94/51
--- NOTE | 2024-02-04 04:23 | PTCARENOTE ---
Pt agitated throughout the night, screaming out statements such as 'Help, I am ' or just 'help'. AAOx2. Pt would ignore questions, when asking what is wrong. Pt denies pain. Continuously ripping off gown and tele monitor. Pulled out his IV.
Attempted re-orienting pt, speaking/educating pt, sitting with pt, television, light/dark in room, etc. Spoke with FIRE PREVENTION OFFICER. Zyprexa 2.5mg ordered and given. Pt still agitated.
224 Manual BP 78/42. 0000 dose 10mg midodrine PO given early. Recheck 96/48.
[2024-02-04] MEDS: TYLENOL 1000 MG PO (04:47)
[2024-02-04 06:00] VITALS: BMI 26.8
[2024-02-04 07:34] LABS: Glucose - Point of Care 102 mg/dl (70-99)
[2024-02-04 07:40] VITALS: BP 96/39
[2024-02-04] MEDS: ProAmatine 10 MG PO (09:34)
[2024-02-04] MEDS: NOVOLOG FLEXPEN-LOW RESISTANCE SC (09:34)
[2024-02-04] MEDS: FEOSOL 325 MG PO (09:35)
[2024-02-04] MEDS: PACERONE 200 MG PO (09:35)
[2024-02-04] MEDS: ZYLOPRIM 100 MG PO (09:35)
[2024-02-04] MEDS: HEPARIN 5000 UNITS SC (09:36)
[2024-02-04 09:37] VITALS: BP 96/39
[2024-02-04] MEDS: DESENEX/MITRAZOL/ZEASORB 1 APPLIC TOPICAL ×2 (09:39→20:01)
--- NOTE | 2024-02-04 09:55 | W.PN.HOSP.TC ---
Addendum entered and electronically signed by Minna Stone MD 02/29/24 07:15:
Cardiogenic shock
acute on chronic systolic heart failure
- decision made for comfort care/hospice
Original Note:
Today's Communication/Plan
-
GOC discussions this morning
Assessment / Plan
Assessment / Plan
CT A/P:
1. Small volume abdominopelvic ascites. Otherwise no significant acute abnormality identified in the abdomen or pelvis, as described above. Chronic changes as described.
2. Small bilateral pleural effusions.
Echo (TTE) 01/20/24: Normal LV size with moderate to severely reduced systolic function.
LVEF is approximately 30% by visual estimation with global diffuse hypokinesis.
Mild concentric LVH.
Normal right ventricular size and function.
Mild mitral regurgitation.
S/p bioprosthetic aortic valve. Peak/mean gradients are 38/18mmHg. Moderate
aortic regurgitation.
Severe tricuspid regurgitation.
Estimated pulmonary artery pressure of 60 mmHg. Assuming a right atrial
pressure of 8 mmHg.
Pleural effusion present.
No obvious vegetation.
Compared to prior from January 11, 2024, tricuspid regurgitation is now severe
from moderate to severe and estimated PASP is now moderate to severely elevated
at 60 mmHg from previously 43 mmHg.
Septic Shock (POA) with initial concern for bactremia but final culture with 2 different strains suggesting contaminants. Patient's blood cultures have remained negative.
He is s/p 8 days of IV Vancomycin
-appreciate ID consult; with finding contaminant - IV antibiotics stopped
-leukocytosis resolved and lactic acidosis
-Chest x-ray showed cardiomegaly mild pulmonary edema
-250cc IV fluids given on admission without change in blood pressure
-02/01 - patient's mentation is declining and appearing more uncomfortable. GOC discussions started 02/01 and family willing to hear more about hospice
-continue midodrine for now
-PRN Roxanol low dose started
-further GOC discussions to be had today - will need to update renal
HFrEF
-ECHO: 30%; Moderate AR, SEvere TR; No obvious vegetation (improvement compared to prior 01/08/22)
#Transaminitis
-hep C in the past - unclear if treated
�Appreciate GI consult
� Most likely chronic ALT elevation due to underlying hepatitis C, with now passive congestion, bacteremia, medication occluding antibiotics and amiodarone
- plan was for outpatient Hepatology follow up
Hyponatremia
-mild
-ctm
-HD
Other problems:
Abdominal pain: Etiology unclear, CT abdomen pelvis and abdominal ultrasound without any source visible
Acute nonischemic myocardial injury
ESRD: cont HD T//Thu, cont midodrine
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 Continue amiodarone.
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
Chronic HFrEF: Holding metoprolol
Severe status post bioprosthetic AVR
CAD: Continue statin, BB on hold
Obstructive sleep apnea
Essential hypertension: holding due to being on midodrine
Anemia of chronic disease: Continue ferrous sulfate
Chronic thrombocytopenia: Platelets stable
DM2: BGs controlled. a1c 4.5%. diet liberalized
Right renal lesion
h/o GIST tumor
Gout: Continue allopurinol
FULL/Heparin
Anticipated Discharge: 24 - 48 hours
Subjective/Interval History
-
Date of Service: February 04, 2024
moaning
Objective Data
-
Labs:
Laboratory Results
02/04/24
07:00
Hgb Pending
Hct Pending
Sodium Pending
Potassium Pending
Chloride Pending
Carbon Dioxide Pending
Vital Signs:
Vital Signs
Temp Pulse Resp BP Pulse Ox
96.1 F L 79 16 96/39 98
07/11/24 07:40 02/04/24 09:35 02/04/24 07:40 02/04/24 09:35 02/04/24 07:40
I&O
02/03/24 02/04/24 02/05/24
06:59 06:59 06:59
Intake Total 240 / 240 0 / 0
Balance 240 / 240 0 / 0
Review of Systems
-
History Source: Patient
All other systems: Reviewed and negative
Physical Exam
-
General: Other (appears chronically ill, intermittently moaning )
HEENT: PERRLA
Respiratory: Rales
Cardiac: Regular Rhythm and S1/S2
GI: Soft and Nontender
Neuro: Awake, Alert and Other (slow to respond to questions)
Psych: Calm
Data Reviewed
-
Diagnostic Radiology: Report Reviewed by me
Labs: Labs Reviewed by me
[2024-02-04] MEDS: VITAMIN D3 (cholecalciferol) 25 MCG PO (09:56)
--- NOTE | 2024-02-04 09:57 | CM ---
Addendum entered by Maribell Fan RN 02/04/24 14:36:
Patient to be transitioned onto [facility] hospice tomorrow.
Original Note:
Reviewed the chart notes. Received message from [facility] that [facility] accepted the patient. CM continues to be available to patient/family and is monitoring medical plan for needs at discharge.
Plan: Discharge plans will depend on progress. Transfer to SNF vs hospice.
--- NOTE | 2024-02-04 10:15 | HOSPNOTE ---
Spoke with daughter Patricia this morning and the family is in agreement with hospice care. I called Dr Stone and asked for her to reach out to cardiology to turn off defib. The plan is for patient to be admitted tomorrow 02/04 inpatient hospice. CM
asked to send referral.
--- NOTE | 2024-02-04 10:19 | W.PN.UPDATE ---
Update Note
Progress Note Update
spoke to Ana María Hurtado RN and followed up with daughter, Patricia. Patient is now on comfort measures. Daughter aware he may pass within hours. No dialysis, his AICD will be shut off - discussed with Dr. Barrow. Stop all non-comfort
medications.
will increase PRN morphine to 5mg as lower dose wasn't effective
PRN ativan
PRN Zyprexa
discussed with family that after they visit will discuss standing medications
--- NOTE | 2024-02-04 10:53 | PTOTSP ---
Reviewed chart and note pt is now on comfort measures and going on hospice. PT will sign off.
--- NOTE | 2024-02-04 11:28 | W.PN.NEPH.PH ---
Today's Communication / Plan
-
Sign off no more dialysis hospice care
Assessment/Plan
-
IMP:
Gen weakness
Sepsis
Hypotension
Lactic acidosis
ESRD HD started 06/2023-[facility]
Right UE AVG, placed 11/2023
CHF with R EF 30%
Severe TR
Nonobstructive CAD
Chronic anemia likely multifactorial
Bioprosthetic aortic valve 2010
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
ICD
h/o atrial fibrillation off anticoagulation due to recurrent GI bleed
History of GIST tumor previously treated with Gleevac
Bilateral renal cyst with prior concern for masses
Gout
Diabetes mellitus type 2
Basal cell skin cancer
Plan:
Hospice arrangements to be made
Dialysis will be canceled
-
-
Date of Service: February 04, 2024
CC / HPI / ROS
-
Chief Complaint:
ESRD
History of Present Illness:
Remains hypotensive on midodrine but stable
ESRD Thursday tolerated HD thursday
thrombocytopenia stable
off abx
Review of Systems:
no CP/SOB
Poor appetite
Labs
-
Labs:
WBC 10.3 10^3/uL (4.8-10.8) 02/02/24 08:06
RBC 3.08 10^6/uL (4.70-6.10) L 02/02/24 08:06
Hgb Cancelled 02/04/24 07:00
Hct Cancelled 02/04/24 07:00
Plt Count 71 10^3/uL (130-400) L 02/02/24 08:06
Sodium Cancelled 02/04/24 07:00
Potassium Cancelled 02/04/24 07:00
Chloride Cancelled 02/04/24 07:00
Carbon Dioxide Cancelled 02/04/24 07:00
BUN 64 mg/dl (9-20) H 02/02/24 08:06
Creatinine 5.7 mg/dL (0.7-1.3) H* 02/02/24 08:06
eGFR 9.19 02/02/24 08:06
Glucose 101 mg/dl (70-99) H 02/02/24 08:06
Calcium 8.4 mg/dl (8.4-10.2) 02/02/24 08:06
Phosphorus 4.9 mg/dl (2.5-4.5) H 01/23/24 04:08
Rvw-Y-Dkanntncfsu Pept > 12693 pg/ml 01/18/24 14:10
Albumin 2.6 g/dl (3.5-5.0) L 02/02/24 08:06
Physical Exam
-
Vital Signs:
Vital Signs
Temp Pulse Resp BP Pulse Ox
96.1 F L 79 16 96/39 98
02/04/24 07:40 02/04/24 09:35 02/04/24 07:40 02/04/24 09:35 02/04/24 07:40
Cardiovascular:: Regular rate and rhythm
Respiratory:: Bilateral: Coarse
Lung Excursion:: Normal
Abdomen:: Nontender and Soft
Bowel Sounds:: Normal
Extremity Edema:: None: Bilateral:
--- NOTE | 2024-02-04 11:36 | W.CAR.ICD ---
ICD Inactivation Request
-
Faculty Support Coordinator Notified: [employer]
The above vendor has been contacted to inactivate the patient's Implantable Cardioverter Defibrillator.
--- NOTE | 2024-02-04 13:45 | W.ICD.INACTI ---
ICD Device Inactivated
-
The patient's ICD device has been inactivated by the vendor, [employer].
[2024-02-04] MEDS: ATIVAN 0.5 MG IV ×2 (14:23→23:26)
[2024-02-04 19:40] VITALS: BP 92/57
[2024-02-05] MEDS: ATIVAN 0.5 MG IV ×3 (04:09→14:47)
[2024-02-05] MEDS: NSS (PRESERVATIVE FREE) 0.25 ML IV ×2 (04:09→09:42)
[2024-02-05] MEDS: ROXANOL ORAL CONCENTRATE 5 MG PO ×2 (04:11→08:22)
[2024-02-05 07:40] VITALS: BP 88/39
[2024-02-05] MEDS: DESENEX/MITRAZOL/ZEASORB 1 APPLIC TOPICAL (08:23)
--- NOTE | 2024-02-05 09:09 | W.PN.HOSP.TC ---
Today's Communication/Plan
-
comfort care
change to PRN IV morphine - liberal with use
Assessment / Plan
Assessment / Plan
CT A/P:
1. Small volume abdominopelvic ascites. Otherwise no significant acute abnormality identified in the abdomen or pelvis, as described above. Chronic changes as described.
2. Small bilateral pleural effusions.
Echo (TTE) 01/20/24: Normal LV size with moderate to severely reduced systolic function.
LVEF is approximately 30% by visual estimation with global diffuse hypokinesis.
Mild concentric LVH.
Normal right ventricular size and function.
Mild mitral regurgitation.
S/p bioprosthetic aortic valve. Peak/mean gradients are 38/18mmHg. Moderate
aortic regurgitation.
Severe tricuspid regurgitation.
Estimated pulmonary artery pressure of 60 mmHg. Assuming a right atrial
pressure of 8 mmHg.
Pleural effusion present.
No obvious vegetation.
Compared to prior from January 11, 2024, tricuspid regurgitation is now severe
from moderate to severe and estimated PASP is now moderate to severely elevated
at 60 mmHg from previously 43 mmHg.
Septic Shock (POA) with initial concern for bactremia but final culture with 2 different strains suggesting contaminants. Patient's blood cultures have remained negative.
He is s/p 8 days of IV Vancomycin
-appreciate ID consult; with finding contaminant - IV antibiotics stopped
-leukocytosis resolved and lactic acidosis
-Chest x-ray showed cardiomegaly mild pulmonary edema
-250cc IV fluids given on admission without change in blood pressure
-02/01 - patient's mentation is declining and appearing more uncomfortable. GOC discussions started 02/01 and family willing to hear more about hospice
-02/03 - decision made with family for comfort
-IV morphine/ativan PRN
-zyprexa PRN
-his AICD is turned off
-appreciate hospice eval
HFrEF
-ECHO: 30%; Moderate AR, SEvere TR; No obvious vegetation (improvement compared to prior 01/08/22)
#Transaminitis
-hep C in the past - unclear if treated
�Appreciate GI consult
� Most likely chronic ALT elevation due to underlying hepatitis C, with now passive congestion, bacteremia, medication occluding antibiotics and amiodarone
- plan was for outpatient Hepatology follow up
Hyponatremia
-mild
-ctm
-HD
Other problems:
Abdominal pain: Etiology unclear, CT abdomen pelvis and abdominal ultrasound without any source visible
Acute nonischemic myocardial injury
ESRD: cont HD T//Thu, midodrine stopped
Persistent atrial fibrillation
h/o polymorphic VT status post ICD:
Chronic HFrEF:
Severe status post bioprosthetic AVR
CAD:
Obstructive sleep apnea
Essential hypertension: h
Anemia of chronic disease:
Chronic thrombocytopenia:
DM2: BGs controlled. a1c 4.5%. diet liberalized
Right renal lesion
h/o GIST tumor
Gout: Continue allopurinol
FULL/Heparin
Anticipated Discharge: 24 - 48 hours
Subjective/Interval History
-
Date of Service: February 05, 2024
patient lethargic, moaning in bed
Objective Data
-
Vital Signs:
Vital Signs
Temp Pulse Resp BP Pulse Ox
97.5 F 81 18 88/39 94
02/04/24 19:40 02/05/24 07:40 02/05/24 07:40 02/05/24 07:40 02/05/24 07:40
I&O
02/04/24 02/05/24 02/06/24
06:59 06:59 06:59
Intake Total 0 / 0 0 / 0
Balance 0 / 0 0 / 0
Review of Systems
-
Unable to obtain full review of systems at this time due to: Patient Non-verbal
History Source: Patient
Physical Exam
-
General: Other (appears chronically ill, intermittently moaning )
HEENT: PERRLA
Respiratory: Rales
Cardiac: Regular Rhythm and S1/S2
GI: Soft and Nontender
Neuro: Awake, Alert and Other (slow to respond to questions)
Psych: Calm
Data Reviewed
-
Diagnostic Radiology: Report Reviewed by me
Labs: Labs Reviewed by me
[2024-02-05] MEDS: MORPHINE SULFATE 2 MG IV ×3 (09:32→11:36)
[2024-02-05] MEDS: ROBINUL 0.2 MG IV ×2 (09:55→14:47)
--- NOTE | 2024-02-05 10:01 | W.HF.CON ---
Heart Failure
- LV Function
Left ventricular function study result: LV Ejection fraction </= 35%
Ejection Fraction Percentage: 30
- ARNI
Patient already on ARNI: No
Heart Failure ARNI Contraindication: Comfort Measures Only
- ACEI/ARB
Patient already on ACEI/ARB: No
Heart Failure ACEI/ARB Contraindication: Comfort Measures Only
- Beta Phyllis
Patient already on Evidence Based Beta Phyllis: No
Heart Failure Evidence Based Beta Phyllis: Comfort Measures Only
- Mineralocorticord Receptor Antagonist
Patient already on MRA: No
Heart Failure MRA Contraindication: Comfort Measures Only
- SGLT-2 Inhibitor
Patient already on SGLT-2 Inhibitor: No
Heart Failure SGLT-2 Inhibitor Contraindication: Comfort Measures
- Afib Anticoagulation
Patient already on Anticoagulation for Afib: No
Heart Failure Afib Anticoagulation Contraindication: Comfort Measures Only
--- NOTE | 2024-02-05 11:41 | CM ---
Addendum entered by Maribell Fan RN 02/05/24 15:57:
Patient now GIP hospice.
Original Note:
Reviewed the chart notes. Remains on comfort care. CM continues to be available to patient/family.
Plan: Comfort care.
[2024-02-05] MEDS: MORPHINE 100 IV (12:24)
--- NOTE | 2024-02-05 12:55 | PN.CDI ---
CDI
- -
CDI:
Physician Documentation Request
Admit Date: 01/18/24 21:50
Dear Doctor Chase,
Patient admitted with septic shock.
02/04 PN, 'Septic Shock (POA)....Transaminitis.'
AST/ ALT levels and MAPS's documented below:
Patient received IV Levophed from 01/17 -01/21.
Laboratory Tests
01/27/24 01/29/24 01/30/24
06:10 06:19 07:56
AST 219 H 224 H 229 H
ALT 57 H 59 H 66 H
01/31/24 02/01/24 02/02/24
06:53 07:56 08:06
AST 250 H 275 H 277 H
ALT 74 H 82 H 84 H
Selected Entries
01/18/24
14:24 01/18/24
14:30 01/18/24
14:45
MAP (cuff-Marcella Monitor) 57 58 57
01/18/24
15:00 01/18/24
15:15 01/18/24
16:15
MAP (cuff-Marcella Monitor) 50 58 57
Based on the above, please clarify in the progress notes, the appropriate diagnosis, if significant, that supports the above abnormalities and additional evaluation, monitoring and/or treatment rendered:
Shock liver
Transaminitis only
Other
Use of terms such as suspected, likely, concern for, or probable (associated with a specific diagnosis that is being evaluated, monitored, or treated as if it exists) are acceptable and can be coded in the inpatient setting, when documented at the
time of discharge.
Thank you,
Anastasia ROSA,RN,CCDS
CDI Specialist
Available via [employer] text
Please use your independent medical judgment in providing your response.
--- NOTE | 2024-02-05 14:29 | HOSPNOTE ---
Patients signed the consent for Hospice services.Patient is not responsive to voice but did moan on repositioning.Terminal secretions noted.Morphine drip step [address] Stone was notified that family has signed consents. Patient
will remain GIP due to needing skilled assessments for titration of comfort meds . Family has agreed to the use of all comfort medications.
--- NOTE | 2024-02-05 15:01 | W.DCSUMMARY ---
Discharge Summary
Discharge Data
Date of Admission: 01/18/24
Date of Discharge: 02/05/24
-
Pending Results: No
Hospital Course
Discharging Physician : Dr. Minna Stone
Disposition : Inpatient Hospice
Principal Discharge diagnosis : Systolic Heart Failure, persistent hypotension
Hospital Course :
Mr. Mauro Santana is a 83 yo man with hx ESRD on HD T//Thu, polymorphic VT on AICD, paroxysmal afib not on anticoagulation, severe s/p bioprosthetic AVR 2010, BENJIE, HTN, DM II, hx GIST tumor, HFrEF (EF 30%) presents to the ER with weakness,
shortness of breath and low blood pressures seen on dialysis. Patient was initially admitted with concern for septic shock and was maintained on broad spectrum antibiotics. Two blood cultures returned positive for staph but final speciation showed
different species therefore more suspected to be contaminants, and antibiotics stopped. He was weaned off pressors and started on midodrine. Patient remained frail with continued deconditioning during hospital stay from likely cardiorenal
syndrome. He showed signs of becoming increasingly agitated and uncomfortable. Decision made to pursue comfort care and hospice. Dialysis, midodrine stopped. He is now started on a morphine gtt for comfort.
Important imaging findings :
Procedure findings :
Discharge Plan
-
Patient Disposition: Hospice - Inpatient
Discharge Diagnosis/Procedures: cardiorenal syndrome
Diet: Regular
Activity: As tolerated
Driving Restrictions: No driving
Bathing Restrictions: None
Referrals:
Pio Nichole MD [Active] - in four to six weeks (call the office to schedule appt)
Nato Zapata MD [Active] - in one to two weeks
NONE,* [Family Provider] - in less than 1 week
Prescriptions:
New
lorazepam [Ativan] 2 mg/mL Solution
0.5 mg IV Q4HPRN PRN (Reason: anxiety) Qty: 25 0RF
haloperidol lactate 5 mg/mL Solution
0.5 mg IV Q4HPRN PRN (Reason: agitation/terminal delirium) Qty: 0 0RF
morphine in 0.9 % sodium chlor 1 mg/mL Solution
100 mg IV PER PROTOCOL Qty: 0 0RF
morphine 2 mg/mL Syringe
0 mg IV [id number] PRN (Reason: moderate-severe pain / dyspnea) Qty: 0 0RF
sodium chloride 0.9 % Solution
0.25 ml IV Q4HPRN PRN (Reason: IV LORAZEPAM DILUTION) Qty: 0 0RF
glycopyrrolate 0.2 mg/mL Solution
0.2 mg IV Q4HPRN PRN (Reason: excessive secretions) Qty: 0 0RF
Continued
hydrocortisone 1 % Lotion
1 applic TOPICAL DAILYPRN PRN (Reason: rash on back)
Discontinued
atorvastatin 20 MG tablet
20 mg PO HS
allopurinol 100 MG tablet
100 mg PO DAILY
ferrous sulfate 325 mg (65 mg iron) tablet
325 mg PO DAILY Qty: 30 0RF
metoprolol succinate 25 mg tablet extended release 24 hr
25 mg PO HS
acetaminophen 500 mg Tablet
1,000 mg PO BIDPRN PRN (Reason: mild pain)
cholecalciferol (vitamin D3) 25 mcg (1,000 unit) Tablet
25 mcg PO TUTHSA
Mircera 30 mcg/0.3 mL Syringe
30 mcg SC Q4W
midodrine 5 mg Tablet
5 mg PO TUTHSA
Patient Comments:
01/18/24: 1/2 hour before dialysis
amiodarone [Pacerone] 200 mg tablet
200 mg PO DAILY
Discharge Orders:
Discharge Patient (As Directed); Ordered 02/05/24
Ordered By: Minna Stone
Discharge Date and Time
Print Language: CROATIAN
--- NOTE | 2024-02-05 15:15 | W.DS.TRANS ---
DC Summary - Fundraising Director
-
Discharge Instructions:
Discharge Diagnosis/Procedures cardiorenal syndrome
Diet Regular
Activity As tolerated
Driving Restrictions No driving
Bathing Restrictions None
Instructions:
Stand-Alone Forms:
Changes to Home Medications: Yes
Discharge Medications:
DC Medications w/original date entered in [employer]
hydrocortisone 1 % lotion 1 applic topical DAILYPRN PRN rash on back 01/18/24
glycopyrrolate 0.2 mg/mL injection solution 0.2 mg IV Q4HPRN PRN excessive secretions #0 mL 02/05/24
haloperidol lactate 5 mg/mL injection solution 0.5 mg (0.1 mL) IV Q4HPRN PRN agitation/terminal delirium #0 mL 02/05/24
lorazepam 2 mg/mL injection solution (Ativan) 0.5 mg (0.25 mL) IV Q4HPRN PRN anxiety #25 mL 02/05/24
morphine 1 mg/mL in 0.9 % sodium chloride intravenous 100 mg (100 mL) IV PER PROTOCOL #0 mL 02/05/24
morphine 2 mg/mL injection syringe 0 mg (0 mL) IV [id number] PRN moderate-severe pain / dyspnea #0 mL 02/05/24
sodium chloride 0.9 % 0.25 ml IV Q4HPRN PRN IV LORAZEPAM DILUTION #0 mL 02/05/24
Home Medication Changes
comfort meds
Pending Results: No
--- NOTE | 2024-02-09 15:04 | PN.CDI ---
CDI
- -
CDI:
Physician Documentation Request
Admit Date: 01/18/24 21:50
Dear Doctor Chase,
Patient admitted with septic shock
01/19- 02/04 PN, 'Septic Shock (POA).'
02/04 PN, 'Septic Shock (POA) with initial concern for bacteremia but final culture with 2 different strains suggesting contaminants. Patient's blood cultures have remained negative. He is s/p 8 days of IV Vancomycin -appreciate ID consult; with
finding contaminant - IV antibiotics stopped.'
Discharge summary, ' Patient was initially admitted with concern for septic shock and was maintained on broad spectrum antibiotics. Two blood cultures returned positive for staph but final speciation showed different species therefore more
suspected to be contaminants, and antibiotics stopped.
After careful study, please clarify the following:
Sepsis/ septic shock of unclear etiology was POA and remains a valid diagnosis
Sepsis/ septic shock was ruled out
Other
Use of terms such as suspected, likely, concern for, or probable (associated with a specific diagnosis that is being evaluated, monitored, or treated as if it exists) are acceptable and can be coded in the inpatient setting, when documented at the
time of discharge.
Thank you,
Anastasia ROSA,RN,CCDS
CDI Specialist
Available via [place] text
Please use your independent medical judgment in providing your response.
--- NOTE | 2024-02-26 14:52 | PN.CDI ---
CDI
- -
CDI:
Physician Documentation Request
Admit Date: 01/18/24 21:50
Dear Doctor Chase,
Patient admitted with hypotension.
01/17 Nephrology consult, 'CXR: IMPRESSION: Cardiomegaly with mild pulmonary edema...plan HD tomorrow with UF as allows, CXR noted mild CHF.
01/18 Dialysis note, 'Ultrafiltration: Other (1kg)'
02/04 PN, 'CT A/P: Small bilateral pleural effusions...HFrEF.'
01/17 Pro BNP >[id number]
Please provide in your not the acuity of documented systolic CHF:
Acute on chronic systolic CHF
Chronic systolic CHF
Other
Use of terms such as suspected, likely, concern for, or probable (associated with a specific diagnosis that is being evaluated, monitored, or treated as if it exists) are acceptable and can be coded in the inpatient setting, when documented at the
time of discharge.
Thank you,
Anastasia ROSA,RN,CCDS
CDI Specialist
Available via [place] text
Please use your independent medical judgment in providing your response.
--- NOTE | 2024-02-26 15:06 | PN.CDI ---
CDI
- -
CDI:
Physician Documentation Request
Admit Date: 01/18/24 21:50
Dear Doctor Chase,
Patient admitted with hypotension.
01/17 H&P ,'Patient has recently had issues with hypotension and was started on midodrine with dialysis.
01/18 PN, 'Shock: -Likely septic shock (POS BCxs), much less likely cardiogenic shock....-250cc IV fluids given without change in blood pressure, Levophed started.'
01/22 PN,'-currently on Levophed/Vasopressin ...cont Midodrine, now at increased dose
02/04 H&P, 'Sepsis/ septic shock was ruled out.'
Please clarify which of the following is the most likely etiology of the above symptoms and treatment rendered:
Hypovolemic shock
Cardiogenic shock
Other
Use of terms such as suspected, likely, concern for, or probable (associated with a specific diagnosis that is being evaluated, monitored, or treated as if it exists) are acceptable and can be coded in the inpatient setting, when documented at the
time of discharge.
Thank you,
Anastasia ROSA,RN,CCDS
CDI Specialist
Available via [place] text
Please use your independent medical judgment in providing your response.
--- NOTE | 2024-02-26 15:23 | PN.CDI ---
CDI
- -
CDI:
Physician Documentation Request
Admit Date: 01/18/24 21:50
Dear Doctor Chase,
Patient admitted with hypotension.
01/17 H&P ,'Patient has recently had issues with hypotension and was started on midodrine with dialysis.
01/18 PN, 'Shock: -Likely septic shock (POS BCxs), much less likely cardiogenic shock....-250cc IV fluids given without change in blood pressure, Levophed started.'
01/22 PN,'-currently on Levophed/Vasopressin ...cont Midodrine, now at increased dose
02/04 H&P, 'Sepsis/ septic shock was ruled out.'
Please clarify which of the following is the most likely etiology of the above symptoms and treatment rendered:
Hypovolemic shock
Cardiogenic shock
Other shock
Use of terms such as suspected, likely, concern for, or probable (associated with a specific diagnosis that is being evaluated, monitored, or treated as if it exists) are acceptable and can be coded in the inpatient setting, when documented at the
time of discharge.
Thank you,
Anastasia ROSA,RN,CCDS
CDI Specialist
Available via [employer]
Please use your independent medical judgment in providing your response.
== END 2024-02-05 15:37 | disposition hospice, inpatient (51) | DRG 291 ==
LOC: 2 NORTH 21:50
PROVIDERS: Emergency Medicine; Internal Medicine; Internal Medicine Infectious Disease; Nurse Practitioner; Nurse Practitioner Family; Nurse Practitioner Primary Care; Radiology Diagnostic Radiology; Specialist; Student in an Organized Health Care Education/Training Program; ADMITTING PHYSICIAN Hospitalist; ATTENDING PHYSICIAN Student in an Organized Health Care Education/Training Program; CONSULT PHYSICIAN Internal Medicine Cardiovascular Disease; CONSULT PHYSICIAN Internal Medicine Gastroenterology; EMERGENCY PHYSICIAN Emergency Medicine; OTHER PHYSICIAN Internal Medicine; OTHER PHYSICIAN Internal Medicine Infectious Disease
PROC: 05PY33Z Removal of Infusion Device from Upper Vein, Percutaneous Approach (ICD-10-PCS; 2024-01-19)
PROC: 5A1D70Z Performance of Urinary Filtration, Intermittent, Less than 6 Hours Per Day (ICD-10-PCS; 2024-01-19)
PROC: 03HY32Z Insertion of Monitoring Device into Upper Artery, Percutaneous Approach (ICD-10-PCS; 2024-01-21)
PROC: 5A09357 Assistance with Respiratory Ventilation, Less than 24 Consecutive Hours, Continuous Positive Airway Pressure (ICD-10-PCS; 2024-01-30)
DX: I13.2 Hypertensive heart and chronic kidney disease with heart failure and with stage 5 chronic kidney disease, or end stage renal disease (principal); I50.23 Acute on chronic systolic (congestive) heart failure; N18.6 End stage renal disease; R57.0 Cardiogenic shock; I47.20 Ventricular tachycardia, unspecified; E87.20 Acidosis, unspecified; I48.19 Other persistent atrial fibrillation; E87.1 Hypo-osmolality and hyponatremia; R18.8 Other ascites; T82.7XXA Infection and inflammatory reaction due to other cardiac and vascular devices, implants and grafts, initial encounter; I95.3 Hypotension of hemodialysis; I5A Non-ischemic myocardial injury (non-traumatic); Z99.2 Dependence on renal dialysis; Z51.5 Encounter for palliative care; Z66 Do not resuscitate; G47.33 Obstructive sleep apnea (adult) (pediatric); E11.22 Type 2 diabetes mellitus with diabetic chronic kidney disease; D72.829 Elevated white blood cell count, unspecified; S90.811A Abrasion, right foot, initial encounter; S80.812A Abrasion, left lower leg, initial encounter; W22.03XA Walked into furniture, initial encounter; R10.9 Unspecified abdominal pain; E78.00 Pure hypercholesterolemia, unspecified; M10.9 Gout, unspecified; B19.20 Unspecified viral hepatitis C without hepatic coma; D63.1 Anemia in chronic kidney disease; D69.6 Thrombocytopenia, unspecified; K76.1 Chronic passive congestion of liver; R74.01 Elevation of levels of liver transaminase levels; T36.95XA Adverse effect of unspecified systemic antibiotic, initial encounter; T46.2X5A Adverse effect of other antidysrhythmic drugs, initial encounter; L89.152 Pressure ulcer of sacral region, stage 2; N28.89 Other specified disorders of kidney and ureter; I25.10 Atherosclerotic heart disease of native coronary artery without angina pectoris; E66.9 Obesity, unspecified; I07.1 Rheumatic tricuspid insufficiency; H91.90 Unspecified hearing loss, unspecified ear; Y83.8 Other surgical procedures as the cause of abnormal reaction of the patient, or of later complication, without mention of misadventure at the time of the procedure; Z68.28 Body mass index [BMI] 28.0-28.9, adult; Z95.810 Presence of automatic (implantable) cardiac defibrillator; Z95.3 Presence of xenogenic heart valve; Z87.891 Personal history of nicotine dependence
CPT/HCPCS: 93308; 36589; 71045; 74177; 76700; 80048; 80053; 80076; 80202; 82248; 82805; 82962; 83036; 83605; 83735; 83880; 84100; 84484; 85025; 85027; 85610; 85730; 86850; 86900; 86901; 87040; 87070; 87084; 87147; 87150; 87205; 87522; 92610; 93005; 93321; 93325; 94660; 96360; 96361; 97110; 97116; 97163; 97166; 97530; 97535; 99291; G0257; P9047; Q5106; Q9967

== ENCOUNTER 2024-02-05 15:39 | Inpatient (IN) | payer OTHER, SELFPAY ==
--- NOTE | 2024-02-05 17:53 | HPS.HSE ---
Addendum entered and electronically signed by Minna Stone MD 02/09/24 18:52:
Sepsis/ septic shock was ruled out
Addendum entered and electronically signed by Minna Stone MD 02/06/24 07:14:
transaminitis only (liver enzymes were not elevated enough to classify for shock liver)
Original Note:
Family Physician
-
Family Physician: NOT KNOW UNKNOWN - PT DOES
Chief Complaint
-
hospice
History of Present Illness
Mr. Mauro Santana is a 83 yo man with hx ESRD on HD /, polymorphic VT on AICD, paroxysmal afib not on anticoagulation, severe s/p bioprosthetic AVR 2010, BENJIE, HTN, DM II, hx GIST tumor, HFrEF (EF 30%) presents to the ER with weakness,
shortness of breath and low blood pressures seen on dialysis. Patient was initially admitted with concern for septic shock and was maintained on broad spectrum antibiotics. Two blood cultures returned positive for staph but final speciation showed
different species therefore more suspected to be contaminants, and antibiotics stopped. He was weaned off pressors and started on midodrine. Patient remained frail with continued deconditioning during hospital stay from likely cardiorenal
syndrome. He showed signs of becoming increasingly agitated and uncomfortable. Decision made to pursue comfort care and hospice. Dialysis, midodrine stopped. He is now started on a morphine gtt for comfort.
Medical History
Past Medical History
Past Medical History: Reports Other (ESRD on hemodialysis Thursday, , Thursday,, polymorphic VT status post ICD, paroxysmal atrial fibrillation not on anticoagulation, HFrEF, severe aortic stenosis status post bioprosthetic AVR in 2010,
coronary artery disease, obstructive sleep apnea, hypertension, anemia of chronic disease, ch)
Past Surgical History: Reports Other ( Appendectomy, Cardiac and Orthopedic)
Social History
Tobacco: Non-smoker
Alcohol: None
Drug: None
Family History
Family History: Not pertinent
Allergies / Home Medications
Allergies reflects when Allergies were last updated in [employer].
Home Medications with original date entered in [employer]
Allergy/Medication List:
Allergies
Allergy/AdvReac Type Severity Reaction Status Date / Time
No Known Allergies Allergy Verified 12/15/23 11:17
Home Medications
atorvastatin 20 mg tablet 20 mg PO HS High cholesterol 11/08/14
allopurinol 100 mg tablet 100 mg PO DAILY Gout 01/13/17
ferrous sulfate 325 mg (65 mg iron) tablet 325 mg PO DAILY anemia #30 tabs 06/18/23
metoprolol succinate 25 mg tablet,extended release 24 hr 25 mg PO HS HTN 09/03/23
acetaminophen 500 mg tablet 1,000 mg PO BIDPRN PRN mild pain 09/07/23
cholecalciferol (vitamin D3) 25 mcg (1,000 unit) tablet 25 mcg PO TUTHSA Supplement 12/15/23
epoetin beta, methoxy peg 30 mcg/0.3 mL injection syringe (Mircera) 30 mcg SC Q4W 12/15/23
amiodarone 200 mg tablet (Pacerone) 200 mg PO DAILY VT/vfib 01/18/24
hydrocortisone 1 % lotion 1 applic topical DAILYPRN PRN rash on back 01/18/24
midodrine 5 mg tablet 5 mg PO TUTHSA 01/18/24
Review of Systems
-
Unable to obtain full review of systems at this time due to: Patient Non-verbal
History Source: Patient
Physical Exam
Vital Signs
Vital Signs
Temp Pulse Resp BP Pulse Ox
99.6 F 82 22 85/47 94
01/18/24 14:03 01/18/24 20:15 01/18/24 20:15 01/18/24 20:15 01/18/24 20:15
Physical Exam
General: Well Developed, Well Nourished and No Apparent Distress
HEENT: NormoCephalic, Moist mucous membranes and Atraumatic
Respiratory: Clear
Cardiac: S1/S2 and Regular Rhythm; No Murmur or Rub
GI: Soft, Non Tender, Non Distended and Normal Bowel Sounds; No Organomegaly
Rectal: Deferred by Provider
Musculoskeletal: No Clubbing, No Cyanosis and No Edema
Skin: No Rash
Neuro: Nonfocal/grossly intact
Data Reviewed
-
Diagnostic Radiology: Report Reviewed by me
Impression/Plan
-
Mr. Mauro Santana is a 83 yo man with hx ESRD on HD T//Thu, polymorphic VT on AICD, paroxysmal afib not on anticoagulation, severe s/p bioprosthetic AVR 2010, BENJIE, HTN, DM II, hx GIST tumor, HFrEF (EF 30%) presents to the ER with weakness,
shortness of breath and low blood pressures seen on dialysis. Patient was initially admitted with concern for septic shock and was maintained on broad spectrum antibiotics. Two blood cultures returned positive for staph but final speciation showed
different species therefore more suspected to be contaminants, and antibiotics stopped. He was weaned off pressors and started on midodrine. Patient remained frail with continued deconditioning during hospital stay from likely cardiorenal
syndrome. He showed signs of becoming increasingly agitated and uncomfortable. Decision made to pursue comfort care and hospice. Dialysis, midodrine stopped. He is now started on a morphine gtt for comfort
-midodrine and HD stopped
-morphine gtt with bolus PRN
-ativan PRN
-robinol PRN
-family updated daily
-appreciate hospice team
DNR
[2024-02-05] MEDS: MORPHINE SULFATE 2 MG IV (18:09)
[2024-02-05] MEDS: ROBINUL 0.2 MG IV (18:10)
[2024-02-05 19:40] VITALS: BP 66/36
--- NOTE | 2024-02-05 20:26 | PTCARENOTE ---
EVAN Taylor pronounced patient at 1950. Family currently in room.
--- NOTE | 2024-02-05 22:19 | W.PN.DEATH ---
Pronouncement of
-
Called to see patient to pronounce.
No spontaneous heart tones or respirations noted.
Patient not responsive to verbal stimuli.
Patient is pronounced .
Time of : 19:50
Date of : 02/05/24
Family Notified: Yes
--- NOTE | 2024-02-06 07:11 | W.DCSUMMARY ---
Discharge Summary
Discharge Data
Date of Admission: 02/05/24
Date of Discharge: 02/05/24
-
Pending Results: No
Hospital Course
Time of 19:50 on 02/05/24
Mr. Mauro Santana is a 83 yo man with hx ESRD on HD T//Thu, polymorphic VT on AICD, paroxysmal afib not on anticoagulation, severe s/p bioprosthetic AVR 2010, BENJIE, HTN, DM II, hx GIST tumor, HFrEF (EF 30%) presents to the ER with weakness,
shortness of breath and low blood pressures seen on dialysis. Patient was initially admitted with concern for septic shock and was maintained on broad spectrum antibiotics. Two blood cultures returned positive for staph but final speciation showed
different species and follow up remained negative therefore proven to be contaminants, and antibiotics stopped. He was weaned off pressors and started on higher doses of midodrine. Patient remained frail with continued deconditioning during
hospital stay from likely progressive cardiorenal syndrome. He showed signs of becoming increasingly agitated and uncomfortable. Decision made to pursue comfort care and hospice. Dialysis, midodrine stopped. He was started on a morphine gtt and
admitted to inpatient hospice. He evening 02/05/24 and family notified.
Discharge Plan
-
Patient Disposition:
Date/Time
Date/Time: 02/05/24 19:50
Discharge Date and Time
Discharge Date/Time: 02/05/24 22:06
Print Language: KOREAN
== END 2024-02-05 22:06 | disposition expired | DRG 951 ==
LOC: 2 NORTH 15:39
PROVIDERS: ADMITTING PHYSICIAN Student in an Organized Health Care Education/Training Program
DX: Z51.5 Encounter for palliative care (principal); N18.6 End stage renal disease; I13.2 Hypertensive heart and chronic kidney disease with heart failure and with stage 5 chronic kidney disease, or end stage renal disease; I50.22 Chronic systolic (congestive) heart failure; I47.29 Other ventricular tachycardia; E11.22 Type 2 diabetes mellitus with diabetic chronic kidney disease; Z66 Do not resuscitate; G47.33 Obstructive sleep apnea (adult) (pediatric); I48.0 Paroxysmal atrial fibrillation; R74.01 Elevation of levels of liver transaminase levels; D63.1 Anemia in chronic kidney disease; R45.1 Restlessness and agitation; Z95.2 Presence of prosthetic heart valve; Z99.2 Dependence on renal dialysis; Z95.810 Presence of automatic (implantable) cardiac defibrillator